=== PATIENT | female | born 1995 | race Caucasian/White ===

== ENCOUNTER 2016-08-11 12:04 | Inpatient (IN) | payer MEDICAID, SELFPAY ==
[2016-08-11] VITALS (29 sets, daily range): BP systolic 82–133; BP diastolic 48–103; PULSE 111–145; RESP 13–28; TEMP 35.9–37; O2SAT 97–100
--- NOTE | 2016-08-11 12:21 | NURSING ---
PT DIFFICULT TO GET A PERIPHERAL LINE AT THIS TIME. DR. ESTRADA AT BEDSIDE ATTEMPTING TO INSERT JUGULAR CENTRAL LINE. PT RESISTING AND BEING HELD BY RN, K 9 POLICE OFFICER, AND RT. PT NOT COOPERATING AND PHYSICIAN NOT ABLE. PERIPHERAL WILL NOW BE ATTEMPTED TO BE INSERTED.
--- NOTE | 2016-08-11 12:31 | ED.RN ---
20 MG OF ATOMIDATE GIVEN AT 1232; 50 MG OF FIDEL GIVEN AT 1232; 5 MG OF VERSED GIVEN AT 12:45 PRIOR TO PLACING CENTRAL LINE.
[2016-08-11 12:32] LABS: Base Excess -25 mmol/L (-2 to +2); Bicarbonate 4 mmol/L (22-26); Blood Gas Specimen Type ART; PO2 134 mmHG (75-100); SO2 98 % (95-99); Total Carbon Dioxide < 5 mmol/L; pH 7.12 (7.35-7.45)
--- NOTE | 2016-08-11 12:52 | EKG12_ITS ---
Test Reason : DKA Blood Pressure : / mmHG Vent. Rate : 147 BPM Atrial Rate : 147 BPM P-R Int : 118 ms QRS Dur : 078 ms QT Int : 282 ms P-R-T Axes : 074 -72 055 degrees QTc Int : 441 ms Sinus tachycardia Right atrial enlargement Left axis deviation Abnormal ECG Confirmed by MAXI HARO, HITESH ([id number]), material expeditor AROLDO PIERCE ([id number] on 08/13/2016 12:49:16 PM Referred By: SEAN Confirmed By:HITESH GERMAN MD
--- NOTE | 2016-08-11 12:52 | RAD_ITS ---
STUDY: X-RAY CHEST REASON FOR EXAM: Female, 20 years old. Hyperglycemia. History of drug abuse. Placement of endotracheal and NG tubes. TECHNIQUE: Single frontal view of the chest. COMPARISON: August 02, 2016 FINDINGS: Jugular catheter tip is projected over the lower SVC. Tip of the endotracheal tube is approximately 1.4 cm above the noel and should be retracted at least 2 cm. Tip of the feeding tube is projected over the fundus of the stomach. There is mild hyperexpansion unchanged. There is no demonstrated pleural abnormality. Normal size heart. Normal mediastinum and bernard. Normal visualized pulmonary arteries. Normal visualized aortic arch and descending thoracic aorta. Normal visualized thoracic spine. Normal visualized ribs, clavicles, and shoulders. There is no demonstrated abnormality of the visualized soft tissue structures of the upper abdomen. RAD/Chest 1 View (Portable) IMPRESSION: Placement of support devices as described above. No acute pathology. Electronically Signed: Josh Rosenbaum MD at 13:28 EDT , Service support ,
[2016-08-11] MEDS: Etomidate 20 MG/10 ML Vial IV (13:00)
[2016-08-11] MEDS: Rocuronium Bromide 50 MG/5 ML Vial IV ×2 (13:01→13:36)
[2016-08-11] MEDS: 0.9% Normal Saline 1,000 ML 1000 ML IV (13:02)
[2016-08-11] MEDS: Midazolam 5 MG/ML Syringe IV ×3 (13:04→13:39)
[2016-08-11 13:06] LABS: Bedside Glucose > 500 mg/dL (70-110)
[2016-08-11 13:47] LABS: International Normalized Ratio 1.3; Partial Thromboplast Time 27.4 Seconds (24.1-36.2); Prothrombin Time (Protime)PT. 15.5 SECONDS (11.7-14.9)
[2016-08-11 13:48] LABS: Alcohol, Blood (Medical)-Serum < 3.0 mg/dL; Hematocrit 47.8 % (37-47); Hemoglobin 12.9 g/dl (12.0-15.0); Mean Corpuscular Hgb 30.7 pg (27.0-32.0); Mean Corpuscular Volume 113.8 fL (81-99); Mean Platelet Vol. 10.7 fl (6.2-12.0); Platelet Count 560 K/mm3 (150-450); RBC Distribution Width CV 14.9 % (11.6-14.6)
[2016-08-11 13:54] LABS: Lactic Acid 2.3 mmol/L (0.4-2.0)
[2016-08-11 13:56] LABS: Pregnancy, Serum, hCG Quali. NEGATIVE Negative (0-9 Nonpreg)
[2016-08-11 14:00] LABS: Differential Indicated MANUAL DIFF; POSITIVE COUNT YES; POSITIVE DIFFERENTIAL NO; POSITIVE MORPHOLOGY YES
[2016-08-11 14:01] LABS: AST(SGOT) 92 U/L (15-37); Alanine Aminotransfer ALT/SGPT 124 U/L (12-78); Albumin, Serum 3.6 g/dL (3.4-5.0); Alkaline Phosphatase 194 U/L (45-117); Anion Gap 39 (5-15); BUN 47 mg/dL (7-18); Bilirubin, Direct 0.13 mg/dL (0.00-0.30); Calcium,Total 10.8 mg/dL (8.5-10.1); Chloride 81 mmol/L (98-107); Creatinine, Serum 1.96 mg/dL (0.55-1.02); EST Glomerular Filtration Rate 35 mL/min (>60); Est Glom Filt Rate - Afr Amer 42 mL/min (>60); Estimated Creatinine Clearance 35.71 ml/min; Globulin 6.2 g/dL (2.3-3.5); Glucose 1383 mg/dL (70-110); Lipase 354 U/L (73-393); Potassium 5.7 mmol/L (3.5-5.1); Protein, Total 9.8 g/dL (6.4-8.2); Sodium Level 128 mmol/L (136-145)
[2016-08-11 14:08] LABS: Anisocytosis 2+; Basophil 1 % (0-1); Lymphocyte 23 % (19-41); Macrocytosis 2+; Metamyelocyte 1 % (0-1); Monocyte 2 % (0-10); Myelocyte 6 (0-0); Neutrophil-Band 5 % (0-5); Neutrophil-Segmented 62 % (47-70); Platelet Estimate ADEQUATE (ADEQ); Total Cells Counted 100 (MANUAL DIFF)
[2016-08-11 14:09] LABS: Absolute Neutrophil Count 17.8 X10^3/uL (2.0-7.7)
[2016-08-11 14:10] LABS: Absolute Lymphocyte Count 5.52 X10^3/ul (0.83-4.51)
--- NOTE | 2016-08-11 14:25 | ED.DCSUM_ITS ---
- ER Visit Summary Date of Service: 08/11/16 Chief Complaint: Unresponsive [] History of Present Illness: The patient is a 20 F Who [facility] at [facility] to be stuporous. She was not making sense or intelligible comments. Patient has a history of DKA and substance abuse. EMS noted elevated blood sugar. Review of systems is unable to be performed due to mental status. [] Physical Examination: 101/68 heart rate 142 respirations are 25 pulse ox is 99% with bag ventilations temperature 96.6 Gen: Well-nourished well-developed Head: Normocephalic atraumatic Eyes: Perrl EOMI ENT: TMs clear no rhinorrhea moist mucous membranes Neck: Supple no lymphadenopathy no JVD nontender CVS: Tachycardic regular rate rhythm no murmurs normal S1-S2 Respiratory: No distress clear to auscultation bilaterally chest nontender tachypneic without distress Abdomen: Soft nontender nondistended normal bowel sounds no masses : Vaginal discharge Back: Nontender Extremity: Nontender no edema Skin: Normal color no rash Neuro: Patient is stuporous unintelligible comments not directable Test Results: Patient significantly hyperglycemic. She is acidotic. Elevated lactic acid. EKG shows sinus tachycardia at a rate of 147. There is peak T waves. On her BMP her potassium is 5.7. Her creatinine is significantly elevated off of baseline which is 0.5 today 1.96. [] Emergency Department Course and Treatment: Patient was unable to cooperate for central line placement. A small peripheral IV was located in the foot. Decision made to intubate her. Patient received etomidate and rocuronium. A 7.5 endotracheal tube was passed through the cords on the first attempt without any difficulty. Was secured in the place at 23 cm. This was later pulled back 2 cm based on chest x-ray. Patient was Sedated with Versed. A right IJ central line was placed using the modified Seldinger technique under ultrasound guidance. This was obtained without difficulty and was secured. Chest x-ray shows adequate placement. Patient has been receiving IV fluids. Insulin drip has been started. Due to the vaginal discharge GC and chlamydia from the urine was sent. Plan is admission to the ICU. [] Disposition: Admit ICU [] Impression: 1. Diabetic ketoacidosis 2. Respiratory failure with intubation by physician 3. Central line by physician 4. Critical care time 35 minutes 5. Acute renal failure [] ED Disposition - Plan for ED Patient: Chief Complaint: Hyperglycemia Referrals: Care Physician,No Primary [Primary Care Provider] -
[2016-08-11] MEDS: 0.9% Normal Saline 1,000 ML 999 ML IV (14:28)
[2016-08-11 14:30] LABS: Bacteria 0 SEEN /hpf (None Seen); Mucous, Urine 0 SEEN /hpf (<or=2+); Red Blood Cells-Urine 0 SEEN /hpf (0-5); White Blood Cells 0 SEEN /hpf (0-5)
[2016-08-11 14:35] LABS: Color, Urine Yellow (Yellow); Glucose, Dipstick 1000 mg/dl (Normal); Leukocyte Esterase-Dipstick Negative /ul (Negative); Nitrite-Dipstick Negative (Negative); Occult Blood-Urine Negative /ul (Negative); Protein-Dipstick 30 mg/dl (Negative); Specific Gravity, Urine 1.015 (1.002-1.030); Urine Bilirubin Dipstick Negative (Negative); Urine Clarity Clear (Clear); Urine Urobilinogen Normal (Normal)
[2016-08-11 14:38] LABS: Ketone-Dipstick 150 mg/dl (Negative)
--- NOTE | 2016-08-11 14:39 | PCM.HP.STD ---
Problem List (1) Acute renal failure Status: Acute (2) Hepatitis C Status: Chronic (3) Dehydration Status: Acute (4) Vaginitis Status: Acute (5) Abnormal LFTs Status: Chronic (6) DKA (diabetic ketoacidoses) Status: Acute Qualifiers: Diabetes mellitus type: type 1 Diabetes mellitus complication detail: with coma Qualified Code(s): E10.11 - Type 1 diabetes mellitus with ketoacidosis with coma (7) MRSA (methicillin resistant Staphylococcus aureus) infection Status: Acute Comment: right 5th toe....discharged from the hospital on 08/05 on Doxycycline (8) Substance abuse Status: Chronic Comment: polysubstance abuse including heroin and methamphetamine History of Present Illness Date of Admission: 08/11/16 Chief Complaint: brought in by squad...incoherent. Intubated in the ER The patient is a 20 year old F with PMH of Dm I, polysubstance abuse, non-compliance, numerous admission for DKA brought to the ER incoherent. Just discharged from the hospital on 08/05. Was not intubated at that time. Had a infected right 5th toe with MRSA and was discharged on Doxycycline. She was intubated in the Er and is currently on a versed drip. also got Rocuronium. Telemetry shows ST. temp 96.6, heart rate 142, blood pressure 101/68, 99% on mechanical ventilation. Chest x-ray with hyperexpansion and no infiltrates. White blood cell count is 24,000. Hemoglobin is 12.9 and at discharge was 9.4. Platelets are 560,000. PT is 15.5 and the PTT is 27.4. ABG at admission showed a pH of 7.12, PCO2 13 and PO2 134 on room air. Sodium is low at 128, potassium is 5.7, serum bicarb is 8 with an anion gap of 39. BUN is 47 with a creatinine of 1.96 and her blood sugar is 1383. Lactic acid is 2.3. AST is elevated at 92 with an ALT of 124 and alkaline phosphatase of 194. Bilirubin is within normal limits. Serum is negative. Urine has 0 WBCs. Drug screen is pending. Dr. Wells has sent Vag DC for chlamydia and gonorrhea. Lactic acid is increased due to ARF, dehydration with poor perfusion and no due to sepsis. Will admit to the ICU for DKA. Past Medical History Past Medical History (Chronic Problems): Chronic Problems Abnormal LFTs (Chronic) Hepatitis C (Chronic) Substance abuse (Chronic) polysubstance abuse including heroin and methamphetamine Allergies No Known Allergies Allergy (Verified 08/11/16 12:10) Home Medications: Ambulatory Orders Medication Instructions Recorded Doxycycline [Vibramycin] 100 mg PO BID #20 capsule 08/04/16 Insulin Glargine,Hum.rec.anlog 25 unit SQ BID #1 08/04/16 [Lantus] Insulin Lispro [Humalog] 15 unit SQ TIDCM 08/04/16 Surgical History: - - Hepatitis C, polysubstance abuse, history of MRSA infection Psychiatric History: Depression Smoking Status: Current every day smoker Tobacco Use: Cigarettes Drugs: - - Methamphetamine - *Family History Maternal History Items: Unknown Paternal History Items: Unknown Review of Systems Unable to obtain accurate/complete ROS d/t: can not obtain, pt intubated and was incoherent prior to intubation VTE Information - Inpt Only VTE Present on Admission: No VTE Mechan Device Prophylaxis: SCD's, Knee High CHRISTOPHER Hose VTE Pharm Prophylaxis ordered?: Yes Patient Problems: Active and Suspected Problems Acute renal failure (Acute) Dehydration (Acute) Vaginitis (Acute) - Physical Exam General: - - incoherent at presentation to the ER and intubated at the time of my exam HEENT: Normocephalic, - - multiple scars on the face from acne and trevino related to smoking meth Oral: Dry Mucosa Neck: Supple, No JVD, No Nodes, No Nuchal Rigidity Lungs: Clear to auscultation, - - not tachypneic because she has been paralyzed in the ER and is now not able to compensate for the metabolic acidosis Cardiovascular: Regular Rhythm, Normal S1, Normal S2, No murmurs, No rub noted, No Gallop, Tachycardic Abdomen: Bowel Sounds Present, Soft, Non-Distended Extremities: No clubbing, No cyanosis, No edema Skin: - - she has a scab on the right fifth toe.....no DC could be expressed. No erythema and no warmth to touch Musculoskeletal: Muscle Wasting Vital Signs Temp Pulse Resp BP Pulse Ox 96.6 F 138 16 97/64 99 08/11/16 12:06 08/11/16 14:23 08/11/16 14:23 08/11/16 14:23 08/11/16 14:23 Oxygen Delivery Method Mechanical Ventilator Weight: 108 lb 0.424 oz Body Mass Index (BMI) 0.0 Finger Stick Blood Glucose 224 Laboratory Tests Past 24 Hrs 08/11/16 08/11/16 08/11/16 12:13 13:20 13:20 WBC 24.0 H RBC 4.20 Hgb 12.9 Hct 47.8 H MCV 113.8 H MCH 30.7 MCHC 27.0 L RDW 14.9 H RDW Differential 62.0 H Plt Count 560 H MPV 10.7 Neut % (Auto) Not Reportable Absolute Neuts (auto) 17.8 H Absolute Lymphs (auto) 5.52 H Total Counted 100 Neutrophils % (Manual) 62 Band Neutrophils % 5 Lymphocytes % (Manual) 23 Monocytes % (Manual) 2 Basophils % (Manual) 1 Metamyelocytes % 1 Myelocytes % 6 H Diff Path Review May foll Platelet Estimate ADEQUATE Anisocytosis 2+ Macrocytosis 2+ PT 15.5 H INR 1.3 APTT 27.4 Specimen Type ART pH 7.12 L* Bicarbonate Actual 4 L POC Total CO2 < 5 Base Excess -25 L O2 Saturation 98 ABG pCO2 13.0 L* ABG pO2 134 H Sodium Potassium Chloride Carbon Dioxide Anion Gap BUN Creatinine Estim Creat Clear Calc Est GFR (MDRD) Af Amer Est GFR (MDRD) Non-Af BUN/Creatinine Ratio Glucose Lactic Acid Calcium Total Bilirubin Direct Bilirubin AST ALT Alkaline Phosphatase Troponin I Total Protein Albumin Globulin Lipase Serum , Qual Urine Color Urine Clarity Urine pH Ur Specific [place] Urine Protein Urine Glucose (UA) Urine Ketones Urine Occult Blood Urine Nitrite Urine Bilirubin Urine Urobilinogen Ur Leukocyte Esterase Urine RBC Urine WBC Ur Squamous Epith Cells Urine Bacteria Urine Mucus Urine Opiates Screen Urine Methadone Screen Ur Barbiturates Screen Ur Phencyclidine Scrn Ur Amphetamines Screen U Methamphetamin-MDMA U Benzodiazepines Scrn Urine Cocaine Screen U Cannabinoids Screen Ur Drug Screen Comment Ethyl Alcohol Acetone Level Chlam trachomat DNA PCR N.gonorrhoeae DNA (PCR) 08/11/16 08/11/16 08/11/16 13:20 13:20 13:20 WBC RBC Hgb Hct MCV MCH MCHC RDW RDW Differential Plt Count MPV Neut % (Auto) Absolute Neuts (auto) Absolute Lymphs (auto) Total Counted Neutrophils % (Manual) Band Neutrophils % Lymphocytes % (Manual) Monocytes % (Manual) Basophils % (Manual) Metamyelocytes % Myelocytes % Diff Path Review Platelet Estimate Anisocytosis Macrocytosis PT INR APTT Specimen Type pH Bicarbonate Actual POC Total CO2 Base Excess O2 Saturation ABG pCO2 ABG pO2 Sodium 128 L Potassium 5.7 H Chloride 81 L Carbon Dioxide 8.0 L* Anion Gap 39 H BUN 47 H Creatinine 1.96 H Estim Creat Clear Calc 35.71 Est GFR (MDRD) Af Amer 42 L Est GFR (MDRD) Non-Af 35 L BUN/Creatinine Ratio 24.0 H Glucose 1383 H* Lactic Acid 2.3 H Calcium 10.8 H Total Bilirubin 0.60 Direct Bilirubin 0.13 AST 92 H ALT 124 H Alkaline Phosphatase 194 H Troponin I < 0.02 Total Protein 9.8 H Albumin 3.6 Globulin 6.2 H Lipase 354 Serum , Qual Urine Color Urine Clarity Urine pH Ur Specific [place] Urine Protein Urine Glucose (UA) Urine Ketones Urine Occult Blood Urine Nitrite Urine Bilirubin Urine Urobilinogen Ur Leukocyte Esterase Urine RBC Urine WBC Ur Squamous Epith Cells Urine Bacteria Urine Mucus Urine Opiates Screen Urine Methadone Screen Ur Barbiturates Screen Ur Phencyclidine Scrn Ur Amphetamines Screen U Methamphetamin-MDMA U Benzodiazepines Scrn Urine Cocaine Screen U Cannabinoids Screen Ur Drug Screen Comment Ethyl Alcohol < 3.0 Acetone Level Chlam trachomat DNA PCR N.gonorrhoeae DNA (PCR) 08/11/16 08/11/16 08/11/16 13:20 13:20 13:26 WBC RBC Hgb Hct MCV MCH MCHC RDW RDW Differential Plt Count MPV Neut % (Auto) Absolute Neuts (auto) Absolute Lymphs (auto) Total Counted Neutrophils % (Manual) Band Neutrophils % Lymphocytes % (Manual) Monocytes % (Manual) Basophils % (Manual) Metamyelocytes % Myelocytes % Diff Path Review Platelet Estimate Anisocytosis Macrocytosis PT INR APTT Specimen Type pH Bicarbonate Actual POC Total CO2 Base Excess O2 Saturation ABG pCO2 ABG pO2 Sodium Potassium Chloride Carbon Dioxide Anion Gap BUN Creatinine Estim Creat Clear Calc Est GFR (MDRD) Af Amer Est GFR (MDRD) Non-Af BUN/Creatinine Ratio Glucose Lactic Acid Calcium Total Bilirubin Direct Bilirubin AST ALT Alkaline Phosphatase Troponin I Total Protein Albumin Globulin Lipase Serum , Qual NEGATIVE Urine Color Yellow Urine Clarity Clear Urine pH 6.0 Ur Specific [place] 1.015 Urine Protein 30 H Urine Glucose (UA) 1000 H Urine Ketones 150 H Urine Occult Blood Negative Urine Nitrite Negative Urine Bilirubin Negative Urine Urobilinogen Normal Ur Leukocyte Esterase Negative Urine RBC Pending Urine WBC Pending Ur Squamous Epith Cells Pending Urine Bacteria Pending Urine Mucus Pending Urine Opiates Screen Urine Methadone Screen Ur Barbiturates Screen Ur Phencyclidine Scrn Ur Amphetamines Screen U Methamphetamin-MDMA U Benzodiazepines Scrn Urine Cocaine Screen U Cannabinoids Screen Ur Drug Screen Comment Ethyl Alcohol Acetone Level SMALL H Chlam trachomat DNA PCR N.gonorrhoeae DNA (PCR) 08/11/16 08/11/16 08/11/16 13:26 13:26 13:42 WBC RBC Hgb Hct MCV MCH MCHC RDW RDW Differential Plt Count MPV Neut % (Auto) Absolute Neuts (auto) Absolute Lymphs (auto) Total Counted Neutrophils % (Manual) Band Neutrophils % Lymphocytes % (Manual) Monocytes % (Manual) Basophils % (Manual) Metamyelocytes % Myelocytes % Diff Path Review Platelet Estimate Anisocytosis Macrocytosis PT INR APTT Specimen Type pH Bicarbonate Actual POC Total CO2 Base Excess O2 Saturation ABG pCO2 ABG pO2 Sodium Potassium Chloride Carbon Dioxide Anion Gap BUN Creatinine Estim Creat Clear Calc Est GFR (MDRD) Af Amer Est GFR (MDRD) Non-Af BUN/Creatinine Ratio Glucose Lactic Acid Calcium Total Bilirubin Direct Bilirubin AST ALT Alkaline Phosphatase Troponin I Total Protein Albumin Globulin Lipase Serum , Qual Urine Color Urine Clarity Urine pH Ur Specific [place] Urine Protein Urine Glucose (UA) Urine Ketones Urine Occult Blood Urine Nitrite Urine Bilirubin Urine Urobilinogen Ur Leukocyte Esterase Urine RBC Urine WBC Ur Squamous Epith Cells Urine Bacteria Urine Mucus Urine Opiates Screen Pending Urine Methadone Screen Pending Ur Barbiturates Screen Pending Ur Phencyclidine Scrn Pending Ur Amphetamines Screen Pending U Methamphetamin-MDMA Pending U Benzodiazepines Scrn Pending Urine Cocaine Screen Pending U Cannabinoids Screen Pending Ur Drug Screen Comment Ethyl Alcohol Acetone Level Chlam trachomat DNA PCR Pending N.gonorrhoeae DNA (PCR) Pending POC Glucose 08/11/16 12:07 POC Glucose > 500 H* Assessment/Plan Active and Suspected Problems Acute renal failure (Acute) Dehydration (Acute) Vaginitis (Acute) Impressions 1. DKA with coma 2. DM I 3. ARF 4. dehydration 5. vaginitis 6. recent cellulitis of the right fifth toe - culture + for MRSA....no evidence cellulitis currently 7. polysubstance abuse 8. abnormal LFT's, chronic, with hx of Hepatitis C 9. Hepatitis C Admit to the ICU and initiate the DKA protocol continue Doxycycline ....unlikely she took the antibiotics she was discharged on Prognosis for her continued survival is very poor. Has refused drug rehab on numerous occasions. Doubt [facility] will take her back she she is using meth at their facility. She has no family to support her. Numerous attempts by hospital staff, crisis, SW's to get her help...she refuses. She is being admitted to the hospital more and more frequently....losing weight. Denies being suicidal, but does not care for herself. Would be better off in senior living at this point. Sadly I foresee her in the near future unless she has an epiphany.
[2016-08-11 14:44] LABS: Squamous Epithelial Cells - UA 0-5 SEEN /hpf (5-10)
--- NOTE | 2016-08-11 14:55 | ED.RN ---
RN CALLED ICU TO SEE IF THEY OBTAINED REPORT. SHARLA RODRIGUEZ WILL TAKE REPORT AFTER RETURNING FROM [facility] IN 15 MIN
[2016-08-11 15:02] LABS: Amphetamine Urine VISTA POSITIVE (<1000 ng/mL); Barbiturate Urine VISTA NEGATIVE (< 200 ng/mL); Benzodiazepine Urine VISTA NEGATIVE (< 200 ng/mL); Cocaine Urine VISTA NEGATIVE (< 300 ng/mL); Ecstacy Urine VISTA NEGATIVE (< 500 ng/mL); Methadone Urine VISTA NEGATIVE (< 300 ng/mL); PCP Urine VISTA NEGATIVE (< 25 ng/mL); THC Urine VISTA NEGATIVE (< 50 ng/mL); Vista UDS pH Range 5
[2016-08-11] MEDS: Propofol 10MG/Ml 1,000 MG/100 ML Bottle 1.47 MG CONT INF (15:45)
[2016-08-11] MEDS: 0.9% Normal Saline 1,000 ML 250 ML IV (16:10)
[2016-08-11 16:13] LABS: Bacteria 0 SEEN /hpf (None Seen)
[2016-08-11 16:15] LABS: Base Excess -21 mmol/L (-2 to +2); Bicarbonate 8 mmol/L (22-26); Blood Gas Specimen Type ART; PO2 168 mmHG (75-100); SO2 99 % (95-99); Total Carbon Dioxide 9 mmol/L; pH 7.11 (7.35-7.45)
[2016-08-11 16:28] LABS: Color, Urine Yellow (Yellow); Glucose, Dipstick 1000 mg/dl (Normal); Leukocyte Esterase-Dipstick Negative /ul (Negative); Nitrite-Dipstick Negative (Negative); Occult Blood-Urine Negative /ul (Negative); Protein-Dipstick 30 mg/dl (Negative); Specific Gravity, Urine 1.015 (1.002-1.030); Urine Bilirubin Dipstick Negative (Negative); Urine Clarity Clear (Clear); Urine Urobilinogen Normal (Normal)
[2016-08-11] MEDS: 0.9% Normal Saline 1,000 ML 500 ML IV ×2 (16:30→19:31)
[2016-08-11 16:35] LABS: Internal QC Validated? YES +Cl - CLEAR BKGD
[2016-08-11 16:36] LABS: Pregnancy, Urine Negative Negative
[2016-08-11 16:38] LABS: Ketone-Dipstick 150 mg/dl (Negative)
[2016-08-11 16:39] LABS: Lactic Acid 1.8 mmol/L (0.4-2.0)
[2016-08-11 17:00] LABS: Anion Gap 28 (5-15); BUN 44 mg/dL (7-18); BUN/Creat Ratio 24.6 RATIO (10-20); Chloride 102 mmol/L (98-107); Creatinine, Serum 1.79 mg/dL (0.55-1.02); EST Glomerular Filtration Rate 39 mL/min (>60); Est Glom Filt Rate - Afr Amer 47 mL/min (>60); Estimated Creatinine Clearance 40.94 ml/min; Glucose 953 mg/dL (70-110); Magnesium 2.7 mg/dL (1.8-2.4); Potassium 4.8 mmol/L (3.5-5.1); Sodium Level 141 mmol/L (136-145)
[2016-08-11 17:03] LABS: Mucous, Urine RARE /hpf (<or=2+); Red Blood Cells-Urine 0-5 SEEN /hpf (0-5); Squamous Epithelial Cells - UA 0-5 SEEN /hpf (5-10)
[2016-08-11 17:04] LABS: White Blood Cells 0 SEEN /hpf (0-5)
[2016-08-11 17:31] LABS: Bedside Glucose > 500 mg/dL (70-110)
[2016-08-11 18:20] LABS: Bedside Glucose 443 mg/dL (70-110)
[2016-08-11 18:23] LABS: Glucose 620 mg/dL (70-110)
[2016-08-11 18:33] LABS: Chlamydia Trachomatis by PCR Negative (Negative); Neisserai gonorrhoeae by PCR Negative (Negative); Probe Check PASS; Sample Adequacy Control PASS; Specimen Processing Control PASS
[2016-08-11 18:34] LABS: M R Staph aureus DNA By PCR POSITIVE (Negative); Probe Check PASS
[2016-08-11 19:16] LABS: Bedside Glucose 419 mg/dL (70-110)
[2016-08-11 19:36] LABS: Anion Gap 20 (5-15); BUN 37 mg/dL (7-18); BUN/Creat Ratio 22.7 RATIO (10-20); Calcium,Total 8.8 mg/dL (8.5-10.1); Chloride 113 mmol/L (98-107); Creatinine, Serum 1.63 mg/dL (0.55-1.02); EST Glomerular Filtration Rate 43 mL/min (>60); Est Glom Filt Rate - Afr Amer 52 mL/min (>60); Estimated Creatinine Clearance 44.96 ml/min; Glucose 454 mg/dL (70-110); Sodium Level 151 mmol/L (136-145)
[2016-08-11 20:06] LABS: Bedside Glucose 397 mg/dL (70-110)
[2016-08-11] MEDS: Heparin Injection 5,000 UNITS/ML Syringe 5000 UNITS SC (21:17)
[2016-08-11] MEDS: Chlorhexidine 15 ML PO (21:18)
[2016-08-11 21:21] LABS: CPK Total, Creatine Kinase 22 U/L (26-192); Triglycerides 1138 mg/dL
[2016-08-11 22:07] LABS: Bedside Glucose 367 mg/dL (70-110)
[2016-08-11 22:07] LABS: Bedside Glucose 361 mg/dL (70-110)
[2016-08-11 23:21] LABS: Bedside Glucose 423 mg/dL (70-110)
[2016-08-11 23:36] LABS: Anion Gap 13 (5-15); BUN 28 mg/dL (7-18); BUN/Creat Ratio 24.3 RATIO (10-20); Calcium,Total 8.4 mg/dL (8.5-10.1); Chloride 115 mmol/L (98-107); Creatinine, Serum 1.15 mg/dL (0.55-1.02); EST Glomerular Filtration Rate 64 mL/min (>60); Est Glom Filt Rate - Afr Amer 78 mL/min (>60); Estimated Creatinine Clearance 63.72 ml/min; Glucose 430 mg/dL (70-110); Potassium 4.3 mmol/L (3.5-5.1); Sodium Level 151 mmol/L (136-145)
[2016-08-12] VITALS (44 sets, daily range): BP systolic 72–99; BP diastolic 42–70; PULSE 58–120; RESP 15–40; TEMP 34.4–36.8; O2SAT 98–100
[2016-08-12 00:06] LABS: Bedside Glucose 343 mg/dL (70-110)
[2016-08-12] MEDS: fentaNYL 100 MCG/2 ML Ampul IV (01:35)
[2016-08-12 02:06] LABS: Bedside Glucose 287 mg/dL (70-110)
[2016-08-12 02:11] LABS: Bedside Glucose 308 mg/dL (70-110)
[2016-08-12 03:33] LABS: ALB/GLOB Ratio 0.6 RATIO (0.9-2.4); AST(SGOT) 46 U/L (15-37); Alanine Aminotransfer ALT/SGPT 80 U/L (12-78); Albumin, Serum 2.5 g/dL (3.4-5.0); Alkaline Phosphatase 105 U/L (45-117); Anion Gap 9 (5-15); BUN 23 mg/dL (7-18); BUN/Creat Ratio 18.5 RATIO (10-20); Calcium,Total 8.5 mg/dL (8.5-10.1); Chloride 112 mmol/L (98-107); Creatinine, Serum 1.24 mg/dL (0.55-1.02); EST Glomerular Filtration Rate 59 mL/min (>60); Est Glom Filt Rate - Afr Amer 71 mL/min (>60); Globulin 4.4 g/dL (2.3-3.5); Glucose 305 mg/dL (70-110); Magnesium 2.4 mg/dL (1.8-2.4); Phosphorus 1.9 mg/dL (2.5-4.9); Potassium 3.9 mmol/L (3.5-5.1); Protein, Total 6.9 g/dL (6.4-8.2); Sodium Level 149 mmol/L (136-145)
[2016-08-12 03:38] LABS: Hematocrit 29.6 % (37-47); Hemoglobin 9.3 g/dl (12.0-15.0); Mean Corp Hgb Conc 31.4 g/gl (32-36); Mean Corpuscular Hgb 29.9 pg (27.0-32.0); Mean Corpuscular Volume 95.2 fL (81-99); Mean Platelet Vol. 9.5 fl (6.2-12.0); Platelet Count 333 K/mm3 (150-450); RBC Distribution Width CV 15.1 % (11.6-14.6); RBC Distribution Width SD 50.3 fl (35.1-43.9); Red Blood Count 3.11 M/mm3 (4.2-5.4); White Blood Count 14.4 K/mm3 (4.4-11.0)
[2016-08-12 04:07] LABS: Lymphocyte 28 % (19-41); Metamyelocyte 2 % (0-1); Monocyte 5 % (0-10); Myelocyte 2 (0-0); Neutrophil-Band 12 % (0-5); Neutrophil-Segmented 51 % (47-70); Total Cells Counted 100 (MANUAL DIFF)
[2016-08-12 04:08] LABS: Differential Indicated MANUAL DIFF; POSITIVE COUNT YES; POSITIVE DIFFERENTIAL NO; POSITIVE MORPHOLOGY YES
[2016-08-12 04:09] LABS: Absolute Lymphocyte Count 4.03 X10^3/ul (0.83-4.51); Absolute Neutrophil Count 9.6 X10^3/uL (2.0-7.7); Lymphocyte # 4.03 X10^3/ul (4.0); Neutrophil # 9.65 X10^3/uL (2.7-7.7)
[2016-08-12 04:10] LABS: Anisocytosis 1+; Hypochromasia 1+; Platelet Estimate ADEQUATE (ADEQ)
[2016-08-12 04:11] LABS: Macrocytosis RARE
[2016-08-12 04:11] LABS: Bedside Glucose 250 mg/dL (70-110)
[2016-08-12 04:11] LABS: Bedside Glucose 292 mg/dL (70-110)
[2016-08-12] MEDS: Heparin Injection 5,000 UNITS/ML Syringe 5000 UNITS SC ×3 (05:10→21:46)
--- NOTE | 2016-08-12 05:55 | RAD_ITS ---
STUDY: X-RAY CHEST REASON FOR EXAM: Female, 20 years old. Shortness of breath, intubated TECHNIQUE: Single AP portable view of the chest. COMPARISON: 08/11/2016. 08/02/2016. FINDINGS: The endotracheal tube tip is 3 cm superior to the noel. The enteric tube tip is over the gastric body/antrum. The right internal jugular catheter extensive to the cavoatrial junction. There is no demonstrated pneumothorax. There are superimposed monitor leads. New right mild infra hilar interstitial pattern. There is no demonstrated pleural abnormality. Normal size heart. Normal mediastinum and bernard. Normal visualized pulmonary arteries. Normal visualized aortic arch and descending thoracic aorta. Normal visualized thoracic spine. Normal visualized ribs, clavicles, and shoulders. There is no demonstrated abnormality of the visualized soft tissue structures of the upper abdomen. RAD/Chest 1 View IMPRESSION: Lines are in good position as above. Right infrahilar opacification may be due to slight rotation on the current examination and possible atelectasis. Early infiltrate is not excluded. This was not seen on previous exams. Electronically Signed: Genny Schulz MD at 5:06 EDT , Service support ,
[2016-08-12 06:11] LABS: Bedside Glucose 201 mg/dL (70-110)
[2016-08-12 06:11] LABS: Bedside Glucose 219 mg/dL (70-110)
--- NOTE | 2016-08-12 06:59 | PCM.CON.CC ---
Problem List (1) DKA (diabetic ketoacidoses) Status: Acute Qualifiers: Diabetes mellitus type: type 1 Diabetes mellitus complication detail: without coma Qualified Code(s): E10.10 - Type 1 diabetes mellitus with ketoacidosis without coma Reason for Consult Date of Consultation: 08/12/16 Reason for Consultation: Diabetic ketoacidosis/acute respiratory failure History of Present Illness: The patient is a 20-year-old female, well-known to the hospital system, who presented on August 11 in a stuporous state in the setting of diabetic ketoacidosis. The patient was reportedly found unresponsive in a [facility]. She had just been admitted to the hospital August 02 with DKA secondary to medication noncompliance along with a cutaneous MRSA infection. The patient was discharged home on a 10 day course of doxycycline. She was also given Lantus and Humalog. The patient was not intubated during her previous hospital admission. This will make the patient's seventh hospital admission for DKA since the beginning of 2016. On presentation to the emergency department, the patient was noted to be afebrile, tachycardic and hemodynamically stable. She was maintaining appropriate oxygen saturations on room air. Initial laboratory evaluation revealed an elevated white blood cell count to 24,000. Coagulation profile was within normal limits. Chemistry profile was notable for a sodium of 128, potassium of 5.7, chloride of 81 bicarbonate of 8 and acute kidney injury with a creatinine of 1.96. The patient's blood glucose was noted to be 1383. Lactic acid was mildly elevated to 2.3. Toxicology screen was positive for amphetamines. MRSA screen was positive. Plain film chest x-ray showed no acute cardiopulmonary process. While in the emergency department, the patient was noted to be uncooperative with central line placement. Therefore, the decision was made to electively intubate the patient. The patient was started on IV fluids and a continuous insulin infusion. She was subsequently transferred to the medical intensive care unit for ongoing management. Overnight, the patient was noted to be exceedingly agitated at times. She was maintained on a fentanyl drip for sedation purposes. This morning, her sedation was interrupted to allow for a spontaneous breathing trial. However, she became agitated and tachypneic once again, necessitating the termination of the breathing trial. She was placed back on assist control mode mechanical ventilation. Her anion gap has been closed ?2. Despite this, she has not been discontinued from the continuous insulin infusion. Although consideration was given to initiation of propofol overnight, the patient's triglyceride level was noted to be 1138. The patient has not had a fever during this hospital admission. Nevertheless, she does have a 12% bandemia on this morning's CBC. Past Medical History Allergies No Known Allergies Allergy (Verified 08/11/16 17:57) Home Medications: Ambulatory Orders Medication Instructions Recorded Doxycycline [Vibramycin] 100 mg PO BID #20 capsule 08/04/16 Insulin Glargine,Hum.rec.anlog 25 unit SQ BID #1 08/04/16 [Lantus] Insulin Lispro [Humalog] 15 unit SQ TIDCM 08/04/16 Surgical History: - - Hepatitis C, polysubstance abuse, history of MRSA infection Psychiatric History: Depression Smoking Status: Current every day smoker Tobacco Use: Cigarettes Drugs: - - Methamphetamine - *Family History Maternal History Items: Unknown Paternal History Items: Unknown Review of Systems Unable to obtain accurate/complete ROS d/t: Due to current intubation and mechanical ventilation status Objective: The patient's most recent lab work, culture data and imaging studies have all been personally reviewed. Plain film chest x-ray revealed stable life support devices without an acute cardiopulmonary process. Blood and urine cultures are currently pending. - Physical Exam General: - - Intubated, sedated and mechanically ventilated. Tolerating assist control mode of mechanical ventilation currently. HEENT: Atraumatic, PERRLA, Normocephalic Oral: No Gingival or Mucosal Lesions/ Ulcerations, Dry Mucosa, - - Endotracheal and OG tube in place. Neck: Supple, No JVD, Trachea Midline, - - Right-sided central venous catheter in place Lungs: - - Mechanical breath sounds. Clear across anterior lung [place]. Cardiovascular: Normal S1, Normal S2, No murmurs, No rub noted, No Gallop, Tachycardic Abdomen: Bowel Sounds Present, Soft, Non Tender, Non-Distended Extremities: No clubbing, No cyanosis, No edema, Capillary Refill Less than 3 Seconds Skin: No rashes, No breakdown Musculoskeletal: No Tenderness to Palpation of Joints or Extremities Lymphatic: No Cervical, Supraclavicular, or Inguinal Adenopathy Neurological: - - No focal neurological deficits. Attempts to move all extremities spontaneously. Currently sedated. RASS of -1 Vital Signs Temp Pulse Resp BP Pulse Ox 36.4 C 93 40 96/65 100 08/12/16 06:00 08/12/16 06:33 08/12/16 06:49 08/12/16 06:00 08/12/16 06:33 Oxygen Flow Rate 35 Oxygen Delivery Method Mechanical Ventilator Weight: 51.6 kg Body Mass Index (BMI) 20.0 Finger Stick Blood Glucose 176 Intake and Output for Last 24 Hours 08/10/16 08/11/16 08/12/16 23:59 23:59 23:59 Intake Total 3033.8 1174.5 Output Total 2250 450 Balance 783.8 724.5 Laboratory Tests Past 24 Hrs 08/11/16 08/11/16 08/11/16 15:53 16:00 16:00 WBC RBC Hgb Hct MCV MCH MCHC RDW RDW Differential Plt Count MPV Neut % (Auto) Absolute Neuts (auto) Absolute Lymphs (auto) Total Counted Neutrophils % (Manual) Band Neutrophils % Lymphocytes % (Manual) Monocytes % (Manual) Metamyelocytes % Myelocytes % Diff Path Review Platelet Estimate Hypochromasia Anisocytosis Macrocytosis Specimen Type ART pH 7.11 L* Bicarbonate Actual 8 L POC Total CO2 9 Base Excess -21 L O2 Saturation 99 ABG pCO2 26.0 L ABG pO2 168 H Sodium Potassium Chloride Carbon Dioxide Anion Gap BUN Creatinine Estim Creat Clear Calc Est GFR (MDRD) Af Amer Est GFR (MDRD) Non-Af BUN/Creatinine Ratio Glucose Cancelled Lactic Acid Calcium Phosphorus Magnesium Cancelled Total Bilirubin AST ALT Alkaline Phosphatase Total Creatine Kinase Total Protein Albumin Globulin Albumin/Globulin Ratio Triglycerides Urine Color Urine Clarity Urine pH Ur Specific [place] Urine Protein Urine Glucose (UA) Urine Ketones Urine Occult Blood Urine Nitrite Urine Bilirubin Urine Urobilinogen Ur Leukocyte Esterase Urine RBC Urine WBC Ur Squamous Epith Cells Urine Bacteria Urine Mucus Urine Test Acetone Level Chlam trachomat DNA PCR Negative HIV 1&2 Ag/Ab, 4th Gen N.gonorrhoeae DNA (PCR) Negative MRSA (PCR) 08/11/16 08/11/16 08/11/16 16:00 16:00 16:00 WBC RBC Hgb Hct MCV MCH MCHC RDW RDW Differential Plt Count MPV Neut % (Auto) Absolute Neuts (auto) Absolute Lymphs (auto) Total Counted Neutrophils % (Manual) Band Neutrophils % Lymphocytes % (Manual) Monocytes % (Manual) Metamyelocytes % Myelocytes % Diff Path Review Platelet Estimate Hypochromasia Anisocytosis Macrocytosis Specimen Type pH Bicarbonate Actual POC Total CO2 Base Excess O2 Saturation ABG pCO2 ABG pO2 Sodium 141 Potassium 4.8 Chloride 102 Carbon Dioxide 11.0 L Anion Gap 28 H BUN 44 H Creatinine 1.79 H Estim Creat Clear Calc 40.94 Est GFR (MDRD) Af Amer 47 L Est GFR (MDRD) Non-Af 39 L BUN/Creatinine Ratio 24.6 H Glucose 953 H* Lactic Acid 1.8 Calcium 9.0 Phosphorus Magnesium 2.7 H Total Bilirubin AST ALT Alkaline Phosphatase Total Creatine Kinase Total Protein Albumin Globulin Albumin/Globulin Ratio Triglycerides Urine Color Urine Clarity Urine pH Ur Specific [place] Urine Protein Urine Glucose (UA) Urine Ketones Urine Occult Blood Urine Nitrite Urine Bilirubin Urine Urobilinogen Ur Leukocyte Esterase Urine RBC Urine WBC Ur Squamous Epith Cells Urine Bacteria Urine Mucus Urine Test Acetone Level SMALL H Chlam trachomat DNA PCR HIV 1&2 Ag/Ab, 4th Gen N.gonorrhoeae DNA (PCR) MRSA (PCR) 08/11/16 08/11/16 08/11/16 16:00 16:00 16:00 WBC RBC Hgb Hct MCV MCH MCHC RDW RDW Differential Plt Count MPV Neut % (Auto) Absolute Neuts (auto) Absolute Lymphs (auto) Total Counted Neutrophils % (Manual) Band Neutrophils % Lymphocytes % (Manual) Monocytes % (Manual) Metamyelocytes % Myelocytes % Diff Path Review Platelet Estimate Hypochromasia Anisocytosis Macrocytosis Specimen Type pH Bicarbonate Actual POC Total CO2 Base Excess O2 Saturation ABG pCO2 ABG pO2 Sodium Potassium Chloride Carbon Dioxide Anion Gap BUN Creatinine Estim Creat Clear Calc Est GFR (MDRD) Af Amer Est GFR (MDRD) Non-Af BUN/Creatinine Ratio Glucose Lactic Acid Calcium Phosphorus Magnesium Total Bilirubin AST ALT Alkaline Phosphatase Total Creatine Kinase Total Protein Albumin Globulin Albumin/Globulin Ratio Triglycerides Urine Color Yellow Urine Clarity Clear Urine pH 5.0 Ur Specific [place] 1.015 Urine Protein 30 H Urine Glucose (UA) 1000 H Urine Ketones 150 H Urine Occult Blood Negative Urine Nitrite Negative Urine Bilirubin Negative Urine Urobilinogen Normal Ur Leukocyte Esterase Negative Urine RBC 0-5 SEEN Urine WBC 0 SEEN Ur Squamous Epith Cells 0-5 SEEN Urine Bacteria 0 SEEN Urine Mucus RARE Urine Test Negative Acetone Level Chlam trachomat DNA PCR HIV 1&2 Ag/Ab, 4th Gen Pending N.gonorrhoeae DNA (PCR) MRSA (PCR) POSITIVE H 08/11/16 08/11/16 08/11/16 17:25 19:00 19:00 WBC RBC Hgb Hct MCV MCH MCHC RDW RDW Differential Plt Count MPV Neut % (Auto) Absolute Neuts (auto) Absolute Lymphs (auto) Total Counted Neutrophils % (Manual) Band Neutrophils % Lymphocytes % (Manual) Monocytes % (Manual) Metamyelocytes % Myelocytes % Diff Path Review Platelet Estimate Hypochromasia Anisocytosis Macrocytosis Specimen Type pH Bicarbonate Actual POC Total CO2 Base Excess O2 Saturation ABG pCO2 ABG pO2 Sodium 151 H Potassium 5.0 Chloride 113 H Carbon Dioxide 18.0 L Anion Gap 20 H BUN 37 H Creatinine 1.63 H Estim Creat Clear Calc 44.96 Est GFR (MDRD) Af Amer 52 L Est GFR (MDRD) Non-Af 43 L BUN/Creatinine Ratio 22.7 H Glucose 620 H* 454 H* Lactic Acid Calcium 8.8 Phosphorus Magnesium Total Bilirubin AST ALT Alkaline Phosphatase Total Creatine Kinase Total Protein Albumin Globulin Albumin/Globulin Ratio Triglycerides Urine Color Urine Clarity Urine pH Ur Specific [place] Urine Protein Urine Glucose (UA) Urine Ketones Urine Occult Blood Urine Nitrite Urine Bilirubin Urine Urobilinogen Ur Leukocyte Esterase Urine RBC Urine WBC Ur Squamous Epith Cells Urine Bacteria Urine Mucus Urine Test Acetone Level MODERATE H Chlam trachomat DNA PCR HIV 1&2 Ag/Ab, 4th Gen N.gonorrhoeae DNA (PCR) MRSA (PCR) 08/11/16 08/11/16 08/11/16 20:25 23:10 23:10 WBC RBC Hgb Hct MCV MCH MCHC RDW RDW Differential Plt Count MPV Neut % (Auto) Absolute Neuts (auto) Absolute Lymphs (auto) Total Counted Neutrophils % (Manual) Band Neutrophils % Lymphocytes % (Manual) Monocytes % (Manual) Metamyelocytes % Myelocytes % Diff Path Review Platelet Estimate Hypochromasia Anisocytosis Macrocytosis Specimen Type pH Bicarbonate Actual POC Total CO2 Base Excess O2 Saturation ABG pCO2 ABG pO2 Sodium 151 H Potassium 4.3 Chloride 115 H Carbon Dioxide 23.0 Anion Gap 13 BUN 28 H Creatinine 1.15 H Estim Creat Clear Calc 63.72 Est GFR (MDRD) Af Amer 78 Est GFR (MDRD) Non-Af 64 BUN/Creatinine Ratio 24.3 H Glucose 430 H Lactic Acid Calcium 8.4 L Phosphorus Magnesium Total Bilirubin AST ALT Alkaline Phosphatase Total Creatine Kinase 22 L Total Protein Albumin Globulin Albumin/Globulin Ratio Triglycerides 1138 H Urine Color Urine Clarity Urine pH Ur Specific [place] Urine Protein Urine Glucose (UA) Urine Ketones Urine Occult Blood Urine Nitrite Urine Bilirubin Urine Urobilinogen Ur Leukocyte Esterase Urine RBC Urine WBC Ur Squamous Epith Cells Urine Bacteria Urine Mucus Urine Test Acetone Level MODERATE H Chlam trachomat DNA PCR HIV 1&2 Ag/Ab, 4th Gen N.gonorrhoeae DNA (PCR) MRSA (PCR) 08/12/16 08/12/16 03:05 03:05 WBC 14.4 H RBC 3.11 L Hgb 9.3 L Hct 29.6 L MCV 95.2 MCH 29.9 MCHC 31.4 L RDW 15.1 H RDW Differential 50.3 H Plt Count 333 MPV 9.5 Neut % (Auto) Not Reportable Absolute Neuts (auto) 9.6 H Absolute Lymphs (auto) 4.03 Total Counted 100 Neutrophils % (Manual) 51 Band Neutrophils % 12 H Lymphocytes % (Manual) 28 Monocytes % (Manual) 5 Metamyelocytes % 2 H Myelocytes % 2 H Diff Path Review [place] foll Platelet Estimate ADEQUATE Hypochromasia 1+ Anisocytosis 1+ Macrocytosis RARE Specimen Type pH Bicarbonate Actual POC Total CO2 Base Excess O2 Saturation ABG pCO2 ABG pO2 Sodium 149 H Potassium 3.9 Chloride 112 H Carbon Dioxide 28.0 Anion Gap 9 BUN 23 H Creatinine 1.24 H Estim Creat Clear Calc 59.10 Est GFR (MDRD) Af Amer 71 Est GFR (MDRD) Non-Af 59 L BUN/Creatinine Ratio 18.5 Glucose 305 H Lactic Acid Calcium 8.5 Phosphorus 1.9 L Magnesium 2.4 Total Bilirubin 0.30 AST 46 H ALT 80 H Alkaline Phosphatase 105 Total Creatine Kinase Total Protein 6.9 Albumin 2.5 L Globulin 4.4 H Albumin/Globulin Ratio 0.6 L Triglycerides Urine Color Urine Clarity Urine pH Ur Specific [place] Urine Protein Urine Glucose (UA) Urine Ketones Urine Occult Blood Urine Nitrite Urine Bilirubin Urine Urobilinogen Ur Leukocyte Esterase Urine RBC Urine WBC Ur Squamous Epith Cells Urine Bacteria Urine Mucus Urine Test Acetone Level Chlam trachomat DNA PCR HIV 1&2 Ag/Ab, 4th Gen N.gonorrhoeae DNA (PCR) MRSA (PCR) POC Glucose 08/12/16 08/12/16 08/12/16 06:03 05:06 04:05 POC Glucose 201 H 219 H 250 H 08/12/16 08/12/16 08/12/16 03:02 02:03 01:09 POC Glucose 292 H 308 H 287 H 08/11/16 08/11/16 08/11/16 23:55 23:10 21:57 POC Glucose 343 H 423 H 361 H 08/11/16 08/11/16 08/11/16 21:15 20:03 19:05 POC Glucose 367 H 397 H 419 H 08/11/16 08/11/16 18:15 17:22 POC Glucose 443 H > 500 H* Clinical Impression(s) from Imaging Studies Chest X-Ray 08/11/16 12:52 IMPRESSION: Placement of support devices as described above. No acute pathology. Electronically Signed: Josh Rosenbaum MD at 13:28 EDT , Service support , Chest X-Ray 08/12/16 05:55 IMPRESSION: Lines are in good position as above. Right infrahilar opacification may be due to slight rotation on the current examination and possible atelectasis. Early infiltrate is not excluded. This was not seen on previous exams. Electronically Signed: Genny Schulz MD at 5:06 EDT , Service support , Assessment/Plan RECOMMENDATIONS: 1. Transition from continuous insulin drip to Levemir BID 2. Continue accu-checks and sliding scale insulin coverage 3. Initiate Precedex and wean Fentanyl as tolerated. 4. Repeat paired spontaneous awakening and breathing trials in the AM. Anticipate extubation in the morning. 5. Crisis re-evaluation once extubated. Although the patient has previously denied suicidal ideations, her actions and behavior seem to contradict this sentiment. 6. Discontinue doxycycline 7. Case Management/Social work consults 8. Electrolyte replacement as indicated 9. Continue GI and DVT Prophylaxis IMPRESSIONS: 1. Acute respiratory failure The patient was electively intubated in the emergency department to facilitate to the delivery of medical care, given the patient's agitation. She failed her spontaneous breathing trial this morning due to the development of agitation, tachycardia and tachypnea. At this time, we will plan to transition from continuous fentanyl infusion to Precedex to allow for weaning from mechanical ventilatory support. The patient can be transitioned from assist control to a spontaneous mode of mechanical ventilation, as tolerated. We will plan to repeat her spontaneous awakening and breathing trials in the morning. 2. Toxic/metabolic encephalopathy Improved with treatment of #3. The patient's anion gap has been closed ?2. She will be transitioned from continuous insulin infusion to Levemir twice daily, along with sliding scale insulin coverage and Accu-Cheks. Sedation management as noted above. 3. Diabetic ketoacidosis secondary to medication noncompliance The patient does have a long-standing history of medication noncompliance. The patient was recently assigned to an outpatient clinical case manager to assist with her care. Continue primary medical management of DKA as noted above. 4. Acute Kidney Injury Prerenal in etiology. Renal function is improved following IV fluid resuscitation. No additional need for supplemental IV fluids at this time. Continue to monitor urine output accordingly. 5. Hypernatremia/Hypophosphatemia Elevated sodium level secondary to normal saline resuscitation. We will plan to provide with free water flushes today. No additional supplemental IV fluids for now. Tentative plans for extubation in the morning. 6. Personal history of Substance Abuse The patient's toxicology screen was positive for amphetamines on presentation to the emergency department. The patient will be reevaluated by crisis following her extubation. 7. Hypertriglyceridemia in the setting of poor glycemic control No evidence of acute pancreatitis at the current time. Lipase is at the upper limits of normal. 8. ICU Prophylaxis Continue Pepcid and subcutaneous heparin TIME: 50 minutes of critical care time was spent addressing the patient's acute respiratory failure, metabolic encephalopathy, diabetic ketoacidosis secondary to medication noncompliance, acute kidney injury, electrolyte derangements, review of all data and collaboration with care team. ([id number])
[2016-08-12 07:01] LABS: Bedside Glucose 176 mg/dL (70-110)
--- NOTE | 2016-08-12 07:22 | PN_ITS ---
Subjective: Patient is a 20-year-old female with uncontrolled diabetes mellitus, history of noncompliance with insulin regimen and recurrent DKAs with multiple admissions. Admitted to the hospital due to another episode of severe DKA. Due to lethargy for airway protection patient was intubated in the ED. Subjective. Patient was seen and examined. Laying down in bed, sedated. Opens her eyes to verbal stimuli, can follow simple commands. Denies pain. In synchrony with the ventilator. Objective. General: Patient is laying down in bed. Sedated, can be awakened up with verbal stimuli. Able to respond appropriately to simple commands. HEENT: Atraumatic, Normocephalic. Clear conjunctiva. Oral mucosa is moist. Neck: No nodules noted, no asymmetry. PERRLA. Skin: Clean, dry. No new visible rashes. Lungs: clear to auscultation bilaterally. CVS: S1-S2 present, no murmurs appreciated, regular rate, good radial pulses. Capillary refill is less than 3 Seconds. Abdomen: Soft, nontender, nondistended, bowel sounds present. No CVA tenderness. Extremities: No clubbing, No cyanosis. No visible deformities. No lower extremity edema. Psych/Mental Status: Sedated, can be awakened up with verbal stimuli. Able to respond appropriately to simple commands. Periportal previously patient have had episodes of severe lethargy and agitation. Neuro: Neuro exam is limited due to sedation patient being on the vent, grossly no focal neurological findings. Assessment and plan. * DKA. Treatment per protocol. Patient was on insulin drip, now discontinued, started on subcu insulins. Continue to monitor glucose levels, will adjust as needed. * Encephalopathy. Due to above, now improving, still somnolent, overnight have had episode of severe agitation as well as episodes of lethargy. Continue to monitor. * Acute respiratory failure due to above. Patient was intubated in the ED for airway protection. Continue mechanical ventilation. Per report patient did fail weaning trial due to episodes of agitation alternating with lethargy. * RENU. Creatinine on arrival 1.9, with rehydration down to 1.0. Improved. * Dehydration. Due to DKA, improved with rehydration. * History of polysubstance abuse. Reviewing recent admissions, patient's drug screen was negative, although this time urine tox was positive for amphetamines- it is unclear whether it is truly positive or falsely positive. Will discuss with patient as she is usually openly admits using of drugs if she did indeed. * History of HCV. She will need to follow-up with that as outpatient for possible treatment options. * DVT prophylaxis with heparin SQ. * Disposition: Recurrent admissions for DKA due to noncompliance with insulin regimen. I do have a high suspicion that patient does not take insulins intentionally, psychiatric crisis will follow up with patient when she is medically stable. We will also talk to case reviewer in regards of further care and possibly appointing guardianship through the cort. [place] Dictation. Vitals/I&O's: Vital Signs Temp Pulse Resp BP Pulse Ox 36.4 C 93 40 96/65 100 08/12/16 06:00 08/12/16 06:33 08/12/16 06:49 08/12/16 06:00 08/12/16 06:33 Oxygen Flow Rate 35 Oxygen Delivery Method Mechanical Ventilator Weight: 51.6 kg Body Mass Index (BMI) 20.0 Finger Stick Blood Glucose 176 Intake and Output for Last 24 Hours 08/10/16 08/11/16 08/12/16 23:59 23:59 23:59 Intake Total 3033.8 1174.5 Output Total 2250 450 Balance 783.8 724.5 Laboratory Results 08/11/16 15:53: Specimen Type ART, pH 7.11 L*, Bicarbonate Actual 8 L, POC Total CO2 9, Base Excess -21 L, O2 Saturation 99, ABG pCO2 26.0 L, ABG pO2 168 H 08/11/16 16:00: Chlam trachomat DNA PCR Negative, N.gonorrhoeae DNA (PCR) Negative 08/11/16 16:00: Glucose Cancelled, Magnesium Cancelled 08/11/16 16:00: Acetone Level SMALL H 08/11/16 16:00: Sodium 141, Potassium 4.8, Chloride 102, Carbon Dioxide 11.0 L, Anion Gap 28 H, BUN 44 H, Creatinine 1.79 H, Estim Creat Clear Calc 40.94, Est GFR (MDRD) Af Amer 47 L, Est GFR (MDRD) Non-Af 39 L, BUN/Creatinine Ratio 24.6 H , Glucose 953 H*, Calcium 9.0, Magnesium 2.7 H 08/11/16 16:00: Lactic Acid 1.8 08/11/16 16:00: HIV 1&2 Ag/Ab, 4th Gen Pending 08/11/16 16:00: Urine Color Yellow, Urine Clarity Clear, Urine pH 5.0, Ur Specific [place] 1.015, Urine Protein 30 H, Urine Glucose (UA) 1000 H, Urine Ketones 150 H, Urine Occult Blood Negative, Urine Nitrite Negative, Urine Bilirubin Negative, Urine Urobilinogen Normal, Ur Leukocyte Esterase Negative, Urine RBC 0-5 SEEN, Urine WBC 0 SEEN, Ur Squamous Epith Cells 0-5 SEEN, Urine Bacteria 0 SEEN, Urine Mucus RARE, Urine Test Negative 08/11/16 16:00: MRSA (PCR) POSITIVE H 08/11/16 17:22: POC Glucose > 500 H* 08/11/16 17:25: Glucose 620 H* 08/11/16 18:15: POC Glucose 443 H 08/11/16 19:00: Acetone Level MODERATE H 08/11/16 19:00: Sodium 151 H, Potassium 5.0, Chloride 113 H, Carbon Dioxide 18.0 L, Anion Gap 20 H, BUN 37 H, Creatinine 1.63 H, Estim Creat Clear Calc 44.96, Est GFR (MDRD) Af Amer 52 L, Est GFR (MDRD) Non-Af 43 L, BUN/Creatinine Ratio 22.7 H, Glucose 454 H*, Calcium 8.8 08/11/16 19:05: POC Glucose 419 H 08/11/16 20:03: POC Glucose 397 H 08/11/16 20:25: Total Creatine Kinase 22 L, Triglycerides 1138 H 08/11/16 21:15: POC Glucose 367 H 08/11/16 21:57: POC Glucose 361 H 08/11/16 23:10: Acetone Level MODERATE H 08/11/16 23:10: Sodium 151 H, Potassium 4.3, Chloride 115 H, Carbon Dioxide 23.0 , Anion Gap 13, BUN 28 H, Creatinine 1.15 H, Estim Creat Clear Calc 63.72, Est GFR (MDRD) Af Amer 78, Est GFR (MDRD) Non-Af 64, BUN/Creatinine Ratio 24.3 H, Glucose 430 H, Calcium 8.4 L 08/11/16 23:10: POC Glucose 423 H 08/11/16 23:55: POC Glucose 343 H 08/12/16 01:09: POC Glucose 287 H 08/12/16 02:03: POC Glucose 308 H 08/12/16 03:02: POC Glucose 292 H 08/12/16 03:05: WBC 14.4 H, RBC 3.11 L, Hgb 9.3 L, Hct 29.6 L, MCV 95.2, MCH 29.9, MCHC 31.4 L, RDW 15.1 H, RDW Differential 50.3 H, Plt Count 333, MPV 9.5, Neut % (Auto) Not Reportable, Absolute Neuts (auto) 9.6 H, Absolute Lymphs (auto ) 4.03, Total Counted 100, Neutrophils % (Manual) 51, Band Neutrophils % 12 H, Lymphocytes % (Manual) 28, Monocytes % (Manual) 5, Metamyelocytes % 2 H, Myelocytes % 2 H, Diff Path Review June, Platelet Estimate ADEQUATE, Hypochromasia 1+, Anisocytosis 1+, Macrocytosis RARE 08/12/16 03:05: Sodium 149 H, Potassium 3.9, Chloride 112 H, Carbon Dioxide 28.0 , Anion Gap 9, BUN 23 H, Creatinine 1.24 H, Estim Creat Clear Calc 59.10, Est GFR (MDRD) Af Amer 71, Est GFR (MDRD) Non-Af 59 L, BUN/Creatinine Ratio 18.5, Glucose 305 H, Calcium 8.5, Phosphorus 1.9 L, Magnesium 2.4, Total Bilirubin 0.30, AST 46 H, ALT 80 H, Alkaline Phosphatase 105, Total Protein 6.9, Albumin 2.5 L, Globulin 4.4 H, Albumin/Globulin Ratio 0.6 L 08/12/16 04:05: POC Glucose 250 H 08/12/16 05:06: POC Glucose 219 H 08/12/16 06:03: POC Glucose 201 H 08/12/16 06:57: POC Glucose 176 H Current Medications Chlorhexidine Gluconate () 15 ml PO BID LILIYA Last Admin: 08/11/16 21:18 Dose: 15 ml Chlorhexidine Gluconate () 1 each TOPICAL DAILY LILIYA Dextrose (D50w Syringe) 0 gm IV X1 PRN; Protocol PRN Reason: HYPOGLYCEMIA Heparin Sodium (Beef Lung) (Heparin 500 Unit/5 Ml (100/Ml)) 500 unit IV UD PRN PRN Reason: HEPARIN FLUSH Heparin Sodium (Porcine) () 5,000 units SC Q8 [facility] Last Admin: 08/12/16 05:10 Dose: 5,000 units Doxycycline Hyclate 100 mg/ (Dextrose) 260 mls @ 250 mls/hr IV Q12 [facility] Last Admin: 08/11/16 21:18 Dose: 250 mls/hr Famotidine 20 mg/ Sodium (Chloride) 10 mls @ 300 mls/hr IV Q12 [facility] Last Admin: 08/11/16 21:18 Dose: 300 mls/hr Fentanyl () 100 mls @ 5 mls/hr IV .Q20H [facility] Last Admin: 08/12/16 06:54 Dose: 5 mls/hr Insulin Aspart 100 unit/ (Sodium Chloride) 100 mls @ 4.9 mls/hr IV .[id number] LILIYA ; 0.1 UNITS/KG/HR PRN Reason: Protocol Last Admin: 08/11/16 22:01 Dose: Not Given Sodium Chloride () 250 mls @ 15 mls/hr IV .[id number] PRN PRN Reason: SALINE FLUSH Last Admin: 08/12/16 04:19 Dose: 15 mls/hr Dextrose () 1,000 mls @ 125 mls/hr IV .Q8H [facility] Last Admin: 08/12/16 05:26 Dose: Not Given Potassium Chloride 10 meq/ N/A 100 mls @ 100 mls/hr IV BOLUS Q1H [facility] Stop: 08/12/16 07:44 Last Admin: 08/12/16 06:27 Dose: 100 mls/hr Sodium Chloride () 10 - 40 ml IV UD PRN PRN Reason: MULTILUMEN/HICMAN CATH FLUSH Last Admin: 08/12/16 05:24 Dose: 30 ml Sodium Chloride () 10 - 20 ml IV UD PRN PRN Reason: PICC FLUSH
--- NOTE | 2016-08-12 08:39 | CASEMGMT ---
Addendum entered by Tonya Narayanan 08/12/16 08:52: Shweta from [facility] called this SW back. She states last time pt was here, she did agree to case management services with [facility]. Shweta explains she did the intake at the bedside. She also did see the pt at [facility] last . She states the pt did agree to speak w/her, though the conversation was quite brief. hSweta explains she will see if pt has a pillowcase sewer assigned already. If she does, she would like to bring the CM over to introduce Sylvia to her, and if not, she is available to see pt once extubated, would just need to know when to come to the hospital. ANA CRISTINA also asked her about pt being evaluated again for psych placement given the frequency of admissions here and her noncompliance with her own medical care. Shweta states last time pt was here, she denied any suicidality. Shweta states she can explore this again given pt's behavior and repeated admissions. ANA CRISTINA will continue to follow, will call Shweta once pt is extubated. SPENSER Varela, AMBULATORY CARE Original Note: ANA CRISTINA spoke w/Dr. Abdi this morning. Pt may be extubated tomorrow morning. ANA CRISTINA called Shweta in the crisis unit at [facility], who saw pt last time she was here, to check on her availability to see pt tomorrow, message left. ANA CRISTINA will follow up w/Shweta once she returns this ANA CRISTINA's call. SPENSER Varela, AMBULATORY CARE
--- NOTE | 2016-08-12 09:31 | CASEMGMT ---
Addendum entered by Tonya Narayanan 08/12/16 14:31: Jyoti from [facility] called this SW back, said that she has met with Sylvia, she has a care plan for pt. Jyoti did set up an endocrinology appt for pt in [place], with transport. Pt was not able to go to the appt however as she does not have an ID. As per Jyoti, [facility] was to help pt get an ID, she is not certain if this happened. Jyoti met w/Sylvia at [facility] and pt was to sign a release so that Jyoti could talk w/staff at [facility]. Jyoti states that when she has called, however, the staff at [facility] will not speak w/her. Jyoti states [facility] would cover a pump, but states she does not know if pt is done with using drugs, she is aware of pt's toxicology screens being positive for amphetamines on this and the last admission. Otherwise, tox screen was negative. SW looked up in the computer, we do have a copy of pt's current ID. ANA CRISTINA explained will give it to pt when she is able to speak w/this SW. SW will also speak w/her about an endocrinology appt, Jyoti states pt would be better off going someplace local. Jyoti is able to assist w/setting up transport to appts through [facility]. ANA CRISTINA explained will speak w/pt once she is able to speak w/this SW, give her a copy of her ID and speak w/her regarding following up w/an machine designer. ANA CRISTINA will continue to follow. SPENSER Varela, BACK SEWER Original Note: ANA CRISTINA participated in interdisciplinary rounds this morning, the plan is for pt to be extubated tomorrow. Once pt is extubated, crisis will be called. ANA CRISTINA called pt's [facility] insurance to see if she has a patient case manager with them. Pt does have a patient case manager, Jyoti Parikh, , [id number]. SW left a message for Jyoti, will speak w/her should she return call. SPENSER Varela, BACK SEWER
[2016-08-12 09:57] LABS: Anion Gap 4 (5-15); BUN 17 mg/dL (7-18); BUN/Creat Ratio 16.7 RATIO (10-20); Calcium,Total 8.9 mg/dL (8.5-10.1); Chloride 112 mmol/L (98-107); Creatinine, Serum 1.02 mg/dL (0.55-1.02); EST Glomerular Filtration Rate 74 mL/min (>60); Est Glom Filt Rate - Afr Amer 89 mL/min (>60); Estimated Creatinine Clearance 72.26 ml/min; Glucose 154 mg/dL (70-110); Potassium 3.8 mmol/L (3.5-5.1); Sodium Level 145 mmol/L (136-145)
[2016-08-12 10:01] LABS: Bedside Glucose 156 mg/dL (70-110)
[2016-08-12] MEDS: Chlorhexidine 15 ML PO ×2 (11:21→21:46)
[2016-08-12] MEDS: CHLORHEXIDINE GLUC 2% CLOTH 1 EACH TOWELETTE TOPICAL (11:21)
[2016-08-12] MEDS: Famotidine 20 MG Tablet GT ×2 (11:22→21:46)
[2016-08-12 11:51] LABS: Bedside Glucose 309 mg/dL (70-110)
[2016-08-12] MEDS: 0.9% NaCl PICC Flush IV ×3 (13:10→21:16)
[2016-08-12 15:41] LABS: Bedside Glucose 124 mg/dL (70-110)
[2016-08-12 16:21] LABS: Pathologist Review Reviewed
[2016-08-12 16:23] LABS: Pathologist Review Reviewed
[2016-08-12] MEDS: Dextrose 50%-Water 25 GM/50 ML DISP.SYRIN IV ×2 (17:32→21:12)
[2016-08-12 17:41] LABS: Bedside Glucose 51 mg/dL (70-110)
[2016-08-12 18:41] LABS: Bedside Glucose 98 mg/dL (70-110)
[2016-08-12 18:58] LABS: Anion Gap 5 (5-15); BUN 14 mg/dL (7-18); Calcium,Total 8.8 mg/dL (8.5-10.1); Chloride 114 mmol/L (98-107); Creatinine, Serum 0.87 mg/dL (0.55-1.02); EST Glomerular Filtration Rate 88 mL/min (>60); Est Glom Filt Rate - Afr Amer 106 mL/min (>60); Estimated Creatinine Clearance 84.72 ml/min; Glucose 96 mg/dL (70-110); Potassium 3.5 mmol/L (3.5-5.1); Sodium Level 148 mmol/L (136-145)
[2016-08-12 22:46] LABS: Bedside Glucose 111 mg/dL (70-110)
[2016-08-12 22:46] LABS: Bedside Glucose 187 mg/dL (70-110)
[2016-08-12 22:46] LABS: Bedside Glucose 44 mg/dL (70-110)
[2016-08-13] VITALS (38 sets, daily range): BP systolic 77–122; BP diastolic 45–82; PULSE 65–99; RESP 10–960; TEMP 36.4–36.8; O2SAT 95–100
[2016-08-13 00:41] LABS: Bedside Glucose 110 mg/dL (70-110)
[2016-08-13 02:36] LABS: Bedside Glucose 136 mg/dL (70-110)
[2016-08-13 04:10] LABS: Anion Gap 5 (5-15); BUN 12 mg/dL (7-18); Calcium,Total 8.8 mg/dL (8.5-10.1); Chloride 111 mmol/L (98-107); EST Glomerular Filtration Rate 113 mL/min (>60); Est Glom Filt Rate - Afr Amer 136 mL/min (>60); Glucose 152 mg/dL (70-110); Potassium 4.2 mmol/L (3.5-5.1); Sodium Level 143 mmol/L (136-145)
[2016-08-13 04:21] LABS: Absolute Lymphocyte Count 3.17 X10^3/ul (0.83-4.51); Absolute Neutrophil Count 5.6 X10^3/uL (2.0-7.7); Basophil# 0.02 X10^3/uL; Basophil% 0.2 % (0-1); Eosinophil# 0.08 X10^3/uL; Eosinophils% 0.8 % (0-5); Hematocrit 26.8 % (37-47); Hemoglobin 8.2 g/dl (12.0-15.0); Lymphocyte # 3.17 X10^3/ul (4.0); Lymphocyte % 33.5 % (19-41); Mean Corp Hgb Conc 30.6 g/gl (32-36); Mean Corpuscular Hgb 29.8 pg (27.0-32.0); Mean Corpuscular Volume 97.5 fL (81-99); Mean Platelet Vol. 9.5 fl (6.2-12.0); Monocyte# 0.52 X10^3/uL; Monocyte% 5.5 % (0-10); Neutrophil # 5.62 X10^3/uL (2.7-7.7); Neutrophil % 59.4 % (47-70); Platelet Count 213 K/mm3 (150-450); RBC Distribution Width CV 15.3 % (11.6-14.6); Red Blood Count 2.75 M/mm3 (4.2-5.4); White Blood Count 9.5 K/mm3 (4.4-11.0)
[2016-08-13 04:22] LABS: POSITIVE COUNT NO; POSITIVE DIFFERENTIAL NO; POSITIVE MORPHOLOGY NO
[2016-08-13] MEDS: Heparin Injection 5,000 UNITS/ML Syringe 5000 UNITS SC ×3 (05:39→21:28)
[2016-08-13 06:01] LABS: Bedside Glucose 170 mg/dL (70-110)
--- NOTE | 2016-08-13 06:57 | PCM.PN.INT ---
Subjective: The patient was seen and examined at the bedside this morning. Events from the last 24 hours have been reviewed. The patient's agitation has been under control with the use of Precedex. She passed her spontaneous breathing trial this morning and is currently tolerating CPAP mode of mechanical ventilation. She did have periods of hypoglycemia yesterday. She is currently afebrile hemodynamically stable. Objective: The patient's most recent lab work, culture data and imaging studies have all been personally reviewed. Sputum cultures currently growing staph aureus. General: - - Intubated and mechanically ventilated. Currently tolerating CPAP mode mechanical ventilation. HEENT: Atraumatic, PERRLA, Normocephalic Oral: Moist Mucosa, No Gingival or Mucosal Lesions/ Ulcerations, - - Endotracheal tube remains in place. Neck: Supple, No JVD, Trachea Midline, - - Central venous catheter remains in place Lungs: - - Clear across anterior lung [place]. Cardiovascular: Regular rate, Regular Rhythm, Normal S1, Normal S2, No murmurs, No rub noted, No Gallop Abdomen: Bowel Sounds Present, Soft, Non Tender, Non-Distended Extremities: No clubbing, No cyanosis, No edema Skin: No rashes, No breakdown Musculoskeletal: No Tenderness to Palpation of Joints or Extremities Lymphatic: No Cervical, Supraclavicular, or Inguinal Adenopathy Neurological: - - No focal neurological deficits. Moves all extremities spontaneously. Opens eyes to verbal cues and follows commands appropriately. Vital Signs Temp Pulse Resp BP Pulse Ox 36.4 C 65 17 97/74 99 08/13/16 06:00 08/13/16 06:00 08/13/16 06:00 08/13/16 06:00 08/13/16 06:00 Oxygen Flow Rate 35 Oxygen Delivery Method CPAP Weight: 52.8 kg Body Mass Index (BMI) 20.0 Finger Stick Blood Glucose 176 Intake and Output for Last 24 Hours 08/11/16 08/12/16 08/13/16 23:59 23:59 23:59 Intake Total 3033.8 3059.5 728.9 Output Total 2250 960 310 Balance 783.8 2099.5 418.9 Labs (Last 48 Hours) 08/11/16 08/11/16 08/11/16 15:53 16:00 16:00 WBC RBC Hgb Hct MCV MCH MCHC RDW RDW Differential Plt Count MPV Immature Gran % (Auto) Neut % (Auto) Lymph % (Auto) [place] % (Auto) Eos % (Auto) Baso % (Auto) Absolute Neuts (auto) Absolute Lymphs (auto) Total Counted Neutrophils % (Manual) Band Neutrophils % Lymphocytes % (Manual) Monocytes % (Manual) Metamyelocytes % Myelocytes % Diff Path Review Platelet Estimate Hypochromasia Anisocytosis Macrocytosis Specimen Type ART pH 7.11 L* Bicarbonate Actual 8 L POC Total CO2 9 Base Excess -21 L O2 Saturation 99 ABG pCO2 26.0 L ABG pO2 168 H Sodium Potassium Chloride Carbon Dioxide Anion Gap BUN Creatinine Estim Creat Clear Calc Est GFR (MDRD) Af Amer Est GFR (MDRD) Non-Af BUN/Creatinine Ratio Glucose Cancelled Lactic Acid Calcium Phosphorus Magnesium Cancelled Total Bilirubin AST ALT Alkaline Phosphatase Total Creatine Kinase Total Protein Albumin Globulin Albumin/Globulin Ratio Triglycerides Urine Color Urine Clarity Urine pH Ur Specific [place] Urine Protein Urine Glucose (UA) Urine Ketones Urine Occult Blood Urine Nitrite Urine Bilirubin Urine Urobilinogen Ur Leukocyte Esterase Urine RBC Urine WBC Ur Squamous Epith Cells Urine Bacteria Urine Mucus Urine Test Acetone Level Chlam trachomat DNA PCR Negative HIV 1&2 Ag/Ab, 4th Gen N.gonorrhoeae DNA (PCR) Negative MRSA (PCR) POC Glucose 08/11/16 08/11/16 08/11/16 16:00 16:00 16:00 WBC RBC Hgb Hct MCV MCH MCHC RDW RDW Differential Plt Count MPV Immature Gran % (Auto) Neut % (Auto) Lymph % (Auto) [place] % (Auto) Eos % (Auto) Baso % (Auto) Absolute Neuts (auto) Absolute Lymphs (auto) Total Counted Neutrophils % (Manual) Band Neutrophils % Lymphocytes % (Manual) Monocytes % (Manual) Metamyelocytes % Myelocytes % Diff Path Review Platelet Estimate Hypochromasia Anisocytosis Macrocytosis Specimen Type pH Bicarbonate Actual POC Total CO2 Base Excess O2 Saturation ABG pCO2 ABG pO2 Sodium 141 Potassium 4.8 Chloride 102 Carbon Dioxide 11.0 L Anion Gap 28 H BUN 44 H Creatinine 1.79 H Estim Creat Clear Calc 40.94 Est GFR (MDRD) Af Amer 47 L Est GFR (MDRD) Non-Af 39 L BUN/Creatinine Ratio 24.6 H Glucose 953 H* Lactic Acid 1.8 Calcium 9.0 Phosphorus Magnesium 2.7 H Total Bilirubin AST ALT Alkaline Phosphatase Total Creatine Kinase Total Protein Albumin Globulin Albumin/Globulin Ratio Triglycerides Urine Color Urine Clarity Urine pH Ur Specific [place] Urine Protein Urine Glucose (UA) Urine Ketones Urine Occult Blood Urine Nitrite Urine Bilirubin Urine Urobilinogen Ur Leukocyte Esterase Urine RBC Urine WBC Ur Squamous Epith Cells Urine Bacteria Urine Mucus Urine Test Acetone Level SMALL H Chlam trachomat DNA PCR HIV 1&2 Ag/Ab, 4th Gen N.gonorrhoeae DNA (PCR) MRSA (PCR) POC Glucose 08/11/16 08/11/16 08/11/16 16:00 16:00 16:00 WBC RBC Hgb Hct MCV MCH MCHC RDW RDW Differential Plt Count MPV Immature Gran % (Auto) Neut % (Auto) Lymph % (Auto) [place] % (Auto) Eos % (Auto) Baso % (Auto) Absolute Neuts (auto) Absolute Lymphs (auto) Total Counted Neutrophils % (Manual) Band Neutrophils % Lymphocytes % (Manual) Monocytes % (Manual) Metamyelocytes % Myelocytes % Diff Path Review Platelet Estimate Hypochromasia Anisocytosis Macrocytosis Specimen Type pH Bicarbonate Actual POC Total CO2 Base Excess O2 Saturation ABG pCO2 ABG pO2 Sodium Potassium Chloride Carbon Dioxide Anion Gap BUN Creatinine Estim Creat Clear Calc Est GFR (MDRD) Af Amer Est GFR (MDRD) Non-Af BUN/Creatinine Ratio Glucose Lactic Acid Calcium Phosphorus Magnesium Total Bilirubin AST ALT Alkaline Phosphatase Total Creatine Kinase Total Protein Albumin Globulin Albumin/Globulin Ratio Triglycerides Urine Color Yellow Urine Clarity Clear Urine pH 5.0 Ur Specific [place] 1.015 Urine Protein 30 H Urine Glucose (UA) 1000 H Urine Ketones 150 H Urine Occult Blood Negative Urine Nitrite Negative Urine Bilirubin Negative Urine Urobilinogen Normal Ur Leukocyte Esterase Negative Urine RBC 0-5 SEEN Urine WBC 0 SEEN Ur Squamous Epith Cells 0-5 SEEN Urine Bacteria 0 SEEN Urine Mucus RARE Urine Test Negative Acetone Level Chlam trachomat DNA PCR HIV 1&2 Ag/Ab, 4th Gen Pending N.gonorrhoeae DNA (PCR) MRSA (PCR) POSITIVE H POC Glucose 08/11/16 08/11/16 08/11/16 17:22 17:25 18:15 WBC RBC Hgb Hct MCV MCH MCHC RDW RDW Differential Plt Count MPV Immature Gran % (Auto) Neut % (Auto) Lymph % (Auto) [place] % (Auto) Eos % (Auto) Baso % (Auto) Absolute Neuts (auto) Absolute Lymphs (auto) Total Counted Neutrophils % (Manual) Band Neutrophils % Lymphocytes % (Manual) Monocytes % (Manual) Metamyelocytes % Myelocytes % Diff Path Review Platelet Estimate Hypochromasia Anisocytosis Macrocytosis Specimen Type pH Bicarbonate Actual POC Total CO2 Base Excess O2 Saturation ABG pCO2 ABG pO2 Sodium Potassium Chloride Carbon Dioxide Anion Gap BUN Creatinine Estim Creat Clear Calc Est GFR (MDRD) Af Amer Est GFR (MDRD) Non-Af BUN/Creatinine Ratio Glucose 620 H* Lactic Acid Calcium Phosphorus Magnesium Total Bilirubin AST ALT Alkaline Phosphatase Total Creatine Kinase Total Protein Albumin Globulin Albumin/Globulin Ratio Triglycerides Urine Color Urine Clarity Urine pH Ur Specific [place] Urine Protein Urine Glucose (UA) Urine Ketones Urine Occult Blood Urine Nitrite Urine Bilirubin Urine Urobilinogen Ur Leukocyte Esterase Urine RBC Urine WBC Ur Squamous Epith Cells Urine Bacteria Urine Mucus Urine Test Acetone Level Chlam trachomat DNA PCR HIV 1&2 Ag/Ab, 4th Gen N.gonorrhoeae DNA (PCR) MRSA (PCR) POC Glucose > 500 H* 443 H 08/11/16 08/11/16 08/11/16 19:00 19:00 19:05 WBC RBC Hgb Hct MCV MCH MCHC RDW RDW Differential Plt Count MPV Immature Gran % (Auto) Neut % (Auto) Lymph % (Auto) [place] % (Auto) Eos % (Auto) Baso % (Auto) Absolute Neuts (auto) Absolute Lymphs (auto) Total Counted Neutrophils % (Manual) Band Neutrophils % Lymphocytes % (Manual) Monocytes % (Manual) Metamyelocytes % Myelocytes % Diff Path Review Platelet Estimate Hypochromasia Anisocytosis Macrocytosis Specimen Type pH Bicarbonate Actual POC Total CO2 Base Excess O2 Saturation ABG pCO2 ABG pO2 Sodium 151 H Potassium 5.0 Chloride 113 H Carbon Dioxide 18.0 L Anion Gap 20 H BUN 37 H Creatinine 1.63 H Estim Creat Clear Calc 44.96 Est GFR (MDRD) Af Amer 52 L Est GFR (MDRD) Non-Af 43 L BUN/Creatinine Ratio 22.7 H Glucose 454 H* Lactic Acid Calcium 8.8 Phosphorus Magnesium Total Bilirubin AST ALT Alkaline Phosphatase Total Creatine Kinase Total Protein Albumin Globulin Albumin/Globulin Ratio Triglycerides Urine Color Urine Clarity Urine pH Ur Specific [place] Urine Protein Urine Glucose (UA) Urine Ketones Urine Occult Blood Urine Nitrite Urine Bilirubin Urine Urobilinogen Ur Leukocyte Esterase Urine RBC Urine WBC Ur Squamous Epith Cells Urine Bacteria Urine Mucus Urine Test Acetone Level MODERATE H Chlam trachomat DNA PCR HIV 1&2 Ag/Ab, 4th Gen N.gonorrhoeae DNA (PCR) MRSA (PCR) POC Glucose 419 H 08/11/16 08/11/16 08/11/16 20:03 20:25 21:15 WBC RBC Hgb Hct MCV MCH MCHC RDW RDW Differential Plt Count MPV Immature Gran % (Auto) Neut % (Auto) Lymph % (Auto) [place] % (Auto) Eos % (Auto) Baso % (Auto) Absolute Neuts (auto) Absolute Lymphs (auto) Total Counted Neutrophils % (Manual) Band Neutrophils % Lymphocytes % (Manual) Monocytes % (Manual) Metamyelocytes % Myelocytes % Diff Path Review Platelet Estimate Hypochromasia Anisocytosis Macrocytosis Specimen Type pH Bicarbonate Actual POC Total CO2 Base Excess O2 Saturation ABG pCO2 ABG pO2 Sodium Potassium Chloride Carbon Dioxide Anion Gap BUN Creatinine Estim Creat Clear Calc Est GFR (MDRD) Af Amer Est GFR (MDRD) Non-Af BUN/Creatinine Ratio Glucose Lactic Acid Calcium Phosphorus Magnesium Total Bilirubin AST ALT Alkaline Phosphatase Total Creatine Kinase 22 L Total Protein Albumin Globulin Albumin/Globulin Ratio Triglycerides 1138 H Urine Color Urine Clarity Urine pH Ur Specific [place] Urine Protein Urine Glucose (UA) Urine Ketones Urine Occult Blood Urine Nitrite Urine Bilirubin Urine Urobilinogen Ur Leukocyte Esterase Urine RBC Urine WBC Ur Squamous Epith Cells Urine Bacteria Urine Mucus Urine Test Acetone Level Chlam trachomat DNA PCR HIV 1&2 Ag/Ab, 4th Gen N.gonorrhoeae DNA (PCR) MRSA (PCR) POC Glucose 397 H 367 H 08/11/16 08/11/16 08/11/16 21:57 23:10 23:10 WBC RBC Hgb Hct MCV MCH MCHC RDW RDW Differential Plt Count MPV Immature Gran % (Auto) Neut % (Auto) Lymph % (Auto) [place] % (Auto) Eos % (Auto) Baso % (Auto) Absolute Neuts (auto) Absolute Lymphs (auto) Total Counted Neutrophils % (Manual) Band Neutrophils % Lymphocytes % (Manual) Monocytes % (Manual) Metamyelocytes % Myelocytes % Diff Path Review Platelet Estimate Hypochromasia Anisocytosis Macrocytosis Specimen Type pH Bicarbonate Actual POC Total CO2 Base Excess O2 Saturation ABG pCO2 ABG pO2 Sodium 151 H Potassium 4.3 Chloride 115 H Carbon Dioxide 23.0 Anion Gap 13 BUN 28 H Creatinine 1.15 H Estim Creat Clear Calc 63.72 Est GFR (MDRD) Af Amer 78 Est GFR (MDRD) Non-Af 64 BUN/Creatinine Ratio 24.3 H Glucose 430 H Lactic Acid Calcium 8.4 L Phosphorus Magnesium Total Bilirubin AST ALT Alkaline Phosphatase Total Creatine Kinase Total Protein Albumin Globulin Albumin/Globulin Ratio Triglycerides Urine Color Urine Clarity Urine pH Ur Specific [place] Urine Protein Urine Glucose (UA) Urine Ketones Urine Occult Blood Urine Nitrite Urine Bilirubin Urine Urobilinogen Ur Leukocyte Esterase Urine RBC Urine WBC Ur Squamous Epith Cells Urine Bacteria Urine Mucus Urine Test Acetone Level MODERATE H Chlam trachomat DNA PCR HIV 1&2 Ag/Ab, 4th Gen N.gonorrhoeae DNA (PCR) MRSA (PCR) POC Glucose 361 H 08/11/16 08/11/16 08/12/16 23:10 23:55 01:09 WBC RBC Hgb Hct MCV MCH MCHC RDW RDW Differential Plt Count MPV Immature Gran % (Auto) Neut % (Auto) Lymph % (Auto) [place] % (Auto) Eos % (Auto) Baso % (Auto) Absolute Neuts (auto) Absolute Lymphs (auto) Total Counted Neutrophils % (Manual) Band Neutrophils % Lymphocytes % (Manual) Monocytes % (Manual) Metamyelocytes % Myelocytes % Diff Path Review Platelet Estimate Hypochromasia Anisocytosis Macrocytosis Specimen Type pH Bicarbonate Actual POC Total CO2 Base Excess O2 Saturation ABG pCO2 ABG pO2 Sodium Potassium Chloride Carbon Dioxide Anion Gap BUN Creatinine Estim Creat Clear Calc Est GFR (MDRD) Af Amer Est GFR (MDRD) Non-Af BUN/Creatinine Ratio Glucose Lactic Acid Calcium Phosphorus Magnesium Total Bilirubin AST ALT Alkaline Phosphatase Total Creatine Kinase Total Protein Albumin Globulin Albumin/Globulin Ratio Triglycerides Urine Color Urine Clarity Urine pH Ur Specific [place] Urine Protein Urine Glucose (UA) Urine Ketones Urine Occult Blood Urine Nitrite Urine Bilirubin Urine Urobilinogen Ur Leukocyte Esterase Urine RBC Urine WBC Ur Squamous Epith Cells Urine Bacteria Urine Mucus Urine Test Acetone Level Chlam trachomat DNA PCR HIV 1&2 Ag/Ab, 4th Gen N.gonorrhoeae DNA (PCR) MRSA (PCR) POC Glucose 423 H 343 H 287 H 08/12/16 08/12/16 08/12/16 02:03 03:02 03:05 WBC 14.4 H RBC 3.11 L Hgb 9.3 L Hct 29.6 L MCV 95.2 MCH 29.9 MCHC 31.4 L RDW 15.1 H RDW Differential 50.3 H Plt Count 333 MPV 9.5 Immature Gran % (Auto) Neut % (Auto) Not Reportable Lymph % (Auto) [place] % (Auto) Eos % (Auto) Baso % (Auto) Absolute Neuts (auto) 9.6 H Absolute Lymphs (auto) 4.03 Total Counted 100 Neutrophils % (Manual) 51 Band Neutrophils % 12 H Lymphocytes % (Manual) 28 Monocytes % (Manual) 5 Metamyelocytes % 2 H Myelocytes % 2 H Diff Path Review Reviewed Platelet Estimate ADEQUATE Hypochromasia 1+ Anisocytosis 1+ Macrocytosis RARE Specimen Type pH Bicarbonate Actual POC Total CO2 Base Excess O2 Saturation ABG pCO2 ABG pO2 Sodium Potassium Chloride Carbon Dioxide Anion Gap BUN Creatinine Estim Creat Clear Calc Est GFR (MDRD) Af Amer Est GFR (MDRD) Non-Af BUN/Creatinine Ratio Glucose Lactic Acid Calcium Phosphorus Magnesium Total Bilirubin AST ALT Alkaline Phosphatase Total Creatine Kinase Total Protein Albumin Globulin Albumin/Globulin Ratio Triglycerides Urine Color Urine Clarity Urine pH Ur Specific [place] Urine Protein Urine Glucose (UA) Urine Ketones Urine Occult Blood Urine Nitrite Urine Bilirubin Urine Urobilinogen Ur Leukocyte Esterase Urine RBC Urine WBC Ur Squamous Epith Cells Urine Bacteria Urine Mucus Urine Test Acetone Level Chlam trachomat DNA PCR HIV 1&2 Ag/Ab, 4th Gen N.gonorrhoeae DNA (PCR) MRSA (PCR) POC Glucose 308 H 292 H 08/12/16 08/12/16 08/12/16 03:05 04:05 05:06 WBC RBC Hgb Hct MCV MCH MCHC RDW RDW Differential Plt Count MPV Immature Gran % (Auto) Neut % (Auto) Lymph % (Auto) [place] % (Auto) Eos % (Auto) Baso % (Auto) Absolute Neuts (auto) Absolute Lymphs (auto) Total Counted Neutrophils % (Manual) Band Neutrophils % Lymphocytes % (Manual) Monocytes % (Manual) Metamyelocytes % Myelocytes % Diff Path Review Platelet Estimate Hypochromasia Anisocytosis Macrocytosis Specimen Type pH Bicarbonate Actual POC Total CO2 Base Excess O2 Saturation ABG pCO2 ABG pO2 Sodium 149 H Potassium 3.9 Chloride 112 H Carbon Dioxide 28.0 Anion Gap 9 BUN 23 H Creatinine 1.24 H Estim Creat Clear Calc 59.10 Est GFR (MDRD) Af Amer 71 Est GFR (MDRD) Non-Af 59 L BUN/Creatinine Ratio 18.5 Glucose 305 H Lactic Acid Calcium 8.5 Phosphorus 1.9 L Magnesium 2.4 Total Bilirubin 0.30 AST 46 H ALT 80 H Alkaline Phosphatase 105 Total Creatine Kinase Total Protein 6.9 Albumin 2.5 L Globulin 4.4 H Albumin/Globulin Ratio 0.6 L Triglycerides Urine Color Urine Clarity Urine pH Ur Specific [place] Urine Protein Urine Glucose (UA) Urine Ketones Urine Occult Blood Urine Nitrite Urine Bilirubin Urine Urobilinogen Ur Leukocyte Esterase Urine RBC Urine WBC Ur Squamous Epith Cells Urine Bacteria Urine Mucus Urine Test Acetone Level Chlam trachomat DNA PCR HIV 1&2 Ag/Ab, 4th Gen N.gonorrhoeae DNA (PCR) MRSA (PCR) POC Glucose 250 H 219 H 08/12/16 08/12/16 08/12/16 06:03 06:57 09:30 WBC RBC Hgb Hct MCV MCH MCHC RDW RDW Differential Plt Count MPV Immature Gran % (Auto) Neut % (Auto) Lymph % (Auto) [place] % (Auto) Eos % (Auto) Baso % (Auto) Absolute Neuts (auto) Absolute Lymphs (auto) Total Counted Neutrophils % (Manual) Band Neutrophils % Lymphocytes % (Manual) Monocytes % (Manual) Metamyelocytes % Myelocytes % Diff Path Review Platelet Estimate Hypochromasia Anisocytosis Macrocytosis Specimen Type pH Bicarbonate Actual POC Total CO2 Base Excess O2 Saturation ABG pCO2 ABG pO2 Sodium 145 Potassium 3.8 Chloride 112 H Carbon Dioxide 29.0 Anion Gap 4 L BUN 17 Creatinine 1.02 Estim Creat Clear Calc 72.26 Est GFR (MDRD) Af Amer 89 Est GFR (MDRD) Non-Af 74 BUN/Creatinine Ratio 16.7 Glucose 154 H Lactic Acid Calcium 8.9 Phosphorus Magnesium Total Bilirubin AST ALT Alkaline Phosphatase Total Creatine Kinase Total Protein Albumin Globulin Albumin/Globulin Ratio Triglycerides Urine Color Urine Clarity Urine pH Ur Specific [place] Urine Protein Urine Glucose (UA) Urine Ketones Urine Occult Blood Urine Nitrite Urine Bilirubin Urine Urobilinogen Ur Leukocyte Esterase Urine RBC Urine WBC Ur Squamous Epith Cells Urine Bacteria Urine Mucus Urine Test Acetone Level Chlam trachomat DNA PCR HIV 1&2 Ag/Ab, 4th Gen N.gonorrhoeae DNA (PCR) MRSA (PCR) POC Glucose 201 H 176 H 08/12/16 08/12/1617 09:33 11:30 15:32 WBC RBC Hgb Hct MCV MCH MCHC RDW RDW Differential Plt Count MPV Immature Gran % (Auto) Neut % (Auto) Lymph % (Auto) [place] % (Auto) Eos % (Auto) Baso % (Auto) Absolute Neuts (auto) Absolute Lymphs (auto) Total Counted Neutrophils % (Manual) Band Neutrophils % Lymphocytes % (Manual) Monocytes % (Manual) Metamyelocytes % Myelocytes % Diff Path Review Platelet Estimate Hypochromasia Anisocytosis Macrocytosis Specimen Type pH Bicarbonate Actual POC Total CO2 Base Excess O2 Saturation ABG pCO2 ABG pO2 Sodium Potassium Chloride Carbon Dioxide Anion Gap BUN Creatinine Estim Creat Clear Calc Est GFR (MDRD) Af Amer Est GFR (MDRD) Non-Af BUN/Creatinine Ratio Glucose Lactic Acid Calcium Phosphorus Magnesium Total Bilirubin AST ALT Alkaline Phosphatase Total Creatine Kinase Total Protein Albumin Globulin Albumin/Globulin Ratio Triglycerides Urine Color Urine Clarity Urine pH Ur Specific [place] Urine Protein Urine Glucose (UA) Urine Ketones Urine Occult Blood Urine Nitrite Urine Bilirubin Urine Urobilinogen Ur Leukocyte Esterase Urine RBC Urine WBC Ur Squamous Epith Cells Urine Bacteria Urine Mucus Urine Test Acetone Level Chlam trachomat DNA PCR HIV 1&2 Ag/Ab, 4th Gen N.gonorrhoeae DNA (PCR) MRSA (PCR) POC Glucose 156 H 309 H 124 H 08/12/16 08/12/16 08/12/16 17:30 18:30 18:37 WBC RBC Hgb Hct MCV MCH MCHC RDW RDW Differential Plt Count MPV Immature Gran % (Auto) Neut % (Auto) Lymph % (Auto) [place] % (Auto) Eos % (Auto) Baso % (Auto) Absolute Neuts (auto) Absolute Lymphs (auto) Total Counted Neutrophils % (Manual) Band Neutrophils % Lymphocytes % (Manual) Monocytes % (Manual) Metamyelocytes % Myelocytes % Diff Path Review Platelet Estimate Hypochromasia Anisocytosis Macrocytosis Specimen Type pH Bicarbonate Actual POC Total CO2 Base Excess O2 Saturation ABG pCO2 ABG pO2 Sodium 148 H Potassium 3.5 Chloride 114 H Carbon Dioxide 29.0 Anion Gap 5 BUN 14 Creatinine 0.87 Estim Creat Clear Calc 84.72 Est GFR (MDRD) Af Amer 106 Est GFR (MDRD) Non-Af 88 BUN/Creatinine Ratio 16.0 Glucose 96 Lactic Acid Calcium 8.8 Phosphorus Magnesium Total Bilirubin AST ALT Alkaline Phosphatase Total Creatine Kinase Total Protein Albumin Globulin Albumin/Globulin Ratio Triglycerides Urine Color Urine Clarity Urine pH Ur Specific [place] Urine Protein Urine Glucose (UA) Urine Ketones Urine Occult Blood Urine Nitrite Urine Bilirubin Urine Urobilinogen Ur Leukocyte Esterase Urine RBC Urine WBC Ur Squamous Epith Cells Urine Bacteria Urine Mucus Urine Test Acetone Level Chlam trachomat DNA PCR HIV 1&2 Ag/Ab, 4th Gen N.gonorrhoeae DNA (PCR) MRSA (PCR) POC Glucose 51 L 98 08/12/16 08/12/16 08/12/16 21:10 21:41 22:40 WBC RBC Hgb Hct MCV MCH MCHC RDW RDW Differential Plt Count MPV Immature Gran % (Auto) Neut % (Auto) Lymph % (Auto) [place] % (Auto) Eos % (Auto) Baso % (Auto) Absolute Neuts (auto) Absolute Lymphs (auto) Total Counted Neutrophils % (Manual) Band Neutrophils % Lymphocytes % (Manual) Monocytes % (Manual) Metamyelocytes % Myelocytes % Diff Path Review Platelet Estimate Hypochromasia Anisocytosis Macrocytosis Specimen Type pH Bicarbonate Actual POC Total CO2 Base Excess O2 Saturation ABG pCO2 ABG pO2 Sodium Potassium Chloride Carbon Dioxide Anion Gap BUN Creatinine Estim Creat Clear Calc Est GFR (MDRD) Af Amer Est GFR (MDRD) Non-Af BUN/Creatinine Ratio Glucose Lactic Acid Calcium Phosphorus Magnesium Total Bilirubin AST ALT Alkaline Phosphatase Total Creatine Kinase Total Protein Albumin Globulin Albumin/Globulin Ratio Triglycerides Urine Color Urine Clarity Urine pH Ur Specific [place] Urine Protein Urine Glucose (UA) Urine Ketones Urine Occult Blood Urine Nitrite Urine Bilirubin Urine Urobilinogen Ur Leukocyte Esterase Urine RBC Urine WBC Ur Squamous Epith Cells Urine Bacteria Urine Mucus Urine Test Acetone Level Chlam trachomat DNA PCR HIV 1&2 Ag/Ab, 4th Gen N.gonorrhoeae DNA (PCR) MRSA (PCR) POC Glucose 44 L* 187 H 111 H 08/13/16 08/13/16 08/13/16 00:31 02:23 03:40 WBC 9.5 RBC 2.75 L Hgb 8.2 L Hct 26.8 L MCV 97.5 MCH 29.8 MCHC 30.6 L RDW 15.3 H RDW Differential 52.0 H Plt Count 213 MPV 9.5 Immature Gran % (Auto) 0.600 Neut % (Auto) 59.4 Lymph % (Auto) 33.5 [place] % (Auto) 5.5 Eos % (Auto) 0.8 Baso % (Auto) 0.2 Absolute Neuts (auto) 5.6 Absolute Lymphs (auto) 3.17 Total Counted Not Reportable Neutrophils % (Manual) Band Neutrophils % Lymphocytes % (Manual) Monocytes % (Manual) Metamyelocytes % Myelocytes % Diff Path Review Platelet Estimate Hypochromasia Anisocytosis Macrocytosis Specimen Type pH Bicarbonate Actual POC Total CO2 Base Excess O2 Saturation ABG pCO2 ABG pO2 Sodium Potassium Chloride Carbon Dioxide Anion Gap BUN Creatinine Estim Creat Clear Calc Est GFR (MDRD) Af Amer Est GFR (MDRD) Non-Af BUN/Creatinine Ratio Glucose Lactic Acid Calcium Phosphorus Magnesium Total Bilirubin AST ALT Alkaline Phosphatase Total Creatine Kinase Total Protein Albumin Globulin Albumin/Globulin Ratio Triglycerides Urine Color Urine Clarity Urine pH Ur Specific [place] Urine Protein Urine Glucose (UA) Urine Ketones Urine Occult Blood Urine Nitrite Urine Bilirubin Urine Urobilinogen Ur Leukocyte Esterase Urine RBC Urine WBC Ur Squamous Epith Cells Urine Bacteria Urine Mucus Urine Test Acetone Level Chlam trachomat DNA PCR HIV 1&2 Ag/Ab, 4th Gen N.gonorrhoeae DNA (PCR) MRSA (PCR) POC Glucose 110 136 H 08/13/16 08/13/16 03:40 05:45 WBC RBC Hgb Hct MCV MCH MCHC RDW RDW Differential Plt Count MPV Immature Gran % (Auto) Neut % (Auto) Lymph % (Auto) [place] % (Auto) Eos % (Auto) Baso % (Auto) Absolute Neuts (auto) Absolute Lymphs (auto) Total Counted Neutrophils % (Manual) Band Neutrophils % Lymphocytes % (Manual) Monocytes % (Manual) Metamyelocytes % Myelocytes % Diff Path Review Platelet Estimate Hypochromasia Anisocytosis Macrocytosis Specimen Type pH Bicarbonate Actual POC Total CO2 Base Excess O2 Saturation ABG pCO2 ABG pO2 Sodium 143 Potassium 4.2 Chloride 111 H Carbon Dioxide 27.0 Anion Gap 5 BUN 12 Creatinine 0.70 Estim Creat Clear Calc 105.30 Est GFR (MDRD) Af Amer 136 Est GFR (MDRD) Non-Af 113 BUN/Creatinine Ratio 17.0 Glucose 152 H Lactic Acid Calcium 8.8 Phosphorus Magnesium Total Bilirubin AST ALT Alkaline Phosphatase Total Creatine Kinase Total Protein Albumin Globulin Albumin/Globulin Ratio Triglycerides Urine Color Urine Clarity Urine pH Ur Specific [place] Urine Protein Urine Glucose (UA) Urine Ketones Urine Occult Blood Urine Nitrite Urine Bilirubin Urine Urobilinogen Ur Leukocyte Esterase Urine RBC Urine WBC Ur Squamous Epith Cells Urine Bacteria Urine Mucus Urine Test Acetone Level Chlam trachomat DNA PCR HIV 1&2 Ag/Ab, 4th Gen N.gonorrhoeae DNA (PCR) MRSA (PCR) POC Glucose 170 H Microbiology 08/12/16 11:45 Sputum, Induced/Lukens Gram Stain - Final Clinical Impression(s) from Imaging Studies Chest X-Ray 08/11/16 12:52 IMPRESSION: Placement of support devices as described above. No acute pathology. Electronically Signed: Josh Rosenbaum MD at 13:28 EDT , Service support , Chest X-Ray 08/12/16 05:55 IMPRESSION: Lines are in good position as above. Right infrahilar opacification may be due to slight rotation on the current examination and possible atelectasis. Early infiltrate is not excluded. This was not seen on previous exams. Electronically Signed: Genny Schulz MD at 5:06 EDT , Service support , Assessment/Plan RECOMMENDATIONS: 1. Will proceed with a trial of extubation this morning. Once extubated, wean supplemental oxygen to maintain saturations at or above 90%. 2. Bedside swallow evaluation once extubated with advancement of diet 3. Continue basal and sliding scale insulin coverage. 4. Crisis re-evaluation once extubated. Although the patient has previously denied suicidal ideations, her actions and behavior seem to contradict this sentiment. 5. Electrolyte replacement as indicated 6. Continue DVT Prophylaxis with subcu heparin 7. Precedex and Pepcid can be discontinued 8. Plan for central line removal within the next 24 hours. Discontinue Jackson later today. IMPRESSIONS: 1. Acute respiratory failure The patient was electively intubated in the emergency department to facilitate to the delivery of medical care, given the patient's agitation. The patient passed her spontaneous breathing trial this morning. Her agitation has been under adequate control with use of Precedex therapy. She is currently tolerating CPAP mode mechanical ventilation with minimal FiO2 requirement. We will plan to proceed with a trial of extubation this morning. Once extubated, we will wean supplemental oxygen to maintain saturations at or above 90%. Plan for swallow evaluation once extubated with advancement of diet. 2. Toxic/metabolic encephalopathy Improved with treatment of #3. Continue basal and sliding scale insulin coverage. 3. Diabetic ketoacidosis secondary to medication noncompliance The patient does have a long-standing history of medication noncompliance. The patient was recently assigned to an outpatient director case to assist with her care. Continue primary medical management of DKA as noted above. 4. Acute Kidney Injury Prerenal in etiology. Resolved at this time, following IV fluid resuscitation. No additional need for supplemental IV fluids at this time. Continue to monitor urine output accordingly. 5. Hypernatremia/Hypophosphatemia Resolved at this time. Elevated sodium level secondary to normal saline resuscitation. 6. Possible staph pneumonia The patient will be restarted on oral Zyvox therapy. 7. Personal history of Substance Abuse The patient's toxicology screen was positive for amphetamines on presentation to the emergency department. The patient will be reevaluated by crisis following her extubation. 8. Hypertriglyceridemia in the setting of poor glycemic control No evidence of acute pancreatitis at the current time. Lipase is at the upper limits of normal. 9. ICU Prophylaxis Continue Pepcid and subcutaneous heparin. Once extubated, Pepcid can be discontinued. TIME: 35 minutes of critical care time was spent addressing the patient's acute respiratory failure, metabolic encephalopathy, diabetic ketoacidosis secondary to medication noncompliance, acute kidney injury, electrolyte derangements, review of all data and collaboration with care team. ([id number])
--- NOTE | 2016-08-13 07:12 | PCM.PN.HOSP ---
Subjective: Patient is a 20-year-old female with uncontrolled diabetes mellitus, history of noncompliance with insulin regimen and recurrent DKAs with multiple admissions. Admitted to the hospital due to another episode of severe DKA. Due to lethargy for airway protection patient was intubated in the ED. Subjective. Patient was seen and examined. Laying down in bed, comfortable. Does not appear to be distressed. Was successfully extubated earlier today. Denies any complaints, except mild sore throat. Denies GI/ complaints. States that although patient does look somewhat withdrawn, defensive, does not appear to be interested in discussion of her medical condition. States that she is taking insulin as prescribed, and for whatever reason it does not work at home, although he does work in the hospital. Denies suicidal ideations. Objective. General: Patient is laying down in bed. Awake, alert, oriented ?3. HEENT: Atraumatic, Normocephalic. Clear conjunctiva. Oral mucosa is moist. Neck: No nodules noted, no asymmetry. PERRLA. Skin: Clean, dry. No new visible rashes. Lungs: clear to auscultation bilaterally. CVS: S1-S2 present, no murmurs appreciated, regular rate, good radial pulses. Capillary refill is less than 3 Seconds. Abdomen: Soft, nontender, nondistended, bowel sounds present. No CVA tenderness. Extremities: No clubbing, No cyanosis. No visible deformities. No lower extremity edema. Psych/Mental Status: Cooperative, although does look somewhat depressed and defensive. Answers questions appropriately though. Neuro: No new focal findings on the neuro exam. Assessment and plan. DKA. Treatment per protocol. Patient was on insulin drip, now discontinued, started on subcu insulins. Continue to monitor glucose levels, will adjust as needed. Encephalopathy. Due to above, now improving, still somnolent, overnight have had episode of severe agitation as well as episodes of lethargy. Continue to monitor. Resolved now. Acute respiratory failure due to above. Patient was intubated in the ED for airway protection. Continue mechanical ventilation. Per report patient did fail weaning trial due to episodes of agitation alternating with lethargy. Successfully extubated. Doing well. RENU. Creatinine on arrival 1.9, with rehydration down to 1.0. Improved. Dehydration. Due to DKA, improved with rehydration. Staph pneumonia was suspected per discussion with assistant news director. On Zyvox. History of polysubstance abuse. History of HCV. She will need to follow-up with that as outpatient for possible treatment options. DVT prophylaxis with heparin SQ. Disposition: Recurrent admissions for DKA due to noncompliance with insulin regimen. I do have a high suspicion that patient does not take insulins intentionally, psychiatric crisis consulted. I have high concern that patient possibly intentionally not using her insulins to get into the hospital or possibly suicidal reasons(even though patient does deny any suicidal ideations), but patient does come to the hospital frequently and was just released from the hospital about a week ago with a similar presentation. Nestoron Dictation. Vitals/I&O's: Vital Signs Temp Pulse Resp BP Pulse Ox 36.4 C 65 17 97/74 99 08/13/16 06:00 08/13/16 06:00 08/13/16 06:00 08/13/16 06:00 08/13/16 06:00 Oxygen Flow Rate 35 Oxygen Delivery Method CPAP Weight: 52.8 kg Body Mass Index (BMI) 20.0 Finger Stick Blood Glucose 176 Intake and Output for Last 24 Hours 08/11/16 08/12/16 08/13/16 23:59 23:59 23:59 Intake Total 3033.8 3059.5 728.9 Output Total 2250 960 310 Balance 783.8 2099.5 418.9 Microbiology Past 72 Hours 08/12/16 11:45 Sputum, Induced/Lukens Gram Stain - Final Laboratory Results 08/12/16 03:05: Diff Path Review Reviewed 08/12/16 09:30: Sodium 145, Potassium 3.8, Chloride 112 H, Carbon Dioxide 29.0, Anion Gap 4 L, BUN 17, Creatinine 1.02, Estim Creat Clear Calc 72.26, Est GFR (MDRD) Af Amer 89, Est GFR (MDRD) Non-Af 74, BUN/Creatinine Ratio 16.7, Glucose 154 H, Calcium 8.9 08/12/16 09:33: POC Glucose 156 H 08/12/16 11:30: POC Glucose 309 H 08/12/16 15:32: POC Glucose 124 H 08/12/16 17:30: POC Glucose 51 L 08/12/16 18:30: Sodium 148 H, Potassium 3.5, Chloride 114 H, Carbon Dioxide 29.0, Anion Gap 5, BUN 14, Creatinine 0.87, Estim Creat Clear Calc 84.72, Est GFR (MDRD) Af Amer 106, Est GFR (MDRD) Non-Af 88, BUN/Creatinine Ratio 16.0, Glucose 96, Calcium 8.8 08/12/16 18:37: POC Glucose 98 08/12/16 21:10: POC Glucose 44 L* 08/12/16 21:41: POC Glucose 187 H 08/12/16 22:40: POC Glucose 111 H 08/13/16 00:31: POC Glucose 110 08/13/16 02:23: POC Glucose 136 H 08/13/16 03:40: WBC 9.5, RBC 2.75 L, Hgb 8.2 L, Hct 26.8 L, MCV 97.5, MCH 29.8, MCHC 30.6 L, RDW 15.3 H, RDW Differential 52.0 H, Plt Count 213, MPV 9.5, Immature Gran % (Auto) 0.600, Neut % (Auto) 59.4, Lymph % (Auto) 33.5, Culberson % (Auto) 5.5, Eos % (Auto) 0.8, Baso % (Auto) 0.2, Absolute Neuts (auto) 5.6, Absolute Lymphs (auto) 3.17, Total Counted Not Reportable 08/13/16 03:40: Sodium 143, Potassium 4.2, Chloride 111 H, Carbon Dioxide 27.0, Anion Gap 5, BUN 12, Creatinine 0.70, Estim Creat Clear Calc 105.30, Est GFR (MDRD) Af Amer 136, Est GFR (MDRD) Non-Af 113, BUN/Creatinine Ratio 17.0, Glucose 152 H, Calcium 8.8 08/13/16 05:45: POC Glucose 170 H Current Medications Chlorhexidine Gluconate () 15 ml PO BID [facility] Last Admin: 08/12/16 21:46 Dose: 15 ml Chlorhexidine Gluconate () 1 each TOPICAL DAILY [facility] Last Admin: 08/12/16 11:21 Dose: 1 each Dextrose (D50w Syringe) 0 gm IV X1 PRN; Protocol PRN Reason: HYPOGLYCEMIA Last Admin: 08/12/16 21:12 Dose: 25 gm Famotidine (Pepcid) 20 mg GT BID [facility] Last Admin: 08/12/16 21:46 Dose: 20 mg Heparin Sodium (Beef Lung) (Heparin 500 Unit/5 Ml (100/Ml)) 500 unit IV UD PRN PRN Reason: HEPARIN FLUSH Heparin Sodium (Porcine) () 5,000 units SC Q8 [facility] Last Admin: 08/13/16 05:39 Dose: 5,000 units Sodium Chloride () 250 mls @ 15 mls/hr IV .[id number] PRN PRN Reason: SALINE FLUSH Last Admin: 08/13/16 02:26 Dose: 15 mls/hr Dexmedetomidine HCl 400 mcg/ (Sodium Chloride) 100 mls @ 6.45 mls/hr IV .[id number] [facility] PRN Reason: 0.5 MCG/KG/HR Last Admin: 08/12/16 22:34 Dose: 6.45 mls/hr Insulin Aspart (Novolog Flexpen (Bkc)) 0 units SC ACHS [facility] PRN Reason: Protocol Last Admin: 08/12/16 22:32 Dose: Not Given Insulin Detemir (Levemir (Bkc)) 10 units SC 11,22 [facility] Last Admin: 08/12/16 21:47 Dose: Not Given Sodium Chloride () 10 - 40 ml IV UD PRN PRN Reason: MULTILUMEN/HICMAN CATH FLUSH Last Admin: 08/13/16 02:26 Dose: 40 ml Sodium Chloride () 10 - 20 ml IV UD PRN PRN Reason: PICC FLUSH Last Admin: 08/12/16 21:16 Dose: 20 ml
[2016-08-13 09:26] LABS: Bedside Glucose 206 mg/dL (70-110)
[2016-08-13] MEDS: Glucerna Shake 120 ML LIQUID PO ×4 (10:09→21:28)
--- NOTE | 2016-08-13 10:53 | CASEMGMT ---
Addendum entered by Tonya Narayanan 08/13/16 14:44: ANA CRISTINA called EVELYN Tellez's office again, set up appt for August 20 at 9am. SW left a message for pt's rifle case repairer Jyoti Madsen letting her know when the appt is, to see if she can arrange transportation. SW spoke w/pt again, gave her the information for the appt, let her know that SW left Jyoti Madsen a message regarding the appt, to see if she can set up transport for the appt. SW also gave the pt Jyoti's number, and the name and number of the rifle case repairer at [facility] (Joya Collado). SW asked pt if she likes being in the hospital, if she feels safe here. Pt states no, she does not like being here, and does not feel safe here. SW asked about [facility], pt states she does feel safe there. They do provide food for pt there, she just has to prepare it. SW continues to be available to pt, and did let her know this, should she want to speak further. SPENSER Varela, POWERSAW SUPERVISOR Original Note: Addendum entered by Tonya Narayanan 08/13/16 13:29: SW did let pt know that the new rifle case repairer from [facility] will be here later to meet her. SW asked pt if she would like to speak w/the chemical engineering teacher, as he is in the ICU now. Pt declined. SW asked pt about [facility], and how it is there. Pt states it's okay. SW asked about her room, she has a roommate who is older than her, she states she is nice. SW asked about the house setup, they share a bathroom, have to cook for themselves. Pt states she still has all of her meds she needs. SW reminded pt will continue to be available to speak w/pt if she would like to talk w/SW. SPENSER Varela, POWERSAW SUPERVISOR Original Note: SW gave pt 4 copies of her ID, explained had spoken w/Jyoti, pt's rifle case repairer from [place]. Pt did confirm she no longer has her ID. SW explained that Jyoti had said pt was not able to get to her endocrinology appt in [place] as she did not have an IV. Sylvia states it was because she did not have transport. SW explained can try and get her in with EVELYN Tellez again here in [place], so transportation would be less of an issue. Sylvia states that she was told she had to see her in [place] first. This may not be accurate however as EVELYN Tellez works out of [place] now. ANA CRISTINA explained will call to see if we can get her an appt in [place], and will call Jyoti as she said she would assist w/transport. ANA CRISTINA participated in rounds. As per Dr. Abdi, Shweta from [facility] can come to see pt today. SW let pt know that Shweta will come see her today. Pt states she does not want to speak w/Shweta. ANA CRISTINA explained she may come anyway, and is hoping to introduce her to the rifle case repairer who will be working with her. Pt nodded in agreement. ANA CRISTINA called Shweta from [facility]. She will be here about 3:30pm and is bringing Priya Muse who will be pt's rifle case repairer at [facility]. ANA CRISTINA also did ask Shweta to assess pt for psych placement. ANA CRISTINA called EVELYN Tellez's office, message left. ANA CRISTINA will continue to follow. SPENSER Varela, POWERSAW SUPERVISOR
[2016-08-13 11:41] LABS: Bedside Glucose 384 mg/dL (70-110)
[2016-08-13 13:02] LABS: HIV 1/0/2 SCREEN 4TH GEN Non Reactive (Non Reactive)
[2016-08-13] MEDS: Linezolid 600 MG Tablet PO ×2 (14:09→21:28)
--- NOTE | 2016-08-13 15:59 | CASEMGMT ---
Shweta and Priya Collado(not Joya as previously documented) from [facility] came in to see pt, Shweta introduced Priya to pt. As per Shweta, at this point she does not think psych placement would be beneficial. Also, pt would need to be out of ICU 24 hours with more stable blood sugars before a psych facility would take pt. Also, she states no psych facility would manage pt's diabetes. She states is looking at the long view and is hopeful if pt gets established with case management, this will be most beneficial for her. ANA CRISTINA called Dr. Zaldivar and let him talk w/Shweta directly. SW remains available for any additional assist. SPENSER Varela, PACS SPECIALIST
[2016-08-13 17:51] LABS: Bedside Glucose 290 mg/dL (70-110)
[2016-08-13 21:35] LABS: Bedside Glucose 297 mg/dL (70-110)
[2016-08-14] VITALS (17 sets, daily range): BP systolic 110–128; BP diastolic 73–95; PULSE 82–108; RESP 13–25; TEMP 36.4–37; O2SAT 95–100
[2016-08-14 04:58] LABS: Anion Gap 7 (5-15); BUN 21 mg/dL (7-18); BUN/Creat Ratio 29.1 RATIO (10-20); Calcium,Total 8.8 mg/dL (8.5-10.1); Chloride 101 mmol/L (98-107); Creatinine, Serum 0.72 mg/dL (0.55-1.02); EST Glomerular Filtration Rate 110 mL/min (>60); Est Glom Filt Rate - Afr Amer 133 mL/min (>60); Estimated Creatinine Clearance 103.96 ml/min; Glucose 401 mg/dL (70-110); Potassium 4.1 mmol/L (3.5-5.1); Sodium Level 135 mmol/L (136-145)
[2016-08-14] MEDS: Heparin Injection 5,000 UNITS/ML Syringe 5000 UNITS SC (06:19)
[2016-08-14 06:51] LABS: Bedside Glucose 394 mg/dL (70-110)
--- NOTE | 2016-08-14 07:22 | PCM.PN.HOSP ---
Subjective: Patient is a 20-year-old female with uncontrolled diabetes mellitus, history of noncompliance with insulin regimen and recurrent DKAs with multiple admissions. Admitted to the hospital due to another episode of severe DKA. Due to lethargy for airway protection patient was intubated in the ED. Subjective. Patient was seen and examined. Laying down in bed, comfortable. Does not appear to be distressed. Patient does look somewhat depressed, not interested in conversation, answers mostly yes/no, no eye contact. No shortness of breath, no pain, no fever/chills. Denies any complaints. Denies GI/ complaints. Denies suicidal ideations. Objective. General: Patient is laying down in bed. Awake, alert, oriented ?3. HEENT: Atraumatic, Normocephalic. Clear conjunctiva. Oral mucosa is moist. Neck: No nodules noted, no asymmetry. PERRLA. Skin: Clean, dry. No new visible rashes. Lungs: clear to auscultation bilaterally. CVS: S1-S2 present, no murmurs appreciated, regular rate, good radial pulses. Abdomen: Soft, nontender, nondistended, bowel sounds present. No CVA tenderness. Extremities: No clubbing, No cyanosis. No visible deformities. No lower extremity edema. Psych/Mental Status: Cooperative, although does look somewhat depressed and defensive. Neuro: No new focal findings on the neuro exam. Assessment and plan. DKA. Treatment per protocol. Patient was on insulin drip, now discontinued, started on subcu insulins. Noted fluctuations in blood glucose levels. Basal insulin dose increased, continue sliding scale. Encephalopathy. Resolved. Acute respiratory failure due to above. Patient was intubated in the ED for airway protection. Initially failed weaning trial due to agitation. Subsequently he was extubated on 08/13/2016. Breathing comfortably now. Respiratory failure resolved. RENU. Creatinine on arrival 1.9, with rehydration down to 1.0. Improved. Dehydration. Due to DKA, improved with rehydration. Resolved. Staph pneumonia was suspected per discussion with uniform force captain. Initially was started on on Zyvox. Patient denies any complaints of coughing/fever/chills, although chest x-ray was somewhat suggestive for possible infiltrate. Information Technology Technician recommended to continue antibiotic therapy in view of recent respiratory failure. Will change antibiotics per sensitivity to levofloxacin. History of polysubstance abuse. History of HCV. She will need to follow-up with that as outpatient for possible treatment options. DVT prophylaxis with heparin SQ. Disposition: Recurrent admissions for DKA due to noncompliance with insulin regimen. I do have a high suspicion that patient does not take insulins intentionally, psychiatric crisis consulted. I have high concern that patient possibly intentionally not using her insulins to get into the hospital or possibly suicidal reasons(even though patient does deny any suicidal ideations), but patient does come to the hospital frequently and was just released from the hospital about a week ago with a similar presentation. I appreciate input from psychiatric crisis. manager heavy equipment assisting with discharge planning. Carlotta Dictation. Vitals/I&O's: Vital Signs Temp Pulse Resp BP Pulse Ox 36.7 C 85 18 114/78 98 08/14/16 04:00 08/14/16 06:00 08/14/16 06:00 08/14/16 06:00 08/14/16 06:00 Oxygen Flow Rate 2 Oxygen Delivery Method Room Air Weight: 52.8 kg Body Mass Index (BMI) 20.0 Finger Stick Blood Glucose 176 Intake and Output for Last 24 Hours 08/12/16 08/13/16 08/14/16 23:59 23:59 23:59 Intake Total 3059.5 3683.9 1288 Output Total 960 660 Balance 2099.5 3023.9 1288 Microbiology Past 72 Hours 08/12/16 11:45 Sputum, Induced/Lukens Gram Stain - Final 08/12/16 11:45 Sputum, Induced/Lukens Respiratory Culture - Preliminary Staphylococcus aureus 08/11/16 16:00 Urine Catheter - Jackson Urine Culture - Final Culture exhibits no growth. Laboratory Results 08/11/16 16:00: HIV 1&2 Ag/Ab, 4th Gen Non Reactive 08/13/16 09:19: POC Glucose 206 H 08/13/16 11:32: POC Glucose 384 H 08/13/16 17:43: POC Glucose 290 H 08/13/16 21:28: POC Glucose 297 H 08/14/16 03:55: Sodium 135 L, Potassium 4.1, Chloride 101, Carbon Dioxide 27.0, Anion Gap 7, BUN 21 H, Creatinine 0.72, Estim Creat Clear Calc 103.96, Est GFR (MDRD) Af Amer 133, Est GFR (MDRD) Non-Af 110, BUN/Creatinine Ratio 29.1 H, Glucose 401 H, Calcium 8.8 08/14/16 06:47: POC Glucose 394 H Current Medications Chlorhexidine Gluconate () 1 each TOPICAL DAILY [facility] Last Admin: 08/13/16 09:22 Dose: Not Given Dextrose (D50w Syringe) 0 gm IV X1 PRN; Protocol PRN Reason: HYPOGLYCEMIA Last Admin: 08/12/16 21:12 Dose: 25 gm Heparin Sodium (Beef Lung) (Heparin 500 Unit/5 Ml (100/Ml)) 500 unit IV UD PRN PRN Reason: HEPARIN FLUSH Heparin Sodium (Porcine) () 5,000 units SC Q8 [facility] Last Admin: 08/14/16 06:19 Dose: 5,000 units Sodium Chloride () 250 mls @ 15 mls/hr IV .[id number] PRN PRN Reason: SALINE FLUSH Last Admin: 08/13/16 02:26 Dose: 15 mls/hr Insulin Aspart (Novolog Flexpen (Bkc)) 0 units SC ACHS [facility] PRN Reason: Protocol Last Admin: 08/13/16 21:29 Dose: 9 u Insulin Detemir (Levemir (Bkc)) 10 units SC 11,22 [facility] Last Admin: 08/13/16 21:28 Dose: 10 u Linezolid (Zyvox) 600 mg PO BID [facility] Last Admin: 08/13/16 21:28 Dose: 600 mg Nutritional Formula (Lactose Free) (Glucerna Shake) 120 ml PO 4X/DAY [facility] Last Admin: 08/13/16 21:28 Dose: 120 ml Sodium Chloride () 10 - 40 ml IV UD PRN PRN Reason: MULTILUMEN/HICMAN CATH FLUSH Last Admin: 08/13/16 02:26 Dose: 40 ml Sodium Chloride () 10 - 20 ml IV UD PRN PRN Reason: PICC FLUSH Last Admin: 08/12/16 21:16 Dose: 20 ml
--- NOTE | 2016-08-14 07:23 | PCM.PN.INT ---
Subjective: The patient was seen and examined at the bedside this morning. Events from the last 24 hours have been reviewed. The patient has done well from a respiratory standpoint following extubation yesterday. She is currently afebrile, hemodynamically stable and maintaining appropriate oxygen saturations on room air. Blood sugars have been on the high side. Levemir dose was subsequently increased. Objective: The patient's most recent lab work, culture data and imaging studies have all been personally reviewed. Sputum culture, dated August 12, was positive for methicillin-resistant staph aureus. Blood and urine cultures have shown no growth to date. General: Alert, Cooperative, No apparent distress HEENT: Atraumatic, PERRLA, Normocephalic Oral: Moist Mucosa, No Gingival or Mucosal Lesions/ Ulcerations Neck: Supple, No JVD, Trachea Midline Lungs: Normal air movement, No rhonchi, No wheeze, No rales Cardiovascular: Regular rate, Regular Rhythm, Normal S1, Normal S2, No murmurs Abdomen: Bowel Sounds Present, Soft, Non Tender, Non-Distended Extremities: No clubbing, No cyanosis, No edema Skin: No rashes, No breakdown Musculoskeletal: No Tenderness to Palpation of Joints or Extremities Lymphatic: No Cervical, Supraclavicular, or Inguinal Adenopathy Neurological: Neuro grossly intact Psych/Mental Status: Flat Affect Vital Signs Temp Pulse Resp BP Pulse Ox 36.7 C 85 18 114/78 98 08/14/16 04:00 08/14/16 06:00 08/14/16 06:00 08/14/16 06:00 08/14/16 06:00 Oxygen Flow Rate 2 Oxygen Delivery Method Room Air Weight: 52.8 kg Body Mass Index (BMI) 20.0 Finger Stick Blood Glucose 176 Intake and Output for Last 24 Hours 08/12/16 08/13/16 08/14/16 23:59 23:59 23:59 Intake Total 3059.5 3683.9 1288 Output Total 960 660 Balance 2099.5 3023.9 1288 Labs (Last 48 Hours) 08/11/16 08/12/16 08/12/16 16:00 03:05 09:30 WBC RBC Hgb Hct MCV MCH MCHC RDW RDW Differential Plt Count MPV Immature Gran % (Auto) Neut % (Auto) Lymph % (Auto) [place] % (Auto) Eos % (Auto) Baso % (Auto) Absolute Neuts (auto) Absolute Lymphs (auto) Total Counted Diff Path Review Reviewed Sodium 145 Potassium 3.8 Chloride 112 H Carbon Dioxide 29.0 Anion Gap 4 L BUN 17 Creatinine 1.02 Estim Creat Clear Calc 72.26 Est GFR (MDRD) Af Amer 89 Est GFR (MDRD) Non-Af 74 BUN/Creatinine Ratio 16.7 Glucose 154 H Calcium 8.9 HIV 1&2 Ag/Ab, 4th Gen Non Reactive POC Glucose 08/12/16 08/12/16 08/12/16 09:33 11:30 15:32 WBC RBC Hgb Hct MCV MCH MCHC RDW RDW Differential Plt Count MPV Immature Gran % (Auto) Neut % (Auto) Lymph % (Auto) [place] % (Auto) Eos % (Auto) Baso % (Auto) Absolute Neuts (auto) Absolute Lymphs (auto) Total Counted Diff Path Review Sodium Potassium Chloride Carbon Dioxide Anion Gap BUN Creatinine Estim Creat Clear Calc Est GFR (MDRD) Af Amer Est GFR (MDRD) Non-Af BUN/Creatinine Ratio Glucose Calcium HIV 1&2 Ag/Ab, 4th Gen POC Glucose 156 H 309 H 124 H 08/12/16 08/12/16 08/12/16 17:30 18:30 18:37 WBC RBC Hgb Hct MCV MCH MCHC RDW RDW Differential Plt Count MPV Immature Gran % (Auto) Neut % (Auto) Lymph % (Auto) [place] % (Auto) Eos % (Auto) Baso % (Auto) Absolute Neuts (auto) Absolute Lymphs (auto) Total Counted Diff Path Review Sodium 148 H Potassium 3.5 Chloride 114 H Carbon Dioxide 29.0 Anion Gap 5 BUN 14 Creatinine 0.87 Estim Creat Clear Calc 84.72 Est GFR (MDRD) Af Amer 106 Est GFR (MDRD) Non-Af 88 BUN/Creatinine Ratio 16.0 Glucose 96 Calcium 8.8 HIV 1&2 Ag/Ab, 4th Gen POC Glucose 51 L 98 08/12/16 08/12/16 08/12/16 21:10 21:41 22:40 WBC RBC Hgb Hct MCV MCH MCHC RDW RDW Differential Plt Count MPV Immature Gran % (Auto) Neut % (Auto) Lymph % (Auto) [place] % (Auto) Eos % (Auto) Baso % (Auto) Absolute Neuts (auto) Absolute Lymphs (auto) Total Counted Diff Path Review Sodium Potassium Chloride Carbon Dioxide Anion Gap BUN Creatinine Estim Creat Clear Calc Est GFR (MDRD) Af Amer Est GFR (MDRD) Non-Af BUN/Creatinine Ratio Glucose Calcium HIV 1&2 Ag/Ab, 4th Gen POC Glucose 44 L* 187 H 111 H 08/13/16 08/13/16 08/13/16 00:31 02:23 03:40 WBC 9.5 RBC 2.75 L Hgb 8.2 L Hct 26.8 L MCV 97.5 MCH 29.8 MCHC 30.6 L RDW 15.3 H RDW Differential 52.0 H Plt Count 213 MPV 9.5 Immature Gran % (Auto) 0.600 Neut % (Auto) 59.4 Lymph % (Auto) 33.5 [place] % (Auto) 5.5 Eos % (Auto) 0.8 Baso % (Auto) 0.2 Absolute Neuts (auto) 5.6 Absolute Lymphs (auto) 3.17 Total Counted Not Reportable Diff Path Review Sodium Potassium Chloride Carbon Dioxide Anion Gap BUN Creatinine Estim Creat Clear Calc Est GFR (MDRD) Af Amer Est GFR (MDRD) Non-Af BUN/Creatinine Ratio Glucose Calcium HIV 1&2 Ag/Ab, 4th Gen POC Glucose 110 136 H 08/13/16 08/13/16 08/13/16 03:40 05:45 09:19 WBC RBC Hgb Hct MCV MCH MCHC RDW RDW Differential Plt Count MPV Immature Gran % (Auto) Neut % (Auto) Lymph % (Auto) [place] % (Auto) Eos % (Auto) Baso % (Auto) Absolute Neuts (auto) Absolute Lymphs (auto) Total Counted Diff Path Review Sodium 143 Potassium 4.2 Chloride 111 H Carbon Dioxide 27.0 Anion Gap 5 BUN 12 Creatinine 0.70 Estim Creat Clear Calc 105.30 Est GFR (MDRD) Af Amer 136 Est GFR (MDRD) Non-Af 113 BUN/Creatinine Ratio 17.0 Glucose 152 H Calcium 8.8 HIV 1&2 Ag/Ab, 4th Gen POC Glucose 170 H 206 H 08/13/16 08/13/16 08/13/16 11:32 17:43 21:28 WBC RBC Hgb Hct MCV MCH MCHC RDW RDW Differential Plt Count MPV Immature Gran % (Auto) Neut % (Auto) Lymph % (Auto) [place] % (Auto) Eos % (Auto) Baso % (Auto) Absolute Neuts (auto) Absolute Lymphs (auto) Total Counted Diff Path Review Sodium Potassium Chloride Carbon Dioxide Anion Gap BUN Creatinine Estim Creat Clear Calc Est GFR (MDRD) Af Amer Est GFR (MDRD) Non-Af BUN/Creatinine Ratio Glucose Calcium HIV 1&2 Ag/Ab, 4th Gen POC Glucose 384 H 290 H 297 H 08/14/16 08/14/16 03:55 06:47 WBC RBC Hgb Hct MCV MCH MCHC RDW RDW Differential Plt Count MPV Immature Gran % (Auto) Neut % (Auto) Lymph % (Auto) [place] % (Auto) Eos % (Auto) Baso % (Auto) Absolute Neuts (auto) Absolute Lymphs (auto) Total Counted Diff Path Review Sodium 135 L Potassium 4.1 Chloride 101 Carbon Dioxide 27.0 Anion Gap 7 BUN 21 H Creatinine 0.72 Estim Creat Clear Calc 103.96 Est GFR (MDRD) Af Amer 133 Est GFR (MDRD) Non-Af 110 BUN/Creatinine Ratio 29.1 H Glucose 401 H Calcium 8.8 HIV 1&2 Ag/Ab, 4th Gen POC Glucose 394 H Microbiology 08/12/16 11:45 Sputum, Induced/[place]ukens Gram Stain - Final 08/12/16 11:45 Sputum, Induced/[place] Respiratory Culture - Preliminary Staphylococcus aureus 08/11/16 16:00 Urine Catheter - Jackson Urine Culture - Final Culture exhibits no growth. Clinical Impression(s) from Imaging Studies Chest X-Ray 08/11/16 12:52 IMPRESSION: Placement of support devices as described above. No acute pathology. Electronically Signed: Josh Rosenbaum MD at 13:28 EDT , Service support , Chest X-Ray 08/12/16 05:55 IMPRESSION: Lines are in good position as above. Right infrahilar opacification may be due to slight rotation on the current examination and possible atelectasis. Early infiltrate is not excluded. This was not seen on previous exams. Electronically Signed: Genny Schulz MD at 5:06 EDT , Service support , Assessment/Plan RECOMMENDATIONS: 1. Continue basal and sliding scale insulin coverage. Levemir dose was increased this morning. 2. Electrolyte replacement as needed 3. Although the patient's sputum culture may be guest services representative of colonization, given her respiratory failure and previously noted bandemia, we will plan to complete a 7 day course of treatment with Zyvox. 4. Continue DVT Prophylaxis with subcu heparin 5. Encourage incentive spirometer use while in bed. IMPRESSIONS: 1. Acute respiratory failure Resolved at this time. The patient has done well following extubation yesterday. She is currently maintaining appropriate saturations on room air. Although the patient's sputum culture may be guest services representative of colonization, given her respiratory failure and previously noted bandemia, would plan to complete an empiric 7 day course of treatment with Zyvox. Encourage incentive spirometer use while in bed. 2. Toxic/metabolic encephalopathy Resolved with treatment of #3. Continue basal and sliding scale insulin coverage. 3. Diabetic ketoacidosis secondary to medication noncompliance The patient does have a long-standing history of medication noncompliance. The patient was recently assigned to an outpatient case packer to assist with her care. Continue Levemir and sliding scale insulin coverage. The patient was reevaluated by crisis. She was again introduced to her outpatient case packer. 4. Acute Kidney Injury Prerenal in etiology. Resolved at this time, following IV fluid resuscitation. No additional need for supplemental IV fluids at this time. 5. Hypernatremia/Hypophosphatemia Resolved at this time. Elevated sodium level secondary to normal saline resuscitation. 6. Possible staph pneumonia versus colonization Plans to complete a seven-day course of treatment with Zyvox. 7. Personal history of Substance Abuse The patient's toxicology screen was positive for amphetamines on presentation to the emergency department. The patient has been reevaluated by crisis with plans to follow-up with an outpatient case packer. 8. Hypertriglyceridemia in the setting of poor glycemic control No evidence of acute pancreatitis at the current time. Lipase is at the upper limits of normal. 9. Prophylaxis Continue subcutaneous heparin. DISPOSITION: The patient is medically stable for transfer out of the intensive care unit. Given her lack of further ICU/pulmonary needs, will sign off. Please call with any additional questions.
[2016-08-14 08:41] LABS: Hematocrit 28.7 % (37-47); Hemoglobin 9.1 g/dl (12.0-15.0)
--- NOTE | 2016-08-14 09:38 | CASEMGMT ---
ANA CRISTINA called Priya at [facility] and let her know patient is still here and in ICU. She said she would be in around noon to talk with patient again. Medina BOOTH MSW
[2016-08-14] MEDS: Linezolid 600 MG Tablet PO (09:58)
[2016-08-14] MEDS: Glucerna Shake 120 ML LIQUID PO ×4 (09:58→22:33)
[2016-08-14 10:01] LABS: Bedside Glucose 378 mg/dL (70-110)
[2016-08-14] MEDS: levoFLOXacin 750 MG Tablet PO (11:30)
--- NOTE | 2016-08-14 15:27 | CASEMGMT ---
Priya from [facility] came in to see patient around noon, but patient would only talk with her a little bit and then shut her eyes. Priya asked that [facility] notify her when patient is d/c. Plan: d/c back to [facility]. [facility] will follow up with patient once d/c. ANA CRISTINA Barr also set up appt for August 20 at 9 am. She also spoke with patient's [place] and asked her to set up transport for patient. Medina BOOTH SLOT MACHINE FLOOR PERSON
[2016-08-14 16:56] LABS: Bedside Glucose 274 mg/dL (70-110)
[2016-08-14 22:51] LABS: Bedside Glucose 363 mg/dL (70-110)
[2016-08-15] VITALS (7 sets, daily range): BP systolic 128–138; BP diastolic 78–94; PULSE 81–100; RESP 16; TEMP 36.6–37; O2SAT 99–100
[2016-08-15 06:36] LABS: Bedside Glucose 99 mg/dL (70-110)
[2016-08-15] MEDS: levoFLOXacin 750 MG Tablet PO (06:41)
[2016-08-15 08:53] LABS: Anion Gap 6 (5-15); BUN 16 mg/dL (7-18); BUN/Creat Ratio 24.5 RATIO (10-20); Calcium,Total 8.9 mg/dL (8.5-10.1); Chloride 105 mmol/L (98-107); Creatinine, Serum 0.65 mg/dL (0.55-1.02); EST Glomerular Filtration Rate 123 mL/min (>60); Est Glom Filt Rate - Afr Amer 149 mL/min (>60); Estimated Creatinine Clearance 115.16 ml/min; Glucose 283 mg/dL (70-110); Potassium 4.2 mmol/L (3.5-5.1); Sodium Level 138 mmol/L (136-145)
[2016-08-15 09:13] LABS: Absolute Lymphocyte Count 2.17 X10^3/ul (0.83-4.51); Absolute Neutrophil Count 2.4 X10^3/uL (2.0-7.7); Basophil# 0.02 X10^3/uL; Basophil% 0.4 % (0-1); Eosinophil# 0.08 X10^3/uL; Eosinophils% 1.6 % (0-5); Hematocrit 28.1 % (37-47); Lymphocyte # 2.17 X10^3/ul (4.0); Lymphocyte % 42.9 % (19-41); Mean Corpuscular Volume 93.7 fL (81-99); Mean Platelet Vol. 9.7 fl (6.2-12.0); Monocyte# 0.33 X10^3/uL; Monocyte% 6.5 % (0-10); Neutrophil # 2.43 X10^3/uL (2.7-7.7); Platelet Count 207 K/mm3 (150-450); RBC Distribution Width CV 13.6 % (11.6-14.6); RBC Distribution Width SD 44.7 fl (35.1-43.9); White Blood Count 5.1 K/mm3 (4.4-11.0)
[2016-08-15 09:15] LABS: POSITIVE COUNT NO; POSITIVE DIFFERENTIAL NO; POSITIVE MORPHOLOGY NO
--- NOTE | 2016-08-15 10:36 | CM.UR ---
Met with advertising space clerk, Sonya and ANA CRISTINA Sandra to discuss any dc needs. Patient met with . No additional needs at this time. Debi Martin RN, CCM.
[2016-08-15] MEDS: Glucerna Shake 120 ML LIQUID PO ×2 (10:57→15:14)
[2016-08-15 11:36] LABS: Bedside Glucose 465 mg/dL (70-110)
--- NOTE | 2016-08-15 15:43 | DCINST_ITS ---
You will use the following diet at home:: Calorie/Carbohydrate Controlled ( specify 1200, 1400, etc) - 1999 Your food should be the consistency of: Regular Your liquids should be the consistency of: Regular/Thin Weight Bearing Status: Full weight bearing Allergies/Adverse Reactions: Allergies No Known Allergies Allergy (Verified 08/11/16 17:57) Medications to take at Discharge Insulin Glargine,Hum.rec.anlog [Lantus] 25 unit SQ BID #1 08/04/16 Insulin Lispro [Humalog] 15 unit SQ TIDCM 08/04/16 Doxycycline [Vibramycin] 100 mg PO BID #20 capsule 08/15/16 The following prescriptions were given: Doxycycline [Vibramycin] 100 mg PO BID #20 capsule Primary Care Physician: Care Physician,No Primary [Primary Care Provider] - Please Follow Up With: Belle Tellez When:
--- NOTE | 2016-08-15 16:53 | NURSING ---
TLC RIGHT IJ D/C'D. REMOVED EASILY. CATHETER AND TIP INTACT. SCANT BLEEDING @ INSERTION SITE. PRESSURE HELD X 10 MIN. NO FURTHER BLEEDING. SITE CLEANSED PER PROTOCOL AND COVERED W/VASELINE GAUZE AND TRANSPARENT STERILE DRESSING. PT AWARE TO REMAIN ON BEDREST W/HOB FLAT X 30 MIN. ALSO MADE AWARE TO KEEP SITE CLEAN AND DRY X 24 HRS BEFORE REMOVING DRESSING.
[2016-08-15 17:56] LABS: Bedside Glucose 195 mg/dL (70-110)
--- NOTE | 2016-08-16 18:45 | PCM.DC.SUM ---
Discharge Date and Diagnosis Date of Admission: 08/11/16 Date of Discharge: 08/15/16 - Primary Discharge Diagnosis #1 acute DKA #2 acute hypoxic respiratory failure secondary to DKA #3 metabolic encephalopathy secondary to DKA #4 colonization of the sputum with MRSA #5 noncompliance with medical regimen #6 drug abuse-methamphetamine usage #7 acute kidney injury Hospital Course and Treatment Consultations 08/13/16 11:33 Consult: Mental Health/Crisis Routine Reason for consult?: Crisis to see pt for possible psych placement Date Notified:: 08/13/16 Time notified:: 09:15 Operations: None Procedures: None Summary of Care Provided: The patient is a 20 year old F was brought to the emergency room at [facility] by squad after being found unresponsive in a woman's fdc. Evaluation in the emergency room showed the patient to be in DKA, patient was intubated due to acute respiratory failure, she was transferred to the ICU on an insulin drip, given IV fluids, and seen in consultation by pulmonary medicine. Tox screen was positive for methamphetamines. Patient's sputum was positive for MRSA but she had no active infiltrates on her chest x-ray. This was felt to possibly be colonization. Patient was subsequently extubated, blood sugars were brought under control without an insulin drip, patient's renal function improved with vigorous fluid administration. Patient admitted to this examiner that she did not take her insulin secondary to the fact she was using drugs. On 08/15/16, patient was seen and examined felt to be in stable condition for discharge home Discharge Diet: 2200 Calorie Control Diet Weight Bearing Status: Full weight bearing Home Medications: Medications to take at Discharge Insulin Glargine,Hum.rec.anlog [Lantus] 25 unit SQ BID #1 08/04/16 Insulin Lispro [Humalog] 15 unit SQ TIDCM 08/04/16 Doxycycline [Vibramycin] 100 mg PO BID #20 capsule 08/15/16 Following Prescrptions Were Given to Patient: Doxycycline [Vibramycin] 100 mg PO BID #20 capsule Primary Care Physician: Care Physician,No Primary [Primary Care Provider] - Please Follow Up With: Belle Tellez When: Disposition: Home Minutes spent on discharge:: 25 Patient Condition:: Stable Meaningful Use Info Meaningful Use Diagnoses (Choose all that apply): None applicable
--- NOTE | 2016-08-16 18:51 | DS.PCM_ITS ---
Discharge Date and Diagnosis Date of Admission: 08/11/16 Date of Discharge: 08/15/16 - Primary Discharge Diagnosis #1 acute DKA #2 acute hypoxic respiratory failure secondary to DKA #3 metabolic encephalopathy secondary to DKA #4 colonization of the sputum with MRSA #5 noncompliance with medical regimen #6 drug abuse-methamphetamine usage #7 acute kidney injury Hospital Course and Treatment Consultations 08/13/16 11:33 Consult: Mental Health/Crisis Routine Reason for consult?: Crisis to see pt for possible psych placement Date Notified:: 08/13/16 Time notified:: 09:15 Operations: None Procedures: None Summary of Care Provided: The patient is a 20 year old F was brought to the emergency room at [facility] by squad after being found unresponsive in a woman's senior care. Evaluation in the emergency room showed the patient to be in DKA, patient was intubated due to acute respiratory failure, she was transferred to the ICU on an insulin drip, given IV fluids, and seen in consultation by pulmonary medicine. Tox screen was positive for methamphetamines. Patient's sputum was positive for MRSA but she had no active infiltrates on her chest x- ray. This was felt to possibly be colonization. Patient was subsequently extubated, blood sugars were brought under control without an insulin drip, patient's renal function improved with vigorous fluid administration. Patient admitted to this examiner that she did not take her insulin secondary to the fact she was using drugs. On 08/15/16, patient was seen and examined felt to be in stable condition for discharge home Discharge Diet: 2200 Calorie Control Diet Weight Bearing Status: Full weight bearing Home Medications: Medications to take at Discharge Insulin Glargine,Hum.rec.anlog [Lantus] 25 unit SQ BID #1 08/04/16 Insulin Lispro [Humalog] 15 unit SQ TIDCM 08/04/16 Doxycycline [Vibramycin] 100 mg PO BID #20 capsule 08/15/16 Following Prescrptions Were Given to Patient: Doxycycline [Vibramycin] 100 mg PO BID #20 capsule Primary Care Physician: Care Physician,No Primary [Primary Care Provider] - Please Follow Up With: Belle Tellez When: Disposition: Home Minutes spent on discharge:: 25 Patient Condition:: Stable Meaningful Use Info Meaningful Use Diagnoses (Choose all that apply): None applicable
--- NOTE | 2016-08-17 10:28 | CASEMGMT ---
ANA CRISTINA called Priya, patient's new case specialist at [facility] and left her a vm letting her know patient was d/c over the weekend. Medina BOOTH MSW
== END 2016-08-15 17:29 | disposition home or self-care (01) | DRG 295 ==
PROVIDERS: Internal Medicine; Internal Medicine Critical Care Medicine; Admitting Provider Internal Medicine; Emergency Provider Emergency Medicine; Visit Provider Internal Medicine
DX: E10.10 Type 1 diabetes mellitus with ketoacidosis without coma (principal); N17.9 Acute kidney failure, unspecified; F15.10 Other stimulant abuse, uncomplicated; B18.2 Chronic viral hepatitis C; F11.10 Opioid abuse, uncomplicated; E86.0 Dehydration; E87.0 Hyperosmolality and hypernatremia; F17.210 Nicotine dependence, cigarettes, uncomplicated; Z91.19 Patient's noncompliance with other medical treatment and regimen; Z86.14 Personal history of Methicillin resistant Staphylococcus aureus infection; Z91.14 Patient's other noncompliance with medication regimen; E83.39 Other disorders of phosphorus metabolism; Z22.322 Carrier or suspected carrier of Methicillin resistant Staphylococcus aureus
CPT/HCPCS: 31500; 31720; 36415; 36556; 36600; 51702; 71010; 80048; 80053; 80076; 80307; 80320; 81001; 81025; 82009; 82550; 82803; 82947; 82962; 83605; 83690; 83735; 84100; 84478; 84484; 84703; 85014; 85018; 85025; 85610; 85730; 86703; 87040; 87070; 87077; 87086; 87186; 87205; 87491; 87591; 87641; 93005; 94002; 94003; 94660; 95831; 97802; 99251; 99285; 99406; J7030; J7050; A4216; C1751; G0463; G0480; J3490

== ENCOUNTER 2016-09-12 18:30 | Inpatient (IN) | payer MEDICAID, SELFPAY ==
[2016-09-12] VITALS (12 sets, daily range): BP systolic 105–151; BP diastolic 72–98; PULSE 111–124; RESP 23–31; TEMP 35.8; O2SAT 95–100; BMI 18.6; BMI 17.9
--- NOTE | 2016-09-12 18:39 | EKG12_ITS ---
Test Reason : Blood Pressure : / mmHG Vent. Rate : 121 BPM Atrial Rate : 121 BPM P-R Int : 124 ms QRS Dur : 076 ms QT Int : 336 ms P-R-T Axes : 000 -29 149 degrees QTc Int : 477 ms Sinus tachycardia with Fusion complexes Low voltage QRS Inferior infarct , age undetermined ST & T wave abnormality, consider lateral ischemia Abnormal ECG Confirmed by MAXI HARO, HITESH ([id number]), industrial editor AROLDO PIERCE ([id number] on 09/14/2016 3:09:11 PM Referred By: GUS Confirmed By:HITESH GERMAN MD
[2016-09-12] MEDS: Ziprasidone IM 20 MG/ML VIAL IM (18:42)
[2016-09-12 18:46] LABS: Bedside Glucose > 500 mg/dL (70-110)
[2016-09-12] MEDS: 0.9% Normal Saline 1,000 ML 999 ML IV ×2 (19:33→22:25)
[2016-09-12 19:46] LABS: Bedside Glucose > 500 mg/dL (70-110)
[2016-09-12 20:34] LABS: Absolute Lymphocyte Count 2.63 X10^3/ul (0.83-4.51); Absolute Neutrophil Count 9.6 X10^3/uL (2.0-7.7); Basophil% 0.8 % (0-1); Eosinophil# 0.02 X10^3/uL; Eosinophils% 0.2 % (0-5); Hematocrit 45.4 % (37-47); Hemoglobin 13.4 g/dl (12.0-15.0); Lymphocyte # 2.63 X10^3/ul (4.0); Lymphocyte % 20.3 % (19-41); Mean Corp Hgb Conc 29.5 g/gl (32-36); Mean Corpuscular Hgb 28.4 pg (27.0-32.0); Mean Corpuscular Volume 96.2 fL (81-99); Mean Platelet Vol. 10.2 fl (6.2-12.0); Monocyte# 0.36 X10^3/uL; Monocyte% 2.8 % (0-10); Neutrophil # 9.62 X10^3/uL (2.7-7.7); Neutrophil % 74.1 % (47-70); Platelet Count 548 K/mm3 (150-450); RBC Distribution Width CV 14.3 % (11.6-14.6); RBC Distribution Width SD 48.8 fl (35.1-43.9); Red Blood Count 4.72 M/mm3 (4.2-5.4)
[2016-09-12 20:35] LABS: POSITIVE COUNT NO; POSITIVE DIFFERENTIAL NO; POSITIVE MORPHOLOGY NO
--- NOTE | 2016-09-12 20:42 | RAD_ITS ---
STUDY: X-RAY CHEST REASON FOR EXAM: Female, 20 years old. Line placement TECHNIQUE: Single AP portable view of the chest. COMPARISON: None. FINDINGS: Right IJ central line in place with the tip in the lower SVC. ETT lines overlying the chest. The lungs are clear and expanded. There is no demonstrated pleural abnormality. Normal size heart. Normal mediastinum and bernard. Normal visualized pulmonary arteries. Normal visualized aortic arch and descending thoracic aorta. Normal visualized thoracic spine. Normal visualized ribs, clavicles, and shoulders. There is no demonstrated abnormality of the visualized soft tissue structures of the upper abdomen. RAD/CXR for Line Placement IMPRESSION: Right IJ line in place with the tip in the lower SVC. No pneumothorax. Electronically Signed: Yuri Lucas DO at 21:00 EDT , Service support ,
[2016-09-12 21:05] LABS: Bedside Glucose > 500 mg/dL (70-110)
[2016-09-12 21:09] LABS: Alcohol, Blood (Medical)-Serum < 3.0 mg/dL
[2016-09-12 21:15] LABS: Anion Gap 29 (5-15); BUN 23 mg/dL (7-18); Calcium,Total 9.4 mg/dL (8.5-10.1); Chloride 104 mmol/L (98-107); EST Glomerular Filtration Rate 75 mL/min (>60); Est Glom Filt Rate - Afr Amer 91 mL/min (>60); Estimated Creatinine Clearance 70.28 ml/min; Glucose 560 mg/dL (70-110); Magnesium 2.6 mg/dL (1.8-2.4); Phosphorus 5.7 mg/dL (2.5-4.9); Potassium 4.7 mmol/L (3.5-5.1); Sodium Level 137 mmol/L (136-145)
[2016-09-12 21:18] LABS: Hemoglobin A1c 11.7 % (4.2-6.3)
[2016-09-12 21:50] LABS: Bedside Glucose > 500 mg/dL (70-110)
--- NOTE | 2016-09-12 22:05 | ED.RN ---
PLEASE CALL [facility], WITH STATUS UPDATES AND PRIOR TO D/C
[2016-09-12 22:07] LABS: Amphetamine Urine VISTA NEGATIVE (<1000 ng/mL); Barbiturate Urine VISTA NEGATIVE (< 200 ng/mL); Benzodiazepine Urine VISTA NEGATIVE (< 200 ng/mL); Cocaine Urine VISTA NEGATIVE (< 300 ng/mL); Ecstacy Urine VISTA NEGATIVE (< 500 ng/mL); Methadone Urine VISTA NEGATIVE (< 300 ng/mL); PCP Urine VISTA NEGATIVE (< 25 ng/mL); THC Urine VISTA NEGATIVE (< 50 ng/mL); Vista UDS pH Range 6
[2016-09-12 22:11] LABS: Bedside Glucose > 500 mg/dL (70-110)
--- NOTE | 2016-09-12 22:18 | PCM.HP.STD ---
Problem List (1) DKA (diabetic ketoacidoses) Status: Acute Qualifiers: Diabetes mellitus type: type 1 Diabetes mellitus complication detail: with coma Qualified Code(s): E10.11 - Type 1 diabetes mellitus with ketoacidosis with coma (2) Diabetes type 1, uncontrolled Status: Chronic Qualifiers: Diabetes mellitus complication status: with other specified complication Qualified Code(s): E10.69 - Type 1 diabetes mellitus with other specified complication; E10.65 - Type 1 diabetes mellitus with hyperglycemia (3) Dyslipidemia Status: Chronic (4) Hepatitis C Status: Chronic Qualifiers: Viral hepatitis chronicity: unspecified Hepatic coma status: without hepatic coma Qualified Code(s): B19.20 - Unspecified viral hepatitis C without hepatic coma (5) History of heroin abuse Status: Chronic (6) Polysubstance abuse Status: Chronic Comment: binge EtOH,meth, hx of heroin/IVDA, tobacco History of Present Illness Date of Admission: 09/12/16 Chief Complaint: Unconsicous, elevated BS. The patient is a 20 y/o F w/ PMHx: Diabetes mellitus type I, non compliant with therapy, Polysubstance abuse including methamphetamines and heroine, Tobacco use, Hepatitis C, EtOH abuse who presents to the [facility] ED on 09/12/16 w/ history of being found unresponsive per EMS on her bed with noted rapid respirations and evidence emesis with no clear history per surrounding bystanders with EtOH use evident with initial BS check 364. EMS inserted central access as they were familiar with patient and she is poor access. In the ED work-up included afebrile, heart rate 110-120, BP 120-130/70, respiratory rate 20-30, 100% on 4 L NC, CBC with WBC 13, hemoglobin 13.4, platelet 548 with left shift, BMP with CO2 4, ABG 29, BUN/Cr 23/1.0, glucose 560, UDS without findings, EtOH <3, acetone large, CXR without acute process w/ evidence R IJ. In the ED the patient administered insulin, placed on drip and secondary to agitation she was also given geodon 20 mg IM x 1 in addition to NS 2L. Past Medical History Past Medical History (Chronic Problems): Chronic Problems Diabetes type 1, uncontrolled (Chronic) Dyslipidemia (Chronic) Hepatitis C (Chronic) History of heroin abuse (Chronic) Norplant in place (Chronic) Polysubstance abuse (Chronic) binge EtOH,meth, hx of heroin/IVDA, tobacco Allergies No Known Allergies Allergy (Verified 07/06/16 08:57) Surgical History: - - Norplant left upper extremity, right hand skin graft 2014. 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 - *Family History Paternal History Items: No pertinent history Maternal History Items: Cancer - mom wdied 2016 with lung cancer and abdominal mets, Diabetes - GM Review of Systems Unable to obtain accurate/complete ROS d/t: Lethargic, unable to obtain ROS. VTE Information - Inpt Only VTE Present on Admission: No VTE Mechan Device Prophylaxis: SCD's VTE Pharm Prophylaxis ordered?: Yes Subjective: Laying in the ED bed, lethargic, responds to stimuli. Objective: Physical Examination: General: awakens to stimuli, not alert, deferred orientation questions given sedate presentation, seated upright in ED bed, lethargic, responsive to stimuli. Skin: normal color, turgor, no icterus, cyanosis. HEENT: AT/NC, EOMI, PERRLA, severely dry MM, poor dentition, no carotid bruits or JVD noted. Lungs: Diminished BS BL, > bases, no rales, ronchi or wheezing. Heart: Tachycardic with regular rhythm; no gallop, rub audible. Abdomen: soft, thin habitus, NTTP, ND, normal BS, + HM. Extremities: no cyanosis, clubbing, or edema. Neurological: awakens to stimuli, not alert, deferred orientation questions given sedate presentation, seated upright in ED bed, lethargic, responsive to stimuli; cognitive function not baseline intact; pupils sluggish; moving extremities, unable to test strength well given sedation. Psychiatric: affect appears flat, no acute evidence of depressive or anxiety feelings. - Physical Exam Vital Signs Temp Pulse Resp BP Pulse Ox 96.4 F 113 28 125/79 100 09/12/16 18:31 09/12/16 22:03 09/12/16 22:03 09/12/16 22:03 09/12/16 22:02 Oxygen Flow Rate 4 Oxygen Delivery Method Nasal Cannula Weight: 108 lb 7.479 oz Body Mass Index (BMI) 18.6 Finger Stick Blood Glucose 529 Laboratory Tests Past 24 Hrs 09/12/16 09/12/16 09/12/16 19:50 20:35 20:35 WBC 13.0 H RBC 4.72 Hgb 13.4 Hct 45.4 MCV 96.2 MCH 28.4 MCHC 29.5 L RDW 14.3 RDW Differential 48.8 H Plt Count 548 H MPV 10.2 Immature Gran % (Auto) 1.800 H Neut % (Auto) 74.1 H Lymph % (Auto) 20.3 Garrett % (Auto) 2.8 Eos % (Auto) 0.2 Baso % (Auto) 0.8 Absolute Neuts (auto) 9.6 H Absolute Lymphs (auto) 2.63 Total Counted Not Reportable Sodium 137 Potassium 4.7 Chloride 104 Carbon Dioxide 4.0 L* Anion Gap 29 H BUN 23 H Creatinine 1.00 Estim Creat Clear Calc 70.28 Est GFR (MDRD) Af Amer 91 Est GFR (MDRD) Non-Af 75 BUN/Creatinine Ratio 23.0 H Glucose 560 H* Hemoglobin A1c Calcium 9.4 Phosphorus 5.7 H Magnesium 2.6 H Urine Opiates Screen Urine Methadone Screen Ur Barbiturates Screen Ur Phencyclidine Scrn Ur Amphetamines Screen U Methamphetamin-MDMA U Benzodiazepines Scrn Urine Cocaine Screen U Cannabinoids Screen Ur Drug Screen Comment Ethyl Alcohol < 3.0 Acetone Level LARGE H 09/12/16 09/12/16 20:35 20:50 WBC RBC Hgb Hct MCV MCH MCHC RDW RDW Differential Plt Count MPV Immature Gran % (Auto) Neut % (Auto) Lymph % (Auto) Garrett % (Auto) Eos % (Auto) Baso % (Auto) Absolute Neuts (auto) Absolute Lymphs (auto) Total Counted Sodium Potassium Chloride Carbon Dioxide Anion Gap BUN Creatinine Estim Creat Clear Calc Est GFR (MDRD) Af Amer Est GFR (MDRD) Non-Af BUN/Creatinine Ratio Glucose Hemoglobin A1c 11.7 H Calcium Phosphorus Magnesium Urine Opiates Screen NEGATIVE Urine Methadone Screen NEGATIVE Ur Barbiturates Screen NEGATIVE Ur Phencyclidine Scrn NEGATIVE Ur Amphetamines Screen NEGATIVE U Methamphetamin-MDMA NEGATIVE U Benzodiazepines Scrn NEGATIVE Urine Cocaine Screen NEGATIVE U Cannabinoids Screen NEGATIVE Ur Drug Screen Comment Ethyl Alcohol Acetone Level POC Glucose 09/12/16 09/12/16 09/12/16 22:01 21:42 20:59 POC Glucose > 500 H* > 500 H* > 500 H* 09/12/16 09/12/16 19:37 18:38 POC Glucose > 500 H* > 500 H* Assessment/Plan The patient is a 20 y/o F w/ PMHx: Diabetes mellitus type I, non compliant with therapy, Polysubstance abuse including methamphetamines and heroine, Tobacco use, Hepatitis C, EtOH abuse who presents to the [facility] ED on 09/12/16 w/ history of being found unresponsive per EMS on her bed with noted rapid respirations and evidence emesis with no clear history per surrounding bystanders with EtOH use evident with initial BS check 364. (1) DKA w/ Diabetes mellitus type I: Will admit to the ICU, discussed patient with Dr. Conor Abdi, continue on insulin drip, check serial K+, glucose w/ IVF changes pending these levels, serial chemistry, obtain mag, phos daily w/ repletion as needed, transition to home SC regimen when gap closed w/ overlap on drip, nutrition consultation. Encourage diet and insulin regimen compliance although given serial admissions and non-compliance expect poor outcome. Will attempt ABG, likely will get only VBG. (2) Polysubstance abuse: History of alcohol, methamphetamine and heroin usage, encouraged rehab several times but has been noncompliant and not follow any recommendations. UDS without any agents and alcohol level normal despite presentation per EMS with EtOH on her breath and history of avid drug usage. Will maintain on CIWA protocol, MVI, thiamine and folic acid. (3) Tobacco Abuse: Encouraged cessation, inpatient consultation per RT, NR if desired. (4) Hepatitis C, Hx: Not candidate for treatment given polysubstance abuse and non-compliant. (5) DVT Prophylaxis: SCDs, heparin.
[2016-09-13] VITALS (29 sets, daily range): BP systolic 90–195; BP diastolic 49–164; PULSE 93–127; RESP 13–27; TEMP 36.1–37; O2SAT 99–100
[2016-09-13] MEDS: 0.9% Normal Saline 1,000 ML 500 ML IV (00:13)
[2016-09-13 00:27] LABS: Bacteria 0 SEEN /hpf (None Seen); Mucous, Urine 0 SEEN /hpf (<or=2+); Squamous Epithelial Cells - UA 0 SEEN /hpf (5-10); White Blood Cells 0 SEEN /hpf (0-5)
[2016-09-13 00:28] LABS: Anion Gap 23 (5-15); BUN 24 mg/dL (7-18); Calcium,Total 7.6 mg/dL (8.5-10.1); Chloride 118 mmol/L (98-107); Creatinine, Serum 0.83 mg/dL (0.55-1.02); EST Glomerular Filtration Rate 94 mL/min (>60); Est Glom Filt Rate - Afr Amer 113 mL/min (>60); Estimated Creatinine Clearance 82.27 ml/min; Glucose 406 mg/dL (70-110); Potassium 4.7 mmol/L (3.5-5.1); Sodium Level 146 mmol/L (136-145)
[2016-09-13 00:38] LABS: Color, Urine Yellow (Yellow); Glucose, Dipstick 1000 mg/dl (Normal); Leukocyte Esterase-Dipstick Negative /ul (Negative); Nitrite-Dipstick Negative (Negative); Occult Blood-Urine 25 /ul (Negative); Protein-Dipstick 100 mg/dl (Negative); Specific Gravity, Urine 1.025 (1.002-1.030); Urine Bilirubin Dipstick Negative (Negative); Urine Clarity Sl. Cloudy (Clear); Urine Urobilinogen Normal (Normal)
[2016-09-13 00:51] LABS: Ketone-Dipstick 150 mg/dl (Negative)
[2016-09-13 00:52] LABS: Fine Granular Cast- Urine 0-5 SEEN /lpf (0-5); Red Blood Cells-Urine 0-5 SEEN /hpf (0-5)
[2016-09-13 00:53] LABS: Renal Epithelial Cells 0-5 SEEN /hpf (0-5)
--- NOTE | 2016-09-13 00:57 | ED.DCSUM_ITS ---
- ER Visit Summary Date of Service: 09/13/16 Chief Complaint: Unresponsive History of Present Illness: The patient is a 20 F who is well-known to the emergency department with repeated presentations with DKA. Per EMS the patient had crawled down the abernathy at a hotel and yelled that she needed help. When EMS arrived she was unresponsive. They found that her blood sugar was in the 300s. Upon arrival to the emergency department patient is agitated and I am unable to obtain any further history. Physical Examination: Vitals: 96.4, 119/98, 124, 29, 100% room air which is not hypoxic. General: Chronically ill-appearing and unkempt appearance.. Head: Normocephalic atraumatic. Neck: Supple, no lymphadenopathy. No JVD. Nontender. Cardiovascular: Tachycardic regular rhythm. No murmurs. Respiratory: Kussmaul breathing. Clear to auscultation bilaterally. Abdominal: Soft, nontender, nondistended, normal bowel sounds. No guarding, rebound, or peritoneal signs. Back: Nontender. Extremities: Nontender, no edema. Skin: Normal color, no rash. Neurologic: Alert and confused. Agitated. Moves all extremities well. Test Results: EKG sinus tach [address] changes. Chem-7 is marked for a CO2 of 4, glucose of 560, BUN 23. She has large serum ketones. Her white count is 13. Platelets of 548 and segmented neutrophils of 74. Globin A1c is 11.7. Tox screen is negative. Blood alcohol level is negative. Phosphorus is 5.7 and magnesium is 2.6. Emergency Department Course and Treatment: Upon arrival to emerge department patient was agitated. She was given Geodon so that further care could be given. After multiple attempts an IV was obtained however, it infiltrated. She had a right IJ central line placed without difficulty. He was given 2 L normal saline and started on an insulin drip. Treatment Plan: Patient was discussed with Dr. Rowell. She will be admitted to the ICU for further evaluation and treatment. Disposition: Admitted in serious condition. Impression: 1. DKA. 2. Critical care time 30 minutes. 3. Right IJ central line. Procedure note: Patient was prepped and draped in the usual sterile fashion. The skin was cleansed with chlorhexidine soap. Under ultrasound guidance the vessel was visualized and accessed on the first attempt. The triple-lumen catheter was placed with Seldinger technique and had blood flow to all 3 ports. All 3 ports flushed without difficulty. Post procedure x-ray showed no pneumothorax. This note was generated with [employer] ([employer]) dictation software. It may contain incorrect words, spelling, and punctuation that were not noted in review of the chart prior to signing. ED Disposition - Plan for ED Patient: Disposition: Acute Care Hospital [facility], [place] Chief Complaint: Unresponsive
[2016-09-13 01:01] LABS: Bedside Glucose 388 mg/dL (70-110)
[2016-09-13 01:01] LABS: Bedside Glucose 290 mg/dL (70-110)
[2016-09-13] MEDS: Sodium Bicarbonate 8.4% 50 ML Syringe 50 MEQ IV (01:04)
[2016-09-13 01:08] LABS: M R Staph aureus DNA By PCR POSITIVE (Negative); Probe Check PASS
[2016-09-13] MEDS: 0.9% Normal Saline 1,000 ML 250 ML IV (02:17)
[2016-09-13 02:21] LABS: Bedside Glucose 246 mg/dL (70-110)
[2016-09-13 03:16] LABS: Bedside Glucose 225 mg/dL (70-110)
[2016-09-13 04:16] LABS: Bedside Glucose 244 mg/dL (70-110)
[2016-09-13 04:52] LABS: Hematocrit 32.3 % (37-47); Hemoglobin 9.7 g/dl (12.0-15.0); Mean Corpuscular Hgb 28.3 pg (27.0-32.0); Mean Corpuscular Volume 94.2 fL (81-99); Mean Platelet Vol. 9.4 fl (6.2-12.0); Platelet Count 377 K/mm3 (150-450); RBC Distribution Width CV 14.1 % (11.6-14.6); RBC Distribution Width SD 48.3 fl (35.1-43.9); Red Blood Count 3.43 M/mm3 (4.2-5.4); White Blood Count 21.4 K/mm3 (4.4-11.0)
[2016-09-13 04:56] LABS: Anion Gap 20 (5-15); BUN 17 mg/dL (7-18); BUN/Creat Ratio 33.7 RATIO (10-20); Calcium,Total 7.3 mg/dL (8.5-10.1); Chloride 117 mmol/L (98-107); EST Glomerular Filtration Rate 166 mL/min (>60); Est Glom Filt Rate - Afr Amer 201 mL/min (>60); Estimated Creatinine Clearance 136.56 ml/min; Glucose 234 mg/dL (70-110); Sodium Level 142 mmol/L (136-145)
[2016-09-13 05:11] LABS: Bedside Glucose 221 mg/dL (70-110)
[2016-09-13 05:29] LABS: Lymphocyte 32 % (19-41); Monocyte 3 % (0-10); Myelocyte 3 (0-0); Neutrophil-Band 4 % (0-5); Neutrophil-Segmented 58 % (47-70); Total Cells Counted 100 (MANUAL DIFF)
[2016-09-13 05:31] LABS: Differential Indicated MANUAL DIFF; POSITIVE COUNT NO; POSITIVE DIFFERENTIAL YES; POSITIVE MORPHOLOGY YES
[2016-09-13 05:34] LABS: Absolute Neutrophil Count 13.3 X10^3/uL (2.0-7.7)
[2016-09-13 05:35] LABS: Absolute Lymphocyte Count 6.85 X10^3/ul (0.83-4.51)
--- NOTE | 2016-09-13 06:42 | PCM.CON.CC ---
Reason for Consult Date of Consultation: 09/13/16 Reason for Consultation: Diabetic ketoacidosis History of Present Illness: The patient is a 20-year-old female, well-known to the hospital system, who presented to the emergency department on September 12 in an unresponsive state in a hotel room with evident alcohol use. She has a long-standing history of high resource utilization with frequent hospital readmissions for DKA related issues in the setting of medication noncompliance. The patient has a history of substance abuse and a poor social support system in place. The patient was last admitted in mid August under similar circumstances. She has been evaluated by crisis on multiple occasions in the past. On presentation to the emergency department, the patient was noted to be tachycardic but hemodynamically stable. She was maintaining appropriate oxygen saturations on room air. Initial laboratory evaluation revealed elevated white blood cell count to 13,000 with an elevated platelet count to 548,000. Chemistry profile was notable for a sodium of 146, chloride of 118, serum bicarbonate of 5, elevated anion gap to 23 and acute kidney injury with a creatinine of 0.83. Hemoglobin A1c was noted to be 11.7. Urinalysis revealed glucosuria and ketonuria. A large serum acetone level was noted. Toxicology screen was negative. Plain film chest x-ray revealed no acute cardiopulmonary process. A right-sided central venous catheter was placed while in the emergency department. The patient was given supplemental IV fluids and started on an insulin drip. She was subsequently transferred to the medical intensive care unit for ongoing management. Past Medical History Past Medical History (Chronic Problems): Chronic Problems Diabetes type 1, uncontrolled (Chronic) Dyslipidemia (Chronic) Hepatitis C (Chronic) History of heroin abuse (Chronic) Norplant in place (Chronic) Polysubstance abuse (Chronic) binge EtOH,meth, hx of heroin/IVDA, tobacco Allergies No Known Allergies Allergy (Verified 07/06/16 08:57) Surgical History: - - Norplant left upper extremity, right hand skin graft 2014. 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 - *Family History Paternal History Items: No pertinent history Maternal History Items: Cancer - mom wdied 2015 with lung cancer and abdominal mets, Diabetes - GM Review of Systems Constitutional: Denies: Chills, Fever, Weight Change HEENT: Denies: Head Aches, Sinus Congestion, Sinus Drainage Cardiovascular: Denies: Chest Pain, Palpitations Respiratory: Denies: Cough, Shortness of breath at rest, Sputum production Gastrointestinal: Denies: Abdominal Pain, Nausea, Vomiting Genitourinary: Denies: Dysuria Musculoskeletal: Denies: Joint Pain, Joint Tenderness Skin: Denies: Rash, Wounds Neurological: Denies: Numbness, Tingling, Focal weakness Psychiatric: Denies: Anxiety, Depression, Homicidal Ideations, Suicidal Ideations Hematologic/ Lymphatic: Denies: Easy Bruising, Easy Bleeding Objective: The patient's most recent lab work, culture data and imaging studies have all been personally reviewed. - Physical Exam General: No apparent distress, Lethargic HEENT: Atraumatic, PERRLA, Normocephalic Oral: No Gingival or Mucosal Lesions/ Ulcerations, Dry Mucosa Neck: Supple, No JVD, Trachea Midline, - - Central venous catheter in place Lungs: Normal air movement, No rhonchi, No wheeze, No rales Cardiovascular: Regular Rhythm, Normal S1, Normal S2, No murmurs, Tachycardic Abdomen: Bowel Sounds Present, Soft, Non Tender Extremities: No clubbing, No cyanosis, No edema Skin: No rashes, No breakdown Musculoskeletal: No Tenderness to Palpation of Joints or Extremities Lymphatic: No Cervical, Supraclavicular, or Inguinal Adenopathy Neurological: Neuro grossly intact Psych/Mental Status: Flat Affect Vital Signs Temp Pulse Resp BP Pulse Ox 36.8 C 102 17 110/77 100 09/13/16 06:00 09/13/16 06:00 09/13/16 06:00 09/13/16 06:00 09/13/16 06:00 Oxygen Flow Rate 2 Oxygen Delivery Method Room Air Weight: 50.2 kg Body Mass Index (BMI) 17.9 Finger Stick Blood Glucose 202 Intake and Output for Last 24 Hours 09/11/16 09/12/16 09/13/16 23:59 23:59 23:59 Intake Total 2787.1 Output Total 1999 Balance 787.1 Laboratory Tests Past 24 Hrs 09/12/16 09/12/16 09/12/16 23:30 23:40 23:40 WBC RBC Hgb Hct MCV MCH MCHC RDW RDW Differential Plt Count MPV Neut % (Auto) Absolute Neuts (auto) Absolute Lymphs (auto) Total Counted Neutrophils % (Manual) Band Neutrophils % Lymphocytes % (Manual) Monocytes % (Manual) Myelocytes % Diff Path Review Sodium 146 H Potassium 4.7 Chloride 118 H Carbon Dioxide 5.0 L* Anion Gap 23 H BUN 24 H Creatinine 0.83 Estim Creat Clear Calc 82.27 Est GFR (MDRD) Af Amer 113 Est GFR (MDRD) Non-Af 94 BUN/Creatinine Ratio 29.0 H Glucose 406 H Calcium 7.6 L Magnesium 2.0 MRSA (PCR) POSITIVE H 09/13/16 09/13/16 04:00 04:00 WBC 21.4 H RBC 3.43 L Hgb 9.7 L Hct 32.3 L MCV 94.2 MCH 28.3 MCHC 30.0 L RDW 14.1 RDW Differential 48.3 H Plt Count 377 MPV 9.4 Neut % (Auto) Not Reportable Absolute Neuts (auto) 13.3 H Absolute Lymphs (auto) 6.85 H Total Counted 100 Neutrophils % (Manual) 58 Band Neutrophils % 4 Lymphocytes % (Manual) 32 Monocytes % (Manual) 3 Myelocytes % 3 H Diff Path Review May foll Sodium 142 Potassium 4.0 Chloride 117 H Carbon Dioxide 5.0 L* Anion Gap 20 H BUN 17 Creatinine 0.50 L Estim Creat Clear Calc 136.56 Est GFR (MDRD) Af Amer 201 Est GFR (MDRD) Non-Af 166 BUN/Creatinine Ratio 33.7 H Glucose 234 H Calcium 7.3 L Magnesium MRSA (PCR) POC Glucose 09/13/16 09/13/16 09/13/16 05:03 03:57 03:13 POC Glucose 221 H 244 H 225 H 09/13/16 09/13/16 09/12/16 02:15 00:48 23:38 POC Glucose 246 H 290 H 388 H Clinical Impression(s) from Imaging Studies Chest X-Ray 09/12/16 20:42 IMPRESSION: Right IJ line in place with the tip in the lower SVC. No pneumothorax. Electronically Signed: Yuri Lucas DO at 21:00 EDT , Service support , Assessment/Plan RECOMMENDATIONS: 1. Continue management per DKA protocol. Continue insulin infusion and supplemental IV fluids. 2. Check serum chemistry profiles 3. Electrolyte replacement as needed 4. Obtain and send blood cultures 5. Diabetic education 6. Social work/case management consultations 7. Crisis evaluation once medically stable. IMPRESSIONS: 1. Diabetic ketoacidosis secondary to medication noncompliance Continue management per DKA protocol. Continue volume expansion and continuous insulin infusion. Monitor electrolytes closely. Rule out for infectious precipitant has been initiated. No indication for bicarbonate replacement. Continue to check serial BMPs. Case management and social sciences research scientist following. The patient will require reevaluation by crisis, once medically stable. 2. Metabolic encephalopathy due to #1 Management per DKA protocol with supplemental IV fluids, insulin infusion and correction of electrolyte abnormalities. Anticipate improvement in mentation following resolution of her metabolic derangements. 3. Acute kidney injury Secondary to prerenal azotemia. Improved following IV fluid hydration. Monitor creatinine and urine output accordingly. This note was generated with MD.Voice dictation software. It may contain incorrect words, spelling, and punctuation that were not noted in checking the note before signing.
[2016-09-13 07:30] LABS: Bedside Glucose 201 mg/dL (70-110)
[2016-09-13 07:31] LABS: Bedside Glucose 207 mg/dL (70-110)
--- NOTE | 2016-09-13 07:37 | PN_ITS ---
Subjective: Patient is a 20-year-old female with past medical history single for diabetes mellitus type 1 noncompliant with therapy presented with lethargy assessment consistent with DKA admitted to the ICU for subsequent management Objective: GENERAL: Lethargic HEENT: Dry oral mucosa NECK; supple, normal thyroid, CHEST: Clear to auscultation bilaterally, HEART: Regular S1 S2, tachycardic ABDOMEN: soft, non-tender, normoactive bowel sounds, RECTAL: deferred EXTREMITIES: No edema, no clubbing, no cyanosis. 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 SKIN: Dry Vitals/I&O's: Vital Signs Temp Pulse Resp BP Pulse Ox 98.2 F 104 17 110/77 100 09/13/16 06:00 09/13/16 06:59 09/13/16 06:00 09/13/16 06:00 09/13/16 06:00 Oxygen Flow Rate 2 Oxygen Delivery Method Room Air Weight: 50.2 kg Body Mass Index (BMI) 17.9 Finger Stick Blood Glucose 202 Intake and Output for Last 24 Hours 09/11/16 09/12/16 09/13/16 23:59 23:59 23:59 Intake Total 2787.1 Output Total 2000 Balance 787.1 Laboratory Results 09/12/16 23:30: MRSA (PCR) POSITIVE H 09/12/16 23:38: POC Glucose 388 H 09/12/16 23:40: Magnesium 2.0 09/12/16 23:40: Sodium 146 H, Potassium 4.7, Chloride 118 H, Carbon Dioxide 5.0 L*, Anion Gap 23 H, BUN 24 H, Creatinine 0.83, Estim Creat Clear Calc 82.27, Est GFR (MDRD) Af Amer 113, Est GFR (MDRD) Non-Af 94, BUN/Creatinine Ratio 29.0 H, Glucose 406 H, Calcium 7.6 L 09/13/16 00:48: POC Glucose 290 H 09/13/16 02:15: POC Glucose 246 H 09/13/16 03:13: POC Glucose 225 H 09/13/16 03:57: POC Glucose 244 H 09/13/16 04:00: Sodium 142, Potassium 4.0, Chloride 117 H, Carbon Dioxide 5.0 L* , Anion Gap 20 H, BUN 17, Creatinine 0.50 L, Estim Creat Clear Calc 136.56, Est GFR (MDRD) Af Amer 201, Est GFR (MDRD) Non-Af 166, BUN/Creatinine Ratio 33.7 H, Glucose 234 H, Calcium 7.3 L 09/13/16 04:00: WBC 21.4 H, RBC 3.43 L, Hgb 9.7 L, Hct 32.3 L, MCV 94.2, MCH 28.3, MCHC 30.0 L, RDW 14.1, RDW Differential 48.3 H, Plt Count 377, MPV 9.4, Neut % (Auto) Not Reportable, Absolute Neuts (auto) 13.3 H, Absolute Lymphs ( auto) 6.85 H, Total Counted 100, Neutrophils % (Manual) 58, Band Neutrophils % 4 , Lymphocytes % (Manual) 32, Monocytes % (Manual) 3, Myelocytes % 3 H, Diff Path Review June09/13/16 05:03: POC Glucose 221 H 09/13/16 06:12: POC Glucose 201 H 09/13/16 06:58: POC Glucose 207 H Current Medications Albuterol Sulfate (Ventolin Aerosols) 2.5 mg INHALATION Q2H PRN PRN PRN Reason: dyspnea, wheezing Dextrose (D50w Syringe) 0 gm IV X1 PRN; Protocol PRN Reason: HYPOGLYCEMIA Folic Acid (Folic Acid) 1 mg PO DAILY@0800 [facility] Stop: 09/15/16 08:01 Heparin Sodium (Porcine) () 5,000 units SC BID LILIYA Hydralazine HCl (Apresoline) 10 mg IV Q4H PRN PRN PRN Reason: SBP > 160 Sodium Chloride () 1,000 mls @ 999 mls/hr IV .Q1H1M ONE Last Admin: 09/12/16 19:33 Dose: 999 mls/hr Insulin Aspart 100 unit/ (Sodium Chloride) 100 mls @ 4.92 mls/hr IV .[id number] LILIYA; 0.1 UNITS/KG/HR PRN Reason: Protocol Last Admin: 09/12/16 21:52 Dose: 4.92 mls/hr Famotidine 20 mg/ Sodium (Chloride) 10 mls @ 300 mls/hr IV Q12 LILIYA Last Admin: 09/13/16 00:12 Dose: 300 mls/hr Sodium Chloride () 250 mls @ 15 mls/hr IV .[id number] PRN PRN Reason: SALINE FLUSH Potassium Chloride/Dextrose/Sod Cl (Kcl 20meq In D5.45ns 1000ml) 1,000 mls @ 150 mls/hr IV .[id number] LILIYA Last Admin: 09/13/16 03:54 Dose: 150 mls/hr Lorazepam (Ativan) 2 mg PO Q2H PRN PRN; Protocol PRN Reason: CIWA score > 8 but <15 Lorazepam (Ativan) 2 mg PO UD PRN; Protocol PRN Reason: CIWA score >/=15. Lorazepam (Ativan) 2 mg IV Q2H PRN PRN; Protocol PRN Reason: CIWA score > 8 but <15 Lorazepam (Ativan) 2 mg IV UD PRN; Protocol PRN Reason: CIWA score >/=15. Multivitamins/Minerals (Multivitamin With Minerals) 1 tablet PO DAILYCM [facility] Sodium Chloride () 10 - 40 ml IV UD PRN PRN Reason: MULTILUMEN/HICMAN CATH FLUSH Last Admin: 09/13/16 03:58 Dose: 40 ml Thiamine HCl (Vitamin B1) 100 mg PO BIDCM [facility] Stop: 09/15/16 17:01 Assessment/Plan Patient is a 20-year-old lady with history of diabetes mellitus type 1 noncompliant with therapy admitted with diabetic ketoacidosis. 1. Diabetic ketoacidosis acidosis in a patient with type 1 diabetes with noncompliance with therapy. She has been admitted to the intensive care unit managed with a DKA protocol consisting of aggressive IV fluids, parenteral insulin and correction of electrolyte abnormalities. 2. Hypernatremia secondary to severe dehydration improving with IV fluid resuscitation 3. Acute metabolic encephalopathy secondary to patient's DKA 4. Polysubstance abuse; counseled on cessation 5. DVT prophylaxis; HEPARIN
[2016-09-13 08:16] LABS: Bedside Glucose 177 mg/dL (70-110)
[2016-09-13 09:36] LABS: Blood Gas Specimen Type VEN; O2 Delivery Device Nasal Can; SITE OTHER; Time Given 2351; VBG BASE EXCESS < -30 mmol/L (-1.0-3.5); VBG Oxygen Content < 5 mmol/L (23-33); VBG PO2 66 mmHg (25-40); VBG SO2 73 % (50-70); VBG pCO2 15.2 mmHg (41-51)
[2016-09-13 09:38] LABS: VBG pH 6.86 (7.32-7.42)
[2016-09-13] MEDS: Heparin Injection 5,000 UNITS/ML Syringe 5000 UNITS SC ×2 (09:55→21:32)
[2016-09-13] MEDS: Multivitamins,Ther W-Minerals Tablet 1 TABLET PO (09:55)
[2016-09-13] MEDS: Folic Acid 1 MG Tablet PO (09:55)
[2016-09-13] MEDS: Thiamine Hydrochloride 100 MG Tablet PO ×2 (09:55→17:05)
[2016-09-13 10:11] LABS: Anion Gap 13 (5-15); BUN 12 mg/dL (7-18); Calcium,Total 7.3 mg/dL (8.5-10.1); Chloride 113 mmol/L (98-107); Creatinine, Serum 0.63 mg/dL (0.55-1.02); EST Glomerular Filtration Rate 128 mL/min (>60); Est Glom Filt Rate - Afr Amer 155 mL/min (>60); Estimated Creatinine Clearance 113.82 ml/min; Glucose 176 mg/dL (70-110); Potassium 3.6 mmol/L (3.5-5.1); Sodium Level 139 mmol/L (136-145)
[2016-09-13 10:15] LABS: Bedside Glucose 193 mg/dL (70-110)
[2016-09-13 10:15] LABS: Bedside Glucose 194 mg/dL (70-110)
[2016-09-13 12:11] LABS: Bedside Glucose 139 mg/dL (70-110)
[2016-09-13 13:31] LABS: Bedside Glucose 156 mg/dL (70-110)
[2016-09-13 14:11] LABS: Bedside Glucose 146 mg/dL (70-110)
[2016-09-13 14:22] LABS: Anion Gap 10 (5-15); BUN 10 mg/dL (7-18); BUN/Creat Ratio 15.8 RATIO (10-20); Calcium,Total 7.7 mg/dL (8.5-10.1); Chloride 113 mmol/L (98-107); Creatinine, Serum 0.63 mg/dL (0.55-1.02); EST Glomerular Filtration Rate 127 mL/min (>60); Est Glom Filt Rate - Afr Amer 154 mL/min (>60); Estimated Creatinine Clearance 113.82 ml/min; Glucose 134 mg/dL (70-110); Potassium 4.1 mmol/L (3.5-5.1); Sodium Level 139 mmol/L (136-145)
[2016-09-13 16:16] LABS: Bedside Glucose 126 mg/dL (70-110)
[2016-09-13 17:11] LABS: Bedside Glucose 142 mg/dL (70-110)
[2016-09-13 21:51] LABS: Bedside Glucose 330 mg/dL (70-110)
[2016-09-13 22:38] LABS: Anion Gap 9 (5-15); BUN 8 mg/dL (7-18); Calcium,Total 7.6 mg/dL (8.5-10.1); Chloride 107 mmol/L (98-107); EST Glomerular Filtration Rate 97 mL/min (>60); Est Glom Filt Rate - Afr Amer 117 mL/min (>60); Estimated Creatinine Clearance 89.64 ml/min; Glucose 336 mg/dL (70-110); Potassium 3.8 mmol/L (3.5-5.1); Sodium Level 136 mmol/L (136-145)
[2016-09-13] MEDS: 0.9% Normal Saline 1,000 ML 15 ML IV (22:58)
[2016-09-14] VITALS: BP 112/73; PULSE 93; PULSE 94; RESP 16; TEMP 36.7; O2SAT 100
[2016-09-14 00:51] LABS: Bedside Glucose 105 mg/dL (70-110)
[2016-09-14 04:16] LABS: Bedside Glucose 87 mg/dL (70-110)
[2016-09-14 04:35] LABS: BUN 9 mg/dL (7-18); Creatinine, Serum 0.53 mg/dL (0.55-1.02); EST Glomerular Filtration Rate 158 mL/min (>60); Glucose 93 mg/dL (70-110)
[2016-09-14 04:36] LABS: Anion Gap 7 (5-15); BUN/Creat Ratio 17.1 RATIO (10-20); Calcium,Total 8.1 mg/dL (8.5-10.1); Chloride 112 mmol/L (98-107); Est Glom Filt Rate - Afr Amer 191 mL/min (>60); Magnesium 1.9 mg/dL (1.8-2.4); Phosphorus 1.2 mg/dL (2.5-4.9); Potassium 3.1 mmol/L (3.5-5.1); Sodium Level 142 mmol/L (136-145)
[2016-09-14 04:40] LABS: Absolute Lymphocyte Count 2.91 X10^3/ul (0.83-4.51); Absolute Neutrophil Count 2.4 X10^3/uL (2.0-7.7); Basophil# 0.01 X10^3/uL; Basophil% 0.2 % (0-1); Eosinophil# 0.06 X10^3/uL; Hematocrit 28.7 % (37-47); Hemoglobin 9.4 g/dl (12.0-15.0); Lymphocyte # 2.91 X10^3/ul (4.0); Lymphocyte % 50.3 % (19-41); Mean Corp Hgb Conc 32.8 g/gl (32-36); Mean Corpuscular Hgb 29.4 pg (27.0-32.0); Mean Corpuscular Volume 89.7 fL (81-99); Mean Platelet Vol. 9.1 fl (6.2-12.0); Monocyte# 0.41 X10^3/uL; Monocyte% 7.1 % (0-10); Neutrophil # 2.35 X10^3/uL (2.7-7.7); Neutrophil % 40.7 % (47-70); Platelet Count 311 K/mm3 (150-450); RBC Distribution Width CV 13.8 % (11.6-14.6); RBC Distribution Width SD 44.5 fl (35.1-43.9); White Blood Count 5.8 K/mm3 (4.4-11.0)
[2016-09-14 04:46] LABS: POSITIVE COUNT NO; POSITIVE DIFFERENTIAL NO; POSITIVE MORPHOLOGY NO
--- NOTE | 2016-09-14 05:03 | NURSING ---
transferred pt to [id number] via wheelchair; verbal report given to Magalys ([email or web address]).
[2016-09-14 05:04] VITALS: BP 99/70; PULSE 86; RESP 16; TEMP 36.4; O2SAT 99
[2016-09-14 06:56] LABS: Bedside Glucose 207 mg/dL (70-110)
[2016-09-14 07:10] VITALS: O2SAT 95
--- NOTE | 2016-09-14 08:38 | PN_ITS ---
Patient Problems: Active and Suspected Problems DKA (diabetic ketoacidoses) (Acute) Subjective: Denies any pain or shortness of breath. Patient is requesting breakfast. She does seem slightly irritated that I woke her from sleep. Objective: Vital signs for the past 12 hours have been reviewed, patient has remained afebrile. Patient's blood glucose are now under control on sliding scale insulin. Diet will begin this morning. - Physical Exam General: Alert, Oriented x3, Cooperative, No apparent distress, Well developed, Well nourished HEENT: Atraumatic, PERRLA, Normocephalic Oral: Moist Mucosa, No Gingival or Mucosal Lesions/ Ulcerations Neck: Supple, No Nodes, Trachea Midline Lungs: Clear to auscultation, Normal air movement Cardiovascular: Regular rate, Regular Rhythm, No murmurs Abdomen: Bowel Sounds Present, Soft, Non Tender, Non-Distended Extremities: No clubbing, No cyanosis, No edema, Capillary Refill Less than 3 Seconds, Peripheral Pulses Normal Skin: No rashes Musculoskeletal: No Tenderness to Palpation of Joints or Extremities, No Muscle Wasting Lymphatic: No Cervical, Supraclavicular, or Inguinal Adenopathy Neurological: Cranial nerves II-XII grossly intact, Neuro grossly intact, Motor Exam 5/5 strength throughout Psych/Mental Status: Appropriate, Agitated Vital Signs Temp Pulse Resp BP Pulse Ox 36.4 C 86 16 99/70 95 09/14/16 05:04 09/14/16 05:04 09/14/16 05:04 09/14/16 05:04 09/14/16 07:10 Oxygen Flow Rate 2 Oxygen Delivery Method Room Air Weight: 50.2 kg Body Mass Index (BMI) 17.9 Finger Stick Blood Glucose 146 Intake and Output for Last 24 Hours 09/12/16 09/13/16 09/14/16 23:59 23:59 23:59 Intake Total 5462.9 952 Output Total 6100 1650 Balance -637.1 -698 Laboratory Tests Past 24 Hrs 09/12/16 09/13/16 09/13/16 23:51 09:20 14:05 WBC RBC Hgb Hct MCV MCH MCHC RDW RDW Differential Plt Count MPV Immature Gran % (Auto) Neut % (Auto) Lymph % (Auto) [place] % (Auto) Eos % (Auto) Baso % (Auto) Absolute Neuts (auto) Absolute Lymphs (auto) Total Counted Specimen Type LAUREN Sample Site OTHER VBG pH 6.86 L* VBG pH (Temp Correct) TNP VBG pCO2 (Temp Corrct TNP VBG pO2 66 H VBG O2 Sat (Calc) 73 H VBG O2 Content < 5 L VBG Base Excess < -30 L POC Mix VBG pCO2 Pt Tmp 15.2 L* O2 Delivery Device Nasal Can Blood Gas Notified Whom [facility] Blood Gas Notified Time 2351 Sodium 139 139 Potassium 3.6 4.1 Chloride 113 H 113 H Carbon Dioxide 13.0 L 16.0 L Anion Gap 13 10 BUN 12 10 Creatinine 0.63 0.63 Estim Creat Clear Calc 113.82 113.82 Est GFR (MDRD) Af Amer 155 154 Est GFR (MDRD) Non-Af 128 127 BUN/Creatinine Ratio 19.0 15.8 Glucose 176 H 134 H Calcium 7.3 L 7.7 L Phosphorus Magnesium 09/13/16 09/14/16 09/14/16 22:05 04:10 04:10 WBC 5.8 RBC 3.20 L Hgb 9.4 L Hct 28.7 L MCV 89.7 MCH 29.4 MCHC 32.8 RDW 13.8 RDW Differential 44.5 H Plt Count 311 MPV 9.1 Immature Gran % (Auto) 0.700 Neut % (Auto) 40.7 L Lymph % (Auto) 50.3 H [place] % (Auto) 7.1 Eos % (Auto) 1.0 Baso % (Auto) 0.2 Absolute Neuts (auto) 2.4 Absolute Lymphs (auto) 2.91 Total Counted Not Reportable Specimen Type Sample Site VBG pH VBG pH (Temp Correct) VBG pCO2 (Temp Corrct VBG pO2 VBG O2 Sat (Calc) VBG O2 Content VBG Base Excess POC Mix VBG pCO2 Pt Tmp O2 Delivery Device Blood Gas Notified Whom Blood Gas Notified Time Sodium 136 142 Potassium 3.8 3.1 L Chloride 107 112 H Carbon Dioxide 20.0 L 23.0 Anion Gap 9 7 BUN 8 9 Creatinine 0.80 0.53 L Estim Creat Clear Calc 89.64 135.30 Est GFR (MDRD) Af Amer 117 191 Est GFR (MDRD) Non-Af 97 158 BUN/Creatinine Ratio 10.0 17.1 Glucose 336 H 93 Calcium 7.6 L 8.1 L Phosphorus 1.2 L Magnesium 1.9 POC Glucose 09/14/16 09/14/16 09/14/16 06:49 04:05 00:46 POC Glucose 207 H 87 105 09/13/16 09/13/16 09/13/16 21:28 17:00 15:55 POC Glucose 330 H 142 H 126 H 09/13/16 09/13/16 09/13/16 13:59 13:24 12:02 POC Glucose 146 H 156 H 139 H 09/13/16 09/13/16 10:04 09:21 POC Glucose 193 H 194 H Assessment/Plan Active and Suspected Problems DKA (diabetic ketoacidoses) (Acute) RECOMMENDATIONS: 1. Check serum chemistry profiles 2. Electrolyte replacement as needed 3. Diabetic education 4. Social work/case management consultations 5. Crisis evaluation once medically stable IMPRESSIONS: 1. Diabetic ketoacidosis secondary to medication noncompliance Continue management per DKA protocol. Continue volume expansion and continuous insulin infusion. Monitor electrolytes closely. Rule out for infectious precipitant has been initiated. No indication for bicarbonate replacement. Continue to check serial BMPs. Case management and social worker clinical following. The patient will require reevaluation by crisis, once medically stable. 2. Metabolic encephalopathy due to #1 Improvement in mentation following resolution of her metabolic derangements. 3. Acute kidney injury Secondary to prerenal azotemia. Improved following IV fluid hydration. Monitor creatinine and urine output accordingly. This note was generated with [employer] dictation software. It may contain incorrect words, spelling, and punctuation that were not noted in checking the note before signing.
[2016-09-14 09:35] VITALS: BP 96/66; PULSE 80; RESP 18; TEMP 36.4; O2SAT 96
--- NOTE | 2016-09-14 09:50 | DCINST_ITS ---
You will use the following diet at home:: Calorie/Carbohydrate Controlled ( specify 1200, 1400, etc) Discharge Activity: Return to Normal Activity May resume sexual activity in: No Restrictions Allergies/Adverse Reactions: Allergies No Known Allergies Allergy (Verified 07/06/16 08:57) Medications to take at Discharge Insulin Detemir [Levemir FlexPen] 15 units SC BID 30 Days 09/14/16 Miscellaneous Medical Supply [Tablet Cutter] 1 each MC BID #60 each 09/14/16 Na Biphos/Potassium Phosphate [Neutra-Phos Packet] 1 packet PO 4X/DAY #28 packet 09/14/16 The following prescriptions were given: Insulin Detemir [Levemir FlexPen] 15 units SC BID 30 Days Miscellaneous Medical Supply [Tablet Cutter] 1 each MC BID #60 each Na Biphos/Potassium Phosphate [Neutra-Phos Packet] 1 packet PO 4X/DAY #28 packet Primary Care Physician: Care Physician,No Primary [Primary Care Provider] - Proposed Discharge Date: 09/14/16
--- NOTE | 2016-09-14 09:52 | DS.PCM_ITS ---
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 Diabetic ketoacidosis acidosis in a patient with type 1 diabetes with noncompliance with therapy. This does not resolve with treatment we have now restarted her Levemir . 2. Hypernatremia secondary to severe dehydration, this has resolved with IV fluid resuscitation 3. Acute metabolic encephalopathy secondary to patient's DKA ; this has resolved 4. Polysubstance abuse; she is advised to quit use of illicit drugs. 5. Hypokalemia; she is given oral potassium chloride this morning and she will go home with K-Phos. 6. Hypophosphatemia the patient will be discharged on K-Phos This is a 20-year-old lady with history of diabetes mellitus type 1 and noncompliance with therapy who was admitted to the ICU with diabetic ketoacidosis. She was placed on aggressive IV fluids and insulin drip and her anion gap closed, she was then transitioned to Levemir at 10 units twice daily as well as regular insulin sliding scale for glycemic spikes. Her electrolytes were replaced. She has hypophosphatemia and we are therefore prescribing Neutra -Phos packets 4 times a day. She is recommended to adhere to her insulin regimen without fail. She does not have a primary care doctor and social workers are working to get a local primary care doctor who will manage her type 1 diabetes.she was discharged in a stable condition. physical exam the time of discharge; vital signs were stable. He was alert and oriented to time place and person. He did not appear to be any form of distress. S1 and S2 heard no murmur or gallop Lung exam was clear to auscultation with no adventitious sounds. Abdomen was soft nontender with normal bowel sounds. extremity exam did not reveal any edema, palpable pulses bilaterally. Neurologic exam was grossly intact. Discharge Diet: No Restrictions, 1800 Calorie Control Diet Discharge Activity: Return to Normal Activity May resume sexual activity in: No Restrictions Home Medications: Medications to take at Discharge Insulin Detemir [Levemir FlexPen] 15 units SC BID 30 Days 09/14/16 Miscellaneous Medical Supply [Tablet Cutter] 1 each MC BID #60 each 09/14/16 Na Biphos/Potassium Phosphate [Neutra-Phos Packet] 1 packet PO 4X/DAY #28 packet 09/14/16 Following Prescrptions Were Given to Patient: Insulin Detemir [Levemir FlexPen] 15 units SC BID 30 Days Miscellaneous Medical Supply [Tablet Cutter] 1 each MC BID #60 each Na Biphos/Potassium Phosphate [Neutra-Phos Packet] 1 packet PO 4X/DAY #28 packet Primary Care Physician: Care Physician,No Primary [Primary Care Provider] - Disposition: Home Patient Condition:: Good Meaningful Use Info Meaningful Use Diagnoses (Choose all that apply): None applicable
[2016-09-14] MEDS: Multivitamins,Ther W-Minerals Tablet 1 TABLET PO (10:00)
[2016-09-14] MEDS: Folic Acid 1 MG Tablet PO (10:00)
[2016-09-14] MEDS: Na Biphos/Potassium Phosphate PACKET 1 PACKET PO ×2 (10:00→14:45)
[2016-09-14] MEDS: Thiamine Hydrochloride 100 MG Tablet PO (10:00)
--- NOTE | 2016-09-14 11:02 | CASEMGMT ---
Social Work Call to [facility] to see if pt can return at discharge and staff member states no, that they are full. Claims that the pt has been gone for over a week. In to speak with the pt and she states, I am not talking to you right now. I'm sleeping. and rolls over in bed to face opposite direction. Inform that SW will return to speak with pt later, and pt nods head. Lazara Solorio, TELEPHONE INFORMATION SUPERVISOR TRACK GREASER
--- NOTE | 2016-09-14 13:00 | NURSING ---
Pt's blood glucose 453. When talked to pt about doing lab value for glucose, pt became upset. No, my IV just came out, I am not getting poked again!. Repeat accucheck 453. Yessiyisician updated.
--- NOTE | 2016-09-14 13:06 | NURSING ---
Discussed orders for high blood glucose at this time, for 15 units of additional Levemir. Pt refuses at this time, stating I already had it today. Its a 24 hour insulin. Discussed with pt she had 10 units previous today. Pt continues to refuse.
--- NOTE | 2016-09-14 14:00 | CASEMGMT ---
Social Work In to see the pt. Inform that [facility] cannot accept the pt and she states that she knows. Inquire if she has anywhere to stay and she states no. Ask if she can go to [facility] and she states no she cannot go back there. Inquire where she has been the last week as she has not been at [facility]. States that it does not matter. Offer to call and check on availability at other shelters such as [facility] or [facility] and pt replies no. Ask if Eren in her chart is someone she can stay with and she says no. Ask if she has been staying with him and she states yes. Inquire why she could not return to stay with him and she states it does not matter. Requests that SW leave her room. Pt made aware that SW is available. Call to pt's CM at [facility], Priya Tsai. Updated on pt. Lazara Solorio, JOHANNA SLACK COOPER
[2016-09-14 14:30] LABS: Bedside Glucose 392 mg/dL (70-110)
[2016-09-14 15:01] LABS: Bedside Glucose 453 mg/dL (70-110)
[2016-09-14 15:16] LABS: Bedside Glucose 310 mg/dL (70-110)
[2016-09-14 15:35] VITALS: BP 100/65; PULSE 84; RESP 18; TEMP 37; O2SAT 99
--- NOTE | 2016-09-14 16:15 | NURSING ---
When talked with pt about previous note in chart stating to have Eren Corona called with updates on pt, pt states I don't even know who that is. I don't know anyone with that name.
--- NOTE | 2016-09-14 16:23 | CASEMGMT ---
Social Work Nursing approaches and states that the pt is claiming that she has gotten clothes and shoes here before. Sporting Goods Salesperson who is unaware of this in the past and recommends checking with the housing supervisor finishing room. Call housing supervisor finishing room, Lauren, who states that they have given her clothes in from the ED when they have it, but they gave her the last pair of shoes last admission. Tara, senior audit manager, calls back and states that [facility] is willing to donate some clothes to the pt, but they do not have shoes. Small sweat pants, tank top, t-shirt, and hoody provided to pt. JOHANNA Zarate WOOL MERCHANT
--- NOTE | 2016-09-14 16:25 | NURSING ---
Pt asked undersigned to call someone by the name of Rodrigo. Undersigned called number provided, Rodrigo states he will come to hospital.
[2016-09-15 10:38] LABS: Pathologist Review Reviewed
== END 2016-09-14 16:45 | disposition home or self-care (01) | DRG 295 ==
PROVIDERS: Internal Medicine; Internal Medicine Critical Care Medicine; Admitting Provider Family Medicine; Emergency Provider Emergency Medicine; Visit Provider Internal Medicine
DX: E10.10 Type 1 diabetes mellitus with ketoacidosis without coma (principal); E87.0 Hyperosmolality and hypernatremia; E86.0 Dehydration; B18.2 Chronic viral hepatitis C; E83.39 Other disorders of phosphorus metabolism; E78.5 Hyperlipidemia, unspecified; F19.10 Other psychoactive substance abuse, uncomplicated; F17.210 Nicotine dependence, cigarettes, uncomplicated; Z91.19 Patient's noncompliance with other medical treatment and regimen; E87.6 Hypokalemia; Z97.5 Presence of (intrauterine) contraceptive device
CPT/HCPCS: 36415; 36556; 51702; 71010; 80048; 80307; 80320; 81001; 82009; 82803; 82962; 83036; 83735; 84100; 85025; 87040; 87086; 87641; 93005; 97802; 99285; 99406; J7030; J7050; A4216; C1751; G0480; J3486; J3490

== ENCOUNTER 2017-04-27 12:10 | Emergency (ER) | payer MEDICAID, SELFPAY ==
[2017-04-27 12:11] VITALS: BP 124/74; PULSE 130; RESP 18; TEMP 36.6; O2SAT 99; BMI 25.4
[2017-04-27 12:26] LABS: Bedside Glucose 122 mg/dL (70-110)
--- NOTE | 2017-04-27 12:45 | ED.VISSUMM ---
- ER Visit Summary Date of Service: 04/27/17 Chief Complaint: Vomiting History of Present Illness: The patient is a 21 F with no primary care physician. She sees EVELYN massey for endocrinology. She reports that she began vomiting at 6:00 this morning. She is vomited 3 times today. No blood or emesis. States that at 6 AM she also took 8 units of NovoLog. Patient denies any fever, chills, sore throat, cough, chest pain, shortness of breath, abdominal pain, diarrhea, dysuria, or frequency. She reports that she has a headache is 710 severity. She denies any trauma to her head. Physical Examination: Vitals: Stable. Afebrile. General: Well-nourished and well-developed. Head: Normocephalic atraumatic. Neck: Supple, no lymphadenopathy. No JVD. Nontender. Cardiovascular: Tachycardic regular rhythm. No murmurs. Respiratory: No respiratory distress. Clear to auscultation bilaterally. Abdominal: Soft, mild diffuse tenderness to palpation, nondistended, normal bowel sounds. No guarding, rebound, or peritoneal signs. Back: Nontender. Extremities: Nontender, no edema. Skin: Normal color, no rash. Neurologic: Alert and oriented ?3. Cranial nerves II through XII are intact. Normal strength and sensation. Psych: Normal affect. Test Results: Accu-Chek was 122. Emergency Department Course and Treatment: Patient allowed 1 attempt at an IV and became very agitated and irate. She refuses an IV. She is alert and oriented ?3. Her blood sugar is 122. I think it is very unlikely that she has DKA at this point. I did discuss with her that we should evaluate things further. She was verbally abusive and signed out AGAINST MEDICAL ADVICE. Treatment Plan: Patient will be discharged with Zofran. Instructed to continue to use her insulin. [facility]. Return to the emergency department for any worsening symptoms. Disposition: To home in improved and stable condition. Impression: 1. Vomiting. 2. Insulin-dependent diabetes mellitus. 3. Left AMA. This note was generated with [employer] software. It may contain incorrect words, spelling, and punctuation that were not noted in review of the chart prior to signing ED Disposition - Plan for ED Patient: Disposition: Against Medical Advice Chief Complaint: Hyperglycemia Instructions: ED Nausea Vomiting Prescriptions: Ondansetron [Zofran Odt] 4 mg PO Q8H PRN PRN #10 tablet PRN Reason: Nausea Referrals: Vanesa Medina [NON-STAFF] - As soon as possible
--- NOTE | 2017-04-27 12:47 | NURSING ---
IV ATTEMPTED X2 WITH VEIN FINDER BY KIERAN. PT KICKING AND SCREAMING UNABLE TO SECURE IV AND PULLED OUT. PT WANTS TO LEAVE AMA. DR. WEBER DOING PAPER WORK PT SIGNED AMA.
--- NOTE | 2017-04-27 13:07 | ED.RN ---
PT WAS HAVING IV STARTED AND BEGAN SCREAMING AND WANTING IV OUT. IV WAS IN PT THRRASHING ALL OVER BED KICKING AND SCREAMING. PT WANTS TO GO HOME AND NOT BE TREATED. PT SIGNED OUT AMA
== END 2017-04-27 13:10 | disposition left against medical advice (07) ==
PROVIDERS: Emergency Provider Emergency Medicine; Family Provider Internal Medicine; PCP Internal Medicine
DX: R11.10 Vomiting, unspecified (principal); E10.9 Type 1 diabetes mellitus without complications; Z79.4 Long term (current) use of insulin; Z72.0 Tobacco use; Z72.89 Other problems related to lifestyle
CPT/HCPCS: 82962; 99282; A4216; J3486

== ENCOUNTER 2018-01-02 06:18 | Inpatient (IN) | payer MEDICAID, SELFPAY ==
[2018-01-02] VITALS (29 sets, daily range): BP systolic 102–136; BP diastolic 57–90; PULSE 94–138; RESP 15–40; TEMP 36.2–36.8; O2SAT 95–100; BMI 24.2; BMI 24.9
[2018-01-02 06:27] LABS: Bedside Glucose 453 mg/dL (70-110)
[2018-01-02 07:01] LABS: Allen Test POS; Base Excess -21 mmol/L (-2 to +2); Bicarbonate 6.8 mmol/L (22-26); Blood Gas Specimen Type ART; O2 Delivery Device Room Air; PO2 108 mmHG (75-100); SITE R Radial; SO2 97 % (95-99); Time Given 654; Total Carbon Dioxide 7 mmol/L; pH 7.24 (7.35-7.45)
--- NOTE | 2018-01-02 08:05 | RAD_ITS ---
STUDY: X-RAY CHEST REASON FOR EXAM: Female, 22 years old. Line placement TECHNIQUE: Frontal view of the chest COMPARISON: 11/13/2016. FINDINGS: There is a right-sided jugular line with its tip in the superior vena cava. The lungs are clear. There are no pleural effusions. There is no pneumothorax. The heart is normal in size. The visualized osseous structures are within normal limits. RAD/CXR for Line Placement IMPRESSION: Satisfactory position of the right-sided central line. No pneumothorax. Clear lungs. Electronically Signed: Barry Henderson, at 8:22 EST Tel , Service support ,
[2018-01-02 08:25] LABS: Mucous, Urine 0 SEEN /hpf (<or=2+); White Blood Cells 0 SEEN /hpf (0-5)
[2018-01-02 08:28] LABS: Absolute Lymphocyte Count 2.41 X10^3/ul (0.83-4.51); Absolute Neutrophil Count 14.5 X10^3/uL (2.0-7.7); Basophil% 0.6 % (0-1); Eosinophil# 0.09 X10^3/uL; Eosinophils% 0.5 % (0-5); Hematocrit 42.4 % (37-47); Hemoglobin 13.9 g/dl (12.0-15.0); Lymphocyte # 2.41 X10^3/ul (4.0); Lymphocyte % 13.3 % (19-41); Mean Corp Hgb Conc 32.8 g/gl (32-36); Mean Corpuscular Volume 91.4 fL (81-99); Mean Platelet Vol. 9.5 fl (6.2-12.0); Monocyte# 0.75 X10^3/uL; Monocyte% 4.1 % (0-10); Neutrophil # 14.48 X10^3/uL (2.7-7.7); Platelet Count 359 K/mm3 (150-450); RBC Distribution Width CV 13.3 % (11.6-14.6); Red Blood Count 4.64 M/mm3 (4.2-5.4); White Blood Count 18.1 K/mm3 (4.4-11.0)
[2018-01-02 08:28] LABS: Color, Urine Yellow (Yellow); Glucose, Dipstick 1000 mg/dl (Normal); Leukocyte Esterase-Dipstick Negative /ul (Negative); Nitrite-Dipstick Negative (Negative); Occult Blood-Urine 150 /ul (Negative); Protein-Dipstick 15 mg/dl (Negative); Urine Bilirubin Dipstick Negative (Negative); Urine Clarity Sl. Cloudy (Clear); Urine Urobilinogen Normal (Normal)
[2018-01-02 08:30] LABS: Ketone-Dipstick 150 mg/dl (Negative)
[2018-01-02 08:30] LABS: Differential Indicated SCAN CRITERIA MET; POSITIVE COUNT NO; POSITIVE DIFFERENTIAL NO; POSITIVE MORPHOLOGY YES
[2018-01-02 08:34] LABS: Bacteria 2+ /hpf (None Seen); Red Blood Cells-Urine 0-5 SEEN /hpf (0-5); Squamous Epithelial Cells - UA 0-5 SEEN /hpf (5-10)
[2018-01-02] MEDS: Ondansetron 4 MG/2 ML Vial IV (08:35)
[2018-01-02] MEDS: 0.9% Normal Saline 1,000 ML 1000 ML IV ×2 (08:35)
[2018-01-02 08:50] LABS: Anion Gap 26 (5-15); BUN 13 mg/dL (7-18); BUN/Creat Ratio 13.4 RATIO (10-20); Calcium,Total 9.2 mg/dL (8.5-10.1); Chloride 98 mmol/L (98-107); Creatinine, Serum 0.97 mg/dL (0.55-1.02); EST Glomerular Filtration Rate 77 mL/min (>60); Est Glom Filt Rate - Afr Amer 93 mL/min (>60); Estimated Creatinine Clearance 69.23 ml/min; Glucose 635 mg/dL (74-106); Potassium 4.7 mmol/L (3.5-5.1); Sodium Level 131 mmol/L (136-145)
--- NOTE | 2018-01-02 08:54 | NURSING ---
DR BEN BORRERO
--- NOTE | 2018-01-02 08:55 | HP.PCM_ITS ---
History of Present Illness Date of Admission: 01/02/18 Chief Complaint: run out of insulin The patient is a 22 year old F with a history of type 1 diabetes mellitus with frequent admissions for DKA methamphetamine abuse. She was admitted through the ED on 01/02/2018 with complaint of not having her insulin for 4 days. According to her family would bring her insulin. She started feeling nauseous and started vomiting generally felt ill and so decided to come into the ED. She does have a history of noncompliance. She denied chills any cough or chest pain, any shortness of breath or any headaches. In the ED, blood sugar was 453 on admission, and vitals were significant for tachycardia and tachypnea. Chemistry shows sodium of 131 and bicarb of 7 with an anion gap of 26. Potassium was 4.7. A1c checked was 11.1. CBC showed white cell count of 18.1. Chest x-ray showed no acute cardiopulmonary process. She had to have a right sided jugular line placed in the ED because she would not allow the nurses to place a peripheral line. She is being admitted to be managed for DKA due to noncompliance. [] Past Medical History Past Medical History (Chronic Problems): Chronic Problems (Last Updated 09/08/17 @ 16:10 by Alberta Pagan) Dyslipidemia (Chronic) Triglycerides elevated. Pt is now in a home and is no longer homeless. Is taking insulin consistently and her BG are mostly 100-200s. Will recheck lipids to determine if improved with consistent diet and insulin. Diabetes type 1, uncontrolled (Chronic) Hepatitis C (Chronic) History of heroin abuse (Chronic) Norplant in place (Chronic) Polysubstance abuse (Chronic) binge EtOH,meth, hx of heroin/IVDA, tobacco Medical History: Medical History (Last Updated 09/08/17 @ 16:10 by Alberta Pagan) Depression F32.9 Diabetes type 1, controlled E10.9 Dx : age 15 Last exacerbation : DKA : 08/2017 Hypoglycemic episode : never ER visit : 08/2017 Hep C w/o coma, chronic B18.2 History of heroin abuse Z87.898 Hx MRSA infection Z86.[address] Z97.5 Polysubstance abuse F19.10 Allergies No Known Allergies Allergy (Verified 01/02/18 06:19) Home Medications: Ambulatory Orders Medication Instructions Recorded alcohol swabs 1 pad TOPICAL 01/12/17 blood sugar diagnostic strips See Dose Instructions .ROUTE 01/12/17 .MEDSUPPLY #20 ea pen needle, diabetic 31 gauge x See Dose Instructions .ROUTE 01/12/17 1/ .MEDSUPPLY #30 ea etonogestrel 68 mg subdermal 1 implant SUBDERMAL ONCE 01/20/17 implant insulin aspart U- 100 100 unit/mL 15 unit SC TID ml 01/20/17 subcutaneous pen Ondansetron [Zofran Odt] 4 mg PO Q8H PRN PRN #10 tab 04/27/17 blood sugar diagnostic strips See Dose Instructions .ROUTE 09/06/17 .MEDSUPPLY #120 ea Insulin Glargine,Hum.rec.anlog See Rx Instructions SC QDAY 01/02/18 [Basaglar Kwikpen U-100] Insulin Lispro [Humalog Kwikpen] See Rx Instructions SC .COMPLEX 01/02/18 Surgical History: Surgical History (Last Reviewed 09/08/17 @ 16:03 by Alberta Pagan) Hx of skin graft Z98.890 Surgical History: - - Norplant left upper extremity, right hand skin graft 2014. Psychiatric History: Depression [employer] History: No pertinent [employer] history Smoking Status: Never smoker Drugs: Marijuana, - - methamphetamine - *Family History Paternal History Items: No pertinent history Maternal History Items: Cancer - mom 2016 with lung cancer and abdominal mets, Diabetes - GM Review of Systems Constitutional: Reports: Malaise, Weakness, Fatigue. Denies: Chills, Fever, Weight Change Eyes: Denies: Blurred vision HEENT: Denies: Head Aches, Sinus Congestion, Sinus Drainage Cardiovascular: Denies: Chest Pain, Palpitations Respiratory: Denies: Cough, Shortness of Breath, Shortness of breath at rest, Shortness of breath upon exertion, Sputum production, Wheezing Gastrointestinal: Reports: Nausea, Vomiting. Denies: Abdominal Pain, Diarrhea, Hematemesis Genitourinary: Denies: Dysuria Musculoskeletal: Denies: Joint Pain, Joint Tenderness Skin: Denies: Rash, Wounds Neurological: Denies: Numbness, Tingling, Focal weakness Psychiatric: Reports: Anxiety Hematologic/ Lymphatic: Denies: Easy Bruising, Easy Bleeding VTE Information - Inpt Only VTE Present on Admission: No VTE Pharm Prophylaxis ordered?: Yes - Physical Exam General: - - very agitated and noncompliant HEENT: Atraumatic, PERRLA, EOMI, Normocephalic Oral: Dry Mucosa Neck: Supple, No JVD, Negative Carotid Bruits Lungs: Clear to auscultation, Normal air movement, No rhonchi, No wheeze, No rales Cardiovascular: Regular rate, Regular Rhythm, Normal S1, Normal S2, No murmurs Abdomen: Bowel Sounds Present, Soft, Non Tender, Non-Distended, No Hepato- splenomegaly Extremities: No clubbing, No cyanosis, No edema, Capillary Refill Less than 3 Seconds Skin: No rashes, No breakdown Musculoskeletal: No Tenderness to Palpation of Joints or Extremities Lymphatic: No Cervical, Supraclavicular, or Inguinal Adenopathy Neurological: Cranial nerves II-XII grossly intact, Neuro grossly intact, Motor Exam 5/5 strength throughout Psych/Mental Status: Agitated, Impulsive, Irrational Behavior, Restless, Alert and oriented to time, place, person, mood and affect Vital Signs Temp Pulse Resp BP Pulse Ox 98.3 F 138 H 30 H 117/72 97 01/02/18 06:19 01/02/18 08:26 01/02/18 08:26 01/02/18 08:26 01/02/18 08:26 Oxygen Delivery Method Room Air Weight: 128 lb 1.417 oz Body Mass Index (BMI) 24.2 Finger Stick Blood Glucose 453 Laboratory Tests Past 24 Hrs 01/02/18 01/02/18 01/02/18 06:56 08:15 08:15 WBC 18.1 H RBC 4.64 Hgb 13.9 Hct 42.4 MCV 91.4 MCH 30.0 MCHC 32.8 RDW 13.3 RDW Differential 44.0 H Plt Count 359 MPV 9.5 Immature Gran % (Auto) 1.500 H Neut % (Auto) 80.0 H Lymph % (Auto) 13.3 L Woodward % (Auto) 4.1 Eos % (Auto) 0.5 Baso % (Auto) 0.6 Absolute Neuts (auto) 14.5 H Absolute Lymphs (auto) 2.41 Total Counted Not Reportable Specimen Type ART Sample Site R Radial pH 7.24 L Bicarbonate Actual 6.8 L POC Total CO2 7 Base Excess -21 L O2 Saturation 97 ABG pCO2 16.0 L* ABG pO2 108 H Davin Test POS O2 Delivery Device Room Air Blood Gas Notified Whom ED MD Blood Gas Notified Time 654 Sodium 131 L Potassium 4.7 Chloride 98 Carbon Dioxide 7.0 L* Anion Gap 26 H BUN 13 Creatinine 0.97 Estim Creat Clear Calc 69.23 Est GFR (MDRD) Af Amer 93 Est GFR (MDRD) Non-Af 77 BUN/Creatinine Ratio 13.4 Glucose 635 H* Calcium 9.2 Urine Color Urine Clarity Urine pH Ur Specific Hubbell Urine Protein Urine Glucose (UA) Urine Ketones Urine Occult Blood Urine Nitrite Urine Bilirubin Urine Urobilinogen Ur Leukocyte Esterase Urine RBC Urine WBC Ur Squamous Epith Cells Urine Bacteria Urine Mucus Acetone Level 01/02/18 01/02/18 08:15 08:20 WBC RBC Hgb Hct MCV MCH MCHC RDW RDW Differential Plt Count MPV Immature Gran % (Auto) Neut % (Auto) Lymph % (Auto) Woodward % (Auto) Eos % (Auto) Baso % (Auto) Absolute Neuts (auto) Absolute Lymphs (auto) Total Counted Specimen Type Sample Site pH Bicarbonate Actual POC Total CO2 Base Excess O2 Saturation ABG pCO2 ABG pO2 Davin Test O2 Delivery Device Blood Gas Notified Whom Blood Gas Notified Time Sodium Potassium Chloride Carbon Dioxide Anion Gap BUN Creatinine Estim Creat Clear Calc Est GFR (MDRD) Af Amer Est GFR (MDRD) Non-Af BUN/Creatinine Ratio Glucose Calcium Urine Color Yellow Urine Clarity Sl. Cloudy Urine pH 5.0 Ur Specific Hubbell 1.020 Urine Protein 15 H Urine Glucose (UA) 1000 H Urine Ketones 150 H Urine Occult Blood 150 H Urine Nitrite Negative Urine Bilirubin Negative Urine Urobilinogen Normal Ur Leukocyte Esterase Negative Urine RBC 0-5 SEEN Urine WBC 0 SEEN Ur Squamous Epith Cells 0-5 SEEN Urine Bacteria 2+ Urine Mucus 0 SEEN Acetone Level MODERATE H POC Glucose 01/02/18 06:22 POC Glucose 453 H* Diagnostic Data Chest X-Ray 01/02/18 08:05 IMPRESSION: Satisfactory position of the right-sided central line. No pneumothorax. Clear lungs. Electronically Signed: Barry Henderson, at 8:22 EST Tel , Service support , Assessment/Plan All Active Problems (Last Updated 08/01/18 @ 16:10 by Alberta Pagan) Encephalopathy (Acute) Metabolic encephalopathy (Acute) Transaminitis (Acute) DKA (diabetic ketoacidoses) (Acute) Substance abuse (Acute) MRSA (methicillin resistant Staphylococcus aureus) infection (Acute) Bacteremia due to methicillin resistant Staphylococcus aureus (Acute) Hypokalemia (Acute) Hypophosphatemia (Acute) Hypomagnesemia (Acute) Severe sepsis due to methicillin resistant Staphylococcus aureus (MRSA) with acute organ dysfunction (Resolved) Hyponatremia (Resolved) Dehydration (Acute) Facial cellulitis (Resolved) Acute renal failure (Acute) DKA (diabetic ketoacidoses) (Acute) Periorbital cellulitis (Resolved) 1. DKA due to noncompliance * not taken insulin for at least 4 days * has had repeated admissions for DKA * anin gap was 26 on admission; bicarb was 7 * admit to ICU * A1C was 11.1 * started on insulin drip in ED; continue * give IVF NS with 20meq of KCl @ 150cc/hr until blood sugar falls to <250, then switch to D5 NS * to transition to SC insulin at her regular home dose once anion gap has closed * takes SC lantus 50IU daily at home and novolog 15IU tid. * consult pick up operator * 2. SIRS criteria: * has SIRS criteria of 3/4 (tachycardia, tachypnea, leucocytosis). * likely due to DKA * no clear source of infection, and is likely reactive to DKA * hold off on antibiotics for now and monitor for resolution as DKA resolves * 3. Leucocytosis: wbc ix 18.1; likely reactive. UA showed bacteria 2+ but she is asymptomatic. WIll hold off on antibiotics for now and check urine culture 4. Asymptomatic bacteriuria: as under 2. Hold off on antibiotics for now. 5. Methamphetamine and marijuana abuse: counselled to quit DVT prophylaxis: lovenox Code Visit Inpatient E&M: 69602 Init Hosp L3
--- NOTE | 2018-01-02 08:57 | ED.DCSUM_ITS ---
- ER Visit Summary Date of Service: 01/02/18 Chief Complaint: I am out of my insulin. History of Present Illness: The patient is a 22 F who presents because she has been out of her insulin for 4 days. She has had extensive admissions for diabetic ketoacidosis. She is a type I diabetic with a history of noncompliance. She states she has not had her insulin for 4 days because my family will not bring me my insulin. She complains of nausea vomiting and blurry vision. No chest pain shortness of breath abdominal pain fevers headaches. She states she is on able to tolerate anything by mouth. Physical Examination: Afebrile heart rate 125 respiratory rate 30 Patient is extremely belligerent towards staff. Dry mucous membranes Heart regular rhythm tachycardia Lungs are clear without rales rhonchi wheezes Abdomen soft nontender nondistended Alert Test Results: BGT 453. Labs notable for white blood cell count 18.1. Sodium 131, anion gap 26, glucose 635. Urinalysis shows 150 blood, 150 ketones, 1000 glucose as well as bacteria but no WBCs. She has moderate serum ketones. ABG shows pH 7.24, PCO2 of 16, PO2 of 108, bicarbonate of 6.8. Emergency Department Course and Treatment: Patient was belligerent towards nursing staff here. She was yelling and screaming at nurses who attempted to establish peripheral IVs. She would not let nursing staff to attempt any further peripherals after 2 sticks. I myself attempted ultrasound-guided peripheral IV placement and was unsuccessful after 2 sticks. Therefore we discussed risks and benefits including risks of infection, bleeding, pneumothorax of central venous catheter placement. After informed consent she did consent. A right internal jugular central venous catheter was placed under sterile conditions and ultrasound guidance. There was some technical difficulty and dark red nonpulsatile blood was obtained on third stick. Remainder of the procedure went well without any apparent immediate complications. Chest x-ray obtained afterwards show satisfactory placement no pneumothorax. Patient was treated with 2 L of IV fluid. She was given IV Zofran. She was started on an insulin drip. Treatment Plan: [] Disposition: Admit Impression: Diabetic ketoacidosis Right internal jugular central venous catheter placement This note was generated with [employer] dictation software. It may contain incorrect words, spelling, and punctuation that were not noted in review of the chart prior to signing ED Disposition - Plan for ED Patient: Chief Complaint: General Illness Referrals: Annalise Rai MD [Primary Care Provider] -
--- NOTE | 2018-01-02 09:01 | NURSING ---
ICU DKA BEN
--- NOTE | 2018-01-02 09:15 | NURSING ---
ICU 202
--- NOTE | 2018-01-02 09:26 | NURSING ---
CV[facility] 202
--- NOTE | 2018-01-02 09:50 | ED.RN ---
PT HAS BEEN EASILY AGITATED AND VERBALLY ABUSIVE DURING STAY IN ED. PT HAS BEEN RUDE AND HAS YELLED AT NURSING STAFF, ED PHYSICIAN, WELL ADMITTING HOSPITALIST. PT HAS REPEATED BEEN ASKED TO REMAIN CALM STAFF HAS BEEN WORKING TO HELP HER AND MAKE HER COMFORTABLE POSSIBLE.
[2018-01-02 10:11] LABS: Bedside Glucose 387 mg/dL (70-110)
[2018-01-02] MEDS: 0.9% Normal Saline 1,000 ML 500 ML IV (10:30)
[2018-01-02 10:50] LABS: Hemoglobin A1c 11.1 % (4.2-6.3)
[2018-01-02] MEDS: Enoxaparin 40 MG/0.4 ML Syringe SC (11:00)
[2018-01-02 11:06] LABS: Bedside Glucose 295 mg/dL (70-110)
[2018-01-02] MEDS: Dext 5%-0.45% NS 1,000 ML 150 ML IV (12:05)
[2018-01-02 12:11] LABS: Bedside Glucose 208 mg/dL (70-110)
[2018-01-02 12:52] LABS: Anion Gap 18 (5-15); BUN 11 mg/dL (7-18); Chloride 116 mmol/L (98-107); Creatinine, Serum 0.78 mg/dL (0.55-1.02); EST Glomerular Filtration Rate 98 mL/min (>60); Est Glom Filt Rate - Afr Amer 119 mL/min (>60); Estimated Creatinine Clearance 86.09 ml/min; Glucose 237 mg/dL (74-106); Potassium 4.2 mmol/L (3.5-5.1); Sodium Level 142 mmol/L (136-145)
[2018-01-02 13:01] LABS: Bedside Glucose 200 mg/dL (70-110)
[2018-01-02] MEDS: Dext 5%-0.45% NS 1,000 ML 200 ML IV ×2 (13:07→17:49)
[2018-01-02 14:11] LABS: Bedside Glucose 216 mg/dL (70-110)
[2018-01-02 15:00] LABS: Bedside Glucose 221 mg/dL (70-110)
[2018-01-02 15:15] LABS: Anion Gap 13 (5-15); BUN 9 mg/dL (7-18); BUN/Creat Ratio 11.4 RATIO (10-20); Calcium,Total 7.9 mg/dL (8.5-10.1); Chloride 114 mmol/L (98-107); Creatinine, Serum 0.79 mg/dL (0.55-1.02); EST Glomerular Filtration Rate 97 mL/min (>60); Est Glom Filt Rate - Afr Amer 118 mL/min (>60); Glucose 238 mg/dL (74-106); Potassium 3.8 mmol/L (3.5-5.1); Sodium Level 140 mmol/L (136-145)
[2018-01-02 16:06] LABS: Bedside Glucose 199 mg/dL (70-110)
[2018-01-02 17:15] LABS: Bedside Glucose 172 mg/dL (70-110)
--- NOTE | 2018-01-02 17:50 | NURSING ---
attempt made to complete CAM assessment but pt refused to participate
[2018-01-02 19:11] LABS: Anion Gap 9 (5-15); BUN 8 mg/dL (7-18); Calcium,Total 7.8 mg/dL (8.5-10.1); Chloride 114 mmol/L (98-107); EST Glomerular Filtration Rate 97 mL/min (>60); Est Glom Filt Rate - Afr Amer 117 mL/min (>60); Estimated Creatinine Clearance 83.94 ml/min; Glucose 169 mg/dL (74-106); Potassium 3.2 mmol/L (3.5-5.1); Sodium Level 141 mmol/L (136-145)
[2018-01-02 19:26] LABS: Bedside Glucose 143 mg/dL (70-110)
[2018-01-02 20:36] LABS: Bedside Glucose 116 mg/dL (70-110)
[2018-01-02 22:40] LABS: Bedside Glucose 146 mg/dL (70-110)
[2018-01-03] VITALS (13 sets, daily range): BP systolic 99–117; BP diastolic 69–85; PULSE 96–106; RESP 15–18; TEMP 36.1–37.2; O2SAT 96–100
[2018-01-03 04:10] LABS: Anion Gap 11 (5-15); BUN 6 mg/dL (7-18); BUN/Creat Ratio 9.8 RATIO (10-20); Calcium,Total 8.2 mg/dL (8.5-10.1); Chloride 110 mmol/L (98-107); Creatinine, Serum 0.61 mg/dL (0.55-1.02); EST Glomerular Filtration Rate 131 mL/min (>60); Est Glom Filt Rate - Afr Amer 159 mL/min (>60); Estimated Creatinine Clearance 110.09 ml/min; Glucose 112 mg/dL (74-106); Magnesium 1.9 mg/dL (1.6-2.6); Phosphorus 1.5 mg/dL (2.5-4.9); Potassium 3.3 mmol/L (3.5-5.1); Sodium Level 141 mmol/L (136-145)
[2018-01-03 04:18] LABS: Absolute Lymphocyte Count 4.09 X10^3/ul (0.83-4.51); Absolute Neutrophil Count 5.3 X10^3/uL (2.0-7.7); Basophil# 0.04 X10^3/uL; Basophil% 0.4 % (0-1); Eosinophil# 0.27 X10^3/uL; Eosinophils% 2.6 % (0-5); Hematocrit 34.5 % (37-47); Hemoglobin 11.6 g/dl (12.0-15.0); Lymphocyte # 4.09 X10^3/ul (4.0); Lymphocyte % 38.9 % (19-41); Mean Corp Hgb Conc 33.6 g/gl (32-36); Mean Corpuscular Hgb 29.4 pg (27.0-32.0); Mean Corpuscular Volume 87.3 fL (81-99); Mean Platelet Vol. 8.7 fl (6.2-12.0); Monocyte# 0.76 X10^3/uL; Monocyte% 7.2 % (0-10); Neutrophil # 5.28 X10^3/uL (2.7-7.7); Neutrophil % 50.1 % (47-70); Platelet Count 266 K/mm3 (150-450); RBC Distribution Width CV 13.3 % (11.6-14.6); RBC Distribution Width SD 43.2 fl (35.1-43.9); Red Blood Count 3.95 M/mm3 (4.2-5.4); White Blood Count 10.5 K/mm3 (4.4-11.0)
[2018-01-03 04:20] LABS: Differential Indicated SCAN CRITERIA MET; POSITIVE COUNT NO; POSITIVE DIFFERENTIAL NO; POSITIVE MORPHOLOGY YES
[2018-01-03 06:41] LABS: Bedside Glucose 88 mg/dL (70-110)
--- NOTE | 2018-01-03 06:49 | NURSING ---
ACCU CHECK THIS AM = 88. ORANGE JUICE GIVEN TO PATIENT AND ASSISTED PATIENT IN ORDERING HER BREAKFAST.
[2018-01-03] MEDS: Insulin Lispro 100 UNIT/ML INSULN.PEN 15 UNIT SC ×3 (08:34→16:52)
[2018-01-03] MEDS: Enoxaparin 40 MG/0.4 ML Syringe SC (08:34)
--- NOTE | 2018-01-03 10:58 | PCM.PN.HOSP ---
Subjective: Feeling better today. HAs DKA fairly frequently. She was staying with a friend here in [place] for the last few weeks and ran out of her insulin and her family refused to bring her more. Vitals/I&O's: Vital Signs Temp Pulse Resp BP Pulse Ox 98.6 F 106 H 18 117/78 96 01/03/18 10:02 01/03/18 10:02 01/03/18 10:02 01/03/18 10:02 01/03/18 10:02 Oxygen Delivery Method Room Air Weight: 132 lb 0.91 oz Body Mass Index (BMI) 24.9 Finger Stick Blood Glucose 143 Intake and Output for Last 24 Hours 01/01/18 01/02/18 01/03/18 23:59 23:59 23:59 Intake Total 3418.8 / 3418.8 237 / 237 Output Total 800 / 800 1000 / 1000 Balance 2618.8 / 2618.8 -763 / -763 General: Alert, Oriented x3, Cooperative, No apparent distress HEENT: Atraumatic, EOMI, Normocephalic Oral: Moist Mucosa Neck: Supple, No JVD Lungs: Clear to auscultation, Normal air movement, No rhonchi, No wheeze, No rales Cardiovascular: Regular rate, Regular Rhythm, Normal S1, Normal S2, No murmurs Abdomen: Soft, Non Tender, Non-Distended, No Hepato-splenomegaly Extremities: No edema, Capillary Refill Less than 3 Seconds Skin: No rashes, No breakdown Neurological: Neuro grossly intact, Sensory exam intact to light touch and pain Psych/Mental Status: Normal Affect, Appropriate Laboratory Results 01/02/18 11:02: POC Glucose 295 H 01/02/18 11:59: POC Glucose 208 H 01/02/18 12:24: Sodium 142, Potassium 4.2, Chloride 116 H, Carbon Dioxide 8.0 L*, Anion Gap 18 H, BUN 11, Creatinine 0.78, Estim Creat Clear Calc 86.09, Est GFR (MDRD) Af Amer 119, Est GFR (MDRD) Non-Af 98, BUN/Creatinine Ratio 14.0, Glucose 237 H, Calcium 8.0 L 01/02/18 12:55: POC Glucose 200 H 01/02/18 14:00: POC Glucose 216 H 01/02/18 14:55: Sodium 140, Potassium 3.8, Chloride 114 H, Carbon Dioxide 13.0 L, Anion Gap 13, BUN 9, Creatinine 0.79, Estim Creat Clear Calc 85.00, Est GFR (MDRD) Af Amer 118, Est GFR (MDRD) Non-Af 97, BUN/Creatinine Ratio 11.4, Glucose 238 H, Calcium 7.9 L 01/02/18 14:55: POC Glucose 221 H 01/02/18 16:00: POC Glucose 199 H 01/02/18 17:09: POC Glucose 172 H 01/02/18 18:35: Sodium 141, Potassium 3.2 L, Chloride 114 H, Carbon Dioxide 18.0 L, Anion Gap 9, BUN 8, Creatinine 0.80, Estim Creat Clear Calc 83.94, Est GFR (MDRD) Af Amer 117, Est GFR (MDRD) Non-Af 97, BUN/Creatinine Ratio 10.0, Glucose 169 H, Calcium 7.8 L 01/02/18 18:35: POC Glucose 143 H 01/02/18 20:31: POC Glucose 116 H 01/02/18 22:36: POC Glucose 146 H 01/03/18 03:50: WBC 10.5, RBC 3.95 L, Hgb 11.6 L, Hct 34.5 L, MCV 87.3, MCH 29.4, MCHC 33.6, RDW 13.3, RDW Differential 43.2, Plt Count 266, MPV 8.7, Immature Gran % (Auto) 0.800, Neut % (Auto) 50.1, Lymph % (Auto) 38.9, [place] % (Auto) 7.2, Eos % (Auto) 2.6, Baso % (Auto) 0.4, Absolute Neuts (auto) 5.3, Absolute Lymphs (auto) 4.09, Total Counted Not Reportable 01/03/18 03:50: Sodium 141, Potassium 3.3 L, Chloride 110 H, Carbon Dioxide 20.0 L, Anion Gap 11, BUN 6 L, Creatinine 0.61, Estim Creat Clear Calc 110.09, Est GFR (MDRD) Af Amer 159, Est GFR (MDRD) Non-Af 131, BUN/Creatinine Ratio 9.8 L, Glucose 112 H, Calcium 8.2 L, Phosphorus 1.5 L, Magnesium 1.9 01/03/18 06:35: POC Glucose 88 Current Medications Dextrose (D50w Syringe) 0 gm IV X1 PRN; Protocol PRN Reason: HYPOGLYCEMIA Enoxaparin Sodium (Lovenox) 40 mg SC DAILY@1000 LILIYA Last Admin: 01/03/18 08:34 Dose: 40 mg Potassium Phosphate 40 mm/ (Sodium Chloride) 513.3333 mls @ 62.5 mls/hr IV X1 ONE Stop: 01/03/18 19:09 Insulin Glargine (Lantus (Bkc)) 40 units SC DAILY LILIYA Last Admin: 01/02/18 20:36 Dose: 40 units Insulin Human Lispro (Humalog Kwikpen (Bkc)) 15 unit SC TIDAC LILIYA Last Admin: 01/03/18 08:34 Dose: 15 u Insulin Human Lispro (Humalog Kwikpen (Bkc)) 0 unit SC ACHS LILIYA; Protocol Last Admin: 01/03/18 07:58 Dose: Not Given Magnesium Hydroxide (Milk Of Magnesia) 30 ml PO DAILY PRN PRN PRN Reason: Constipation Ondansetron HCl (Zofran Odt) 4 mg PO Q8H PRN PRN PRN Reason: NAUSEA Sodium Chloride () 10 - 40 ml IV UD PRN PRN Reason: MULTILUMEN/HICMAN CATH FLUSH Last Admin: 01/02/18 21:37 Dose: 10 ml Medical Necessity - Tobacco Use Smoking Status: Never smoker Assessment/Plan All Active Problems (Last Updated 09/08/17 @ 16:10 by Alberta Pagan) Encephalopathy (Acute) Metabolic encephalopathy (Acute) Transaminitis (Acute) DKA (diabetic ketoacidoses) (Acute) Substance abuse (Acute) MRSA (methicillin resistant Staphylococcus aureus) infection (Acute) Bacteremia due to methicillin resistant Staphylococcus aureus (Acute) Hypokalemia (Acute) Hypophosphatemia (Acute) Hypomagnesemia (Acute) Severe sepsis due to methicillin resistant Staphylococcus aureus (MRSA) with acute organ dysfunction (Resolved) Hyponatremia (Resolved) Dehydration (Acute) Facial cellulitis (Resolved) Acute renal failure (Acute) DKA (diabetic ketoacidoses) (Acute) Periorbital cellulitis (Resolved) 1. DKA due to noncompliance/Hypokalemia/Hypophosphatemia/SIRS (resolved) - c/w lantus 40U HS and novolog 15 u tid and a SSI - BG is 112 this am - Accuchecks - c/s to gas attendant - Will give Kphos today, recheck in am 2. Methamphetamine and marijuana abuse: counselled to quit DVT: lovenox Diet: DM Code Visit Inpatient E&M: 62288 Subs Hosp L2
--- NOTE | 2018-01-03 11:04 | PN_ITS ---
Subjective: Feeling better today. HAs DKA fairly frequently. She was staying with a friend here in [place] for the last few weeks and ran out of her insulin and her family refused to bring her more. Vitals/I&O's: Vital Signs Temp Pulse Resp BP Pulse Ox 98.6 F 106 H 18 117/78 96 01/03/18 10:02 01/03/18 10:02 01/03/18 10:02 01/03/18 10:02 01/03/18 10:02 Oxygen Delivery Method Room Air Weight: 132 lb 0.91 oz Body Mass Index (BMI) 24.9 Finger Stick Blood Glucose 143 Intake and Output for Last 24 Hours 01/01/18 01/02/18 01/03/18 23:59 23:59 23:59 Intake Total 3418.8 / 3418.8 237 / 237 Output Total 800 / 800 1000 / 1000 Balance 2618.8 / 2618.8 -763 / -763 General: Alert, Oriented x3, Cooperative, No apparent distress HEENT: Atraumatic, EOMI, Normocephalic Oral: Moist Mucosa Neck: Supple, No JVD Lungs: Clear to auscultation, Normal air movement, No rhonchi, No wheeze, No rales Cardiovascular: Regular rate, Regular Rhythm, Normal S1, Normal S2, No murmurs Abdomen: Soft, Non Tender, Non-Distended, No Hepato-splenomegaly Extremities: No edema, Capillary Refill Less than 3 Seconds Skin: No rashes, No breakdown Neurological: Neuro grossly intact, Sensory exam intact to light touch and pain Psych/Mental Status: Normal Affect, Appropriate Laboratory Results 01/02/18 11:02: POC Glucose 295 H 01/02/18 11:59: POC Glucose 208 H 01/02/18 12:24: Sodium 142, Potassium 4.2, Chloride 116 H, Carbon Dioxide 8.0 L* , Anion Gap 18 H, BUN 11, Creatinine 0.78, Estim Creat Clear Calc 86.09, Est GFR (MDRD) Af Amer 119, Est GFR (MDRD) Non-Af 98, BUN/Creatinine Ratio 14.0, Glucose 237 H, Calcium 8.0 L 01/02/18 12:55: POC Glucose 200 H 01/02/18 14:00: POC Glucose 216 H 01/02/18 14:55: Sodium 140, Potassium 3.8, Chloride 114 H, Carbon Dioxide 13.0 L , Anion Gap 13, BUN 9, Creatinine 0.79, Estim Creat Clear Calc 85.00, Est GFR (MDRD) Af Amer 118, Est GFR (MDRD) Non-Af 97, BUN/Creatinine Ratio 11.4, Glucose 238 H, Calcium 7.9 L 01/02/18 14:55: POC Glucose 221 H 01/02/18 16:00: POC Glucose 199 H 01/02/18 17:09: POC Glucose 172 H 01/02/18 18:35: Sodium 141, Potassium 3.2 L, Chloride 114 H, Carbon Dioxide 18.0 L, Anion Gap 9, BUN 8, Creatinine 0.80, Estim Creat Clear Calc 83.94, Est GFR (MDRD) Af Amer 117, Est GFR (MDRD) Non-Af 97, BUN/Creatinine Ratio 10.0, Glucose 169 H, Calcium 7.8 L 01/02/18 18:35: POC Glucose 143 H 01/02/18 20:31: POC Glucose 116 H 01/02/18 22:36: POC Glucose 146 H 01/03/18 03:50: WBC 10.5, RBC 3.95 L, Hgb 11.6 L, Hct 34.5 L, MCV 87.3, MCH 29.4, MCHC 33.6, RDW 13.3, RDW Differential 43.2, Plt Count 266, MPV 8.7, Immature Gran % (Auto) 0.800, Neut % (Auto) 50.1, Lymph % (Auto) 38.9, [place] % (Auto) 7.2, Eos % (Auto) 2.6, Baso % (Auto) 0.4, Absolute Neuts (auto) 5.3, Absolute Lymphs (auto) 4.09, Total Counted Not Reportable 01/03/18 03:50: Sodium 141, Potassium 3.3 L, Chloride 110 H, Carbon Dioxide 20.0 L, Anion Gap 11, BUN 6 L, Creatinine 0.61, Estim Creat Clear Calc 110.09, Est GFR (MDRD) Af Amer 159, Est GFR (MDRD) Non-Af 131, BUN/Creatinine Ratio 9.8 L, Glucose 112 H, Calcium 8.2 L, Phosphorus 1.5 L, Magnesium 1.9 01/03/18 06:35: POC Glucose 88 Current Medications Dextrose (D50w Syringe) 0 gm IV X1 PRN; Protocol PRN Reason: HYPOGLYCEMIA Enoxaparin Sodium (Lovenox) 40 mg SC DAILY@1000 LILIYA Last Admin: 01/03/18 08:34 Dose: 40 mg Potassium Phosphate 40 mm/ (Sodium Chloride) 513.3333 mls @ 62.5 mls/hr IV X1 ONE Stop: 01/03/18 19:09 Insulin Glargine (Lantus (Bkc)) 40 units SC DAILY LILIYA Last Admin: 01/02/18 20:36 Dose: 40 units Insulin Human Lispro (Humalog Kwikpen (Bkc)) 15 unit SC TIDAC LILIYA Last Admin: 01/03/18 08:34 Dose: 15 u Insulin Human Lispro (Humalog Kwikpen (Bkc)) 0 unit SC ACHS LILIYA; Protocol Last Admin: 01/03/18 07:58 Dose: Not Given Magnesium Hydroxide (Milk Of Magnesia) 30 ml PO DAILY PRN PRN PRN Reason: Constipation Ondansetron HCl (Zofran Odt) 4 mg PO Q8H PRN PRN PRN Reason: NAUSEA Sodium Chloride () 10 - 40 ml IV UD PRN PRN Reason: MULTILUMEN/HICMAN CATH FLUSH Last Admin: 01/02/18 21:37 Dose: 10 ml Medical Necessity - Tobacco Use Smoking Status: Never smoker Assessment/Plan All Active Problems (Last Updated 09/08/17 @ 16:10 by Alberta Pagan) Encephalopathy (Acute) Metabolic encephalopathy (Acute) Transaminitis (Acute) DKA (diabetic ketoacidoses) (Acute) Substance abuse (Acute) MRSA (methicillin resistant Staphylococcus aureus) infection (Acute) Bacteremia due to methicillin resistant Staphylococcus aureus (Acute) Hypokalemia (Acute) Hypophosphatemia (Acute) Hypomagnesemia (Acute) Severe sepsis due to methicillin resistant Staphylococcus aureus (MRSA) with acute organ dysfunction (Resolved) Hyponatremia (Resolved) Dehydration (Acute) Facial cellulitis (Resolved) Acute renal failure (Acute) DKA (diabetic ketoacidoses) (Acute) Periorbital cellulitis (Resolved) 1. DKA due to noncompliance/Hypokalemia/Hypophosphatemia/SIRS (resolved) - c/w lantus 40U HS and novolog 15 u tid and a SSI - BG is 112 this am - Accuchecks - c/s to associate professor of history - Will give Kphos today, recheck in am 2. Methamphetamine and marijuana abuse: counselled to quit DVT: lovenox Diet: DM Code Visit Inpatient E&M: 18659 Subs Hosp L2
[2018-01-03 11:20] LABS: Bedside Glucose 112 mg/dL (70-110)
--- NOTE | 2018-01-03 11:27 | CASEMGMT ---
SW attempted to speak w/pt, pt looked at SW and rolled over, stating, I don't want to talk to you. Pt declining to speak w/this SW at all, at this time. SW let pt know that SW is available to assist if needed. SPENSER Varela, INSTALLMENT DEALER
[2018-01-03 15:56] LABS: Bedside Glucose 151 mg/dL (70-110)
[2018-01-03] MEDS: Insulin Lispro 100 UNIT/ML INSULN.PEN SC ×2 (16:53→20:56)
[2018-01-03 21:10] LABS: Bedside Glucose 258 mg/dL (70-110)
[2018-01-04 02:28] VITALS: BP 130/94; PULSE 91; RESP 16; TEMP 36.6; O2SAT 96
[2018-01-04] MEDS: Insulin Lispro 100 UNIT/ML INSULN.PEN 15 UNIT SC ×2 (08:13→12:35)
[2018-01-04] MEDS: Insulin Lispro 100 UNIT/ML INSULN.PEN SC ×2 (08:15→12:35)
[2018-01-04 08:20] LABS: Bedside Glucose 456 mg/dL (70-110)
[2018-01-04 08:23] LABS: Anion Gap 10 (5-15); BUN 11 mg/dL (7-18); BUN/Creat Ratio 19.5 RATIO (10-20); Calcium,Total 8.6 mg/dL (8.5-10.1); Chloride 102 mmol/L (98-107); Creatinine, Serum 0.56 mg/dL (0.55-1.02); EST Glomerular Filtration Rate 144 mL/min (>60); Est Glom Filt Rate - Afr Amer 174 mL/min (>60); Estimated Creatinine Clearance 119.91 ml/min; Glucose 440 mg/dL (74-106); Phosphorus 2.7 mg/dL (2.5-4.9); Potassium 4.1 mmol/L (3.5-5.1); Sodium Level 136 mmol/L (136-145)
--- NOTE | 2018-01-04 09:08 | DCINST_ITS ---
You will use the following diet at home:: Calorie/Carbohydrate Controlled (specify 1200, 1400, etc) Your food should be the consistency of: Regular Your liquids should be the consistency of: Regular/Thin Discharge Activity: No Restrictions Call your doctor if you observe: Shortness of breath, Dizziness Allergies/Adverse Reactions: Allergies No Known Allergies Allergy (Verified 01/02/18 06:19) Medications to take at Discharge alcohol swabs 1 pad TOPICAL 01/12/17 blood sugar diagnostic strips See Dose Instructions .ROUTE .MEDSUPPLY #20 ea 01/12/17 pen needle, diabetic 31 gauge x 1/4 See Dose Instructions .ROUTE .MEDSUPPLY #30 ea 01/12/17 etonogestrel 68 mg subdermal implant 1 implant SUBDERMAL ONCE 01/20/17 Ondansetron [Zofran Odt] 4 mg PO Q8H PRN PRN #10 tab 04/27/17 blood sugar diagnostic strips See Dose Instructions .ROUTE .MEDSUPPLY #120 ea 09/06/17 Insulin Aspart [Novolog Flexpen] 18 unit SC TID #1 ml 01/04/18 Insulin Glargine,Hum.rec.anlog [Basaglar Kwikpen U-100] 50 units SC QHS #2 insuln.pen 01/04/18 Insulin Lispro [Humalog Kwikpen] See Rx Instructions SC .COMPLEX #0 01/04/18 The following prescriptions were given: Insulin Glargine,Hum.rec.anlog [Basaglar Kwikpen U-100] 50 units SC QHS #2 insuln.pen Insulin Aspart [Novolog Flexpen] 18 unit SC TID #1 ml Primary Care Physician: Annalise Rai MD [Primary Care Provider] - Please follow up with your Primary Care Physician in: In 3-5 days Test Results: Test results from this visit will be discussed in further detail at your follow- up appointment, if applicable. Please Follow Up With: Blele Tellez NP-C When: In 1-2 weeks
--- NOTE | 2018-01-04 09:08 | PCM.DC.SUM ---
Discharge Date and Diagnosis Date of Admission: 01/02/18 Date of Discharge: 01/04/18 - Secondary Discharge Diagnosis Chronic Problems (Last Updated 09/08/17 @ 16:10 by Alberta Pagan) Dyslipidemia (Chronic) Triglycerides elevated. Pt is now in a home and is no longer homeless. Is taking insulin consistently and her BG are mostly 100-200s. Will recheck lipids to determine if improved with consistent diet and insulin. Diabetes type 1, uncontrolled (Chronic) Hepatitis C (Chronic) History of heroin abuse (Chronic) Norplant in place (Chronic) Polysubstance abuse (Chronic) binge EtOH,meth, hx of heroin/IVDA, tobacco Hospital Course and Treatment Imaging Results: CXR: IMPRESSION: Satisfactory position of the right-sided central line. No pneumothorax. Clear lungs. Consults: Dealer Accounts Investigator Operations: None Procedures: None Summary of Care Provided: Per HPI: The patient is a 22 year old F with a history of type 1 diabetes mellitus with frequent admissions for DKA methamphetamine abuse. She was admitted through the ED on 01/02/2018 with complaint of not having her insulin for 4 days. According to her family would bring her insulin. She started feeling nauseous and started vomiting generally felt ill and so decided to come into the ED. She does have a history of noncompliance. She denied chills any cough or chest pain, any shortness of breath or any headaches. In the ED, blood sugar was 453 on admission, and vitals were significant for tachycardia and tachypnea. Chemistry shows sodium of 131 and bicarb of 7 with an anion gap of 26. Potassium was 4.7. A1c checked was 11.1. CBC showed white cell count of 18.1. Chest x-ray showed no acute cardiopulmonary process. She had to have a right sided jugular line placed in the ED because she would not allow the nurses to place a peripheral line. She is being admitted to be managed for DKA due to noncompliance. Vital Signs - 24 hr Temp Pulse Resp BP Pulse Ox 01/04/18 02:28 98 F 91 16 130/94 H 96 01/03/18 19:52 97.9 F 96 16 116/85 H 100 01/03/18 15:50 99.0 F 102 H 18 113/69 98 01/03/18 10:02 98.6 F 106 H 18 117/78 96 General: Alert, Oriented x3, Cooperative, No apparent distress HEENT: Atraumatic, EOMI, Normocephalic Oral: Moist Mucosa Neck: Supple, No JVD Lungs: Clear to auscultation, Normal air movement, No rhonchi, No wheeze, No rales Cardiovascular: Regular rate, Regular Rhythm, Normal S1, Normal S2, No murmurs Abdomen: Soft, Non Tender, Non-Distended, No Hepato-splenomegaly Extremities: No edema, Capillary Refill Less than 3 Seconds Skin: No rashes, No breakdown Neurological: Neuro grossly intact, Sensory exam intact to light touch and pain Psych/Mental Status: Normal Affect, Appropriate Hospital Course: 1. DKA due to noncompliance/Hypokalemia/Hypophosphatemia/SIRS (resolved) - She is notorious for being non-compliant with her medications and her diet. She states that this time, she was staying at a friends house here in [place] and ran out of her insulin and when she called her parents, who she lives with, who are 45 minutes away, they refused to drive and bring her her insulin. This time she had gone 4 days without insulin and presented in DKA. She went through the DKA protocol and was transferred out of the ICU yesterday. On the day of discharge, I attempted to discuss with her any issues (ie Mental health) that could be preventing her from managing her chronic disease and she refused the discussion and was adamant about going home. She will be discharged after lunch today and I will discharge her on an increased insulin regimen of Lantus 50 U qHS, Novolog 18 U TID AC and a sliding scale which she takes at home. She is to follow-up with her PCP and her refuge worker. 2. I have counselled her on her need to quite Methamphetamines and marijuana. - Physical Exam Vital Signs Temp Pulse Resp BP Pulse Ox 98 F 91 16 130/94 H 96 01/04/18 02:28 01/04/18 02:28 01/04/18 02:28 01/04/18 02:28 01/04/18 02:28 Oxygen Delivery Method Room Air Weight: 132 lb 0.91 oz Body Mass Index (BMI) 24.9 Finger Stick Blood Glucose 143 Intake and Output for Last 24 Hours 01/02/18 01/03/18 01/04/18 23:59 23:59 23:59 Intake Total 3418.8 / 3418.8 2030 Output Total 800 / 800 1000 / 1000 Balance 2618.8 / 2618.8 1031 / 1031 Laboratory Tests Past 24 Hrs 01/04/18 07:25 Sodium 136 Potassium 4.1 Chloride 102 Carbon Dioxide 24.0 Anion Gap 10 BUN 11 Creatinine 0.56 Estim Creat Clear Calc 119.91 Est GFR (MDRD) Af Amer 174 Est GFR (MDRD) Non-Af 144 BUN/Creatinine Ratio 19.5 Glucose 440 H Calcium 8.6 Phosphorus 2.7 POC Glucose 01/04/18 01/03/18 01/03/18 08:12 20:54 15:49 POC Glucose 456 H* 258 H 151 H 01/03/18 11:14 POC Glucose 112 H Discharge Activity: No Restrictions Call your doctor if you observe: Shortness of breath, Dizziness Home Medications: Medications to take at Discharge alcohol swabs 1 pad TOPICAL 01/12/17 blood sugar diagnostic strips See Dose Instructions .ROUTE .MEDSUPPLY #20 ea 01/12/17 pen needle, diabetic 31 gauge x 1/4 See Dose Instructions .ROUTE .MEDSUPPLY #30 ea 01/12/17 etonogestrel 68 mg subdermal implant 1 implant SUBDERMAL ONCE 01/20/17 Ondansetron [Zofran Odt] 4 mg PO Q8H PRN PRN #10 tab 04/27/17 blood sugar diagnostic strips See Dose Instructions .ROUTE .MEDSUPPLY #120 ea 09/06/17 Insulin Aspart [Novolog Flexpen] 18 unit SC TID #1 ml 01/04/18 Insulin Glargine,Hum.rec.anlog [Basaglar Kwikpen U-100] 50 units SC QHS #2 insuln.pen 01/04/18 Insulin Lispro [Humalog Kwikpen] See Rx Instructions SC .COMPLEX #0 01/04/18 Following Prescrptions Were Given to Patient: Insulin Glargine,Hum.rec.anlog [Basaglar Kwikpen U-100] 50 units SC QHS #2 insuln.pen Insulin Aspart [Novolog Flexpen] 18 unit SC TID #1 ml Primary Care Physician: Annalise Rai MD [Primary Care Provider] - Please follow up with your Primary Care Physician in: In 3-5 days Please Follow Up With: Belle Tellez BIOMEDICAL SPECIALIST-C When: In 1-2 weeks Disposition: Home Minutes spent on discharge:: 35 Patient Condition:: Good Medical Necessity - Tobacco Use Smoking Status: Never smoker Meaningful Use Info Meaningful Use Diagnoses (Choose all that apply): None applicable Code Visit Inpatient E&M: 60945 Disch Hosp
[2018-01-04 09:55] VITALS: BP 111/72; PULSE 109; RESP 16; TEMP 36.6; O2SAT 99
--- NOTE | 2018-01-04 09:57 | CASEMGMT ---
ANA CRISTINA met with patient. Introduced self. ANA CRISTINA asked patient if she was still staying at [facility]. She said she is not. SW asked her what happened and she said she went to senior care. SW asked her what happened and she would not elaborate other than saying she went to senior care. SW asked if she has a place to go. She said she does not. ANA CRISTINA asked her about [facility]. She said, I don't want to talk about this anymore. ANA CRISTINA asked if she has a coat and shoes because it is pretty cold. She said she does. Her phone is and needs charged, but she doesn't have a weigher and charger. ANA CRISTINA checked with [facility] staff and they had a weigher and charger that worked for patient's phone. ANA CRISTINA let RN know [facility] [place]'s weigher and charger is in patient's room. ANA CRISTINA asked patient about her medication. She said it is at her home in [place]. ANA CRISTINA asked her if we were able to get her a ride to [place]. She said, I don't want to go back home. She again said, I told you I don't want to talk about this anymore. I am an adult, I don't need anyone's help I can take care of myself. Patient's meds were sent to [facility]. She will need a prescription for pen needles. ANA CRISTINA notified Dr Hernandez and he will send this down. Per patient she does not have anywhere to go at d/c, but at the same time she will not allow anyone to help her. Medina BOOTH MSW
--- NOTE | 2018-01-04 10:16 | NURSING ---
THIS RN IN TO COMPLETE NURSING ASSESSMENT/VITALS. NOTIFIED PATIENT ON DISCHARGE ORDERS FOR TODAY. PT STATES WANTS TO TRY TO SLEEP MUCH POSSIBLE BECAUSE SHE DOESN'T KNOW WHERE SHE WILL GO AT DISCHARGE. ASKED PATIENT IF SHE HAD SOMEONE SHE WOULD BE ABLE TO CALL. PATIENT STATES CELL PHONE IS CHARGING. SOCIAL WORK AWARE. PATIENT REFUSING ADDITIONAL ASSISTANCE AT THIS TIME.
--- NOTE | 2018-01-04 10:20 | CASEMGMT ---
ANA CRISTINA spoke with patient letting her know the physician sent prescriptions to [facility]. ANA CRISTINA also asked if it would be okay for ANA CRISTINA to call Cindy. She said, No. Medina SPENCER
[2018-01-04 12:06] LABS: Bedside Glucose 252 mg/dL (70-110)
--- NOTE | 2018-01-05 11:18 | CASEMGMT ---
RN BAYRON Discharge Follow-up Phone Call: WILBER: Lacy Strata: 3 Call Date: 01/05/18 Discharge Date: 01/04/18 Time of Call: 1118 Duration: 0 ? Admitting Diagnosis: DKA This RN BAYRON attempted to contact pt via telephone for discharge follow-up. Phone rang with a fast busy signal only. David Lee RN
== END 2018-01-04 12:47 | disposition home or self-care (01) | DRG 420 ==
LOC: ED 06:55 → ICU 09:18 → MS2 01-03 09:52
PROVIDERS: Family Medicine; Admitting Provider Student in an Organized Health Care Education/Training Program; Emergency Provider Emergency Medicine; Family Provider Internal Medicine; PCP Internal Medicine; Visit Provider Family Medicine
DX: E10.10 Type 1 diabetes mellitus with ketoacidosis without coma (principal); F12.10 Cannabis abuse, uncomplicated; E78.5 Hyperlipidemia, unspecified; Z91.14 Patient's other noncompliance with medication regimen; F15.10 Other stimulant abuse, uncomplicated
CPT/HCPCS: 36556; 36600; 71045; 80048; 81001; 82009; 82803; 82962; 83036; 83735; 84100; 85025; 93005; 97802; 99282; J7030; J7040; A4216; J2405; J7799

== ENCOUNTER 2018-05-03 20:46 | Inpatient (IN) | payer MEDICAID, SELFPAY ==
[2018-01-02 10:34] VITALS: BMI 24.9
[2018-05-03 20:48] VITALS: BP 132/86; PULSE 117; RESP 15; TEMP 36.2; O2SAT 100; BMI 18.6
--- NOTE | 2018-05-03 20:59 | ED.DCSUM_ITS ---
- ER Visit Summary Date of Service: 05/03/18 Chief Complaint: Hyperglycemia and altered mental status History of Present Illness: The patient is a 22 F who called EMS today because of high blood sugar. She is a type I diabetic. She does not know when the last time she took her own blood sugar was. She has been in DKA many times. She has had nausea with vomiting. She is drowsy but answers all questions. She normally takes NovoLog 45 units 3 times a day and Lantus 50 units at night. She admits to using meth and marijuana at home. Physical Examination: Vital signs reviewed. HEENT exam unremarkable. Heart is tachycardic and regular rhythm without murmurs. Lungs are clear bilaterally. Abdomen soft nontender. Extremities reveal no edema. Skin exam reveals track kyle on the hands bilaterally. Neurologic exam reveals she is alert and oriented x3 but she is drowsy. She does answer all the questions but closes her eyes during examination. Test Results: White blood cell count 17.5, sodium 131, BUN 22, creatinine 1.10. Total bilirubin 7.6, ALT 1881, AST 1208. Lactate is normal. Moderate ketones in the blood Emergency Department Course and Treatment: Peripheral IV was unable to be obtained. Therefore n internal jugular central line was placed. Procedure note: Patient unable to consent due to her mental status. Emergent access was needed for IV fluids and laboratory studies. Under ultrasound guidance the right internal jugular vein was visualized. 3 cc of lidocaine was used to anesthetize the skin on the right side of the neck. Using Seldinger technique the right internal jugular vein was cannulized under ultrasound guidance. A triple-lumen catheter was then placed. There was good blood return from each port. Chest x-ray was obtained and confirmed appropriate placement. Patient tolerated the procedure well Treatment Plan: Patient will be given 2 L of IV fluids. She will be started on insulin drip. Her elevated liver enzymes may be due to hypotension and her dehydration. No abdominal pain on exam. She will be admitted to the ICU for an insulin drip. Disposition: Admit Impression: DKA, transaminitis This note was generated with [employer] dictation software. It may contain incorrect words, spelling, and punctuation that were not noted in review of the chart prior to signing ED Disposition - Plan for ED Patient: Referrals: Annalise Rai MD [Primary Care Provider] -
[2018-05-03 21:01] LABS: Bedside Glucose > 500 mg/dL (70-110)
--- NOTE | 2018-05-03 22:13 | RAD_ITS ---
STUDY: X-RAY CHEST REASON FOR EXAM: Female, 22 years old. Central line. TECHNIQUE: Single AP portable view of the chest. COMPARISON: 11/13/2016. FINDINGS: There is a right IJ line that terminates near the cavoatrial junction. No pneumothorax. The lungs are clear and expanded. There is no demonstrated pleural abnormality. Normal size heart. Normal mediastinum and bernard. Normal visualized pulmonary arteries. Normal visualized aortic arch and descending thoracic aorta. Normal visualized thoracic spine. Normal visualized ribs, clavicles, and shoulders. There is no demonstrated abnormality of the visualized soft tissue structures of the upper abdomen. RAD/CXR for Line Placement IMPRESSION: No acute chest disease. Electronically Signed: Tae Nagy MD at 23:02 EDT , Service support ,
[2018-05-03 22:16] VITALS: BP 125/93; PULSE 131; O2SAT 100
[2018-05-03] MEDS: 0.9% Normal Saline 1,000 ML 999 ML IV ×2 (22:30)
[2018-05-03 22:41] LABS: Absolute Lymphocyte Count 4.06 X10^3/ul (0.83-4.51); Absolute Neutrophil Count 12.7 X10^3/uL (2.0-7.7); Basophil# 0.09 X10^3/uL; Basophil% 0.5 % (0-1); Eosinophil# 0.01 X10^3/uL; Eosinophils% 0.1 % (0-5); Hematocrit 46.4 % (37-47); Hemoglobin 14.5 g/dl (12.0-15.0); Lymphocyte # 4.06 X10^3/ul (4.0); Lymphocyte % 23.2 % (19-41); Mean Corp Hgb Conc 31.3 g/gl (32-36); Mean Corpuscular Hgb 30.5 pg (27.0-32.0); Mean Corpuscular Volume 97.7 fL (81-99); Mean Platelet Vol. 10.7 fl (6.2-12.0); Monocyte# 0.32 X10^3/uL; Monocyte% 1.8 % (0-10); Neutrophil # 12.65 X10^3/uL (2.7-7.7); Neutrophil % 72.3 % (47-70); Platelet Count 421 K/mm3 (150-450); RBC Distribution Width CV 15.5 % (11.6-14.6); RBC Distribution Width SD 55.9 fl (35.1-43.9); Red Blood Count 4.75 M/mm3 (4.2-5.4); White Blood Count 17.5 K/mm3 (4.4-11.0)
[2018-05-03 22:47] LABS: Differential Indicated SCAN CRITERIA MET; POSITIVE COUNT YES; POSITIVE DIFFERENTIAL NO; POSITIVE MORPHOLOGY YES
[2018-05-03 22:51] LABS: Lactic Acid 1.5 mmol/L (0.4-2.0)
[2018-05-03 22:52] LABS: Pregnancy, Serum, hCG Quali. NEGATIVE Negative (0-9 Nonpreg)
--- NOTE | 2018-05-03 22:54 | ED.RN ---
CRITICAL LAB VALUE GLUCOSE 510. DR FRANCOIS NOTIFIED.
[2018-05-03 22:55] LABS: ALB/GLOB Ratio 0.5 RATIO (0.9-2.4); AST(SGOT) 1208 U/L (15-37); Alanine Aminotransfer ALT/SGPT 1881 U/L (13-56); Albumin, Serum 2.9 g/dL (3.2-5.0); Alkaline Phosphatase 370 U/L (45-117); Anion Gap 22 (5-15); BUN 22 mg/dL (7-18); Calcium,Total 9.2 mg/dL (8.5-10.1); Chloride 99 mmol/L (98-107); EST Glomerular Filtration Rate 66 mL/min (>60); Est Glom Filt Rate - Afr Amer 80 mL/min (>60); Estimated Creatinine Clearance 64.88 ml/min; Globulin 6.2 g/dL (2.2-4.2); Glucose 510 mg/dL (74-106); Potassium 4.9 mmol/L (3.5-5.1); Protein, Total 9.1 g/dL (6.4-8.2); Sodium Level 131 mmol/L (136-145)
[2018-05-03 23:05] LABS: Platelet Estimate ADEQUATE (ADEQ)
[2018-05-03 23:06] LABS: Differential Comment SCANNED
[2018-05-03 23:22] VITALS: BP 125/80; PULSE 113; RESP 17; O2SAT 100
[2018-05-03 23:26] LABS: Bedside Glucose 457 mg/dL (70-110)
--- NOTE | 2018-05-03 23:32 | HP.PCM_ITS ---
Problem List (1) DKA (diabetic ketoacidoses) Status: Acute Qualifiers: Diabetes mellitus type: type 1 Diabetes mellitus complication detail: without coma Qualified Code(s): E10.10 - Type 1 diabetes mellitus with ketoacidosis without coma (2) Substance abuse Status: Acute History of Present Illness Date of Admission: 05/03/18 Chief Complaint: VOMITING The patient is a 22 year old F with a significant history of diabetes with multiple DKAs; homelessness; polysubstance abuse who presented to the emergency department because of 3-day history of nausea and vomiting. Associated with her symptoms is abdominal pain; and dry mouth. Athough patient is supposed to be on insulin she reports she cannot find her insulin apparatus. At the emergency department patient was found to have glucose of 510 on BMP and a fingerstick blood glucose was 457. She had moderate acetone; her bicarbonate was 10 and she had an anion gap of 22. Her liver enzymes was severely elevated. At the emergency department patient was started on normal saline bolus and insulin drip. Past Medical History Past Medical History (Chronic Problems): Chronic Problems (Last Updated 09/08/17 @ 16:10 by Alberta Pagan) Dyslipidemia (Chronic) Triglycerides elevated. Pt is now in a home and is no longer homeless. Is taking insulin consistently and her BG are mostly 100-200s. Will recheck lipids to determine if improved with consistent diet and insulin. Diabetes type 1, uncontrolled (Chronic) Hepatitis C (Chronic) History of heroin abuse (Chronic) Norplant in place (Chronic) Polysubstance abuse (Chronic) binge EtOH,meth, hx of heroin/IVDA, tobacco Medical History: Medical History (Last Reviewed 05/04/18 @ 06:37 by Manjit Gamble MD) Depression F32.9 Diabetes type 1, controlled E10.9 Dx : age 15 Last exacerbation : DKA : 08/2017 Hypoglycemic episode : never ER visit : 08/2017 Hep C w/o coma, chronic B18.2 History of heroin abuse Z87.898 Hx MRSA infection Z86.[address] Z97.5 Polysubstance abuse F19.10 Allergies No Known Allergies Allergy (Verified 05/03/18 20:47) Home Medications: Ambulatory Orders Medication Instructions Recorded alcohol swabs 1 pad TOPICAL 01/12/17 blood sugar diagnostic strips See Dose Instructions .ROUTE 01/12/17 .MEDSUPPLY #20 ea etonogestrel 68 mg subdermal 1 implant SUBDERMAL ONCE 01/20/17 implant Ondansetron [Zofran Odt] 4 mg PO Q8H PRN PRN #10 tab 04/27/17 blood sugar diagnostic strips See Dose Instructions .ROUTE 09/06/17 .MEDSUPPLY #120 ea insulin glargine (U-100) 100 50 unit SC .q hs #15 ml 03/07/18 unit/mL (3 mL) subcutaneous pen Insulin Aspart [Novolog Flexpen See Rx Instructions SC TID 05/04/18 U-100 Insulin] Surgical History: Surgical History (Last Reviewed 05/04/18 @ 06:37 by Manjit Gamble MD) Hx of skin graft Z98.890 Surgical History: - - Norplant left upper extremity, right hand skin graft 2014. Psychiatric History: Depression CUTTER WET MACHINE History: No pertinent CUTTER WET MACHINE history Lives: Homeless Smoking Status: Current every day smoker Drugs: Marijuana, - - Methamphetamine - *Family History Paternal History Items: Diabetes Maternal History Items: Cancer - mom 2016 with lung cancer and abdominal mets, Diabetes - GM Review of Systems Constitutional: Denies: Chills, Fever, Weight Change HEENT: Denies: Head Aches, Sinus Congestion, Sinus Drainage Cardiovascular: Denies: Chest Pain, Palpitations Respiratory: Denies: Cough, Shortness of breath at rest, Sputum production Gastrointestinal: Reports: Abdominal Pain, Nausea, Vomiting Genitourinary: Denies: Dysuria Musculoskeletal: Denies: Joint Pain, Joint Tenderness Skin: Denies: Rash, Wounds Neurological: Denies: Numbness, Tingling, Focal weakness Psychiatric: Denies: Anxiety, Depression, Homicidal Ideations, Suicidal Ideations Hematologic/ Lymphatic: Denies: Easy Bruising, Easy Bleeding VTE Information - Inpt Only VTE Present on Admission: No VTE Mechan Device Prophylaxis: None VTE Pharm Prophylaxis ordered?: No Reason prophylaxis not ordered:: Treatment Not Indicated - Low risk - Physical Exam General: Alert, Oriented x3, Non-Cooperative HEENT: Atraumatic, Normocephalic, - - Poor dentition Neck: Supple, No JVD Lungs: Clear to auscultation, Normal air movement Cardiovascular: Regular rate, No murmurs Abdomen: Bowel Sounds Present, Soft, Non Tender Extremities: No edema, Capillary Refill Less than 3 Seconds Skin: No rashes, No breakdown Musculoskeletal: No Tenderness to Palpation of Joints or Extremities Neurological: Neuro grossly intact Psych/Mental Status: Impulsive Vital Signs Temp Pulse Resp BP Pulse Ox 97.1 F L 113 H 17 125/80 H 100 05/03/18 20:48 05/03/18 23:22 05/03/18 23:22 05/03/18 23:22 05/03/18 23:22 Oxygen Delivery Method Room Air Weight: 50.8 kg Body Mass Index (BMI) 18.6 Finger Stick Blood Glucose 581 Laboratory Tests Past 24 Hrs 05/03/18 05/03/18 05/03/18 22:10 22:10 22:10 WBC 17.5 H RBC 4.75 Hgb 14.5 Hct 46.4 MCV 97.7 MCH 30.5 MCHC 31.3 L RDW 15.5 H RDW Differential 55.9 H Plt Count 421 MPV 10.7 Immature Gran % (Auto) 2.100 H Neut % (Auto) 72.3 H Lymph % (Auto) 23.2 Williamson % (Auto) 1.8 Eos % (Auto) 0.1 Baso % (Auto) 0.5 Absolute Neuts (auto) 12.7 H Absolute Lymphs (auto) 4.06 Total Counted Not Reportable Differential Comment SCANNED Diff Path Review May foll Platelet Estimate ADEQUATE Sodium 131 L Potassium 4.9 Chloride 99 Carbon Dioxide 10.0 L Anion Gap 22 H BUN 22 H Creatinine 1.10 H Estim Creat Clear Calc 64.88 Est GFR (MDRD) Af Amer 80 Est GFR (MDRD) Non-Af 66 BUN/Creatinine Ratio 20.0 Glucose 510 H* Lactic Acid Calcium 9.2 Total Bilirubin 7.60 H AST 1208 H ALT 1881 H Alkaline Phosphatase 370 H Total Protein 9.1 H Albumin 2.9 L Globulin 6.2 H Albumin/Globulin Ratio 0.5 L Serum , Qual Acetone Level MODERATE H 05/03/18 05/03/18 22:10 22:10 WBC RBC Hgb Hct MCV MCH MCHC RDW RDW Differential Plt Count MPV Immature Gran % (Auto) Neut % (Auto) Lymph % (Auto) Williamson % (Auto) Eos % (Auto) Baso % (Auto) Absolute Neuts (auto) Absolute Lymphs (auto) Total Counted Differential Comment Diff Path Review Platelet Estimate Sodium Potassium Chloride Carbon Dioxide Anion Gap BUN Creatinine Estim Creat Clear Calc Est GFR (MDRD) Af Amer Est GFR (MDRD) Non-Af BUN/Creatinine Ratio Glucose Lactic Acid 1.5 Calcium Total Bilirubin AST ALT Alkaline Phosphatase Total Protein Albumin Globulin Albumin/Globulin Ratio Serum , Qual NEGATIVE Acetone Level POC Glucose 05/03/18 05/03/18 23:19 20:57 POC Glucose 457 H* > 500 H* Assessment/Plan All Active Problems (Last Updated 09/08/17 @ 16:10 by Alberta Pagan) Metabolic encephalopathy (Acute) Transaminitis (Acute) DKA (diabetic ketoacidoses) (Acute) Substance abuse (Acute) MRSA (methicillin resistant Staphylococcus aureus) infection (Acute) Bacteremia due to methicillin resistant Staphylococcus aureus (Acute) Hypokalemia (Acute) Hypophosphatemia (Acute) Hypomagnesemia (Acute) Severe sepsis due to methicillin resistant Staphylococcus aureus (MRSA) with acute organ dysfunction (Resolved) Hyponatremia (Resolved) Dehydration (Acute) Facial cellulitis (Resolved) Acute renal failure (Acute) DKA (diabetic ketoacidoses) (Acute) Periorbital cellulitis (Resolved) The patient is a 22 year old F with a significant history of diabetes with multi ple DKAs; homelessness; polysubstance abuse who presented to the emergency department because of 3-day history of vomiting and found to have anion gap metabolic acidosis and elevated liver enzymes consistent with DKA and acute hepatitis. DKA The patient reports barriers to care: Not using insulin at home. Her DKA could be secondary to insufficient insulin to meet his metabolic demands. Serum glucose 510 on admission; fingerstick was 457 acetone level: Moderate Anion gap of 22 on presentation Sodium: 131; Corrected sodium: 138 Insulin drip started from emergency department; continue Completed IV bolus of normal saline and normal saline infusion Because of potassium of 4.9. Discussed with emergency department doctor who started patient on potassium supplementation. We will start patient on half- normal saline with potassium. If GAP close we will start long-acting basal insulin to run with insulin drip if possible; and short acting insulin. BMP every 4 hours to calculate anion gap. N.p.o. for now. Ice chips per patient request. Admitted to ICU A1c ordered; returned 12.3. Zofran as needed ordered Because of poor IV access emergency department doctor placed IJ. Trend CBC and BMP Acoustic Warfare Analyst consult. Acute hepatitis Patient noted to have a history of hepatitis C Cannot rule out acute hepatitis on top of her history of hepatitis C. Differential diagnosis include viral hepatitis; hepatitis secondary to medicines/drug use or other. On presentation her AST was 1208; ALT was 1881 Review of old records: In the past highest AST was 686 in 2015; highest ALT was 986 in 2015 We will get an ultrasound of her liver and acute hepatitis panel. Tylenol level was unremarkable. Patient denies alcoholism. And her AST/ALT trend is not consistent with alcoholism either. Patient did not appear to be intoxicated on presentation for which reason blood alcohol level was not ordered. Leukocytosis On presentation her white count was 17.5; and noted to have bandemia Diagnoses include reactive from DKA; acute hepatitis or other Chest x-ray showed no acute cardiopulmonary disease. Chest x-ray was independently reviewed. I agree with radiologist interpretation. Urinalysis ordered Blood cultures X 2 ordered. All were drawn form line that was inserted less than 10 hours prior to insertion. In any case patient did not want any blood drawn from peripheral. Polysubstance abuse Patient uses weed and methamphetamine Counseled Tobacco abuse Counseled Declined nicotine patch. DVT prophylaxis Notably patient has implanted a total cholesterol contraceptive. No other known DVT risks. Encouraged to ambulate. Code Visit Inpatient E&M: 04356 Init Hosp L3
[2018-05-03] MEDS: Potassium Chloride 20mEq/100mL 20 MEQ/100 ML IV.SOLN. 100 MEQ IV BOLUS (23:52)
[2018-05-04] VITALS (37 sets, daily range): BP systolic 85–162; BP diastolic 40–87; PULSE 82–120; RESP 12–18; TEMP 36.6–37.3; O2SAT 96–100; BMI 20.3; BMI 20.4
[2018-05-04 00:06] LABS: Bedside Glucose 352 mg/dL (70-110)
--- NOTE | 2018-05-04 00:42 | US_ITS ---
STUDY: ABDOMINAL ULTRASOUND - RIGHT UPPER QUADRANT REASON FOR VISIT: Female, 22 years old. Elevated LFTs. TECHNIQUE: Ultrasound evaluation of the right upper quadrant was performed with real-time and static panchal-scale imaging. TECHNICAL QUALITY: Adequate. COMPARISON: None. FINDINGS: Liver: The liver measures 17.0 cm. There is normal echogenicity of the liver. The bile ducts are within normal limits. There is hepatic color flow. The direction of portal flow is hepatopetal. There is no demonstrated mass lesion. Gallbladder: Incompletely distended gallbladder. The gallbladder wall measures 2.8 mm. There is a negative sonographic Og's sign. There is no pericholecystic fluid. There are no gallstones. Common Bile Duct (C.B.D.): The common bile duct measures 6 mm. Pancreas: Normal size of the head, body and tail of the pancreas. There is normal echogenicity of the pancreas. There is no demonstrated pancreatic mass or cyst. Right Kidney: Normal size of the right kidney. The right kidney measures 10.7 cm. Normal renal cortex. The right cortex measures 1.6 cm. There is no demonstrated renal mass or cyst. There is no right hydronephrosis. US/Liver IMPRESSION: Incomplete distention of the gallbladder without other sonographic evidence of right upper quadrant abnormality. Electronically Signed: Bladimir Penny DO at 10:25 EDT Tel [phone], Service support ,
[2018-05-04] MEDS: Potassium Chloride 40 MEQ in 0.45% Normal Saline 1,000 ML 250 MEQ IV (01:10)
[2018-05-04 01:16] LABS: Bedside Glucose 418 mg/dL (70-110)
--- NOTE | 2018-05-04 01:29 | NURSING ---
Pt. was asking if she came with a cell phone. No cell phone came with pt. from ED; pt. was made aware. Only belongings with pt. are a shirt, underwear, socks, and a wallet.
[2018-05-04 01:35] LABS: Hemoglobin A1c 12.3 % (4.2-6.3)
[2018-05-04 01:44] LABS: Anion Gap 15 (5-15); BUN 19 mg/dL (7-18); Calcium,Total 7.8 mg/dL (8.5-10.1); Chloride 111 mmol/L (98-107); EST Glomerular Filtration Rate 74 mL/min (>60); Est Glom Filt Rate - Afr Amer 90 mL/min (>60); Estimated Creatinine Clearance 70.38 ml/min; Glucose 333 mg/dL (74-106); Potassium 4.7 mmol/L (3.5-5.1); Sodium Level 136 mmol/L (136-145)
[2018-05-04 02:10] LABS: Bedside Glucose 276 mg/dL (70-110)
[2018-05-04 02:12] LABS: Acetaminophen (Tylenol) Level < 2.0 ug/mL (10.0-30.0)
[2018-05-04 03:11] LABS: Bedside Glucose 320 mg/dL (70-110)
[2018-05-04 04:06] LABS: Bedside Glucose 213 mg/dL (70-110)
[2018-05-04 05:00] LABS: Bedside Glucose 220 mg/dL (70-110)
[2018-05-04] MEDS: Dext 5%-0.45% NS 1,000 ML 150 ML IV (05:09)
[2018-05-04 05:18] LABS: Absolute Lymphocyte Count 4.23 X10^3/ul (0.83-4.51); Absolute Neutrophil Count 9.4 X10^3/uL (2.0-7.7); Basophil# 0.07 X10^3/uL; Basophil% 0.5 % (0-1); Eosinophil# 0.01 X10^3/uL; Eosinophils% 0.1 % (0-5); Hematocrit 38.6 % (37-47); Hemoglobin 11.8 g/dl (12.0-15.0); Lymphocyte # 4.23 X10^3/ul (4.0); Lymphocyte % 27.9 % (19-41); Mean Corp Hgb Conc 30.6 g/gl (32-36); Mean Corpuscular Hgb 29.6 pg (27.0-32.0); Monocyte# 1.14 X10^3/uL; Monocyte% 7.5 % (0-10); Neutrophil # 9.43 X10^3/uL (2.7-7.7); Neutrophil % 62.3 % (47-70); Platelet Count 365 K/mm3 (150-450); RBC Distribution Width CV 15.5 % (11.6-14.6); RBC Distribution Width SD 53.4 fl (35.1-43.9); Red Blood Count 3.98 M/mm3 (4.2-5.4); White Blood Count 15.1 K/mm3 (4.4-11.0)
[2018-05-04 05:20] LABS: Differential Indicated SCAN CRITERIA MET; POSITIVE COUNT NO; POSITIVE DIFFERENTIAL NO; POSITIVE MORPHOLOGY YES
[2018-05-04 05:40] LABS: Anion Gap 9 (5-15); BUN 19 mg/dL (7-18); BUN/Creat Ratio 20.5 RATIO (10-20); Calcium,Total 7.7 mg/dL (8.5-10.1); Chloride 113 mmol/L (98-107); Creatinine, Serum 0.93 mg/dL (0.55-1.02); EST Glomerular Filtration Rate 81 mL/min (>60); Est Glom Filt Rate - Afr Amer 98 mL/min (>60); Estimated Creatinine Clearance 75.68 ml/min; Glucose 235 mg/dL (74-106); Potassium 4.7 mmol/L (3.5-5.1); Sodium Level 139 mmol/L (136-145)
[2018-05-04 06:00] LABS: AST(SGOT) 751 U/L (15-37); Alanine Aminotransfer ALT/SGPT 1359 U/L (13-56); Albumin, Serum 2.2 g/dL (3.2-5.0); Alkaline Phosphatase 261 U/L (45-117); Bilirubin, Direct 2.99 mg/dL (0.00-0.30); Globulin 5.1 g/dL (2.2-4.2); Protein, Total 7.3 g/dL (6.4-8.2)
[2018-05-04 06:00] LABS: Bedside Glucose 225 mg/dL (70-110)
--- NOTE | 2018-05-04 07:00 | PCM.PROGNOTE ---
Subjective: 22 YO F admitted to the hospital on 05/03 with DKA. On an insulin drip overnight and converted to mealtime insulin and Lantus this AM when gap closed at 9. LFT's markedly elevated at admission. She has tested + for Hep C in the past. All events of the past 24 hours have been reviewed Afebrile since admission. Sinus tachycardia is improving with hydration. Blood pressure is stable. Pulse ox is 98-100% on room air. Fluid balance is +2402. All lab was personally reviewed. Hemoglobin A1c is 12.3. Lactic acid was 1.5 at admission. Serum bicarb has improved and is currently 17. BUN is 19 and the creatinine is 0.93. AST at admission was 1208, ALT 1881, alk phos 370 and the total bilirubin was 7.6. These have all decreased overnight. Hepatitis panel is pending. Liver US is ordered for today....she is NPO and very angry about this. Tells me that she has been using meth......initially would not talk to me. she is apparently homeless again. She had been clean and had a job for a while.......will not tell me when this changed. Has never been treated for Hep C - Physical Exam General: Alert, No apparent distress, Non-Cooperative, - - yelling and having a temper tantrum HEENT: Atraumatic, Normocephalic, - - very poor dentition and oral hygiene, multiple caries and broken teeth Oral: Dry Mucosa Neck: Supple, Trachea Midline Lungs: Clear to auscultation Cardiovascular: Regular Rhythm, Normal S1, Normal S2, No murmurs, No rub noted, No Gallop, Tachycardic Abdomen: Bowel Sounds Present, Soft, Non-Distended Extremities: No clubbing, No cyanosis, No edema Skin: - - no evidence cellulitis Neurological: Cranial nerves II-XII grossly intact, Neuro grossly intact Psych/Mental Status: Agitated, Impulsive, Irrational Behavior Vital Signs Temp Pulse Resp BP Pulse Ox 98.5 F 107 H 12 100/44 L 98 05/04/18 04:00 05/04/18 06:00 05/04/18 06:00 05/04/18 06:00 05/04/18 06:00 Oxygen Delivery Method Room Air Weight: 111 lb 5.335 oz Body Mass Index (BMI) 20.3 Finger Stick Blood Glucose 225 Intake and Output for Last 24 Hours 05/02/18 05/03/18 05/04/18 23:59 23:59 23:59 Intake Total 3202.4 / 3202.4 Output Total 800 / 800 Balance 2402.4 / 2402.4 Laboratory Tests Past 24 Hrs 05/03/18 05/03/18 05/03/18 22:10 22:10 22:10 WBC 17.5 H RBC 4.75 Hgb 14.5 Hct 46.4 MCV 97.7 MCH 30.5 MCHC 31.3 L RDW 15.5 H RDW Differential 55.9 H Plt Count 421 MPV 10.7 Immature Gran % (Auto) 2.100 H Neut % (Auto) 72.3 H Lymph % (Auto) 23.2 [place] % (Auto) 1.8 Eos % (Auto) 0.1 Baso % (Auto) 0.5 Absolute Neuts (auto) 12.7 H Absolute Lymphs (auto) 4.06 Total Counted Not Reportable Differential Comment SCANNED Diff Path Review May foll Platelet Estimate ADEQUATE Sodium 131 L Potassium 4.9 Chloride 99 Carbon Dioxide 10.0 L Anion Gap 22 H BUN 22 H Creatinine 1.10 H Estim Creat Clear Calc 64.88 Est GFR (MDRD) Af Amer 80 Est GFR (MDRD) Non-Af 66 BUN/Creatinine Ratio 20.0 Glucose 510 H* Hemoglobin A1c Lactic Acid Calcium 9.2 Total Bilirubin 7.60 H Direct Bilirubin AST 1208 H ALT 1881 H Alkaline Phosphatase 370 H Total Protein 9.1 H Albumin 2.9 L Globulin 6.2 H Albumin/Globulin Ratio 0.5 L Serum , Qual Acetaminophen Acetone Level MODERATE H Hepatitis A IgM Ab Hep Bs Antigen Hep B Core IgM Ab Hepatitis C Ab (EIA) 05/03/18 05/03/18 05/04/18 22:10 22:10 01:05 WBC RBC Hgb Hct MCV MCH MCHC RDW RDW Differential Plt Count MPV Immature Gran % (Auto) Neut % (Auto) Lymph % (Auto) [place] % (Auto) Eos % (Auto) Baso % (Auto) Absolute Neuts (auto) Absolute Lymphs (auto) Total Counted Differential Comment Diff Path Review Platelet Estimate Sodium Potassium Chloride Carbon Dioxide Anion Gap BUN Creatinine Estim Creat Clear Calc Est GFR (MDRD) Af Amer Est GFR (MDRD) Non-Af BUN/Creatinine Ratio Glucose Hemoglobin A1c Lactic Acid 1.5 Calcium Total Bilirubin Direct Bilirubin AST ALT Alkaline Phosphatase Total Protein Albumin Globulin Albumin/Globulin Ratio Serum , Qual NEGATIVE Acetaminophen < 2.0 L Acetone Level Hepatitis A IgM Ab Hep Bs Antigen Hep B Core IgM Ab Hepatitis C Ab (EIA) 05/04/18 05/04/18 05/04/18 01:05 01:05 01:05 WBC RBC Hgb Hct MCV MCH MCHC RDW RDW Differential Plt Count MPV Immature Gran % (Auto) Neut % (Auto) Lymph % (Auto) [place] % (Auto) Eos % (Auto) Baso % (Auto) Absolute Neuts (auto) Absolute Lymphs (auto) Total Counted Differential Comment Diff Path Review Platelet Estimate Sodium 136 Potassium 4.7 Chloride 111 H Carbon Dioxide 10.0 L Anion Gap 15 BUN 19 H Creatinine 1.00 Estim Creat Clear Calc 70.38 Est GFR (MDRD) Af Amer 90 Est GFR (MDRD) Non-Af 74 BUN/Creatinine Ratio 19.0 Glucose 333 H Hemoglobin A1c 12.3 H Lactic Acid Calcium 7.8 L Total Bilirubin Direct Bilirubin AST ALT Alkaline Phosphatase Total Protein Albumin Globulin Albumin/Globulin Ratio Serum , Qual Acetaminophen Acetone Level Hepatitis A IgM Ab Pending Hep Bs Antigen Pending Hep B Core IgM Ab Pending Hepatitis C Ab (EIA) Pending 05/04/18 05/04/18 05/04/18 04:55 04:55 04:55 WBC 15.1 H RBC 3.98 L Hgb 11.8 L Hct 38.6 MCV 97.0 MCH 29.6 MCHC 30.6 L RDW 15.5 H RDW Differential 53.4 H Plt Count 365 MPV 10.0 Immature Gran % (Auto) 1.700 H Neut % (Auto) 62.3 Lymph % (Auto) 27.9 [place] % (Auto) 7.5 Eos % (Auto) 0.1 Baso % (Auto) 0.5 Absolute Neuts (auto) 9.4 H Absolute Lymphs (auto) 4.23 Total Counted Not Reportable Differential Comment Diff Path Review Platelet Estimate Sodium 139 Potassium 4.7 Chloride 113 H Carbon Dioxide 17.0 L Anion Gap 9 BUN 19 H Creatinine 0.93 Estim Creat Clear Calc 75.68 Est GFR (MDRD) Af Amer 98 Est GFR (MDRD) Non-Af 81 BUN/Creatinine Ratio 20.5 H Glucose 235 H Hemoglobin A1c Lactic Acid Calcium 7.7 L Total Bilirubin 3.70 H Direct Bilirubin 2.99 H AST 751 H ALT 1359 H Alkaline Phosphatase 261 H Total Protein 7.3 Albumin 2.2 L Globulin 5.1 H Albumin/Globulin Ratio Serum , Qual Acetaminophen Acetone Level Hepatitis A IgM Ab Hep Bs Antigen Hep B Core IgM Ab Hepatitis C Ab (EIA) POC Glucose 05/04/18 05/04/18 05/04/18 05:54 04:58 03:58 POC Glucose 225 H 220 H 213 H 05/04/18 05/04/18 05/04/18 02:57 02:05 01:01 POC Glucose 320 H 276 H 418 H 05/04/18 05/03/18 05/03/18 00:02 23:19 20:57 POC Glucose 352 H 457 H* > 500 H* Medical Necessity - Tobacco Use Smoking Status: Current every day smoker Assessment/Plan All Active Problems (Last Reviewed 05/04/18 @ 06:37 by Manjit Gamble MD) Metabolic encephalopathy (Acute) Transaminitis (Acute) DKA (diabetic ketoacidoses) (Acute) Substance abuse (Acute) MRSA (methicillin resistant Staphylococcus aureus) infection (Acute) Bacteremia due to methicillin resistant Staphylococcus aureus (Acute) Hypokalemia (Acute) Hypophosphatemia (Acute) Hypomagnesemia (Acute) Severe sepsis due to methicillin resistant Staphylococcus aureus (MRSA) with acute organ dysfunction (Resolved) Hyponatremia (Resolved) Dehydration (Acute) Facial cellulitis (Resolved) Acute renal failure (Acute) DKA (diabetic ketoacidoses) (Acute) Periorbital cellulitis (Resolved) Impressions 1. DKA - resolved 2. polysubstance abuse 3. Severe Malnutrition - weight in September was 160 and in December was 132 and now 111 4. hx of HEP C 5. abnormal LFT's PT/INR, tox screen, UA with urine culture repeat the BMP at noon Transitioned to mealtime insulin and Lantus q AM Reviewed last admission orders at [facility] - will increase the insulin to get better control of the blood sugars Consult the SW about her living situation did not want to talk about drug rehab Recheck the lab in the AM Hepatitis panel Code Visit Inpatient E&M: 27800 Subs Hosp L3
[2018-05-04 07:35] LABS: Bedside Glucose 245 mg/dL (70-110)
[2018-05-04 09:07] LABS: International Normalized Ratio 1.1; Prothrombin Time (Protime)PT. 14.2 SECONDS (11.7-14.9)
--- NOTE | 2018-05-04 09:35 | CASEMGMT ---
MICHAEL VERMA Assessment Presentation: DKA, 3 day history of nausea and vomiting. PCP: Dr. Rai. RN BAYRON called to office, pt last visit was 01/04/2017. Attempted x 2 to see pt who is lethargic, sleepy and unable to participate in assessment @ this time. Noted pt address is in [place], [place] however Squad report has pickup in [facility]. Pt known to CM and SW from past admissions. Hx of substance abuse. SW referral: dc planning, substance abuse. Rich TONEYN RN ACM
[2018-05-04 10:06] LABS: Bedside Glucose 186 mg/dL (70-110)
[2018-05-04] MEDS: Insulin Lispro 100 UNIT/ML INSULN.PEN SC ×4 (10:07→21:49)
[2018-05-04] MEDS: Insulin Lispro 100 UNIT/ML INSULN.PEN 6 UNIT SC ×2 (10:07→14:08)
[2018-05-04] MEDS: Glucerna Shake 120 ML LIQUID PO ×4 (10:12→21:49)
--- NOTE | 2018-05-04 12:31 | CASEMGMT ---
Addendum entered by Camron Tate 05/04/18 13:11: Per physician, pt does not have blood glucose monitor. CM requesting pt be given script on dc for insulin supplies. She has [employer] insurance and this should be covered unless she has received one recently. Otherwise, pt can purchase inexpensive glucose monitor @ [facility]. Rich MARES Original Note: MICHAEL VERMA Assessment Presentation: DKA, 3 day history of nausea and vomiting. PCP: Dr. Rai. MICHAEL VERMA called to office, pt last visit was 01/04/2017. Attempted x 2 to see pt who is lethargic, sleepy and unable to participate in assessment @ this time. Noted pt address is in [place], [place] however Squad report has pickup in [facility]. Pt known to CM and ANA CRISTINA from past admissions. Hx of substance abuse. Reportedly homeless. SW referral pending for dc planning, substance abuse. Rich MARES
--- NOTE | 2018-05-04 13:46 | CASEMGMT ---
SW attempted to talk with patient. However, she would not wake up. SW will continue to follow and attempt to speak with patient. She is well known to ANA CRISTINA from past admissions. Medina BOOTH MSW
[2018-05-04 14:11] LABS: Bedside Glucose 308 mg/dL (70-110)
[2018-05-04 14:26] LABS: Anion Gap 7 (5-15); BUN 17 mg/dL (7-18); BUN/Creat Ratio 18.9 RATIO (10-20); Chloride 103 mmol/L (98-107); EST Glomerular Filtration Rate 84 mL/min (>60); Est Glom Filt Rate - Afr Amer 101 mL/min (>60); Glucose 338 mg/dL (74-106); Sodium Level 134 mmol/L (136-145)
--- NOTE | 2018-05-04 14:31 | CASEMGMT ---
ANA CRISTINA attempted to talk with patient again. She was lying on her side with back to the door. When SW said her name she did turn around. ANA CRISTINA asked if she would like SW to cover her up as her bare backside is showing. She told ANA CRISTINA no. She said, I just want to be left alone. Jean BOOTH MSW
[2018-05-04 14:33] LABS: Pathologist Review Reviewed
[2018-05-04 15:56] LABS: Mucous, Urine 0 SEEN /hpf (<or=2+)
[2018-05-04 15:57] LABS: Color, Urine Yellow (Yellow); Glucose, Dipstick 250 mg/dl (Normal); Leukocyte Esterase-Dipstick 100 /ul (Negative); Nitrite-Dipstick Positive (Negative); Occult Blood-Urine 25 /ul (Negative); Protein-Dipstick 30 mg/dl (Negative); Specific Gravity, Urine 1.015 (1.002-1.030); Urine Clarity Clear (Clear); Urine Urobilinogen 4 mg/dl (Normal)
[2018-05-04 16:04] LABS: Ketone-Dipstick 150 mg/dl (Negative); Urine Bilirubin Dipstick 1 mg/dL (Negative)
[2018-05-04 16:19] LABS: Amphetamine Urine VISTA NEGATIVE (<1000 ng/mL); Barbiturate Urine VISTA NEGATIVE (< 200 ng/mL); Benzodiazepine Urine VISTA NEGATIVE (< 200 ng/mL); Cocaine Urine VISTA NEGATIVE (< 300 ng/mL); Ecstacy Urine VISTA NEGATIVE (< 500 ng/mL); Methadone Urine VISTA NEGATIVE (< 300 ng/mL); PCP Urine VISTA NEGATIVE (< 25 ng/mL); THC Urine VISTA POSITIVE (< 50 ng/mL); Vista UDS pH Range 7
[2018-05-04 16:24] LABS: Bacteria 1+ /hpf (None Seen); Red Blood Cells-Urine 0-5 SEEN /hpf (0-5); Squamous Epithelial Cells - UA 0-5 SEEN /hpf (5-10); White Blood Cells 10-25 SEEN /hpf (0-5)
[2018-05-04] MEDS: Insulin Lispro 100 UNIT/ML INSULN.PEN 12 UNIT SC (18:34)
[2018-05-04 18:40] LABS: Bedside Glucose 443 mg/dL (70-110)
[2018-05-04] MEDS: 0.9% NaCl IVPB Med Flush (250 mL) 15 ML IV (19:18)
[2018-05-04] MEDS: Ceftriaxone 1 GM/50 ML BAG IV (19:18)
[2018-05-04 22:01] LABS: Bedside Glucose 379 mg/dL (70-110)
[2018-05-05] VITALS (13 sets, daily range): BP systolic 94–127; BP diastolic 52–94; PULSE 76–96; RESP 14–17; TEMP 36.4–37; O2SAT 98–100
[2018-05-05] MEDS: Insulin Lispro 100 UNIT/ML INSULN.PEN SC ×4 (01:34→21:52)
[2018-05-05 01:40] LABS: Bedside Glucose 395 mg/dL (70-110)
[2018-05-05 04:00] LABS: ALB/GLOB Ratio 0.4 RATIO (0.9-2.4); AST(SGOT) 1541 U/L (15-37); Alanine Aminotransfer ALT/SGPT 1532 U/L (13-56); Alkaline Phosphatase 242 U/L (45-117); Anion Gap 8 (5-15); BUN 13 mg/dL (7-18); Calcium,Total 8.3 mg/dL (8.5-10.1); Chloride 100 mmol/L (98-107); Creatinine, Serum 0.86 mg/dL (0.55-1.02); EST Glomerular Filtration Rate 88 mL/min (>60); Est Glom Filt Rate - Afr Amer 106 mL/min (>60); Estimated Creatinine Clearance 81.84 ml/min; Globulin 4.7 g/dL (2.2-4.2); Glucose 337 mg/dL (74-106); Magnesium 1.9 mg/dL (1.6-2.6); Phosphorus 1.4 mg/dL (2.5-4.9); Potassium 3.5 mmol/L (3.5-5.1); Protein, Total 6.7 g/dL (6.4-8.2); Sodium Level 136 mmol/L (136-145)
[2018-05-05 04:01] LABS: Absolute Lymphocyte Count 2.57 X10^3/ul (0.83-4.51); Absolute Neutrophil Count 3.6 X10^3/uL (2.0-7.7); Basophil# 0.08 X10^3/uL; Basophil% 1.1 % (0-1); Eosinophil# 0.17 X10^3/uL; Eosinophils% 2.4 % (0-5); Hemoglobin 10.9 g/dl (12.0-15.0); Lymphocyte # 2.57 X10^3/ul (4.0); Lymphocyte % 36.8 % (19-41); Mean Corp Hgb Conc 31.1 g/gl (32-36); Mean Corpuscular Hgb 29.8 pg (27.0-32.0); Mean Corpuscular Volume 95.6 fL (81-99); Mean Platelet Vol. 9.9 fl (6.2-12.0); Monocyte% 7.2 % (0-10); Neutrophil # 3.63 X10^3/uL (2.7-7.7); Neutrophil % 52.1 % (47-70); Platelet Count 283 K/mm3 (150-450); RBC Distribution Width CV 15.3 % (11.6-14.6); RBC Distribution Width SD 51.5 fl (35.1-43.9); Red Blood Count 3.66 M/mm3 (4.2-5.4)
[2018-05-05 04:02] LABS: Differential Indicated SCAN CRITERIA MET; POSITIVE COUNT NO; POSITIVE DIFFERENTIAL NO; POSITIVE MORPHOLOGY YES
[2018-05-05 04:07] LABS: Hepatitis A IgM Antibody Negative (Negative); Hepatitis B Core AB IgM Positive (Negative)
[2018-05-05 06:55] LABS: Bedside Glucose 335 mg/dL (70-110)
--- NOTE | 2018-05-05 07:37 | PCM.PROGNOTE ---
Subjective: Rocephin day #2 All events of the past 24 hours of been reviewed. She remains afebrile with stable vital signs. Oxygen saturation is 98-99% on room air Excellent oral intake All lab was personally reviewed. White blood cell count today is 7.0 with 52% neutrophils. Hemoglobin is stable at 10.9 and platelets are within normal limits. BMP is unremarkable. Phosphorus is low at 1.4. Fasting blood sugar is 337. AST and ALT remain markedly elevated at 1541 and 1532 respectively. The bilirubin is 3.2 and the alk phos is mildly elevated at 242. Right upper quadrant ultrasound showed a normal liver. Urine and blood cultures are pending. Denies nausea, abdominal pain, dysuria, vaginal discharge. She will answer questions about her DM and health issues but states that her living situation and mental health are not are our business and she will not talk about it. She did tell me she has periods of being clean and her drug screen was negative. She has been house hopping and does not want help with housing. Does not want to talk with the - Physical Exam General: Alert, Oriented x3, Cooperative - to a degree.......seems very angry and refuses to let anyone help with housing, etc HEENT: Atraumatic, PERRLA, Normocephalic Oral: Moist Mucosa Lungs: Clear to auscultation Cardiovascular: Regular rate, Regular Rhythm, Normal S1, Normal S2, No murmurs, No Gallop Abdomen: Bowel Sounds Present, Soft, Non Tender, Non-Distended Extremities: No edema Neurological: Cranial nerves II-XII grossly intact, Neuro grossly intact Psych/Mental Status: Agitated Vital Signs Temp Pulse Resp BP Pulse Ox 98.6 F 78 16 102/57 L 99 05/05/18 05:00 05/05/18 06:00 05/05/18 06:00 05/05/18 06:00 05/05/18 06:00 Oxygen Delivery Method Room Air Weight: 112 lb 3.445 oz Body Mass Index (BMI) 20.3 Finger Stick Blood Glucose 245 Intake and Output for Last 24 Hours 05/03/18 05/04/18 05/05/18 23:59 23:59 23:59 Intake Total 7051.4 / 7051.4 500 / 500 Output Total 4260 / 4260 1100 / 1100 Balance 2791.4 / 2791.4 -600 / -600 Laboratory Tests Past 24 Hrs 05/03/18 05/04/18 05/04/18 22:10 08:20 14:00 WBC RBC Hgb Hct MCV MCH MCHC RDW RDW Differential Plt Count MPV Immature Gran % (Auto) Neut % (Auto) Lymph % (Auto) [place] % (Auto) Eos % (Auto) Baso % (Auto) Absolute Neuts (auto) Absolute Lymphs (auto) Total Counted Diff Path Review Reviewed PT 14.2 INR 1.1 Sodium 134 L Potassium 4.0 Chloride 103 Carbon Dioxide 24.0 Anion Gap 7 BUN 17 Creatinine 0.90 Estim Creat Clear Calc 78.20 Est GFR (MDRD) Af Amer 101 Est GFR (MDRD) Non-Af 84 BUN/Creatinine Ratio 18.9 Glucose 338 H Calcium 8.0 L Phosphorus Magnesium Total Bilirubin AST ALT Alkaline Phosphatase Total Protein Albumin Globulin Albumin/Globulin Ratio Urine Color Urine Clarity Urine pH Ur Specific [place] Urine Protein Urine Glucose (UA) Urine Ketones Urine Occult Blood Urine Nitrite Urine Bilirubin Urine Urobilinogen Ur Leukocyte Esterase Urine RBC Urine WBC Ur Squamous Epith Cells Urine Bacteria Urine Mucus Urine Opiates Screen Urine Methadone Screen Ur Barbiturates Screen Ur Phencyclidine Scrn Ur Amphetamines Screen U Methamphetamin-MDMA U Benzodiazepines Scrn Urine Cocaine Screen U Cannabinoids Screen Ur Drug Screen Comment 05/04/18 05/04/18 05/05/18 15:40 15:40 03:20 WBC 7.0 RBC 3.66 L Hgb 10.9 L Hct 35.0 L MCV 95.6 MCH 29.8 MCHC 31.1 L RDW 15.3 H RDW Differential 51.5 H Plt Count 283 MPV 9.9 Immature Gran % (Auto) 0.400 Neut % (Auto) 52.1 Lymph % (Auto) 36.8 [place] % (Auto) 7.2 Eos % (Auto) 2.4 Baso % (Auto) 1.1 H Absolute Neuts (auto) 3.6 Absolute Lymphs (auto) 2.57 Total Counted Not Reportable Diff Path Review PT INR Sodium Potassium Chloride Carbon Dioxide Anion Gap BUN Creatinine Estim Creat Clear Calc Est GFR (MDRD) Af Amer Est GFR (MDRD) Non-Af BUN/Creatinine Ratio Glucose Calcium Phosphorus Magnesium Total Bilirubin AST ALT Alkaline Phosphatase Total Protein Albumin Globulin Albumin/Globulin Ratio Urine Color Yellow Urine Clarity Clear Urine pH 6.0 Ur Specific [place] 1.015 Urine Protein 30 H Urine Glucose (UA) 250 H Urine Ketones 150 H Urine Occult Blood 25 H Urine Nitrite Positive H Urine Bilirubin 1 H Urine Urobilinogen 4 H Ur Leukocyte Esterase 100 H Urine RBC 0-5 SEEN Urine WBC 10-25 SEEN Ur Squamous Epith Cells 0-5 SEEN Urine Bacteria 1+ Urine Mucus 0 SEEN Urine Opiates Screen NEGATIVE Urine Methadone Screen NEGATIVE Ur Barbiturates Screen NEGATIVE Ur Phencyclidine Scrn NEGATIVE Ur Amphetamines Screen NEGATIVE U Methamphetamin-MDMA NEGATIVE U Benzodiazepines Scrn NEGATIVE Urine Cocaine Screen NEGATIVE U Cannabinoids Screen POSITIVE H Ur Drug Screen Comment 05/05/18 03:20 WBC RBC Hgb Hct MCV MCH MCHC RDW RDW Differential Plt Count MPV Immature Gran % (Auto) Neut % (Auto) Lymph % (Auto) [place] % (Auto) Eos % (Auto) Baso % (Auto) Absolute Neuts (auto) Absolute Lymphs (auto) Total Counted Diff Path Review PT INR Sodium 136 Potassium 3.5 Chloride 100 Carbon Dioxide 28.0 Anion Gap 8 BUN 13 Creatinine 0.86 Estim Creat Clear Calc 81.84 Est GFR (MDRD) Af Amer 106 Est GFR (MDRD) Non-Af 88 BUN/Creatinine Ratio 15.0 Glucose 337 H Calcium 8.3 L Phosphorus 1.4 L Magnesium 1.9 Total Bilirubin 3.20 H AST 1541 H ALT 1532 H Alkaline Phosphatase 242 H Total Protein 6.7 Albumin 2.0 L Globulin 4.7 H Albumin/Globulin Ratio 0.4 L Urine Color Urine Clarity Urine pH Ur Specific [place] Urine Protein Urine Glucose (UA) Urine Ketones Urine Occult Blood Urine Nitrite Urine Bilirubin Urine Urobilinogen Ur Leukocyte Esterase Urine RBC Urine WBC Ur Squamous Epith Cells Urine Bacteria Urine Mucus Urine Opiates Screen Urine Methadone Screen Ur Barbiturates Screen Ur Phencyclidine Scrn Ur Amphetamines Screen U Methamphetamin-MDMA U Benzodiazepines Scrn Urine Cocaine Screen U Cannabinoids Screen Ur Drug Screen Comment POC Glucose 05/05/18 05/05/18 05/04/18 06:52 01:33 21:48 POC Glucose 335 H 395 H 379 H 05/04/18 05/04/18 05/04/18 18:30 14:01 10:02 POC Glucose 443 H 308 H 186 H Medical Necessity - Tobacco Use Smoking Status: Current every day smoker Assessment/Plan All Active Problems (Last Reviewed 05/04/18 @ 06:37 by Manjit Gamble MD) Metabolic encephalopathy (Acute) Transaminitis (Acute) DKA (diabetic ketoacidoses) (Acute) Substance abuse (Acute) MRSA (methicillin resistant Staphylococcus aureus) infection (Acute) Bacteremia due to methicillin resistant Staphylococcus aureus (Acute) Hypokalemia (Acute) Hypophosphatemia (Acute) Hypomagnesemia (Acute) Severe sepsis due to methicillin resistant Staphylococcus aureus (MRSA) with acute organ dysfunction (Resolved) Hyponatremia (Resolved) Dehydration (Acute) Facial cellulitis (Resolved) Acute renal failure (Acute) DKA (diabetic ketoacidoses) (Acute) Periorbital cellulitis (Resolved) Day #2 Rocephin Impressions 1. DKA - resolved 2. polysubstance abuse 3. Severe Malnutrition - weight in September was 160 and in December was 132 and now 111 4. hx of HEP C 5. abnormal LFT's - hepatitis panel is pending still, no significant improvement in the transaminases 6. Depression 7. Hypophosphatemia Adjust the insulin transfer to SC Supplement phosphorus Continue to try to get her to talk about her plans for discharge and where she will live Start Remeron 15 mg p.o. nightly Await the results of the hepatitis panel Continue Rocephin, await the results of the urine culture I will encourage her to follow up with Dr. Petit to get hep C treated Code Visit Inpatient E&M: 70859 Subs Hosp L2
[2018-05-05] MEDS: Insulin Lispro 100 UNIT/ML INSULN.PEN 18 UNIT SC ×3 (08:22→18:23)
[2018-05-05] MEDS: Ceftriaxone 1 GM/50 ML BAG IV (09:21)
[2018-05-05] MEDS: Na Biphos/Potassium Phosphate PACKET 1 PACKET PO ×4 (09:25→21:50)
[2018-05-05] MEDS: Glucerna Shake 120 ML LIQUID PO ×4 (09:25→21:48)
[2018-05-05 11:25] LABS: Bedside Glucose 305 mg/dL (70-110)
[2018-05-05 15:08] LABS: Hep C Antibodies >11.0 s/co ratio (0.0-0.9)
[2018-05-05 15:10] LABS: HEPATITIS B SURFACE AG Positive (Negative)
--- NOTE | 2018-05-05 15:30 | CASEMGMT ---
Social Work Note SW attempted to see pt. SW entered room and pt states I don't want to talk to anyone. SW informed pt that this worker will check in with pt tomorrow. Yudi Kaba DECORATOR MANNEQUIN, TELEVISION RECEIVER ANALYZER
[2018-05-05 16:56] LABS: Bedside Glucose 456 mg/dL (70-110)
--- NOTE | 2018-05-05 17:48 | NURSING ---
requested dietary to bring meals to nurses' station- due to elevated glucose.
[2018-05-05] MEDS: Insulin Lispro 100 UNIT/ML INSULN.PEN 10 UNIT SC (18:21)
[2018-05-05 21:50] LABS: Bedside Glucose 406 mg/dL (70-110)
[2018-05-06] MEDS: Insulin Lispro 100 UNIT/ML INSULN.PEN SC ×6 (02:14→22:30)
[2018-05-06 02:19] VITALS: BP 106/71; PULSE 80; RESP 18; TEMP 36.6; O2SAT 97
[2018-05-06 02:31] LABS: Bedside Glucose 358 mg/dL (70-110)
[2018-05-06 05:53] LABS: Anion Gap 5 (5-15); BUN 11 mg/dL (7-18); BUN/Creat Ratio 18.9 RATIO (10-20); Calcium,Total 8.3 mg/dL (8.5-10.1); Chloride 100 mmol/L (98-107); Creatinine, Serum 0.58 mg/dL (0.55-1.02); EST Glomerular Filtration Rate 138 mL/min (>60); Est Glom Filt Rate - Afr Amer 167 mL/min (>60); Estimated Creatinine Clearance 121.35 ml/min; Glucose 294 mg/dL (74-106); Magnesium 2.2 mg/dL (1.6-2.6); Phosphorus 3.3 mg/dL (2.5-4.9); Sodium Level 136 mmol/L (136-145)
[2018-05-06 07:38] VITALS: BP 98/66; PULSE 77; RESP 16; TEMP 36.6; O2SAT 98
[2018-05-06 07:40] LABS: Bedside Glucose 303 mg/dL (70-110)
[2018-05-06] MEDS: Insulin Lispro 100 UNIT/ML INSULN.PEN 22 UNIT SC ×3 (09:35→17:29)
[2018-05-06] MEDS: Na Biphos/Potassium Phosphate PACKET 1 PACKET PO ×4 (09:36→22:31)
[2018-05-06] MEDS: Glucerna Shake 120 ML LIQUID PO ×4 (09:41→22:29)
[2018-05-06] MEDS: Ceftriaxone 1 GM/50 ML BAG IV (09:43)
[2018-05-06 11:51] LABS: Bedside Glucose 345 mg/dL (70-110)
--- NOTE | 2018-05-06 12:46 | CASEMGMT ---
SW attempted to talk with patient. She was eating her lunch. Before SW even said anything patient said, I don't want to talk. SW asked her why she never wants to talk. She said right now she is eating and doesn't want to talk. SW asked her if she needed anything before SW left. She said she did not. SW has made numerous attempts along with physician to talk with patient. She is not receptive to even talking to SW. SW remains available. Medina BOOTH MSW
[2018-05-06 13:38] VITALS: BP 117/71; PULSE 90; RESP 16; TEMP 36.5; O2SAT 100
[2018-05-06 16:50] LABS: Bedside Glucose 321 mg/dL (70-110)
--- NOTE | 2018-05-06 16:51 | PCM.PROGNOTE ---
Patient Problems: Active and Suspected Problems (Last Reviewed 05/04/18 @ 06:37 by Manjit Gamble MD) Severe malnutrition (Acute) Hepatitis B infection (Acute) Subjective: All events of the past 24 hours of been reviewed. Blood sugars remain uncontrolled but are in the low 300's now.....likely higher due to acute Hep B and inflammation BMP is unremarkable today and the anion gap is 5. BUN and creatinine are within normal limits. She is more conversant today and does not seem as angry. I told her she has Hep B which is active now and that she will have to follow up with ID as an OP. Still does not want to talk about her living situation. She would not talk with the SW today either and she has tried every day the pt has been here. She is more alert Objective: PHYSICAL EXAM: GENERAL: alert, oriented X 3, Cooperative, NAD ORAL: moist mucosa, no mucosal lesions NECK: No JVD, supple, trachea midline LUNGS: CTA, symmetric chest expansion HEART: RRR, Normal S1 and S2, no rub, no gallop ABDOMEN: soft, NT, ND, BS present, no guarding with palpation EXTREMITIES: no edema, no cyanosis, no calf tenderness SKIN: No rashes, no breakdown NEUROLOGIC: no focal neurologic deficits PSYCH: appropriate, normal affect, pleasant - Physical Exam Vital Signs Temp Pulse Resp BP Pulse Ox 97.7 F L 90 16 117/71 100 05/06/18 13:38 05/06/18 13:38 05/06/18 13:38 05/06/18 13:38 05/06/18 13:38 Oxygen Delivery Method Room Air Weight: 117 lb 11.629 oz Body Mass Index (BMI) 20.3 Finger Stick Blood Glucose 245 Intake and Output for Last 24 Hours 05/04/18 05/05/18 05/06/18 23:59 23:59 23:59 Intake Total 7051.4 / 7051.4 1608 / 1608 1769.5 / 1769.5 Output Total 4260 / 4260 1100 / 1100 Balance 2791.4 / 2791.4 508 / 508 1769.5 / 1769.5 Microbiology Past 72 Hours 05/04/18 03:55 Blood Culture - Preliminary Blood Culture (Wb) - Central Line No growth in 48 hours. 05/04/18 03:00 Blood Culture - Preliminary Blood Culture (Wb) - Central Line No growth in 48 hours. 05/04/18 15:40 Urine Culture - Final Urine, Clean Catch Presumptive E. coli Laboratory Tests Past 24 Hrs 05/06/18 05:25 Sodium 136 Potassium 4.0 Chloride 100 Carbon Dioxide 31.0 Anion Gap 5 BUN 11 Creatinine 0.58 Estim Creat Clear Calc 121.35 Est GFR (MDRD) Af Amer 167 Est GFR (MDRD) Non-Af 138 BUN/Creatinine Ratio 18.9 Glucose 294 H Calcium 8.3 L Phosphorus 3.3 Magnesium 2.2 POC Glucose 05/06/18 05/06/18 05/06/18 16:42 11:41 07:31 POC Glucose 321 H 345 H 303 H 05/06/18 05/05/18 05/05/18 02:11 21:46 16:49 POC Glucose 358 H 406 H 456 H* Medical Necessity - Tobacco Use Smoking Status: Current every day smoker Assessment/Plan All Active Problems (Last Reviewed 05/04/18 @ 06:37 by Manjit Gamble MD) Severe malnutrition (Acute) Hepatitis B infection (Acute) Metabolic encephalopathy (Acute) Transaminitis (Acute) DKA (diabetic ketoacidoses) (Acute) Bacteremia due to methicillin resistant Staphylococcus aureus (Acute) Hypokalemia (Acute) Hypophosphatemia (Acute) Severe sepsis due to methicillin resistant Staphylococcus aureus (MRSA) with acute organ dysfunction (Resolved) Hyponatremia (Acute) Dehydration (Acute) Facial cellulitis (Resolved) Acute renal failure (Acute) Hypomagnesemia (Resolved) MRSA (methicillin resistant Staphylococcus aureus) infection (Resolved) Periorbital cellulitis (Resolved) Day #2 Rocephin Impressions 1. DKA - resolved 2. polysubstance abuse 3. Severe Malnutrition - weight in September was 160 and in December was 132 and now 111 4. hx of HEP C 5. abnormal LFT's - hepatitis panel is pending still, no significant improvement in the transaminases 6. Depression 7. Hypophosphatemia Adjust the insulin and maintain in the hospital overnight. Discharge when blood sugars are consistently less than 250. Code Visit Inpatient E&M: 90826 Subs Hosp L2
[2018-05-06 20:00] VITALS: BP 116/75; PULSE 87; RESP 16; TEMP 36.6; O2SAT 96
[2018-05-06 22:41] LABS: Bedside Glucose 333 mg/dL (70-110)
[2018-05-07 02:00] VITALS: BP 111/70; PULSE 74; RESP 16; TEMP 36.6; O2SAT 97
[2018-05-07] MEDS: Insulin Lispro 100 UNIT/ML INSULN.PEN SC ×3 (02:30→11:26)
[2018-05-07 02:41] LABS: Bedside Glucose 429 mg/dL (70-110)
[2018-05-07] MEDS: Insulin Lispro 100 UNIT/ML INSULN.PEN 22 UNIT SC ×2 (06:32→11:26)
[2018-05-07 06:45] LABS: Bedside Glucose 365 mg/dL (70-110)
[2018-05-07 08:00] VITALS: BP 98/63; PULSE 109; RESP 16; TEMP 36.6; O2SAT 97
[2018-05-07] MEDS: Na Biphos/Potassium Phosphate PACKET 1 PACKET PO ×2 (09:58→15:03)
[2018-05-07] MEDS: Glucerna Shake 120 ML LIQUID PO ×2 (09:58→15:02)
--- NOTE | 2018-05-07 11:04 | PCM.PROGNOTE ---
Subjective: All events of the past 24 hours of been reviewed. She is afebrile with stable vital signs. Blood sugars continue to remain high despite increasing insulin dosages. The 2 AM blood sugar was 426 and the fasting blood sugar today is 365. Has been refusing Remeron - Physical Exam Vital Signs Temp Pulse Resp BP Pulse Ox 97.8 F 109 H 16 98/63 97 05/07/18 08:00 05/07/18 08:00 05/07/18 08:00 05/07/18 08:00 05/07/18 08:00 Oxygen Delivery Method Room Air Weight: 254 lb 10.142 oz Body Mass Index (BMI) 20.3 Finger Stick Blood Glucose 245 Intake and Output for Last 24 Hours 05/05/18 05/06/18 05/07/18 23:59 23:59 23:59 Intake Total 1608 / 1608 2489.5 / 2489.5 192 / 1920 Output Total 1100 / 1100 Balance 508 / 508 2489.5 / 2489.5 1919 Microbiology Past 72 Hours 05/04/18 03:55 Blood Culture - Preliminary Blood Culture (Wb) - Central Line No growth in 48 hours. 05/04/18 03:00 Blood Culture - Preliminary Blood Culture (Wb) - Central Line No growth in 48 hours. 05/04/18 15:40 Urine Culture - Final Urine, Clean Catch Presumptive E. coli POC Glucose 05/07/18 05/07/18 05/06/18 06:30 02:29 22:28 POC Glucose 365 H 429 H 333 H 05/06/18 05/06/18 16:42 11:41 POC Glucose 321 H 345 H Medical Necessity - Tobacco Use Smoking Status: Current every day smoker Assessment/Plan All Active Problems (Last Reviewed 05/04/18 @ 06:37 by Manjit Gamble MD) Metabolic encephalopathy (Acute) Transaminitis (Acute) DKA (diabetic ketoacidoses) (Acute) Substance abuse (Acute) MRSA (methicillin resistant Staphylococcus aureus) infection (Acute) Bacteremia due to methicillin resistant Staphylococcus aureus (Acute) Hypokalemia (Acute) Hypophosphatemia (Acute) Hypomagnesemia (Acute) Severe sepsis due to methicillin resistant Staphylococcus aureus (MRSA) with acute organ dysfunction (Resolved) Hyponatremia (Resolved) Dehydration (Acute) Facial cellulitis (Resolved) Acute renal failure (Acute) DKA (diabetic ketoacidoses) (Acute) Periorbital cellulitis (Resolved)
[2018-05-07] MEDS: Cefadroxil 500 MG CAPSULE 1000 MG PO (11:19)
[2018-05-07 11:25] LABS: Bedside Glucose 397 mg/dL (70-110)
--- NOTE | 2018-05-07 12:46 | CASEMGMT ---
SOCIAL WORK: This SW attempted to meet with Sylvia today however she refused to speak with me, stating No, I am sleeping. Get out. SW gently advised Sylvia that I am here to help if she changes her mind. She did not respond and kept her eyes closed. KINJAL Puckett
[2018-05-07 14:00] VITALS: BP 98/63; PULSE 91; RESP 18; TEMP 36.6; O2SAT 98
--- NOTE | 2018-05-07 14:26 | PCM.DC ---
You will use the following diet at home:: Calorie/Carbohydrate Controlled (specify 1200, 1400, etc) - 1700 calories Your food should be the consistency of: Regular Your liquids should be the consistency of: Regular/Thin Discharge Activity: Return to Normal Activity Call your doctor if you observe: Fever of 101 or Higher, Shortness of breath, Dizziness, Fainting spells, Swelling in the ankles, Chest pain, - - Blood sugars consistently greater than 300 Additional Instructions: 1. check your blood sugars 4-5 times a day. Before meals and at bedtime and if you feel it is low and you have sweats or nausea or feel confused. 2. You now have active hepatitis B in addition to chronic Hepatitis C. Your liver tests are very abnormal and this is driving the blood sugars up so you are requiring more insulin. You should follow up with a rebar worker or an infectious disease doctor for the abnormal liver tests. Hepatitis B and Hep C both can cause cirrhosis and even liver cancer. DO NOT share needles....this will spread the Hep B and also sharing a needle after someone else has used it can cause you to develop other hepatitis viruses and increase the risk for liver failure. Sharing [place] can also expose you to HIV. 3. If you want help obtaining housing OR getting into a drug treatment program please come back and we can help you with this. 4. You have a urinary tract infection and I gave you a prescription for and antibiotic......take it once a day until they are all gone Allergies/Adverse Reactions: Allergies No Known Allergies Allergy (Verified 05/03/18 20:47) Medications to take at Discharge etonogestrel 68 mg subdermal implant 1 implant SUBDERMAL ONCE 01/20/17 Alcohol Antiseptic Pads [Alcohol Swabs] 1 [facility] ACHS & 3AM #150 med..pad 05/07/18 Blood Sugar Diagnostic [Test Strips] 1 [facility] ACHS & 3AM #150 strip 05/07/18 Cefadroxil 1 gm PO DAILY #5 tab 05/07/18 Insulin Glargine,Hum.rec.anlog [Lantus Solostar] 40 unit SUBCUT BID #8 ml 05/07/18 Insulin Lispro [Humalog KwikPen] 22 unit SUBCUT TIDAC 30 Days #7 insuln.pen 05/07/18 Lancets [Accu-Chek] 1 [facility] ACHS & 3AM #150 ea 05/07/18 Pen Needle, Diabetic [Pen [place]] 1 [facility] ACHS & 3AM #150 dis.needle 05/07/18 The following prescriptions were given: Alcohol Antiseptic Pads [Alcohol Swabs] 1 [facility] ACHS & 3AM #150 med..pad Blood Sugar Diagnostic [Test Strips] 1 [facility] ACHS & 3AM #150 strip Cefadroxil 1 gm PO DAILY #5 tab Insulin Lispro [Humalog KwikPen] 22 unit SUBCUT TIDAC 30 Days #7 insuln.pen Lancets [Accu-Chek] 1 [facility] ACHS & 3AM #150 ea Pen Needle, Diabetic [Pen [place]] 1 [facility] ACHS & 3AM #150 dis.needle Insulin Glargine,Hum.rec.anlog [Lantus Solostar] 40 unit SUBCUT BID #8 ml Primary Care Physician: Annalise Rai MD [Primary Care Provider] - Please follow up with your Primary Care Physician in: this coming week Test Results: Test results from this visit will be discussed in further detail at your follow-up appointment, if applicable. Proposed Discharge Date: 05/07/18
--- NOTE | 2018-05-07 14:32 | DCINST_ITS ---
You will use the following diet at home:: Calorie/Carbohydrate Controlled (specify 1200, 1400, etc) - 1700 calories Your food should be the consistency of: Regular Your liquids should be the consistency of: Regular/Thin Discharge Activity: Return to Normal Activity Call your doctor if you observe: Fever of 101 or Higher, Shortness of breath, Dizziness, Fainting spells, Swelling in the ankles, Chest pain, - - Blood sugars consistently greater than 300 Additional Instructions: 1. check your blood sugars 4-5 times a day. Before meals and at bedtime and if you feel it is low and you have sweats or nausea or feel confused. 2. You now have active hepatitis B in addition to chronic Hepatitis C. Your liver tests are very abnormal and this is driving the blood sugars up so you are requiring more insulin. You should follow up with a biochemical development engineer or an infectious disease doctor for the abnormal liver tests. Hepatitis B and Hep C both can cause cirrhosis and even liver cancer. DO NOT share needles....this will spread the Hep B and also sharing a needle after someone else has used it can cause you to develop other hepatitis viruses and increase the risk for liver failure. Sharing [place] can also expose you to HIV. 3. If you want help obtaining housing OR getting into a drug treatment program please come back and we can help you with this. 4. You have a urinary tract infection and I gave you a prescription for and antibiotic......take it once a day until they are all gone Allergies/Adverse Reactions: Allergies No Known Allergies Allergy (Verified 05/03/18 20:47) Medications to take at Discharge etonogestrel 68 mg subdermal implant 1 implant SUBDERMAL ONCE 01/20/17 Alcohol Antiseptic Pads [Alcohol Swabs] 1 [facility] ACHS & 3AM #150 med..pad 9 Blood Sugar Diagnostic [Test Strips] 1 [facility] ACHS & 3AM #150 strip 05/07/18 Cefadroxil 1 gm PO DAILY #5 tab 05/07/18 Insulin Glargine,Hum.rec.anlog [Lantus Solostar] 40 unit SUBCUT BID #8 ml 04/10 Insulin Lispro [Humalog KwikPen] 22 unit SUBCUT TIDAC 30 Days #7 insuln.pen 05/07/18 Lancets [Accu-Chek] 1 [facility] ACHS & 3AM #150 ea 05/07/18 Pen Needle, Diabetic [Pen [place]] 1 e[facility] ACHS & 3AM #150 dis.needle 05/07/18 The following prescriptions were given: Alcohol Antiseptic Pads [Alcohol Swabs] 1 [facility] ACHS & 3AM #150 med..pad Blood Sugar Diagnostic [Test Strips] 1 [facility] ACHS & 3AM #150 strip Cefadroxil 1 gm PO DAILY #5 tab Insulin Lispro [Humalog KwikPen] 22 unit SUBCUT TIDAC 30 Days #7 insuln.pen Lancets [Accu-Chek] 1 [facility] ACHS & 3AM #150 ea Pen Needle, Diabetic [Pen [place]] 1 [facility] ACHS & 3AM #150 dis.needle Insulin Glargine,Hum.rec.anlog [Lantus Solostar] 40 unit SUBCUT BID #8 ml Primary Care Physician: Annalise Rai MD [Primary Care Provider] - Please follow up with your Primary Care Physician in: this coming week Test Results: Test results from this visit will be discussed in further detail at your follow- up appointment, if applicable. Proposed Discharge Date: 05/07/18
--- NOTE | 2018-05-07 14:41 | PCM.DC.SUM ---
Discharge Date and Diagnosis - Problem List Patient Problems: Active and Suspected Problems (Last Reviewed 05/04/18 @ 06:37 by Manjit Gamble MD) Severe malnutrition (Acute) Hepatitis B infection (Acute) Date of Admission: 05/03/18 Date of Discharge: 05/07/18 - Primary Discharge Diagnosis Active and Suspected Problems (Last Reviewed 05/04/18 @ 06:37 by Manjit Gamble MD) DKA Severe malnutrition (Acute)with severe weight loss Hepatitis B infection (Acute) + Hep B surface antigen and Hep B core IGM Hyponatremia Hypophosphatemia Abnormal LFTs - Secondary Discharge Diagnosis Chronic Problems (Last Reviewed 05/04/18 @ 06:37 by Manjit Gamble MD) Dyslipidemia (Chronic) Triglycerides elevated. Pt is now in a home and is no longer homeless. Is taking insulin consistently and her BG are mostly 100-200s. Will recheck lipids to determine if improved with consistent diet and insulin. Diabetes type 1, uncontrolled (Chronic) Hepatitis C (Chronic) Norplant in place (Chronic) Polysubstance abuse (Chronic) binge EtOH,meth, hx of heroin/IVDA, tobacco Hospital Course and Treatment Imaging Results: Clinical Impression(s) from Imaging Studies Chest X-Ray 05/03/18 22:13 IMPRESSION: No acute chest disease. Electronically Signed: Tae Nagy MD at 23:02 EDT , Service support , Liver Ultrasound 05/04/18 00:42 IMPRESSION: Incomplete distention of the gallbladder without other sonographic evidence of right upper quadrant abnormality. Electronically Signed: Bladimir Penny DO at 10:25 EDT Tel [phone], Service support , Laboratory Results - last 24 hr 05/06/18 05/06/18 05/07/18 16:42 22:28 02:29 POC Glucose 321 H 333 H 429 H 05/07/18 05/07/18 06:30 11:17 POC Glucose 365 H 397 H Microbiology 05/04/18 03:55 Blood Culture (Wb) - Central Line Blood Culture - Preliminary No growth in 48 hours. 05/04/18 03:00 Blood Culture (Wb) - Central Line Blood Culture - Preliminary No growth in 48 hours. 05/04/18 15:40 Urine, Clean Catch Urine Culture - Final Presumptive E. coli none Operations: None Procedures: None Summary of Care Provided: The patient is a 22 year old F with a past medical history of type 1 diabetes mellitus, multiple admissions for DKA, polysubstance abuse including IV heroin, methamphetamine and cannabis and hepatitis C who presented to the emergency department at [facility] on 05/03/2018 complaining of nausea/vomiting and abdominal pain. She reported that she lost her insulin apparatus. Blood sugar in the emergency department was 510 and the serum bicarb was 10 with an anion gap of 22. Serum acetone was positive. White blood cell count was elevated at 17.5 with 72% neutrophils. Hemoglobin and platelets were within normal limits. Sodium was low at 131 but the sodium corrected for hyperglycemia was 138. Bilirubin was 7.6 and the AST was 1208 with an ALT of 1881 and an alkaline phosphatase of 370 urine was negative. She was admitted to the intensive care unit and made n.p.o. IV fluids were ordered and she was placed on an insulin drip. The following morning the anion gap was closed and the patient was started on a diet. An ultrasound of the liver was done and showed incomplete distention of the gallbladder without other sonographic evidence of right upper quadrant abnormality. On 05/05/2018 the AST and ALT were 1541 and 1532 respectively. The alkaline phosphatase was 242 and the total bilirubin was 3.2. Hepatitis panel was positive for hep C antibodies but also now positive for hep B core IgM antibody and hepatitis B surface antigen indicating current hepatitis B infection. Insulin was adjusted daily and BS's remained markedly elevated, likely due to the acute Hep B/inflammation. The social services designee attempted to see her multiple times during her hospital admission to help arrange safe housing however the patient refused to talk to her. She also refused Remeron to help for sleep and it stimulating appetite. She was seen by the dietitian who diagnosed her with severe weight loss and malnutrition. She weighed 160 pounds in September 2017 and is currently 111 pounds. She told me that she had been using methamphetamine however the drug screen was negative. On 05/07/2018 the Lantus was changed to twice daily and Humalog was adjusted. The patient initially agreed to stay overnight for further adjustment could be made if necessary however she later decided she wanted to be discharged and she was discharged. She was given prescriptions for Lantus, Humalog, pen needles, alcohol swabs and an Accu-Chek. She was instructed to follow-up with an infectious disease doctor or bacon slicer as an outpatient for liver dysfunction/hep B/hep C. She was instructed not to share needles and to use condoms for any sexual encounters. She was also instructed to follow-up with Dr. Rai later this week for further adjustments in insulin if necessary. She was instructed to check her blood sugar before meals, at bedtime and anytime she feels that her sugar may be low. She will bring the blood sugar record with her to the appt with Dr. Rai. PHYSICAL EXAM: GENERAL: alert, oriented X 3, Cooperative, NAD ORAL: moist mucosa, no mucosal lesions NECK: No JVD, supple, trachea midline LUNGS: CTA, symmetric chest expansion HEART: RRR, Normal S1 and S2, no rub, no gallop ABDOMEN: soft, NT, ND, BS present, no guarding with palpation EXTREMITIES: no edema, no cyanosis, no calf tenderness SKIN: No rashes, no breakdown NEUROLOGIC: no focal neurologic deficits PSYCH: appropriate, normal affect, pleasant This note was generated with [employer] dictation software. It may contain incorrect words, spelling, and punctuation that were not noted in checking the note before signing. Patient Problems: Active and Suspected Problems (Last Reviewed 05/04/18 @ 06:37 by Manjit Gamble MD) Severe malnutrition (Acute) Hepatitis B infection (Acute) - Physical Exam Vital Signs Temp Pulse Resp BP Pulse Ox 97.8 F 109 H 16 98/63 97 05/07/18 08:00 05/07/18 08:00 05/07/18 08:00 05/07/18 08:00 05/07/18 08:00 Oxygen Delivery Method Room Air Weight: 254 lb 10.142 oz Body Mass Index (BMI) 20.3 Finger Stick Blood Glucose 245 Intake and Output for Last 24 Hours 05/05/18 05/06/18 05/07/18 23:59 23:59 23:59 Intake Total 1608 / 1608 2489.5 / 2489.5 3920 / 3920 Output Total 1100 / 1100 Balance 508 / 508 2489.5 / 2489.5 3920 / 3920 Microbiology Past 72 Hours 05/04/18 03:55 Blood Culture - Preliminary Blood Culture (Wb) - Central Line No growth in 48 hours. 05/04/18 03:00 Blood Culture - Preliminary Blood Culture (Wb) - Central Line No growth in 48 hours. 05/04/18 15:40 Urine Culture - Final Urine, Clean Catch Presumptive E. coli POC Glucose 05/07/18 05/07/18 05/07/18 11:17 06:30 02:29 POC Glucose 397 H 365 H 429 H 05/06/18 05/06/18 22:28 16:42 POC Glucose 333 H 321 H Discharge Activity: Return to Normal Activity Call your doctor if you observe: Fever of 101 or Higher, Shortness of breath, Dizziness, Fainting spells, Swelling in the ankles, Chest pain, - - Blood sugars consistently greater than 300 Home Medications: Medications to take at Discharge etonogestrel 68 mg subdermal implant 1 implant SUBDERMAL ONCE 01/20/17 Alcohol Antiseptic Pads [Alcohol Swabs] 1 [facility] ACHS & 3AM #150 med..pad 05/07/18 Blood Sugar Diagnostic [Test Strips] 1 [facility] ACHS & 3AM #150 strip 05/07/18 Cefadroxil 1 gm PO DAILY #5 tab 05/07/18 Insulin Glargine,Hum.rec.anlog [Lantus Solostar] 40 unit SUBCUT BID #8 ml 05/07/18 Insulin Lispro [Humalog KwikPen] 22 unit SUBCUT TIDAC 30 Days #7 insuln.pen 05/07/18 Lancets [Accu-Chek] 1 [facility] ACHS & 3AM #150 ea 05/07/18 Pen Needle, Diabetic [Pen [place]] 1 ea [facility] ACHS & 3AM #150 dis.needle 05/07/18 Following Prescrptions Were Given to Patient: Alcohol Antiseptic Pads [Alcohol Swabs] 1 [facility] ACHS & 3AM #150 med..pad Blood Sugar Diagnostic [Test Strips] 1 [facility] ACHS & 3AM #150 strip Cefadroxil 1 gm PO DAILY #5 tab Insulin Lispro [Humalog KwikPen] 22 unit SUBCUT TIDAC 30 Days #7 insuln.pen Lancets [Accu-Chek] 1 [facility] ACHS & 3AM #150 ea Pen Needle, Diabetic [Pen [place]] 1 ea [facility] ACHS & 3AM #150 dis.needle Insulin Glargine,Hum.rec.anlog [Lantus Solostar] 40 unit SUBCUT BID #8 ml Primary Care Physician: Annalise Rai MD [Primary Care Provider] - Please follow up with your Primary Care Physician in: this coming week Disposition: Home Minutes spent on discharge:: 35 Patient Condition:: Stable Medical Necessity - Tobacco Use Smoking Status: Current every day smoker Tobacco Use: Cigarettes - Cannabis, - - Cannabis Meaningful Use Info Meaningful Use Diagnoses (Choose all that apply): None applicable Code Visit Inpatient E&M: 05322 Disch Hosp
--- NOTE | 2018-05-07 15:38 | NURSING ---
pt had been instructed that dressing was not adhering to her IJ removal site, and i would be back in to apply a new dressing. Patient left prior to new dressing being placed or discharge instructions given. Prescriptions not given to patient either.
== END 2018-05-07 15:40 | disposition home or self-care (01) | DRG 420 ==
LOC: ED 21:19 → ICU 05-04 00:45 → MS2 05-05 14:16
PROVIDERS: Admitting Provider Hospitalist; Emergency Provider Emergency Medicine; Family Provider Internal Medicine; PCP Internal Medicine; Visit Provider Internal Medicine
DX: E10.10 Type 1 diabetes mellitus with ketoacidosis without coma (principal); B16.9 Acute hepatitis B without delta-agent and without hepatic coma; Z68.1 Body mass index [BMI] 19.9 or less, adult; E87.1 Hypo-osmolality and hyponatremia; E83.39 Other disorders of phosphorus metabolism; R94.5 Abnormal results of liver function studies; E78.5 Hyperlipidemia, unspecified; F15.10 Other stimulant abuse, uncomplicated; F12.10 Cannabis abuse, uncomplicated; F11.10 Opioid abuse, uncomplicated; B19.20 Unspecified viral hepatitis C without hepatic coma; Z79.4 Long term (current) use of insulin
CPT/HCPCS: 36556; 71045; 76705; 80048; 80053; 80074; 80076; 80307; 80329; 81001; 82009; 82962; 83036; 83605; 83735; 84100; 84703; 85025; 85610; 87040; 87086; 87088; 87186; 97802; 99285; 99406; J7030; J7040; J7050; A4216; G0480; J7799

== ENCOUNTER 2018-06-20 13:23 | Inpatient (IN) | payer MEDICAID, SELFPAY ==
[2018-05-04 00:29] VITALS: BMI 20.3
[2018-06-20] VITALS (18 sets, daily range): BP systolic 90–116; BP diastolic 47–79; PULSE 104–120; RESP 12–18; TEMP 36.4–37.1; O2SAT 99–100; BMI 18.2; BMI 18.3; BMI 18.4
--- NOTE | 2018-06-20 13:37 | EKG12_ITS ---
Test Reason : HYPERGLYCEMIA Blood Pressure : / mmHG Vent. Rate : 129 BPM Atrial Rate : 129 BPM P-R Int : 114 ms QRS Dur : 080 ms QT Int : 332 ms P-R-T Axes : 061 266 058 degrees QTc Int : 486 ms Sinus tachycardia Abnormal ECG Confirmed by KUSHAL RAZO ([id number]), video tape editor AROLDO PIERCE ([id number] on 06/27/2018 3:42:47 PM Referred By: Alejo Shabazz Confirmed By:KUSHAL RAZO
[2018-06-20 13:40] LABS: Bedside Glucose > 500 mg/dL (70-110)
--- NOTE | 2018-06-20 13:43 | ED.VIS.GEN ---
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 Patient complains of blurred vision, thirst, dry mouth, abdominal discomfort and nausea. She is not a good informant. She had to be aroused for every question. Prior similar symptoms: Yes Capacity - Capacity Assessment Tool Can the patient make a choice & communicate that choice?: No - GCS is 12 Can the patient understand benefits, risks and alternatives?: No - GCS is 12 Can the patient make a logical, rational choice?: No Is the choice the patient makes consistent w/ their values?: Yes - Based on the fact that she has had prior central lines without objection. Is there an impending, emergent risk to the patient?: Yes Does the patient have an Advance Directive?: No Is there a Surrogate Available?: No i.e. HCPOA: No i.e. close relative (spouse, child, parent, sibling)?: No - Past Medical History (1) Acute renal failure Status: Acute (2) DKA (diabetic ketoacidoses) Status: Acute (3) Hepatitis B infection Status: Acute (4) Severe malnutrition Status: Acute (5) Diabetes type 1, uncontrolled Status: Chronic (6) Dyslipidemia Status: Chronic Comment: Triglycerides elevated. Pt is now in a home and is no longer homeless. Is taking insulin consistently and her BG are mostly 100-200s. Will recheck lipids to determine if improved with consistent diet and insulin. (7) Polysubstance abuse Status: Chronic Comment: binge EtOH,meth, hx of heroin/IVDA, tobacco Past Medical History - Allergies and Home Meds Allergies/Adverse Reactions: Allergies No Known Allergies Allergy (Verified 06/20/18 13:24) Primary Care Physician: Annalise Rai MD [Primary Care Provider] - Prior records reviewed: Yes - Prior admission for DKA Surgical History: - - Norplant left upper extremity, right hand skin graft 2014. Lives: Alone Smoking Status: Current every day smoker Drugs: - - Unable to determine - Family History Paternal Family History: Reports: Diabetes Maternal Family History: Reports: Cancer - mom 2016 with lung cancer and abdominal mets, Diabetes - GM Review of Systems ROS: Unable to Obtain - Decreased level of consciousness Eyes: Reports: Blurred Vision - bilaterally Genitourinary: Reports: Frequency Musculoskeletal: Reports: Myalgias Physical Exam Vital Signs/Narrative: Vital Signs Temp Pulse Resp BP Pulse Ox 06/20/18 13:30 97.5 F L 117 H 14 102/67 100 Inital Vital Signs reviewed: Yes General: Well developed Head: Normocephalic, Atraumatic Eyes: Perrl, EOMI. Negative for: Pale conjunctiva, Scleral icterus, - ENT: No rhinorrhea, TM's clear, Dry mucous membranes Neck: Supple, Nontender, No lymphadenopathy, No JVD Cardiovascular: Regular rhythm, No murmurs, Normal S1, Normal S2, Tachycardia Respiratory: No distress, CTA bilaterally, Chest nontender, - - Patient is tachypnic Abdomen: Soft, Nondistended, Normal bowel sounds, No masses, Tender - Vague periumbilical discomfort to deep palpation. Negative for: Nontender, Guarding, Rebound tenderness, Hepatomegaly, Splenomegaly, Mass, Pulsatile mass Rectal: Deferred Back: Nontender, Normal Inspection Skin: Normal color, No rash Neurological: Cranial nerves II-XII grossly intact, Normal Strength, Normal Sensation, Normal DTR. Negative for: Alert, Oriented x3, Normal Gait Psychological: - - Depressed level of consciousness Diagnostic/Tx/Re-eval Chest X-Ray - ED: 1 View, Read by ED Physician, Normal, Heart, Lungs, Mediastinum, Bony Structures, No Acute Disease, - - Right subclavian line tip is at the right atrium. There is no evidence of pneumothorax or hemothorax. Impressions Chest X-Ray 06/20/18 13:57 IMPRESSION: Normal x-ray examination of the chest. Electronically Signed: Douglas Bella, at 14:28 EDT Tel , Service support , 06/20/18 13:57 CXR for Line Placement [RAD] Stat Laboratory Results 06/20/18 06/20/18 06/20/18 13:37 14:00 14:00 WBC 18.7 H RBC 5.02 Hgb 15.8 H Hct 45.2 MCV 90.0 MCH 31.5 MCHC 35.0 RDW 13.2 RDW Differential 43.1 Plt Count 284 MPV 10.4 Immature Gran % (Auto) 1.600 H Neut % (Auto) 86.8 H Lymph % (Auto) 9.0 L [place] % (Auto) 2.1 Eos % (Auto) 0.1 Baso % (Auto) 0.4 Absolute Neuts (auto) 16.2 H Absolute Lymphs (auto) 1.68 Total Counted Not Reportable Specimen Type Sample Site VBG pH VBG pO2 VBG O2 Sat (Calc) VBG O2 Content VBG Base Excess POC Mix VBG pCO2 Pt Tmp O2 Delivery Device Blood Gas Notified Whom Blood Gas Notified Time Sodium Potassium Chloride Carbon Dioxide Anion Gap BUN Creatinine Estim Creat Clear Calc Est GFR (MDRD) Af Amer Est GFR (MDRD) Non-Af BUN/Creatinine Ratio Glucose Lactic Acid Calcium Acetone Level LARGE H POC Glucose > 500 H* 06/20/18 06/20/18 06/20/18 14:00 14:00 14:16 WBC RBC Hgb Hct MCV MCH MCHC RDW RDW Differential Plt Count MPV Immature Gran % (Auto) Neut % (Auto) Lymph % (Auto) [place] % (Auto) Eos % (Auto) Baso % (Auto) Absolute Neuts (auto) Absolute Lymphs (auto) Total Counted Specimen Type LAUREN Sample Site OTHER VBG pH 7.22 L VBG pO2 64 H VBG O2 Sat (Calc) 88 H VBG O2 Content 13 L VBG Base Excess -16 L POC Mix VBG pCO2 Pt Tmp 30.3 L O2 Delivery Device Room Air Blood Gas Notified Whom ED Blood Gas Notified Time 1415 Sodium 128 L Potassium 5.0 Chloride 88 L Carbon Dioxide 13.0 L Anion Gap 27 H BUN 33 H Creatinine 1.30 H Estim Creat Clear Calc 52.09 Est GFR (MDRD) Af Amer 66 Est GFR (MDRD) Non-Af 55 L BUN/Creatinine Ratio 25.4 H Glucose 1032 H* Lactic Acid 2.8 H Calcium 10.2 H Acetone Level POC Glucose 06/20/18 14:35 WBC RBC Hgb Hct MCV MCH MCHC RDW RDW Differential Plt Count MPV Immature Gran % (Auto) Neut % (Auto) Lymph % (Auto) [place] % (Auto) Eos % (Auto) Baso % (Auto) Absolute Neuts (auto) Absolute Lymphs (auto) Total Counted Specimen Type Sample Site VBG pH VBG pO2 VBG O2 Sat (Calc) VBG O2 Content VBG Base Excess POC Mix VBG pCO2 Pt Tmp O2 Delivery Device Blood Gas Notified Whom Blood Gas Notified Time Sodium Potassium Chloride Carbon Dioxide Anion Gap BUN Creatinine Estim Creat Clear Calc Est GFR (MDRD) Af Amer Est GFR (MDRD) Non-Af BUN/Creatinine Ratio Glucose Lactic Acid Calcium Acetone Level POC Glucose > 500 H* - Rhythm Strip Rhythm Strip: Sinus Tach Rate: 120 - T waves appear peaked and concern for hyperkalemia Ectopy: None - Medical Decision Making Will establish IV and administer 1 L of normal saline wide open. DKA order set was initiated. Since patient is tachycardic, tachypneic with decreased level of consciousness and glucometer that reads high suspect she is in DKA. Concern for hyperkalemia because of peaked T waves. Twelve-lead was ordered. VBG reveals a metabolic acidosis with a base excess of -16. His confirm suspicion that patient is in DKA. - Critical Care Time Critical care time (excluding procedures): 30-74 minutes, Discussing w/Patient &/or Family/Field Representative/Health Education, Discussing w/Consultants, Arranging Admission or Transfer, Performing Direct Patient Care at Bedside - Critical care time 35 minutes Procedures Procedure(s): Protocol for central line insertion was followed and nurse in room was wearing mask and cap. Patient was unable to give consent please read capacity note. Patient was prepped draped sterile manner. The area was anesthetized 1% lidocaine. A total of 5 cc was infused. The right subclavian vein was cannula excessively on first attempt. First pass with guidewire resulted in some resistance and tenting anterior neck. This led suspicion that wire went upward. Guidewire was removed. Bevel was rotated 90 degrees. Guidewire was placed and no resistance was met. Triple-lumen was placed using Seldinger technique. Chest x-ray confirms proper position. ED Disposition - Plan for ED Patient: Disposition: Acute Care Hospital [facility] Diagnosis: DKA, type 1, Encephalopathy acute, Pseudohyponatremia Referrals: Annalise Rai MD [Primary Care Provider] -
--- NOTE | 2018-06-20 13:57 | RAD_ITS ---
STUDY: X-RAY CHEST REASON FOR EXAM: Female, 22 years old. Line placement TECHNIQUE: Single AP portable view of the chest. COMPARISON: Chest x-ray 11/13/2016 FINDINGS: There is a right central venous catheter with its tip overlying the SVC. The lungs are clear and expanded. There is no demonstrated pleural abnormality. Normal size heart. Normal mediastinum and bernard. Normal visualized pulmonary arteries. Normal visualized aortic arch and descending thoracic aorta. Normal visualized thoracic spine. Normal visualized ribs, clavicles, and shoulders. There is no demonstrated abnormality of the visualized soft tissue structures of the upper abdomen. RAD/CXR for Line Placement IMPRESSION: Normal x-ray examination of the chest. Electronically Signed: Douglas Bella, at 14:28 EDT Tel , Service support ,
--- NOTE | 2018-06-20 14:00 | ED.RN ---
Attempt to get iv access, unsuccessful. Notified Dr. Grant, verbal order given for central line.
[2018-06-20 14:15] LABS: Absolute Lymphocyte Count 1.68 X10^3/ul (0.83-4.51); Absolute Neutrophil Count 16.2 X10^3/uL (2.0-7.7); Basophil# 0.08 X10^3/uL; Basophil% 0.4 % (0-1); Eosinophil# 0.02 X10^3/uL; Eosinophils% 0.1 % (0-5); Hematocrit 45.2 % (37-47); Hemoglobin 15.8 g/dl (12.0-15.0); Lymphocyte # 1.68 X10^3/ul (4.0); Mean Corpuscular Hgb 31.5 pg (27.0-32.0); Mean Platelet Vol. 10.4 fl (6.2-12.0); Monocyte% 2.1 % (0-10); Neutrophil # 16.21 X10^3/uL (2.7-7.7); Neutrophil % 86.8 % (47-70); POSITIVE COUNT NO; POSITIVE DIFFERENTIAL NO; POSITIVE MORPHOLOGY NO; Platelet Count 284 K/mm3 (150-450); RBC Distribution Width CV 13.2 % (11.6-14.6); RBC Distribution Width SD 43.1 fl (35.1-43.9); Red Blood Count 5.02 M/mm3 (4.2-5.4); White Blood Count 18.7 K/mm3 (4.4-11.0)
[2018-06-20] MEDS: 0.9% Normal Saline 1,000 ML 999 ML IV ×3 (14:18→16:58)
[2018-06-20 14:20] LABS: Blood Gas Specimen Type VEN; O2 Delivery Device Room Air; SITE OTHER; Time Given 1415; VBG BASE EXCESS -16 mmol/L (-1.0-3.5); VBG Bicarbonate 12 mmol/L (22-26); VBG Oxygen Content 13 mmol/L (23-33); VBG PO2 64 mmHg (25-40); VBG SO2 88 % (50-70); VBG pCO2 30.3 mmHg (41-51); VBG pH 7.22 (7.32-7.42)
[2018-06-20] MEDS: Metoclopramide 10 MG/2 ML Vial 5 MG IV (14:20)
[2018-06-20 14:44] LABS: Anion Gap 27 (5-15); BUN 33 mg/dL (7-18); BUN/Creat Ratio 25.4 RATIO (10-20); Calcium,Total 10.2 mg/dL (8.5-10.1); Chloride 88 mmol/L (98-107); EST Glomerular Filtration Rate 55 mL/min (>60); Est Glom Filt Rate - Afr Amer 66 mL/min (>60); Estimated Creatinine Clearance 52.09 ml/min; Glucose 1032 mg/dL (74-106); Lactic Acid 2.8 mmol/L (0.4-2.0); Sodium Level 128 mmol/L (136-145)
[2018-06-20 14:45] LABS: Bedside Glucose > 500 mg/dL (70-110)
--- NOTE | 2018-06-20 15:01 | CPS ---
VENOUS BLOOD GAS RESULTS SHOWN TO DR. RUSS. NO NEW ORDERS RECEIVED.
[2018-06-20] MEDS: 0.9% Normal Saline 1,000 ML 250 ML IV ×2 (15:23→18:01)
--- NOTE | 2018-06-20 15:38 | PCM.HP.STD ---
Problem List (1) DKA (diabetic ketoacidoses) Status: Acute Qualifiers: Diabetes mellitus type: type 1 Diabetes mellitus complication detail: without coma Qualified Code(s): E10.10 - Type 1 diabetes mellitus with ketoacidosis without coma (2) Dyslipidemia Status: Chronic Comment: Triglycerides elevated. Pt is now in a home and is no longer homeless. Is taking insulin consistently and her BG are mostly 100-200s. Will recheck lipids to determine if improved with consistent diet and insulin. (3) Hyponatremia Status: Acute (4) Diabetes type 1, uncontrolled Status: Chronic (5) Hepatitis C Status: Chronic Qualifiers: Viral hepatitis chronicity: unspecified Hepatic coma status: without hepatic coma Qualified Code(s): B19.20 - Unspecified viral hepatitis C without hepatic coma (6) Polysubstance abuse Status: Chronic Comment: binge EtOH,meth, hx of heroin/IVDA, tobacco History of Present Illness Date of Admission: 06/20/18 Chief Complaint: Abdominal discomfort, nausea, dry mouth. The patient is a 22 year old F with past medical history as mentioned above presented to the emergency room because of vague abdominal pain or discomfort, dry mouth, and nausea. For me at this time, patient was alert and awake but she was uncooperative. She was upset and agitated when I told her that her blood sugar is more than 1000. She was not willing to answer my questions. This patient has a history of uncontrolled type 1 diabetes mellitus with frequent admissions for DKA's. When I asked the patient about her PCP, she said she does not have one. Nursing staff in the ED called her PCPs office who was assigned to help but she did not see and her PCPs office staff has been calling her at home but she is not answering. Reportedly, patient ran out of insulin for the past 2 or 3 days. When I asked the patient why she did not ask her doctor for prescription of insulin, she stated that she does not have a PCP. She agreed to be examined. She was not cooperative to provide any more detailed history at this time. In the emergency department, she was afebrile, tachycardic, blood pressure was stable and pulse ox was maintained on room air. Her routine blood work is remarkable for leukocytosis, sodium of 128, BUN of 33, serum bicarb of, creatinine of 1.313 and anion gap of 27. Her blood glucose was 1032. Her lactic acid was 2.8. Acetone 11 was large. EKG revealed sinus tachycardia, otherwise no acute ischemic changes. Chest x-ray showed no acute findings. She is being admitted for diabetic ketoacidosis, pseudohyponatremia, mild lactic acidosis and acute kidney injury. 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 Pt is now in a home and is no longer homeless. Is taking insulin consistently and her BG are mostly 100-200s. Will recheck lipids to determine if improved with consistent diet and insulin. Diabetes type 1, uncontrolled (Chronic) Hepatitis C (Chronic) Norplant in place (Chronic) Polysubstance abuse (Chronic) binge EtOH,meth, hx of heroin/IVDA, tobacco Medical History: Medical History (Last Reviewed 05/04/18 @ 06:37 by Manjit Gamble MD) Depression F32.9 Diabetes type 1, controlled E10.9 Dx : age 15 Last exacerbation : DKA : 08/2017 Hypoglycemic episode : never ER visit : 08/2017 Hep C w/o coma, chronic B18.2 History of heroin abuse Z87.898 Hx MRSA infection Z86.[address] Z97.5 Polysubstance abuse F19.10 Allergies No Known Allergies Allergy (Verified 06/20/18 13:24) Home Medications: Ambulatory Orders Medication Instructions Recorded Insulin Aspart [Novolog Flexpen] 18 units SQ TIDCM 06/20/18 Insulin Glargine,Hum.rec.anlog 50 unit SQ QHS 06/20/18 [Basaglar Kwikpen U-100] Surgical History: Surgical History (Last Reviewed 05/04/18 @ 06:37 by Manjit Gamble MD) Hx of skin graft Z98.890 Surgical History: - - Norplant left upper extremity, right hand skin graft 2014. 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 Eyes: Reports: - - Unobtainable, patient is refusing to cooperate. HEENT: Reports: - - Unobtainable, patient is refusing to cooperate. Cardiovascular: Reports: - - Unobtainable, patient is refusing to cooperate. Respiratory: Reports: - - Unobtainable, patient is refusing to cooperate. Gastrointestinal: Reports: - - Unobtainable, patient is refusing to cooperate. Genitourinary: Reports: - - Unobtainable, patient is refusing to cooperate. Gynecological: Reports: - - Unobtainable, patient is refusing to cooperate. Musculoskeletal: Reports: - - Unobtainable, patient is refusing to cooperate. Skin: Reports: - - Unobtainable, patient is refusing to cooperate. Neurological: Reports: - - Unobtainable, patient is refusing to cooperate. VTE Information - Inpt Only VTE Present on Admission: No VTE Mechan Device Prophylaxis: SCD's VTE Pharm Prophylaxis ordered?: No - Physical Exam General: Alert, Oriented x3, No apparent distress, Non-Cooperative HEENT: Atraumatic, PERRLA, EOMI, Normocephalic Oral: No Gingival or Mucosal Lesions/ Ulcerations, Dry Mucosa Neck: Supple, No JVD, Negative Carotid Bruits, Trachea Midline, Thyroid Normal Size and Texture Lungs: Clear to auscultation, No rhonchi, No wheeze, No rales, Diminished Cardiovascular: Regular rate, Regular Rhythm, Normal S1, Normal S2, No murmurs, PMI Normal, Tachycardic Abdomen: Bowel Sounds Present, Soft, Non Tender, Non-Distended, No Hepato-splenomegaly Extremities: No clubbing, No cyanosis, No edema Skin: No rashes, No breakdown Lymphatic: No Cervical, Supraclavicular, or Inguinal Adenopathy Neurological: Cranial nerves II-XII grossly intact, Motor Exam 5/5 strength throughout Psych/Mental Status: Flat Affect, Impulsive Vital Signs Temp Pulse Resp BP Pulse Ox 97.5 F L 115 H 17 92/47 L 100 06/20/18 13:30 06/20/18 15:25 06/20/18 15:25 06/20/18 15:25 06/20/18 15:25 Oxygen Delivery Method Room Air Weight: 106 lb 4.205 oz Body Mass Index (BMI) 18.2 Finger Stick Blood Glucose 500 Laboratory Tests Past 24 Hrs 06/20/18 06/20/18 06/20/18 14:00 14:00 14:00 WBC 18.7 H RBC 5.02 Hgb 15.8 H Hct 45.2 MCV 90.0 MCH 31.5 MCHC 35.0 RDW 13.2 RDW Differential 43.1 Plt Count 284 MPV 10.4 Immature Gran % (Auto) 1.600 H Neut % (Auto) 86.8 H Lymph % (Auto) 9.0 L [place] % (Auto) 2.1 Eos % (Auto) 0.1 Baso % (Auto) 0.4 Absolute Neuts (auto) 16.2 H Absolute Lymphs (auto) 1.68 Total Counted Not Reportable Specimen Type Sample Site VBG pH VBG pO2 VBG O2 Sat (Calc) VBG O2 Content VBG Base Excess POC Mix VBG pCO2 Pt Tmp O2 Delivery Device Blood Gas Notified Whom Blood Gas Notified Time Sodium 128 L Potassium 5.0 Chloride 88 L Carbon Dioxide 13.0 L Anion Gap 27 H BUN 33 H Creatinine 1.30 H Estim Creat Clear Calc 52.09 Est GFR (MDRD) Af Amer 66 Est GFR (MDRD) Non-Af 55 L BUN/Creatinine Ratio 25.4 H Glucose 1032 H* Lactic Acid Calcium 10.2 H Acetone Level LARGE H 06/20/18 06/20/18 14:00 14:16 WBC RBC Hgb Hct MCV MCH MCHC RDW RDW Differential Plt Count MPV Immature Gran % (Auto) Neut % (Auto) Lymph % (Auto) [place] % (Auto) Eos % (Auto) Baso % (Auto) Absolute Neuts (auto) Absolute Lymphs (auto) Total Counted Specimen Type LAUREN Sample Site OTHER VBG pH 7.22 L VBG pO2 64 H VBG O2 Sat (Calc) 88 H VBG O2 Content 13 L VBG Base Excess -16 L POC Mix VBG pCO2 Pt Tmp 30.3 L O2 Delivery Device Room Air Blood Gas Notified Whom ED Blood Gas Notified Time 1415 Sodium Potassium Chloride Carbon Dioxide Anion Gap BUN Creatinine Estim Creat Clear Calc Est GFR (MDRD) Af Amer Est GFR (MDRD) Non-Af BUN/Creatinine Ratio Glucose Lactic Acid 2.8 H Calcium Acetone Level POC Glucose 06/20/18 06/20/18 14:35 13:37 POC Glucose > 500 H* > 500 H* Clinical Impression(s) from Imaging Studies Chest X-Ray 06/20/18 13:57 IMPRESSION: Normal x-ray examination of the chest. Electronically Signed: Douglas Bella, at 14:28 EDT Tel , Service support , Assessment/Plan All Active Problems (Last Reviewed 05/04/18 @ 06:37 by Manjit Gamble MD) DKA (diabetic ketoacidoses) (Acute) Hyponatremia (Acute) This is a 22 years old female patient presented to the emergency room because of abdominal pain, vomiting, thirst and weakness, found to have DKA with pseudohyponatremia and acute kidney injury. #1 diabetic ketoacidosis: Blood sugar in the ER was 1032, started o insulin drip. Her anion gap was 27. ABG revealed pH of 7.22, PCO2 of 30 and PO2 of 88. This is consistent with acute DKA. Patient is noncompliant, does not follow with PCP or endocrinology. She ran out of insulin 2 or 3 days ago. Plan: Admit to ICU, complete bedrest, initiate DKA protocol with IV insulin drip, IV fluids, BMP every 4 hours, electrolyte replacement as protocol, critical care consult, repeat CBC and CMP tomorrow morning, nutrition consult, case management consult for discharge planning. #2 pseudohyponatremia: Due to hyperglycemia. Corrected sodium for glucose is 143. Expect sodium to correct after correction of blood glucose. #3 acute kidney injury: Secondary to #1. Plan for IV fluids, input output chart, repeat CMP tomorrow morning. #4 mild lactic acidosis: Lactic acid 2.8. It is likely because of diabetic ketoacidosis. No evidence of infection. She is afebrile, chest x-ray showed no acute findings. Plan to repeat lactic acid in 3 hours. #5 uncontrolled type 1 diabetes mellitus/noncompliance: With frequent admissions for DKA. Patient ran out of oxygen 3 days ago. Plan as above. #6 DVT prophylaxis: SCDs. This note was generated with [email or web address] software. It may contain incorrect words, spelling, and punctuation that were not noted in checking the note before signing. Code Visit Inpatient E&M: 86442 Init Hosp L3
--- NOTE | 2018-06-20 16:01 | PCM.CON.CC ---
Reason for Consult Date of Consultation: 06/20/18 Reason for Consultation: DKA History of Present Illness: The patient is a 22 year old F, with past medical history listed below, who presented to [facility] on 06/20/2018 secondary to decreased level of consciousness. Patient is well-known to us from multiple admissions with DKA. Patient reportedly has not been able to have insulin for a couple of days and had complained of blurred vision, thirst, dry mouth, abdominal discomfort and nausea. Patient was not free about giving details, but would wake up to loud voices. On presentation to the emergency room, patient was noted to be tachycardic. Laboratory work-up showed significant hemoconcentration and a right subclavian central venous catheter was placed for access. Patient was given 1 L of IV fluids and initiated on the DKA protocol with insulin drip. Patient was then brought to the intensive care unit. On arrival to the intensive care unit, patient was tachycardic, but normotensive. Patient does report that she is felt sick for the last couple of days, but is unable to provide specific details. Patient does admit that she has not checked her sugars in several days. Patient did not provide any information as to DKA presentations outside of [facility]. 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 Pt is now in a home and is no longer homeless. Is taking insulin consistently and her BG are mostly 100-200s. Will recheck lipids to determine if improved with consistent diet and insulin. Diabetes type 1, uncontrolled (Chronic) Hepatitis C (Chronic) Norplant in place (Chronic) Polysubstance abuse (Chronic) binge EtOH,meth, hx of heroin/IVDA, tobacco Medical History: Medical History (Last Reviewed 05/04/18 @ 06:37 by Manjit Gamble MD) Depression F32.9 Diabetes type 1, controlled E10.9 Dx : age 15 Last exacerbation : DKA : 08/2017 Hypoglycemic episode : never ER visit : 08/2017 Hep C w/o coma, chronic B18.2 History of heroin abuse Z87.898 Hx MRSA infection Z86.[address] Z97.5 Polysubstance abuse F19.10 Allergies No Known Allergies Allergy (Verified 06/20/18 13:24) Home Medications: Ambulatory Orders Medication Instructions Recorded Insulin Aspart [Novolog Flexpen] 18 units SQ TIDCM 06/20/18 Insulin Glargine,Hum.rec.anlog 50 unit SQ QHS 06/20/18 [Basaglar Kwikpen U-100] Surgical History: Surgical History (Last Reviewed 05/04/18 @ 06:37 by Manjit Gamble MD) Hx of skin graft Z98.890 Surgical History: - - Norplant left upper extremity, right hand skin graft 2014. [employer] History: No pertinent [employer] history Lives: Alone Smoking Status: Current every day smoker Alcohol: None Drugs: - - Unable to determine - *Family History Paternal History Items: Diabetes Maternal History Items: Cancer - mom 2015 with lung cancer and abdominal mets, Diabetes - GM Review of Systems Unable to obtain accurate/complete ROS d/t: Patient cooperation Objective: Chest x-ray was personally reviewed and shows no focal infiltrates. - Physical Exam General: - - RASS -1. Intermittently cooperative. HEENT: Atraumatic, PERRLA, EOMI, Normocephalic, - - Scleral injection Oral: No Gingival or Mucosal Lesions/ Ulcerations, Dry Mucosa Neck: Supple, No JVD, No Nodes, Trachea Midline Lungs: No rhonchi, No wheeze, No rales, Diminished, - - Fair effort. Cardiovascular: Normal S1, Normal S2, No murmurs, No rub noted, No Gallop, Tachycardic Abdomen: Bowel Sounds Present, Soft, Non Tender, Non-Distended, No Hepato-splenomegaly Extremities: No clubbing, No cyanosis, No edema, Capillary Refill Less than 3 Seconds Skin: - - Multiple punctate ulcerations noted throughout the skin. Possible track kyle noted in the left antecubital. Musculoskeletal: No Tenderness to Palpation of Joints or Extremities Lymphatic: No Cervical, Supraclavicular, or Inguinal Adenopathy Neurological: Cranial nerves II-XII grossly intact, Neuro grossly intact, Motor Exam 5/5 strength throughout Psych/Mental Status: Flat Affect Vital Signs Temp Pulse Resp BP Pulse Ox 36.4 C L 115 H 17 92/47 L 100 06/20/18 13:30 06/20/18 15:25 06/20/18 15:25 06/20/18 15:25 06/20/18 15:25 Oxygen Delivery Method Room Air Weight: 48.2 kg Body Mass Index (BMI) 18.2 Finger Stick Blood Glucose 500 Laboratory Tests Past 24 Hrs 06/20/18 06/20/18 06/20/18 14:00 14:00 14:00 WBC 18.7 H RBC 5.02 Hgb 15.8 H Hct 45.2 MCV 90.0 MCH 31.5 MCHC 35.0 RDW 13.2 RDW Differential 43.1 Plt Count 284 MPV 10.4 Immature Gran % (Auto) 1.600 H Neut % (Auto) 86.8 H Lymph % (Auto) 9.0 L [place] % (Auto) 2.1 Eos % (Auto) 0.1 Baso % (Auto) 0.4 Absolute Neuts (auto) 16.2 H Absolute Lymphs (auto) 1.68 Total Counted Not Reportable Specimen Type Sample Site VBG pH VBG pO2 VBG O2 Sat (Calc) VBG O2 Content VBG Base Excess POC Mix VBG pCO2 Pt Tmp O2 Delivery Device Blood Gas Notified Whom Blood Gas Notified Time Sodium 128 L Potassium 5.0 Chloride 88 L Carbon Dioxide 13.0 L Anion Gap 27 H BUN 33 H Creatinine 1.30 H Estim Creat Clear Calc 52.09 Est GFR (MDRD) Af Amer 66 Est GFR (MDRD) Non-Af 55 L BUN/Creatinine Ratio 25.4 H Glucose 1032 H* Lactic Acid Calcium 10.2 H Acetone Level LARGE H 06/20/18 06/20/18 14:00 14:16 WBC RBC Hgb Hct MCV MCH MCHC RDW RDW Differential Plt Count MPV Immature Gran % (Auto) Neut % (Auto) Lymph % (Auto) [place] % (Auto) Eos % (Auto) Baso % (Auto) Absolute Neuts (auto) Absolute Lymphs (auto) Total Counted Specimen Type LAUREN Sample Site OTHER VBG pH 7.22 L VBG pO2 64 H VBG O2 Sat (Calc) 88 H VBG O2 Content 13 L VBG Base Excess -16 L POC Mix VBG pCO2 Pt Tmp 30.3 L O2 Delivery Device Room Air Blood Gas Notified Whom ED Blood Gas Notified Time 1415 Sodium Potassium Chloride Carbon Dioxide Anion Gap BUN Creatinine Estim Creat Clear Calc Est GFR (MDRD) Af Amer Est GFR (MDRD) Non-Af BUN/Creatinine Ratio Glucose Lactic Acid 2.8 H Calcium Acetone Level POC Glucose 06/20/18 06/20/18 14:35 13:37 POC Glucose > 500 H* > 500 H* Clinical Impression(s) from Imaging Studies Chest X-Ray 06/20/18 13:57 IMPRESSION: Normal x-ray examination of the chest. Electronically Signed: Douglas Bella, at 14:28 EDT Tel , Service support , Assessment/Plan RECOMMENDATIONS: 1. Bolus 2 L of IV fluids now 2. Initiate DKA protocol 3. Hold on any antibiotics for now, but can initiate with fever 4. N.p.o. for now, okay for ice chips 5. No airway assistance at this time IMPRESSIONS: 1. DKA secondary to noncompliance Patient was significantly elevated gap and glucose. Patient will be aggressively fluid resuscitated. DKA protocol. No signs or symptoms of secondary cause such as infection for now. We will hold off on any antibiotics. Likely obtain chest x-ray if patient starts to develop issues with oxygenation. 2. Pseudohyponatremia secondary to hyperglycemia Patient was significantly elevated glucose. We will have to watch for hypernatremia given volume resuscitation. 3. Metabolic encephalopathy secondary to hyperglycemia Patient appears to be protecting her airway at this time. Patient does have significant metabolic acidosis with insufficient compensation. We will continue to monitor closely. No BiPAP or intubation required at this time. 4. Recurrent admissions/polysubstance abuse/poor insight Complicates care, management, recovery and prognosis. Patient has been doing well recently, but has possible track kyle in the left and acute. Unclear if this is secondary to IV starts in the ER. Code Visit Inpatient E&M: 01467 Init Hosp L3
--- NOTE | 2018-06-20 16:36 | NURSING ---
Patient's clothes, bra, keys & phone present with her and staying in the room.
[2018-06-20 16:49] LABS: Glucose 799 mg/dL (74-106)
[2018-06-20 17:50] LABS: Bacteria 0 SEEN /hpf (None Seen); Mucous, Urine 0 SEEN /hpf (<or=2+); Red Blood Cells-Urine 0 SEEN /hpf (0-5); Squamous Epithelial Cells - UA 0 SEEN /hpf (5-10); White Blood Cells 0 SEEN /hpf (0-5)
[2018-06-20 17:51] LABS: Color, Urine Straw (Yellow); Glucose, Dipstick 1000 mg/dl (Normal); Leukocyte Esterase-Dipstick Negative /ul (Negative); Nitrite-Dipstick Negative (Negative); Occult Blood-Urine Negative /ul (Negative); Protein-Dipstick Negative (Negative); Specific Gravity, Urine 1.015 (1.002-1.030); Urine Bilirubin Dipstick Negative (Negative); Urine Clarity Clear (Clear); Urine Urobilinogen Normal (Normal)
[2018-06-20 17:54] LABS: Ketone-Dipstick 150 mg/dl (Negative)
[2018-06-20 18:12] LABS: Reflex Lactate? Y
[2018-06-20 18:30] LABS: Anion Gap 15 (5-15); BUN 27 mg/dL (7-18); BUN/Creat Ratio 24.8 RATIO (10-20); Calcium,Total 8.1 mg/dL (8.5-10.1); Chloride 113 mmol/L (98-107); Creatinine, Serum 1.09 mg/dL (0.55-1.02); EST Glomerular Filtration Rate 67 mL/min (>60); Est Glom Filt Rate - Afr Amer 81 mL/min (>60); Estimated Creatinine Clearance 60.58 ml/min; Glucose 537 mg/dL (74-106); Potassium 4.4 mmol/L (3.5-5.1); Sodium Level 143 mmol/L (136-145)
[2018-06-20 20:16] LABS: Bedside Glucose 385 mg/dL (70-110)
[2018-06-20 21:29] LABS: Anion Gap 13 (5-15); BUN 23 mg/dL (7-18); Chloride 116 mmol/L (98-107); Creatinine, Serum 0.92 mg/dL (0.55-1.02); EST Glomerular Filtration Rate 82 mL/min (>60); Est Glom Filt Rate - Afr Amer 99 mL/min (>60); Estimated Creatinine Clearance 71.77 ml/min; Glucose 395 mg/dL (74-106); Potassium 4.4 mmol/L (3.5-5.1); Sodium Level 147 mmol/L (136-145)
[2018-06-20 21:41] LABS: Bedside Glucose 312 mg/dL (70-110)
[2018-06-20] MEDS: 0.9% Normal Saline 1,000 ML 125 ML IV (22:09)
[2018-06-20 22:15] LABS: Bedside Glucose 345 mg/dL (70-110)
[2018-06-20 23:21] LABS: Bedside Glucose 318 mg/dL (70-110)
[2018-06-21] VITALS (13 sets, daily range): BP systolic 94–112; BP diastolic 54–73; PULSE 89–105; RESP 9–18; TEMP 36.6; O2SAT 97–100
[2018-06-21 00:16] LABS: Bedside Glucose 273 mg/dL (70-110)
[2018-06-21 00:32] LABS: Anion Gap 7 (5-15); BUN 22 mg/dL (7-18); BUN/Creat Ratio 22.2 RATIO (10-20); Chloride 119 mmol/L (98-107); Creatinine, Serum 0.99 mg/dL (0.55-1.02); EST Glomerular Filtration Rate 75 mL/min (>60); Est Glom Filt Rate - Afr Amer 90 mL/min (>60); Glucose 308 mg/dL (74-106); Potassium 3.9 mmol/L (3.5-5.1); Sodium Level 149 mmol/L (136-145)
[2018-06-21 01:11] LABS: Bedside Glucose 257 mg/dL (70-110)
[2018-06-21 02:16] LABS: Bedside Glucose 194 mg/dL (70-110)
[2018-06-21 04:20] LABS: Absolute Lymphocyte Count 3.97 X10^3/ul (0.83-4.51); Absolute Neutrophil Count 10.6 X10^3/uL (2.0-7.7); Basophil# 0.03 X10^3/uL; Basophil% 0.2 % (0-1); Eosinophil# 0.02 X10^3/uL; Eosinophils% 0.1 % (0-5); Hematocrit 35.6 % (37-47); Hemoglobin 12.1 g/dl (12.0-15.0); Lymphocyte # 3.97 X10^3/ul (4.0); Lymphocyte % 25.5 % (19-41); Mean Corpuscular Hgb 30.7 pg (27.0-32.0); Mean Corpuscular Volume 90.4 fL (81-99); Mean Platelet Vol. 9.3 fl (6.2-12.0); Monocyte# 0.82 X10^3/uL; Monocyte% 5.3 % (0-10); Neutrophil # 10.58 X10^3/uL (2.7-7.7); Platelet Count 272 K/mm3 (150-450); RBC Distribution Width CV 13.5 % (11.6-14.6); RBC Distribution Width SD 44.1 fl (35.1-43.9); Red Blood Count 3.94 M/mm3 (4.2-5.4); White Blood Count 15.6 K/mm3 (4.4-11.0)
[2018-06-21 04:21] LABS: POSITIVE COUNT NO; POSITIVE DIFFERENTIAL NO; POSITIVE MORPHOLOGY NO
[2018-06-21 04:36] LABS: ALB/GLOB Ratio 0.7 RATIO (0.9-2.4); AST(SGOT) 17 U/L (15-37); Alanine Aminotransfer ALT/SGPT 43 U/L (13-56); Albumin, Serum 2.6 g/dL (3.2-5.0); Alkaline Phosphatase 86 U/L (45-117); Anion Gap 10 (5-15); BUN 21 mg/dL (7-18); BUN/Creat Ratio 25.5 RATIO (10-20); Chloride 113 mmol/L (98-107); Creatinine, Serum 0.82 mg/dL (0.55-1.02); EST Glomerular Filtration Rate 93 mL/min (>60); Est Glom Filt Rate - Afr Amer 112 mL/min (>60); Estimated Creatinine Clearance 80.52 ml/min; Globulin 3.9 g/dL (2.2-4.2); Glucose 301 mg/dL (74-106); Potassium 4.3 mmol/L (3.5-5.1); Protein, Total 6.5 g/dL (6.4-8.2); Sodium Level 144 mmol/L (136-145)
--- NOTE | 2018-06-21 06:58 | PN_ITS ---
Subjective: Patient did well overnight. Patient was transitioned to subcutaneous insulin at approximately 4 AM. Patient has no complaints at this time other than thirst. Patient is not reporting any nausea, vomiting, fever or chills. General: Alert, Oriented x3, Cooperative - Reluctantly, No apparent distress, - - Appears older than stated age. HEENT: Atraumatic, PERRLA, EOMI, Normocephalic, - - Poor dentition. Slight scleral injection without icterus Oral: Moist Mucosa, No Gingival or Mucosal Lesions/ Ulcerations Neck: Supple, No JVD, No Nodes, Trachea Midline Lungs: Clear to auscultation, Normal air movement, No rhonchi, No wheeze, No rales Cardiovascular: Regular rate, Regular Rhythm, Normal S1, Normal S2, No murmurs, No rub noted, No Gallop Abdomen: Bowel Sounds Present, Soft, Non Tender, Non-Distended Extremities: No clubbing, No cyanosis, No edema Skin: - - No significant change compared to previous Musculoskeletal: No Tenderness to Palpation of Joints or Extremities Lymphatic: No Cervical, Supraclavicular, or Inguinal Adenopathy Neurological: Cranial nerves II-XII grossly intact, Neuro grossly intact, Motor Exam 5/5 strength throughout Psych/Mental Status: Flat Affect Vital Signs Temp Pulse Resp BP Pulse Ox 36.6 C 89 9 L 102/72 100 06/21/18 04:00 06/21/18 06:00 06/21/18 06:00 06/21/18 06:00 06/21/18 06:00 Oxygen Delivery Method Room Air Weight: 47.5 kg Body Mass Index (BMI) 18.3 Finger Stick Blood Glucose 194 Intake and Output for Last 24 Hours 06/19/18 06/20/18 06/21/18 23:59 23:59 23:59 Intake Total 3078 / 3078 2293.6 / 2293.6 Output Total 1100 / 1100 1600 / 1600 Balance 1977 / 1977 693.6 / 693.6 Labs (Last 48 Hours) 06/20/18 06/20/18 06/20/18 13:37 14:00 14:00 WBC 18.7 H RBC 5.02 Hgb 15.8 H Hct 45.2 MCV 90.0 MCH 31.5 MCHC 35.0 RDW 13.2 RDW Differential 43.1 Plt Count 284 MPV 10.4 Immature Gran % (Auto) 1.600 H Neut % (Auto) 86.8 H Lymph % (Auto) 9.0 L [place] % (Auto) 2.1 Eos % (Auto) 0.1 Baso % (Auto) 0.4 Absolute Neuts (auto) 16.2 H Absolute Lymphs (auto) 1.68 Total Counted Not Reportable Specimen Type Sample Site VBG pH VBG pO2 VBG O2 Sat (Calc) VBG O2 Content VBG Base Excess POC Mix VBG pCO2 Pt Tmp O2 Delivery Device Blood Gas Notified Whom Blood Gas Notified Time Sodium Potassium Chloride Carbon Dioxide Anion Gap BUN Creatinine Estim Creat Clear Calc Est GFR (MDRD) Af Amer Est GFR (MDRD) Non-Af BUN/Creatinine Ratio Glucose Hemoglobin A1c Lactic Acid Calcium Total Bilirubin AST ALT Alkaline Phosphatase Total Protein Albumin Globulin Albumin/Globulin Ratio Urine Color Urine Clarity Urine pH Ur Specific [place] Urine Protein Urine Glucose (UA) Urine Ketones Urine Occult Blood Urine Nitrite Urine Bilirubin Urine Urobilinogen Ur Leukocyte Esterase Urine RBC Urine WBC Ur Squamous Epith Cells Urine Bacteria Urine Mucus Acetone Level LARGE H POC Glucose > 500 H* 06/20/18 06/20/18 06/20/18 14:00 14:00 14:00 WBC RBC Hgb Hct MCV MCH MCHC RDW RDW Differential Plt Count MPV Immature Gran % (Auto) Neut % (Auto) Lymph % (Auto) [place] % (Auto) Eos % (Auto) Baso % (Auto) Absolute Neuts (auto) Absolute Lymphs (auto) Total Counted Specimen Type Sample Site VBG pH VBG pO2 VBG O2 Sat (Calc) VBG O2 Content VBG Base Excess POC Mix VBG pCO2 Pt Tmp O2 Delivery Device Blood Gas Notified Whom Blood Gas Notified Time Sodium 128 L Potassium 5.0 Chloride 88 L Carbon Dioxide 13.0 L Anion Gap 27 H BUN 33 H Creatinine 1.30 H Estim Creat Clear Calc 52.09 Est GFR (MDRD) Af Amer 66 Est GFR (MDRD) Non-Af 55 L BUN/Creatinine Ratio 25.4 H Glucose 1032 H* Hemoglobin A1c 13.0 H Lactic Acid 2.8 H Calcium 10.2 H Total Bilirubin AST ALT Alkaline Phosphatase Total Protein Albumin Globulin Albumin/Globulin Ratio Urine Color Urine Clarity Urine pH Ur Specific [place] Urine Protein Urine Glucose (UA) Urine Ketones Urine Occult Blood Urine Nitrite Urine Bilirubin Urine Urobilinogen Ur Leukocyte Esterase Urine RBC Urine WBC Ur Squamous Epith Cells Urine Bacteria Urine Mucus Acetone Level POC Glucose 06/20/18 06/20/18 06/20/18 14:16 14:35 16:20 WBC RBC Hgb Hct MCV MCH MCHC RDW RDW Differential Plt Count MPV Immature Gran % (Auto) Neut % (Auto) Lymph % (Auto) [place] % (Auto) Eos % (Auto) Baso % (Auto) Absolute Neuts (auto) Absolute Lymphs (auto) Total Counted Specimen Type LAUREN Sample Site OTHER VBG pH 7.22 L VBG pO2 64 H VBG O2 Sat (Calc) 88 H VBG O2 Content 13 L VBG Base Excess -16 L POC Mix VBG pCO2 Pt Tmp 30.3 L O2 Delivery Device Room Air Blood Gas Notified Whom ED Blood Gas Notified Time 1415 Sodium Potassium Chloride Carbon Dioxide Anion Gap BUN Creatinine Estim Creat Clear Calc Est GFR (MDRD) Af Amer Est GFR (MDRD) Non-Af BUN/Creatinine Ratio Glucose 799 H* Hemoglobin A1c Lactic Acid Calcium Total Bilirubin AST ALT Alkaline Phosphatase Total Protein Albumin Globulin Albumin/Globulin Ratio Urine Color Urine Clarity Urine pH Ur Specific [place] Urine Protein Urine Glucose (UA) Urine Ketones Urine Occult Blood Urine Nitrite Urine Bilirubin Urine Urobilinogen Ur Leukocyte Esterase Urine RBC Urine WBC Ur Squamous Epith Cells Urine Bacteria Urine Mucus Acetone Level POC Glucose > 500 H* 06/20/18 06/20/18 06/20/18 17:35 17:50 17:50 WBC RBC Hgb Hct MCV MCH MCHC RDW RDW Differential Plt Count MPV Immature Gran % (Auto) Neut % (Auto) Lymph % (Auto) [place] % (Auto) Eos % (Auto) Baso % (Auto) Absolute Neuts (auto) Absolute Lymphs (auto) Total Counted Specimen Type Sample Site VBG pH VBG pO2 VBG O2 Sat (Calc) VBG O2 Content VBG Base Excess POC Mix VBG pCO2 Pt Tmp O2 Delivery Device Blood Gas Notified Whom Blood Gas Notified Time Sodium 143 Potassium 4.4 Chloride 113 H Carbon Dioxide 15.0 L Anion Gap 15 BUN 27 H Creatinine 1.09 H Estim Creat Clear Calc 60.58 Est GFR (MDRD) Af Amer 81 Est GFR (MDRD) Non-Af 67 BUN/Creatinine Ratio 24.8 H Glucose 537 H* Hemoglobin A1c Lactic Acid 2.0 Calcium 8.1 L Total Bilirubin AST ALT Alkaline Phosphatase Total Protein Albumin Globulin Albumin/Globulin Ratio Urine Color Straw Urine Clarity Clear Urine pH 5.0 Ur Specific [place] 1.015 Urine Protein Negative Urine Glucose (UA) 1000 H Urine Ketones 150 H Urine Occult Blood Negative Urine Nitrite Negative Urine Bilirubin Negative Urine Urobilinogen Normal Ur Leukocyte Esterase Negative Urine RBC 0 SEEN Urine WBC 0 SEEN Ur Squamous Epith Cells 0 SEEN Urine Bacteria 0 SEEN Urine Mucus 0 SEEN Acetone Level POC Glucose 06/20/18 06/20/18 06/20/18 20:04 21:05 21:05 WBC RBC Hgb Hct MCV MCH MCHC RDW RDW Differential Plt Count MPV Immature Gran % (Auto) Neut % (Auto) Lymph % (Auto) [place] % (Auto) Eos % (Auto) Baso % (Auto) Absolute Neuts (auto) Absolute Lymphs (auto) Total Counted Specimen Type Sample Site VBG pH VBG pO2 VBG O2 Sat (Calc) VBG O2 Content VBG Base Excess POC Mix VBG pCO2 Pt Tmp O2 Delivery Device Blood Gas Notified Whom Blood Gas Notified Time Sodium 147 H Potassium 4.4 Chloride 116 H Carbon Dioxide 18.0 L Anion Gap 13 BUN 23 H Creatinine 0.92 Estim Creat Clear Calc 71.77 Est GFR (MDRD) Af Amer 99 Est GFR (MDRD) Non-Af 82 BUN/Creatinine Ratio 25.0 H Glucose 395 H Hemoglobin A1c Lactic Acid Calcium 8.0 L Total Bilirubin AST ALT Alkaline Phosphatase Total Protein Albumin Globulin Albumin/Globulin Ratio Urine Color Urine Clarity Urine pH Ur Specific [place] Urine Protein Urine Glucose (UA) Urine Ketones Urine Occult Blood Urine Nitrite Urine Bilirubin Urine Urobilinogen Ur Leukocyte Esterase Urine RBC Urine WBC Ur Squamous Epith Cells Urine Bacteria Urine Mucus Acetone Level POC Glucose 385 H 312 H 06/20/18 06/20/18 06/21/18 22:06 23:13 00:03 WBC RBC Hgb Hct MCV MCH MCHC RDW RDW Differential Plt Count MPV Immature Gran % (Auto) Neut % (Auto) Lymph % (Auto) [place] % (Auto) Eos % (Auto) Baso % (Auto) Absolute Neuts (auto) Absolute Lymphs (auto) Total Counted Specimen Type Sample Site VBG pH VBG pO2 VBG O2 Sat (Calc) VBG O2 Content VBG Base Excess POC Mix VBG pCO2 Pt Tmp O2 Delivery Device Blood Gas Notified Whom Blood Gas Notified Time Sodium 149 H Potassium 3.9 Chloride 119 H Carbon Dioxide 23.0 Anion Gap 7 BUN 22 H Creatinine 0.99 Estim Creat Clear Calc 66.70 Est GFR (MDRD) Af Amer 90 Est GFR (MDRD) Non-Af 75 BUN/Creatinine Ratio 22.2 H Glucose 308 H Hemoglobin A1c Lactic Acid Calcium 8.0 L Total Bilirubin AST ALT Alkaline Phosphatase Total Protein Albumin Globulin Albumin/Globulin Ratio Urine Color Urine Clarity Urine pH Ur Specific [place] Urine Protein Urine Glucose (UA) Urine Ketones Urine Occult Blood Urine Nitrite Urine Bilirubin Urine Urobilinogen Ur Leukocyte Esterase Urine RBC Urine WBC Ur Squamous Epith Cells Urine Bacteria Urine Mucus Acetone Level POC Glucose 345 H 318 H 06/21/18 06/21/18 06/21/18 00:05 01:06 02:07 WBC RBC Hgb Hct MCV MCH MCHC RDW RDW Differential Plt Count MPV Immature Gran % (Auto) Neut % (Auto) Lymph % (Auto) [place] % (Auto) Eos % (Auto) Baso % (Auto) Absolute Neuts (auto) Absolute Lymphs (auto) Total Counted Specimen Type Sample Site VBG pH VBG pO2 VBG O2 Sat (Calc) VBG O2 Content VBG Base Excess POC Mix VBG pCO2 Pt Tmp O2 Delivery Device Blood Gas Notified Whom Blood Gas Notified Time Sodium Potassium Chloride Carbon Dioxide Anion Gap BUN Creatinine Estim Creat Clear Calc Est GFR (MDRD) Af Amer Est GFR (MDRD) Non-Af BUN/Creatinine Ratio Glucose Hemoglobin A1c Lactic Acid Calcium Total Bilirubin AST ALT Alkaline Phosphatase Total Protein Albumin Globulin Albumin/Globulin Ratio Urine Color Urine Clarity Urine pH Ur Specific [place] Urine Protein Urine Glucose (UA) Urine Ketones Urine Occult Blood Urine Nitrite Urine Bilirubin Urine Urobilinogen Ur Leukocyte Esterase Urine RBC Urine WBC Ur Squamous Epith Cells Urine Bacteria Urine Mucus Acetone Level POC Glucose 273 H 257 H 194 H 06/21/18 06/21/18 04:05 04:05 WBC 15.6 H RBC 3.94 L Hgb 12.1 Hct 35.6 L MCV 90.4 MCH 30.7 MCHC 34.0 RDW 13.5 RDW Differential 44.1 H Plt Count 272 MPV 9.3 Immature Gran % (Auto) 0.900 Neut % (Auto) 68.0 Lymph % (Auto) 25.5 [place] % (Auto) 5.3 Eos % (Auto) 0.1 Baso % (Auto) 0.2 Absolute Neuts (auto) 10.6 H Absolute Lymphs (auto) 3.97 Total Counted Not Reportable Specimen Type Sample Site VBG pH VBG pO2 VBG O2 Sat (Calc) VBG O2 Content VBG Base Excess POC Mix VBG pCO2 Pt Tmp O2 Delivery Device Blood Gas Notified Whom Blood Gas Notified Time Sodium 144 Potassium 4.3 Chloride 113 H Carbon Dioxide 21.0 Anion Gap 10 BUN 21 H Creatinine 0.82 Estim Creat Clear Calc 80.52 Est GFR (MDRD) Af Amer 112 Est GFR (MDRD) Non-Af 93 BUN/Creatinine Ratio 25.5 H Glucose 301 H Hemoglobin A1c Lactic Acid Calcium 8.0 L Total Bilirubin 0.50 AST 17 ALT 43 Alkaline Phosphatase 86 Total Protein 6.5 Albumin 2.6 L Globulin 3.9 Albumin/Globulin Ratio 0.7 L Urine Color Urine Clarity Urine pH Ur Specific [place] Urine Protein Urine Glucose (UA) Urine Ketones Urine Occult Blood Urine Nitrite Urine Bilirubin Urine Urobilinogen Ur Leukocyte Esterase Urine RBC Urine WBC Ur Squamous Epith Cells Urine Bacteria Urine Mucus Acetone Level POC Glucose Clinical Impression(s) from Imaging Studies Chest X-Ray 06/20/18 13:57 IMPRESSION: Normal x-ray examination of the chest. Electronically Signed: Douglas Bella, at 14:28 EDT Tel , Service support , Medical Necessity - Tobacco Use Smoking Status: Current every day smoker Assessment/Plan All Active Problems (Last Reviewed 05/04/18 @ 06:37 by Manjit Gamble MD) DKA (diabetic ketoacidoses) (Acute) Hyponatremia (Acute) RECOMMENDATIONS: 1. Await tolerance of p.o. diet 2. Continue sliding scale insulin with Lantus 3. Okay to discharge from my perspective IMPRESSIONS: 1. DKA secondary to noncompliance Patient appears to have responded to therapy appropriately. No signs or symptoms of secondary cause such as infection at this time. Patient can have breakfast and if tolerates can be discharged from my perspective. Did attempt to identify barriers to therapy, but patient is reluctant to speak at length about the subject. 2. Pseudohyponatremia secondary to hyperglycemia Resolved. Blood sugars are slightly elevated, but acceptable. Electrolytes are within normal limits. 3. Metabolic encephalopathy secondary to hyperglycemia Resolved. Patient appears to be at her baseline. 4. Recurrent admissions/polysubstance abuse/poor insight Complicates care, management, recovery and prognosis. Patient has been doing well recently, but has possible track kyle in the left and acute. Unclear if this is secondary to IV starts in the ER. Code Visit Inpatient E&M: 14273 Subs Hosp L2
[2018-06-21] MEDS: Insulin Lispro 100 UNIT/ML INSULN.PEN 7 UNIT SC (08:30)
[2018-06-21] MEDS: Insulin Lispro 100 UNIT/ML INSULN.PEN SC (08:30)
[2018-06-21 08:36] LABS: Bedside Glucose 434 mg/dL (70-110)
--- NOTE | 2018-06-21 08:38 | DCINST_ITS ---
You will use the following diet at home:: Calorie/Carbohydrate Controlled (specify 1200, 1400, etc) - 2200 Your food should be the consistency of: Regular Your liquids should be the consistency of: Regular/Thin Discharge Activity: Return to Normal Activity Weight Bearing Status: Full weight bearing Allergies/Adverse Reactions: Allergies No Known Allergies Allergy (Verified 06/20/18 13:24) Medications to take at Discharge Insulin Aspart [Novolog Flexpen] 18 units SQ TIDCM 06/20/18 Insulin Glargine,Hum.rec.anlog [Basaglar Kwikpen U-100] 50 unit SQ QHS 06/20/18 Primary Care Physician: Annalise Rai MD [Primary Care Provider] - Please follow up with your Primary Care Physician in: this week Test Results: Test results from this visit will be discussed in further detail at your follow- up appointment, if applicable.
[2018-06-21] MEDS: Insulin Lispro 100 UNIT/ML INSULN.PEN 6 UNIT SC (09:31)
--- NOTE | 2018-06-21 10:05 | CASEMGMT ---
SW attempted to talk with patient. She was sleeping. SW said her name numerous times and she did not respond. Per physician note patient is now living with a roommate. Medina BOOTH MSW
--- NOTE | 2018-06-21 10:31 | CASEMGMT ---
RN CM Note: Per nursing, pt does not have ride home. [facility] transportation can take pt home @ 2:30 today or taxi voucher can be used per director community center for earlier discharge. Pt states she lives @ [address] [facility] [address] [address]. -Registration updated on pt's new address. Pt's listed address was in [place], [place], pt states she is not living there anymore. -Per Sam, director community center- recommending call taxi and have voucher for billing to [facility] is ok'd. Call to [facility] @ [phone] and they will meet pt @ main entrance with voucher to be signed for billing to [facility] ICU. Breana, nurse updated that taxi will arrive in few minutes to main entrance. Pt is dressing and will be ready for dc. -discussed dc needs re: insulin with Dr. Hearn. [facility]ist verified pt has 5 refills on her insulins, but not on her needles. Physician gave verbal prescription for needles. -No other dc needs identified. Rich TONEYN RN ACM
--- NOTE | 2018-06-22 19:19 | PCM.DC.SUM ---
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 Pt is now in a home and is no longer homeless. Is taking insulin consistently and her BG are mostly 100-200s. Will recheck lipids to determine if improved with consistent diet and insulin. Diabetes type 1, uncontrolled (Chronic) Hepatitis C (Chronic) Norplant in place (Chronic) Polysubstance abuse (Chronic) binge EtOH,meth, hx of heroin/IVDA, tobacco Hospital Course and Treatment Operations: None Procedures: None Summary of Care Provided: The patient is a 22 year old F who was seen in the emergency room at [facility] after being brought in by squad due to lethargy and high blood sugar. Patient told the ER physician here that she ran out of insulin-in truth, patient had refills on her insulin but she did not get her long-acting insulin filled. Patient has had a past history of polysubstance abuse, it may be that this is a recurrent problem with the patient. Labs were obtained and were abnormal-glucose was 1032, lactic acid was 2.8, white blood cell count was 18.7, patient's chest x-ray was unremarkable, patient's urinalysis was unremarkable. Creatinine was elevated at 1.3. Patient had a central line inserted in the emergency room, she was given IV fluids and IV insulin, she was admitted to the ICU for further care. Patient was seen in consultation by critical care there, her labs improved rapidly with fluid infusion and insulin. On 06/21/2018, patient was seen and examined: On examination she appeared in good health and spirits. Vital signs as documented. Skin warm and dry and without overt rashes. Neck without JVD. Lungs clear. Heart exam notable for regular rhythm, normal sounds and absence of murmurs, rubs or gallops. Abdomen unremarkable and without evidence of organomegaly, masses, or abdominal aortic enlargement. Extremities nonedematous. Neuro: Cranial nerves II through XII are grossly intact, no focal motor deficits were noted, sensation to light touch and pinprick is intact. Psych: Patient is alert and oriented x3, she does not appear anxious or depressed I called the patient's pharmacy to verify that the patient had refills on both her basal insulin and regular insulin, she did not have a prescription for needles which I called in. Patient was discharged on 06/21/2018 in stable condition, prognosis was guarded however due the patient's noncompliance with her medical treatment. - Physical Exam Vital Signs Temp Pulse Resp BP Pulse Ox 98 F 102 H 15 108/64 100 06/21/18 04:00 06/21/18 10:00 06/21/18 10:00 06/21/18 10:00 06/21/18 10:00 Oxygen Delivery Method Room Air Weight: 47.5 kg Body Mass Index (BMI) 18.3 Finger Stick Blood Glucose 194 Intake and Output for Last 24 Hours 06/20/18 06/21/18 06/22/18 23:59 23:59 23:59 Intake Total 3078 / 3078 2293.6 / 2293.6 Output Total 1100 / 1100 1600 / 1600 Balance 1977 / 1977 693.6 / 693.6 Discharge Activity: Return to Normal Activity Weight Bearing Status: Full weight bearing Home Medications: Medications to take at Discharge Insulin Aspart [Novolog Flexpen] 18 units SQ TIDCM 06/20/18 Insulin Glargine,Hum.rec.anlog [Basaglar Kwikpen U-100] 50 unit SQ QHS 06/20/18 Primary Care Physician: Annalise Rai MD [Primary Care Provider] - Please follow up with your Primary Care Physician in: this week Disposition: Home Minutes spent on discharge:: 32 Patient Condition:: Stable Medical Necessity - Tobacco Use Smoking Status: Current every day smoker Meaningful Use Info Meaningful Use Diagnoses (Choose all that apply): None applicable Code Visit Inpatient E&M: 90037 Disch Hosp
== END 2018-06-21 11:00 | disposition home or self-care (01) | DRG 420 ==
LOC: ED 15:06 → ICU 15:38
PROVIDERS: Internal Medicine Critical Care Medicine; Admitting Provider Hospitalist; Emergency Provider Emergency Medicine; Family Provider Internal Medicine; PCP Internal Medicine; Referring Provider Hospitalist; Visit Provider Internal Medicine
DX: E10.10 Type 1 diabetes mellitus with ketoacidosis without coma (principal); N17.9 Acute kidney failure, unspecified; F19.10 Other psychoactive substance abuse, uncomplicated; F17.200 Nicotine dependence, unspecified, uncomplicated; Z79.4 Long term (current) use of insulin; Z68.1 Body mass index [BMI] 19.9 or less, adult; Z91.19 Patient's noncompliance with other medical treatment and regimen
CPT/HCPCS: 36556; 71045; 80048; 80053; 81001; 82009; 82803; 82947; 82962; 83036; 83605; 85025; 93005; 97802; 99285; J7030; A4216; C1751